=== PATIENT | female | born 1930 | race Caucasian/White ===

== ENCOUNTER 2016-12-08 13:07 | Inpatient (IN) | payer MEDICARE, OTHER ==
[2016-12-08] VITALS (8 sets, daily range): BP systolic 123–187; BP diastolic 57–74; PULSE 86–103; RESP 16–20; TEMP 96.5–97.8; O2SAT 92–97
[~2016-12-08] VITALS: Ht 177.8 cm; Wt 64.0 kg
[~2016-12-08 13:07] MED LIST: CALTTAB5 PO; COMBAER INH; DIGO.125 PO; FOLI1TAB PO; KCL20 PO; MEPR400T4 PO; OMEP20CA5 PO; RALO1TAB13 PO; SIMV20 PO; VERA240CR PO
--- NOTE | 2016-12-08 13:43 | PD ---
HPI Chief Complaint: back pain Time Seen by Provider: 13:17 Travel History International Travel<30 days: No Contact w/Intl Traveler<30days: No Traveled to known affect area: No History of Present Illness HPI Patient is brought in by paramedics. She has mild dementia and lives alone. Apparently her family is in [place]. She had a fall a few days ago and developed back pain. For the last few days she's been lying in bed. Symptoms severity is moderate. No alleviating factors. Patient upfront and adamantly refuses all consideration of placement. She does not want to lose her independence and will refuse any attempt at placement. Duration is 3 days PFSH Past Medical History Arthritis: Yes (KNEES) Asthma: No Atrial Fibrillation: Yes Autoimmune Disease: No Blood Disorders: Yes (CHRONIC ANEMIA) Anxiety: No Depression: No Heart Rhythm Problems: Yes (ATRIAL FIBRILLATION) Cancer: No Cardiovascular Problems: Yes High Cholesterol: Yes Chemotherapy: No Chest Pain: No Congestive Heart Failure: No COPD: No Diabetes: No Diminished Hearing: No Endocrine: No Gastrointestinal Disorders: Yes Glaucoma: No Genitourinary: No Headaches: No Hepatitis: No Hiatal Hernia: No Hypertension: Yes Immune Disorder: No Musculoskeletal: Yes Neurologic: No Psychiatric: No Reproductive: No Respiratory: Yes (HAD FLUID REMOVED FROM LUNGS MULTIPLE TIMES) Migraines: No Myocardial Infarction: No Radiation Therapy: No Renal Failure: No Seizures: No Sickle Cell Disease: No Sleep Apnea: No Thyroid Disease: No Ulcer: Yes (DUODENAL) Menopausal: Yes Past Surgical History Abdominal Surgery: No Appendectomy: Yes Cardiac Surgery: No Cholecystectomy: No Genitourinary Surgery: No Gynecologic Surgery: Yes (OVARY REMOVED 1951) Neurologic Surgery: Yes (BACK SURGERY) Oral Surgery: Yes Pacemaker: No Thoracic Surgery: No Tonsillectomy: Yes (1967) Other Surgery: Yes Social History Alcohol Use: Yes (OCCASIONAL WINE) Tobacco Use: No (QUIT 5 YEARS AGO) Substance Use: No Allergies-Medications (Allergen,Severity, Reaction): Coded Allergies: No Known Allergies (Verified , 12/08/16) Reported Meds & Prescriptions Reported Meds & Active Scripts Active Reported Evista (Raloxifene HCl) 60 Mg Tab 60 Mg PO DAILY Alprazolam 0.25 Mg Tab 0.25 Mg PO BID PRN Lortab (Hydrocodone-Acetaminophen) 5-325 Mg Tab 1 Tab PO Q6H PRN Verapamil SR (Verapamil HCl) 240 Mg Tab 240 Mg PO DAILY Simvastatin 20 Mg Tab 20 Mg PO DAILY Folic Acid 5 Mg Cap 1 Mg PO DAILY Omeprazole 10 Mg Cap 10 Mg PO DAILY Combivent Respimat Inh (Ipratropium-Albuterol Inh) 20-100 Assisted/Act Aero 2 Puff INH DIRECTED PRN Digoxin 0.125 Mg Tab 0.125 Mg PO EVERY OTHER DAY Calcium 600 (Calcium Carbonate) 1,500 Mg Tab 600 Mg PO DAILY Review of Systems General / Constitutional: No: Fever Eyes: No: Visual changes HENT: No: Headaches Cardiovascular: No: Chest Pain or Discomfort Respiratory: No: Shortness of Breath Gastrointestinal: No: Abdominal Pain Genitourinary: No: Dysuria Musculoskeletal: Positive: Pain Skin: No Rash Neurologic: No: Weakness Psychiatric: No: Depression Endocrine: No: Polydipsia Hematologic/Lymphatic: No: Easy Bruising Physical Exam Narrative GENERAL: Thin elderly well-developed patient in no apparent distress. SKIN: Warm and dry. HEAD: Atraumatic. Normocephalic. EYES: Pupils equal and round. No scleral icterus. No injection or drainage. ENT: No nasal bleeding or discharge. Mucous membranes pink and moist. NECK: Trachea midline. No JVD. CARDIOVASCULAR: Regular rate and rhythm. No murmur appreciated. RESPIRATORY: No accessory muscle use. Clear to auscultation. Breath sounds equal bilaterally. GASTROINTESTINAL: Abdomen soft, non-tender, nondistended. Hepatic and splenic margins not palpable. MUSCULOSKELETAL: No obvious deformities. No clubbing. No cyanosis. No edema. Has some bruising to the buttocks that looks old. No midline tenderness of the spine NEUROLOGICAL: Awake and alert. No obvious cranial nerve deficits. Motor grossly within normal limits. Normal speech. PSYCHIATRIC: Appropriate mood and affect; insight and judgment doesn't seem unreasonable. She may have minor dementia but is alert to person and place and situation. Data Data Last Documented VS Vital Signs Date Time Temp Pulse Resp B/P Pulse Ox O2 Delivery O2 Flow Rate FiO2 12/08/16 15:30 90 16 155/60 97 Room Air 12/08/16 13:20 97.5 Orders Pelvis, Ap Only (Routine) (12/08/16 ) Spine, Lumbar - Ltd (Ap & Lat) (12/08/16 ) Iv Access Insert/Monitor (12/08/16 13:30) Complete Blood Count With Diff (12/08/16 13:30) Basic Metabolic Panel (Bmp) (12/08/16 13:30) Creatine Kinase (Cpk) (12/08/16 13:30) Urinalysis - C+S If Indicated (12/08/16 13:30) Protein Corrected Calcium(Pcc) (12/08/16 14:05) Sodium Chlor 0.9% 1000 Ml Inj (Ns 1000 M (12/08/16 15:45) Morphine Inj (Morphine Inj) (12/08/16 15:45) Ondansetron Inj (Zofran Inj) (12/08/16 15:45) Ct Lumb Spine W/O Contrast (12/08/16 ) Admit Order (Ed Use Only) (12/08/16 15:51) Labs Laboratory Tests Test 12/08/16 12/08/16 14:05 14:40 White Blood Count 8.4 TH/MM3 Red Blood Count 3.36 MIL/MM3 Hemoglobin 10.6 GM/DL Hematocrit 32.3 % Mean Corpuscular Volume 96.1 FL Mean Corpuscular Hemoglobin 31.6 PG Mean Corpuscular Hemoglobin 32.9 % Concent Red Cell Distribution Width 12.2 % Platelet Count 214 TH/MM3 Mean Platelet Volume 11.3 FL Neutrophils (%) (Auto) 83.0 % Lymphocytes (%) (Auto) 8.2 % Monocytes (%) (Auto) 5.1 % Eosinophils (%) (Auto) 0.7 % Basophils (%) (Auto) 3.0 % Neutrophils # (Auto) 6.9 TH/MM3 Lymphocytes # (Auto) 0.7 TH/MM3 Monocytes # (Auto) 0.4 TH/MM3 Eosinophils # (Auto) 0.1 TH/MM3 Basophils # (Auto) 0.3 TH/MM3 CBC Comment DIFF FINAL Differential Comment Sodium Level 140 MEQ/L Potassium Level 3.4 MEQ/L Chloride Level 105 MEQ/L Carbon Dioxide Level 24.0 MEQ/L Anion Gap 11 MEQ/L Blood Urea Nitrogen 22 MG/DL Creatinine 0.57 MG/DL Estimat Glomerular Filtration 101 ML/MIN Rate Random Glucose 65 MG/DL Calcium Level 6.6 MG/DL Protein Corrected Calcium 7.3 MG/DL Total Creatine Kinase 51 U/L Total Protein 5.6 GM/DL Urine Collection Type CLEAN CATCH Urine Color YELLOW Urine Turbidity CLEAR Urine pH 5.5 Urine Specific [place] 1.030 Urine Protein 30 mg/dL Urine Glucose (UA) NEG mg/dL Urine Ketones 80 OR GREATER mg/dL Urine Occult Blood NEG Urine Nitrite NEG Urine Bilirubin NEG Urine Leukocyte Esterase NEG Urine WBC 3-5 /hpf Urine Squamous Epithelial 0-5 /hpf Cells Microscopic Urinalysis Comment CULT NOT INDICATED Urine Collection Time 14:40 [facility] Medical Decision Making Medical Screen Exam Complete: Yes Emergency Medical Condition: Yes Medical Record Reviewed: Yes Differential Diagnosis Pelvic fracture, lumbar fracture, failure to thrive Narrative Course I have reviewed the patient's electronic medical record. 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 IV placed CBC shows minor anemia Metabolic profile shows minor azotemia CK is normal Urinalysis shows ketones but no infection I reviewed her pelvis x-ray shows no fracture I reviewed her lumbar spine x-rays which shows indeterminate age compression fracture of L1 and T12 Patient is tender in the midline and this pain is new since the fall suggesting an acute compression fracture as the cause She has other bruises around the buttock's and sacrum but no tenderness in these regions I gave her some IV fluid and a dose of morphine but she still cannot ambulate or get up due to pain in the back This patient will require rehabilitation placement I reviewed with hospitalist Diagnosis Primary Impression: Compression fracture of body of thoracic vertebra Additional Impression: Unable to ambulate Admitting Information Admitting Physician Requests: Observation Mack Weems MD Dec 08, 2016 13:43
[2016-12-08 14:17] LABS: AUTOMATED NEUTROPHIL # 6.9 TH/MM3 (1.8-7.7); BASOPHIL # 0.3 TH/MM3 (0-0.2); EOSINOPHIL # 0.1 TH/MM3 (0-0.4); EOSINOPHIL % 0.7 % (0.0-4.0); HEMATOCRIT 32.3 % (35.0-46.0); LYMPH % 8.2 % (9.0-44.0); LYMPHOCYTE # 0.7 TH/MM3 (1.0-4.8); MEAN CELL VOLUME 96.1 FL (80.0-100.0); MEAN CORPUSCULAR HEMOGLOBIN 31.6 PG (27.0-34.0); MEAN CORPUSCULAR HGB CONC 32.9 % (32.0-36.0); MONO % 5.1 % (0.0-8.0); PLATELET COUNT 214 TH/MM3 (150-450); RED BLOOD COUNT 3.36 MIL/MM3 (4.00-5.30); RED CELL DISTRIBUTION WIDTH 12.2 % (11.6-17.2); WHITE BLOOD COUNT 8.4 TH/MM3 (4.0-11.0)
[2016-12-08 14:19] LABS: HEMO FLAGS DIFF FINAL
[2016-12-08 14:26] LABS: POTASSIUM 3.4 MEQ/L (3.5-5.1)
--- NOTE | 2016-12-08 14:38 | RADHPO ---
EXAM DATE/TIME: 12/08/2016 14:09 [facility] COMPARISON: No previous studies available for comparison. INDICATIONS : Pelvic pain with no known injury MEDICAL HISTORY : None. SURGICAL HISTORY : None. ENCOUNTER: Initial ACUITY: 2 days PAIN SCORE: 4/10 LOCATION: Bilateral hips FINDINGS: 2 AP views of the pelvis demonstrate no fracture or dislocation. The bones are undermineralized. No s ignificant degenerative changes present at the hip joints. Sacrum demonstrates no appreciable abnorma lity. No soft tissue abnormality or radiopaque foreign body is seen. There are degenerative changes i n the inferior lumbar spine. CONCLUSION: No acute pelvis abnormality is identified. The bones are undermineralized. Dalton Raman MD on December 08, 2016 at 14:35 Board Certified Radiologist. This report was verified electronically.
[2016-12-08 14:52] LABS: BLOOD, URINE NEG (NEG); GLUCOSE,URINE NEG (NEG); NITRITE,URINE NEG (NEG)
[2016-12-08 14:54] LABS: KETONE, URINE 80 OR GREATER mg/dL (NEG); METHOD OF COLLECTION CLEAN CATCH; URINE COLOR YELLOW (YELLW/STRAW)
[2016-12-08 14:55] LABS: PH, URINE 5.5 (5.0-8.5)
[2016-12-08 14:57] LABS: COMMENT (UR) CULT NOT INDICATED; CULTURE IF INDICATED CULT NOT INDICATED; SQUAMOUS EPITHELIAL CELL URINE 0-5 /hpf (0-5)
--- NOTE | 2016-12-08 14:59 | RADHPO ---
EXAM DATE/TIME: 12/08/2016 14:19 [facility] COMPARISON: No previous studies available for comparison. INDICATIONS : Low back pain with no known injury MEDICAL HISTORY : None. SURGICAL HISTORY : None. ENCOUNTER: Initial ACUITY: 2 days PAIN SCORE: 5/10 LOCATION: Lumbar spine FINDINGS: 3 views of the lumbar spine demonstrate 5 [id number] lumbar vertebral bodies. There is height lo ss at the T12 vertebral body with approximately 50% height loss. There is also height loss and superi or endplate of L1 with approximately 30% height loss. No anterolisthesis or retrolisthesis is present . There are endplate osteophytes anteriorly at all levels. The bones appear undermineralized. Mild de creased disc height is present L5-S1. There is facet hypertrophy at L4-L5. Pelvic bones and soft tissues demonstrate no acute finding. There is atherosclerotic disease of the a juarez. CONCLUSION: 1. Undermineralized bones with compression fractures of uncertain chronicity involving the T12 verteb ral body and superior endplate of L1. 2. Otherwise, there are degenerative changes within the lumbar spine, as above. Dalton Raman MD on December 08, 2016 at 14:55 Board Certified Radiologist. This report was verified electronically.
[2016-12-08] MEDS ORDERED: DIGO0.12 PO (15:06)
[2016-12-08] MEDS ORDERED: SIMV20TA PO (15:06)
[2016-12-08] MEDS ORDERED: VERA120T3 PO (15:06)
[2016-12-08] MEDS ORDERED: IPRAAER INH (15:06)
[2016-12-08] MEDS ORDERED: OMEP10CA PO (15:06)
[2016-12-08] MEDS ORDERED: CALCTAB94 PO (15:06)
[2016-12-08] MEDS ORDERED: FOLI5CAP PO (15:06)
[2016-12-08] MEDS ORDERED: VERA240T16 PO (15:07)
[2016-12-08] MEDS ORDERED: ALPR0.25 PO (15:09)
[2016-12-08] MEDS ORDERED: HYDR-3533 PO (15:09)
[2016-12-08] MEDS ORDERED: EVIS60TA PO (15:10)
[2016-12-08 15:23] LABS: CALCIUM-PROTEIN CORRECTED 7.3 MG/DL (8.5-10.1)
[2016-12-08] MEDS ORDERED: ONDANSETRON HCL 4 MG/2 ML VIAL IVP ONE (15:45)
[2016-12-08] MEDS ORDERED: MORPHINE SULFATE 4 MG/ML INJ IV PUSH ONE (15:45)
[2016-12-08] MEDS ORDERED: SODIUM CHLOR 0.9% 1000 ML INJ 1,000 ML IV ONE (15:45)
--- NOTE | 2016-12-08 16:25 | HHI.HP ---
HPI Service [facility] Primary Care Physician Florin Hidalgo MD Admission Diagnosis T12, L1 compression fracture Diagnoses: Travel History International Travel<30 Days: No Contact w/Intl Traveler <30 Da: No Traveled to Known Affected Are: No History of Present Illness This is a pleasant 86 show female with past medical history of mild Alzheimer's dementia, chronic iron deficiency anemia, recurrent left pleural effusion, atrial fibrillation who presented to the ER today with a three-day history of severe lower back pain which is severe without radiation or paresthesias. The pain started 3 days prior. The patient states she cannot remember if she fell or not. Her friend and neighbor is at bedside and states that the family suspects she may have fallen. The patient has no family in the area but does have a niece who lives out of state. The patient states she is unable to ambulate due to the pain. No bowel or bladder dysfunction. Movement makes the pain worse. Rest makes the pain better. Review of Systems Except as stated in HPI: all other systems reviewed are Neg Past Family Social History Past Medical History Chronic iron deficiency followed by Dr. Murphy History of left pleural effusion, recurrent followed by Dr. Barry History of GI bleed due to AVM Mild Alzheimer's dementia Atrial fibrillation followed by Dr. Montaño Hypertension Probable COPD -quit smoking 5 years ago Hyperlipidemia Osteoarthritis Osteoporosis B-12 deficiency with negative intrinsic factor antibodies Past Surgical History Appendectomy, back surgery, oophorectomy, adenoidectomy Reported Medications Allergies Coded Allergies Type Severity Reaction Last Updated Verified No Known Allergies 12/08/16 Yes Active Scripts Medications Dose Route/Sig Days Date Category Evista (Raloxifene HCl) 60 Mg Tab 60 Mg PO DAILY 12/08/16 Reported Alprazolam 0.25 Mg Tab 0.25 Mg PO BID PRN 12/08/16 Reported Lortab (Hydrocodone-Acetaminophen) 5-325 Mg Tab 1 Tab PO Q6H PRN 12/08/16 Reported Verapamil SR (Verapamil HCl) 240 Mg Tab 240 Mg PO DAILY 12/08/16 Reported Simvastatin 20 Mg Tab 20 Mg PO DAILY 12/08/16 Reported Folic Acid 5 Mg Cap 1 Mg PO DAILY 12/08/16 Reported Omeprazole 10 Mg Cap 10 Mg PO DAILY 12/08/16 Reported Combivent Respimat Inh (Ipratropium-Albuterol Inh) 20-100 Chcf/Act Aero 2 Puff INH DIRECTED PRN 12/08/16 Reported Digoxin 0.125 Mg Tab 0.125 Mg PO EVERY OTHER DAY 12/08/16 Reported Calcium 600 (Calcium Carbonate) 1,500 Mg Tab 600 Mg PO DAILY 12/08/16 Reported Allergies: Coded Allergies: No Known Allergies (Verified , 12/08/16) Family History Reviewed and noncontributory Social History She smoked for many years, quit 5 years ago. No alcohol use. Physical Exam Vital Signs Vital Signs Date Time Temp Pulse Resp B/P Pulse Ox O2 Delivery O2 Flow Rate FiO2 12/08/16 16:00 86 16 164/74 12/08/16 15:30 90 16 155/60 97 Room Air 12/08/16 14:30 86 16 157/68 97 Room Air 12/08/16 13:25 100 16 12/08/16 13:20 97.5 99 16 187/74 96 Physical Exam GENERAL: Well-nourished, well-developed very pleasant tall and lean elderly female patient. SKIN: Warm and dry. HEAD: Normocephalic. EYES: No scleral icterus. No injection or drainage. NECK: Supple, trachea midline. No JVD or lymphadenopathy. CARDIOVASCULAR: Regular rate and rhythm without murmurs, gallops, or rubs. RESPIRATORY: Breath sounds equal and clear to auscultation anteriorly and laterally bilaterally. No accessory muscle use. GASTROINTESTINAL: Abdomen soft, non-tender, nondistended. EXTREMITIES: No cyanosis, or edema. NEUROLOGICAL: Awake, alert, and oriented x 3 but some difficulty remembering recent events otherwise seems cognitively sharp. Non-focal. Laboratory Laboratory Tests Test 12/08/16 12/08/16 14:05 14:40 White Blood Count 8.4 Red Blood Count 3.36 Hemoglobin 10.6 Hematocrit 32.3 Mean Corpuscular Volume 96.1 Mean Corpuscular Hemoglobin 31.6 Mean Corpuscular Hemoglobin 32.9 Concent Red Cell Distribution Width 12.2 Platelet Count 214 Mean Platelet Volume 11.3 Neutrophils (%) (Auto) 83.0 Lymphocytes (%) (Auto) 8.2 Monocytes (%) (Auto) 5.1 Eosinophils (%) (Auto) 0.7 Basophils (%) (Auto) 3.0 Neutrophils # (Auto) 6.9 Lymphocytes # (Auto) 0.7 Monocytes # (Auto) 0.4 Eosinophils # (Auto) 0.1 Basophils # (Auto) 0.3 CBC Comment DIFF FINAL Differential Comment Sodium Level 140 Potassium Level 3.4 Chloride Level 105 Carbon Dioxide Level 24.0 Anion Gap 11 Blood Urea Nitrogen 22 Creatinine 0.57 Estimat Glomerular Filtration 101 Rate Random Glucose 65 Calcium Level 6.6 Protein Corrected Calcium 7.3 Total Creatine Kinase 51 Total Protein 5.6 Urine Collection Type CLEAN CATCH Urine Color YELLOW Urine Turbidity CLEAR Urine pH 5.5 Urine Specific [place] 1.030 Urine Protein 30 Urine Glucose (UA) NEG Urine Ketones 80 OR GREATER Urine Occult Blood NEG Urine Nitrite NEG Urine Bilirubin NEG Urine Leukocyte Esterase NEG Urine WBC 3-5 Urine Squamous Epithelial 0-5 Cells Microscopic Urinalysis Comment CULT NOT INDICATED Urine Collection Time 14:40 Result Diagram: 12/08/16 1405 12/08/16 1405 Imaging Last Impressions Pelvis X-Ray 12/08/16 0000 Signed Impressions: Service Date/Time: Thursday, December 08, 2016 14:09 - CONCLUSION: No acute pelvis abnormality is identified. The bones are undermineralized. Dalton Raman MD Lumbar Spine X-Ray 12/08/16 0000 Signed Impressions: Service Date/Time: Thursday, December 08, 2016 14:19 - CONCLUSION: 1. Undermineralized bones with compression fractures of uncertain chronicity involving the T12 vertebral body and superior endplate of L1. 2. Otherwise, there are degenerative changes within the lumbar spine, as above. Dalton Raman MD Assessment and Plan Problem List: (1) Compression fracture of body of thoracic vertebra ICD Code: M48.54XA Status: Acute (2) Unable to ambulate ICD Code: R26.2 Status: Acute (3) Intractable back pain ICD Code: M54.9 Status: Acute Assessment and Plan -T12 and L1 compression fractures - suspect acute due to acute onset of the pain and possible history of recent fall. Will admit for pain control, physical therapy. Obtain CT scan lumbar and thoracic spine. If she fails conservative therapy may evaluate for kyphoplasty. I suspect she has osteoporosis and will start vitamin D in addition to her calcium supplementation. -Hypocalcemia. Will replete. Check magnesium level. -Hypokalemia. Replete and check mag level. -Chronic iron deficiency followed by Dr. Murphy - hemoglobin stable around baseline of 10-11. -History of left pleural effusion, recurrent followed by Dr. Ocasio - will obtain a chest x-ray. -History of GI bleed due to AVM - hemoglobin stable. -Mild Alzheimer's dementia - appears quite cognitively sharp, caution with opioids. -Atrial fibrillation followed by Dr. Montaño - continue her calcium channel lynnette, obtain an EKG. Apparently she's not on blood thinner due to her history of bleeding. -Hypertension - continue home medications. -Probable COPD -quit smoking 5 years ago - continue bronchodilators as needed. -B-12 deficiency with negative intrinsic factor antibodies - she had a low B-12 level in August. I will repeat check and give her B-12 injection if it is still low. -DVT prophylaxis with Lovenox 40 mg subcutaneous daily. Neena Doherty MD Dec 08, 2016 16:25
[2016-12-08] MEDS ORDERED: ACETAMINOPHEN 325 MG TAB PO PRN (16:30)
[2016-12-08] MEDS ORDERED: MORPHINE SULFATE 4 MG/ML INJ IV PRN (16:30)
[2016-12-08] MEDS ORDERED: NALOXONE HCL 0.4 MG/ML AMP IV PRN (16:30)
[2016-12-08] MEDS ORDERED: SODIUM CHLORIDE 0.9% FLUSH 5 ML FLUSH FLUSH PRN (16:30)
[2016-12-08] MEDS ORDERED: MAGNESIUM HYDROXIDE SUSP 30 ML CUP PO PRN (16:30)
[2016-12-08] MEDS ORDERED: ONDANSETRON HCL 4 MG/2 ML VIAL IVP PRN (16:30)
[2016-12-08] MEDS ORDERED: ENOXAPARIN SODIUM 40 MG/0.4 ML SYRINGE SQ SCH (17:30)
[2016-12-08] MEDS ORDERED: POTASSIUM CHLORIDE 10 MEQ CONTROLLED RELEASE TAB PO ONE (17:30)
--- NOTE | 2016-12-08 17:38 | RADHPO ---
EXAM DATE/TIME: 12/08/2016 16:39 [facility] COMPARISON: CT THORAX W/O CONTRAST, October 13, 2011, 14:25. INDICATIONS : Back pain. MEDICAL HISTORY : None. SURGICAL HISTORY : None. ENCOUNTER: Initial ACUITY: 4 - 6 days PAIN SCORE: 10/10 LOCATION: Bilateral chest FINDINGS: Portable AP view of the chest demonstrates a normal-sized cardiac silhouette. There is a left basilar pleural-parenchymal opacity. There is a retrocardiac opacity that partially contains air. No pneumot horax is visualized. Bones demonstrate no acute finding. CONCLUSION: 1. Small left pleural effusion with associative volume loss and/or consolidation. 2. Moderate to large hiatal hernia is suspected. Dalton Raman MD on December 08, 2016 at 17:36 Board Certified Radiologist. This report was verified electronically.
--- NOTE | 2016-12-08 17:55 | RADHPO ---
EXAM DATE/TIME: 12/08/2016 17:08 [facility] COMPARISON: CHEST SINGLE AP, December 08, 2016, 16:39. INDICATIONS : Lower back pain, no trauma. RADIATION DOSE: 22.62 CTDIvol (mGy) MEDICAL HISTORY : Cardiovascular disease. Chronic obstructive pulmonary disease. SURGICAL HISTORY : Appendectomy. ENCOUNTER: Initial ACUITY: 1 day PAIN SCALE: 5/10 LOCATION: Abdomen TECHNIQUE: Volumetric scanning of the lumbar spine was performed. Multiplanar reconstructions in the sagittal, coronal and oblique axial planes were performed. Using automated exposure control and adjustment of the mA and/or kV according to patient size, radiation dose was kept as low as reasonably achievable t o obtain optimal diagnostic quality images. FINDINGS: VERTEBRAE: There is a compression fracture of the T12 vertebral body with approximately 50% height loss. Fractur e extends through the upper posterior cortex with approximately 4 mm of retropulsion of the posterior vertebral body into the spinal canal. There is surrounding hemorrhage in the paraspinous soft tissue s along with soft tissue air. There is height loss of the superior endplate of L1. This is of uncerta in chronicity. No definite clear acute fracture line is seen. There is approximately 30% height loss centrally. Remaining vertebral body heights are maintained. ALIGNMENT: No anterolisthesis or retrolisthesis. There is mild leftward convex curvature. At the T11-T12 level there is effacement of the lateral recess is and possible mild narrowing of the canal secondary to the retropulsed fracture fragment. No neural foraminal narrowing is appreciated. T12-L1: There is mild facet hypertrophy. No canal stenosis or neural foraminal stenosis. L1-L2: There is diffuse posterior osteophytic ridging with mild facet hypertrophy. There is no canal stenosi s or significant neural foraminal narrowing. L2-L3: There is a diffuse disc bulge with facet and ligamentum flavum hypertrophy. No canal stenosis or neur al foraminal narrowing is visualized. L3-L4: There is a diffuse disc bulge with facet and ligamentum flavum hypertrophy. Recesses are effaced and there is mild narrowing of the spinal canal. No neural foraminal stenosis is appreciated. L4-L5: There is a diffuse disc bulge with facet hypertrophy. No canal stenosis or neural foraminal stenosis is visualized. L5-S1: There is a diffuse disc bulge with mild facet hypertrophy. No canal stenosis is present. There is mod erate neural foraminal narrowing bilaterally. There is severe atherosclerotic disease of the aorta. A hiatal hernia is present and there is a parti ally visualized left pleural effusion with pleural thickening. CONCLUSION: 1. Acute compression fracture of the T12 vertebral body with approximately 50% loss of body height. T he posterior cortex is slightly retropulsed into the spinal canal by 4 mm causing mild spinal canal s tenosis. 2. The compression deformity of the superior plate of L1 is of uncertain chronicity. 3. [id number] degenerative changes throughout the lumbar spine, as above with moderate neural f oraminal narrowing bilaterally at L5-S1. 4. There is paraspinal hematoma adjacent to the T12 fracture. 5. There is a partially visualized left pleural effusion with pleural thickening. Dalton Raman MD on December 08, 2016 at 17:44 Board Certified Radiologist. This report was verified electronically.
[2016-12-08] MEDS: CALCIUM CARBONATE 1.25 GM (CA 500 MG) TAB PO SCH (18:45)
[2016-12-08] MEDS: ACETAMINOPHEN/HYDROcodone 325 MG/5 MG TAB PO PRN (18:45)
[2016-12-08] MEDS: DOCUSATE SODIUM 100 MG CAP PO SCH (22:03)
[2016-12-08] MEDS: SODIUM CHLORIDE 0.9% FLUSH 5 ML FLUSH FLUSH SCH (22:03)
[2016-12-09] VITALS (7 sets, daily range): BP systolic 121–138; BP diastolic 62–73; PULSE 82–132; RESP 18–20; TEMP 97.3–98; O2SAT 92–96
[2016-12-09 06:59] LABS: POTASSIUM 4.1 MEQ/L (3.5-5.1)
[2016-12-09 07:06] LABS: BICARBONATE 26.4 MEQ/L (21.0-32.0)
[2016-12-09] MEDS: RALOXIFENE HCL 60 MG TAB PO SCH (08:40)
[2016-12-09] MEDS: FOLIC ACID 1 MG TAB PO SCH (08:41)
[2016-12-09] MEDS: DOCUSATE SODIUM 100 MG CAP PO SCH (08:41)
[2016-12-09] MEDS: CALCIUM CARBONATE 1.25 GM (CA 500 MG) TAB PO SCH (08:41)
[2016-12-09] MEDS: VERAPAMIL HCL 240 MG SUSTAINED RELEASE TAB PO SCH (08:41)
[2016-12-09] MEDS: PRAVASTATIN SOD 40 MG TAB PO SCH (08:41)
[2016-12-09] MEDS: SODIUM CHLORIDE 0.9% FLUSH 5 ML FLUSH FLUSH SCH ×2 (08:42→21:11)
[2016-12-09] MEDS: PANTOPRAZOLE SOD 20 MG DELAYED RELEASE TAB PO SCH (08:47)
[2016-12-09] MEDS: ACETAMINOPHEN/HYDROcodone 325 MG/5 MG TAB PO PRN (08:47)
[2016-12-09] MEDS ORDERED: CALCIUM CARBONATE 600 MG PO SCH (09:00)
[2016-12-09] MEDS ORDERED: DOCUSATE SODIUM 100 MG CAP PO PRN (11:15)
--- NOTE | 2016-12-09 11:18 | HHI.PR ---
Subjective Remarks Patient declines stool softener, despite explanation of risk of constipation with immobility and pain medications. Patient states she does not have back pain unless she is moved. CT scan results were reviewed with her. Objective Vitals Vital Signs Date Time Temp Pulse Resp B/P Pulse Ox O2 Delivery O2 Flow Rate FiO2 12/09/16 08:00 97.3 132 20 135/73 92 12/09/16 00:00 97.7 113 20 121/65 93 12/08/16 20:00 97.8 103 20 133/58 92 12/08/16 17:50 96.5 92 20 135/57 95 12/08/16 17:34 96 16 134/74 97 12/08/16 16:45 16 12/08/16 16:18 91 16 123/66 97 Room Air 12/08/16 16:00 86 16 164/74 12/08/16 15:30 90 16 155/60 97 Room Air 12/08/16 15:30 89 16 12/08/16 14:30 86 16 157/68 97 Room Air 12/08/16 13:25 100 16 12/08/16 13:20 97.5 99 16 187/74 96 I/O 12/08/16 12/08/16 12/08/16 12/09/16 12/09/16 12/09/16 07:00 15:00 23:00 07:00 15:00 23:00 Intake Total 1060 ml 60 ml Output Total 150 ml Balance 910 ml 60 ml Intake Oral 60 ml 60 ml IV Total 1000 ml Output Urine Total 150 ml # Voids 2 0 # Bowel Movements 0 0 Result Diagram: 12/08/16 1405 12/09/16 0600 Objective Remarks GENERAL: Well-nourished, well-developed elderly female patient. SKIN: Warm and dry. HEAD: Normocephalic. EYES: No scleral icterus. No injection or drainage. NECK: Supple, trachea midline. No JVD or lymphadenopathy. CARDIOVASCULAR: Regular rate and rhythm without murmurs, gallops, or rubs. RESPIRATORY: Breath sounds equal bilaterally. No accessory muscle use. GASTROINTESTINAL: Abdomen soft, non-tender, nondistended. EXTREMITIES: No cyanosis, or edema. NEUROLOGICAL: Awake, alert, and oriented x 3. Pleasant, cognitively sharp. Non -focal. A/P Problem List: (1) Compression fracture of T12 vertebra ICD Code: M48.54XA Status: Acute (2) Compression fracture of body of thoracic vertebra ICD Code: M48.54XA Status: Acute (3) Unable to ambulate ICD Code: R26.2 Status: Acute (4) Intractable back pain ICD Code: M54.9 Status: Acute (5) Paraspinal hematoma ICD Code: T14.8 Status: Acute Assessment and Plan -Acute T12 vertebral body compression fracture with mild retropulsion on 2 spinal canal as well as associated paraspinal hemorrhage , L1 compression fracture of uncertain chronicity- suspect acute due to acute onset of the pain and possible history of recent fall. I discussed the CT scan with neurosurgery Dr. Wilkins who recommended the fracture be cemented and patient transferred to the [facility] hospital. I discussed this with the patient. The patient at first declines to be transferred to the [facility], then states that she will only agree to be transferred after several days, then she only agrees to be transferred tomorrow, and refuses to be transferred today. She just got comfortable here and states it takes her a while to adjust to new plans. I explained that it is retropulsed onto the spinal canal and that her pain will likely be relieved with the procedure and I strongly recommend the patient agree to transfer today. Patient however continued to decline and will only agree to be transferred tomorrow. I updated Dr. Wilkins regarding that the patient will likely not agreed to be transferred until tomorrow. In the meantime we'll continue pain control, also ordered a quick draw brace. Continue vitamin D in addition to her calcium supplementation. Patient adamantly declines stool softener so will leave a regimen as when necessary. -Hypocalcemia. Improved. Continue calcium supplementation. -Hypokalemia. Repleted. Mag level within normal limits. -Chronic iron deficiency followed by Dr. Murphy - hemoglobin stable around baseline of 10-11. -History of left pleural effusion, recurrent followed by Dr. Ocasio - chest x- ray on admission shows small left pleural effusion. -History of GI bleed due to AVM - hemoglobin stable. -Mild Alzheimer's dementia - appears quite cognitively sharp, caution with opioids. -Persistent Atrial fibrillation followed by Dr. Montaño - continue her calcium channel lynnette. On telemetry with rate of 83. Apparently she's not on blood thinner due to her history of bleeding. -Hypertension - continue home medications. -Probable COPD -quit smoking 5 years ago - continue bronchodilators as needed. -B-12 deficiency with negative intrinsic factor antibodies - she had a low B-12 level in August. B-12 level here is low normal. -DVT prophylaxis -SCDs. DC Lovenox due to the paraspinal hematoma. Neena Doherty MD Dec 09, 2016 11:18
--- NOTE | 2016-12-09 13:10 | EKG ---
Date Performed: 12/08/2016 Time Performed: 16:40:56 PTAGE: 86 years EKG: Atrial fibrillation Possible anterior infarct - age undetermined Inferior/lateral ST-T iyer ges are nonspecific Abnormal ECG PREVIOUS TRACING : 05/15/2012 10.59 Compared to previous tracing, atrial fibrillation has repla steph Sinus rhythm . DOCTOR: Cam Patten Interpretating Date/Time 12/09/2016 13:09:11
--- NOTE | 2016-12-09 16:07 | EKG ---
Date Performed: 12/09/2016 Time Performed: 10:20:06 PTAGE: 86 years EKG: Possible ectopic atrial rhythm, cannot rule out atrial fibrillation. Possible anterior infa rct - age undetermined Inferior/lateral ST-T changes are nonspecific Low QRS voltages in limb leads A bnormal ECG PREVIOUS TRACING : 12/08/2016 16.40 Compared to previous tracing, possible ectopic atrial rhyth m has replaced atrial fibrillation. DOCTOR: Cam Patten Interpretating Date/Time 12/09/2016 16:07:01
[2016-12-10] VITALS (8 sets, daily range): BP systolic 138–168; BP diastolic 51–78; PULSE 67–85; RESP 16–20; TEMP 96.2–99.1; O2SAT 92–98
[2016-12-10] MEDS: ACETAMINOPHEN/HYDROcodone 325 MG/5 MG TAB PO PRN ×2 (00:20→08:50)
[2016-12-10] MEDS: CALCIUM CARBONATE 1.25 GM (CA 500 MG) TAB PO SCH (08:45)
[2016-12-10] MEDS: PANTOPRAZOLE SOD 20 MG DELAYED RELEASE TAB PO SCH (08:45)
[2016-12-10] MEDS: RALOXIFENE HCL 60 MG TAB PO SCH (08:46)
[2016-12-10] MEDS: VERAPAMIL HCL 240 MG SUSTAINED RELEASE TAB PO SCH (08:46)
[2016-12-10] MEDS: FOLIC ACID 1 MG TAB PO SCH (08:46)
[2016-12-10] MEDS: DIGOXIN 0.125 MG TAB PO SCH (08:46)
[2016-12-10] MEDS: PRAVASTATIN SOD 40 MG TAB PO SCH (08:46)
[2016-12-10] MEDS: SODIUM CHLORIDE 0.9% FLUSH 5 ML FLUSH FLUSH SCH ×2 (08:47→19:30)
--- NOTE | 2016-12-10 12:10 | HHI.PR ---
Subjective Remarks Late entry. Patient was seen at 9:30 AM. The patient is quite irritated because she is waiting to be transferred to the main hospital and is waiting on a bed. Objective Vitals Vital Signs Date Time Temp Pulse Resp B/P Pulse Ox O2 Delivery O2 Flow Rate FiO2 12/10/16 08:02 76 12/10/16 08:00 96.2 78 20 150/66 93 12/10/16 04:00 97.3 81 18 147/78 98 12/10/16 00:00 96.4 85 18 144/60 96 12/10/16 00:00 96.4 85 18 144/60 96 12/09/16 21:00 92 12/09/16 20:00 98.0 95 18 138/64 96 12/09/16 16:00 97.4 82 20 137/64 95 I/O 12/09/16 12/09/16 12/09/16 12/10/16 12/10/16 12/10/16 07:00 15:00 23:00 07:00 15:00 23:00 Intake Total 60 ml 660 ml 240 ml Balance 60 ml 660 ml 240 ml Intake Oral 60 ml 660 ml 240 ml # Voids 0 5 1 2 # Bowel Movements 0 0 Result Diagram: 12/08/16 1405 12/09/16 0600 Objective Remarks GENERAL: Well-nourished, well-developed elderly female patient. SKIN: Warm and dry. HEAD: Normocephalic. EYES: No scleral icterus. No injection or drainage. NECK: Supple, trachea midline. No JVD or lymphadenopathy. CARDIOVASCULAR: Regular rate and rhythm without murmurs, gallops, or rubs. RESPIRATORY: Breath sounds equal bilaterally. No accessory muscle use. GASTROINTESTINAL: Abdomen soft, non-tender, nondistended. EXTREMITIES: No cyanosis, or edema. NEUROLOGICAL: Awake, alert, and oriented x 3. Pleasant, cognitively sharp. Non -focal. A/P Problem List: (1) Compression fracture of T12 vertebra ICD Code: M48.54XA Status: Acute (2) Compression fracture of body of thoracic vertebra ICD Code: M48.54XA Status: Acute (3) Unable to ambulate ICD Code: R26.2 Status: Acute (4) Intractable back pain ICD Code: M54.9 Status: Acute (5) Paraspinal hematoma ICD Code: T14.8 Status: Acute Assessment and Plan -Acute T12 vertebral body compression fracture with mild retropulsion onto the spinal canal as well as associated paraspinal hemorrhage , L1 compression fracture of uncertain chronicity- suspect acute due to acute onset of the pain and possible history of recent fall. I discussed the CT scan yesterday with neurosurgery Dr. Wilkins who recommended the fracture be cemented and patient transferred to the main hospital. I discussed this with the patient. The patient at first declined to be transferred until today, and we are now awaiting a bed. Continue quick draw brace. Continue vitamin D in addition to her calcium supplementation. Patient adamantly declines stool softener so will leave a regimen as when necessary. -Hypocalcemia. Improved. Continue calcium supplementation. -Hypokalemia. Repleted. Mag level within normal limits. -Chronic iron deficiency followed by Dr. Murphy - hemoglobin stable around baseline of 10-11. -History of left pleural effusion, recurrent followed by Dr. Ocasio - chest x- ray on admission shows small left pleural effusion. -History of GI bleed due to AVM - hemoglobin stable. -Mild Alzheimer's dementia - appears quite cognitively sharp, caution with opioids. -Persistent Atrial fibrillation followed by Dr. Montaño - continue her calcium channel lynnette. On telemetry with rate of 83. Apparently she's not on blood thinner due to her history of bleeding. -Hypertension - continue home medications. -Probable COPD -quit smoking 5 years ago - continue bronchodilators as needed. -B-12 deficiency with negative intrinsic factor antibodies - she had a low B-12 level in August. B-12 level here is low normal. -DVT prophylaxis -SCDs. DC Lovenox due to the paraspinal hematoma. Discharge Planning [facility] Neena Doherty MD Dec 10, 2016 12:10
--- NOTE | 2016-12-10 18:53 | PD.CONS ---
History of Present Illness Service Neurosurgery Consult Requested By Medicine service Reason for Consult T12 compression fracture Primary Care Physician Florin Hidalgo MD Diagnoses: History of Present Illness Pleasant 86-year-old female who apparently fell approximately 1 week ago. She lives alone and does not recall what happened to her. A discussion with her niece who lives in [place], indicates that the patient had apparently remained in bed for 3 or 4 days after the incident, unable to ambulate well due to back pain. She eventually presented to the emergency room on 12/08/2016 with complaint of persistent back pain. Initial evaluation revealed probable acute T12 and chronic-appearing L1 compression fractures. She was also noted to have problems with atrial fibrillation, hypertension, probable COPD as well as hypocalcemia, hypokalemia and chronic iron deficiency. She has been placed in a LSO brace. Her physical therapy notes for the past 2 days indicates that the patient has declined to sit up or mobilize out of bed due to the severe pain. She has no complaint of pain which is numbness in the upper or lower extremities or significant problems with bowel or bladder function. She has no complaint of neck pain Review of Systems Constitutional: COMPLAINS OF: Fatigue, DENIES: Dizziness Ears, nose, mouth, throat: DENIES: Vertigo Respiratory: DENIES: Cough, Shortness of breath Cardiovascular: DENIES: Chest pain, Palpitations Gastrointestinal: DENIES: Abdominal pain, Nausea Musculoskeletal: COMPLAINS OF: Back pain, DENIES: Joint pain, Muscle aches, Neck pain Neurologic: COMPLAINS OF: Abnormal gait, DENIES: Headache Psychiatric: COMPLAINS OF: Confusion Past Family Social History Allergies: Coded Allergies: No Known Allergies (Verified , 12/08/16) Past Medical History History of dementia. Osteoporosis Other illnesses as noted above in history of present illness Past Surgical History Appendectomy Previous spine surgery Reported Medications Reported Meds & Active Scripts Active Reported Evista (Raloxifene HCl) 60 Mg Tab 60 Mg PO DAILY Alprazolam 0.25 Mg Tab 0.25 Mg PO BID PRN Lortab (Hydrocodone-Acetaminophen) 5-325 Mg Tab 1 Tab PO Q6H PRN Verapamil SR (Verapamil HCl) 240 Mg Tab 240 Mg PO DAILY Simvastatin 20 Mg Tab 20 Mg PO DAILY Folic Acid 5 Mg Cap 1 Mg PO DAILY Omeprazole 10 Mg Cap 10 Mg PO DAILY Combivent Respimat Inh (Ipratropium-Albuterol Inh) 20-100 Fci/Act Aero 2 Puff INH DIRECTED PRN Digoxin 0.125 Mg Tab 0.125 Mg PO EVERY OTHER DAY Calcium 600 (Calcium Carbonate) 1,500 Mg Tab 600 Mg PO DAILY Social History She lives alone in her own home. She stopped smoking cigarettes approximately 5 years ago. No significant alcohol use Physical Exam Vital Signs Vital Signs Date Time Temp Pulse Resp B/P Pulse Ox O2 Delivery O2 Flow Rate FiO2 12/10/16 15:55 99.1 83 18 168/63 96 12/10/16 14:00 97.3 67 16 147/54 92 12/10/16 12:00 98.0 74 20 144/67 93 12/10/16 09:50 18 12/10/16 08:02 76 12/10/16 08:00 96.2 78 20 150/66 93 12/10/16 04:00 97.3 81 18 147/78 98 12/10/16 00:00 96.4 85 18 144/60 96 12/10/16 00:00 96.4 85 18 144/60 96 12/09/16 21:00 92 12/09/16 20:00 98.0 95 18 138/64 96 Physical Exam GENERAL: This is a well-nourished, normally developed elderly lady in no apparent distress SKIN: No rashes, ecchymoses or lesions. Cool and dry. HEAD: Atraumatic. Normocephalic. No temporal or scalp tenderness. EYES: Sclerae are clear and nonicteric ENT: No facial edema or ecchymosis NECK: Nontender. Moderate range of motion without discomfort CARDIOVASCULAR: Regular without murmur RESPIRATORY: Clear, nonlabored GASTROINTESTINAL: Abdomen soft, non-tender, nondistended. No guarding. MUSCULOSKELETAL: No long bone or joint deformity. No lower extremity edema or cyanosis. Posterior tibial pulse 2+ bilateral. There is at least moderate tenderness to compression at the thoracolumbar midline and to a lesser extent at the mid to lower lumbar midline and paraspinous musculature. NEUROLOGICAL: Awake and alert She knows that she is in the hospital in the month She has at least mild impairment of recent and remote memory. Appears to have some limitation of judgment and insight She answers simple questions appropriately and follows commands well Her speech is clear Extraocular movements intact Facial motor movements symmetric Sensation intact by touch all extremities Strength normal major flexion and extension groups all extremities Zhanna's response absent bilateral No ankle clonus Result Diagram: 12/08/16 1405 12/09/16 0600 Imaging 12/08/2016 CT scan lumbar spine images reviewed by the undersigned. I agree with findings as noted below: Pelvis X-Ray 12/08/16 0000 Signed Impressions: Service Date/Time: Thursday, December 08, 2016 14:09 - CONCLUSION: No acute pelvis abnormality is identified. The bones are undermineralized. Dalton Raman MD Lumbar Spine X-Ray 12/08/16 0000 Signed Impressions: Service Date/Time: Thursday, December 08, 2016 14:19 - CONCLUSION: 1. Undermineralized bones with compression fractures of uncertain chronicity involving the T12 vertebral body and superior endplate of L1. 2. Otherwise, there are degenerative changes within the lumbar spine, as above. Dalton Raman MD Lumbar Spine CT 12/08/16 0000 Signed Impressions: Service Date/Time: Thursday, December 08, 2016 17:08 - CONCLUSION: 1. Acute compression fracture of the T12 vertebral body with approximately 50%% loss of body height. The posterior cortex is slightly retropulsed into the spinal canal by 4 mm causing mild spinal canal stenosis. 2. The compression deformity of the superior plate of L1 is of uncertain chronicity. 3. [id number] degenerative changes throughout the lumbar spine, as above with moderate neural foraminal narrowing bilaterally at L5-S1. 4. There is paraspinal hematoma adjacent to the T12 fracture. 5. There is a partially visualized left pleural effusion with pleural thickening. Dalton Raman MD Chest X-Ray 12/08/16 0000 Signed Impressions: Service Date/Time: Thursday, December 08, 2016 16:39 - CONCLUSION: 1. Small left pleural effusion with associative volume loss and/or consolidation. 2. Moderate to large hiatal hernia is suspected. Dalton Raman MD Assessment and Plan Assessment and Plan Impression: 1. T12 and L1 compression fractures. The L1 fracture appears chronic and the T12 fracture appears acute. The T12 fracture has a burst-type pattern, with central retropulsion of the posterior superior humeral body margin approximately 4 mm into the canal without significant overall canal stenosis. Plan: Findings were discussed with the patient, as well as with her niece on the telephone today. Options of conservative treatment versus possible kyphoplasty been discussed. We will attempt to localize the patient out of bed again with physical therapy in the morning. If she continues to have severe pain preventing her from mobilizing out of bed, then proceed with kyphoplasty would be reasonable in order to avoid prolonged bedrest in this elderly patient with a previous history of cardiac and pulmonary disease. I advised the patient and family, that even if she is able to mobilize out of bed, there is still at least a moderate chance of further compression deformity with potential for canal compromise given the burst pattern of the fracture and the location at the thoracolumbar junction as well as the patient's apparent significant osteoporosis. Answered all of the patient and family questions. Patient will be kept nothing by mouth after midnight in the event of proceeding with kyphoplasty tomorrow. Oleg Wilkins MD Dec 10, 2016 18:53
[2016-12-11] VITALS (10 sets, daily range): BP systolic 84–157; BP diastolic 52–62; PULSE 58–88; RESP 17–19; TEMP 96.2–97.6; O2SAT 92–98
[2016-12-11] MEDS: LACTATED RINGER'S 1000 ML IV SCH ×2 (02:15→21:26)
[2016-12-11 08:37] LABS: PROTHROMBIN TIME - PATIENT 11.4 SEC (9.8-11.6)
[2016-12-11 08:55] LABS: BICARBONATE 31.3 MEQ/L (21.0-32.0); POTASSIUM 3.7 MEQ/L (3.5-5.1)
--- NOTE | 2016-12-11 09:31 | HHI.PR ---
Subjective Remarks f/u for compression fracture patient stated she continues to have sever pain with any movement. She stated she does want surgery. Denied any LE weakness of paresthesia. No other complaints. Objective Vitals Vital Signs Date Time Temp Pulse Resp B/P Pulse Ox O2 Delivery O2 Flow Rate FiO2 12/11/16 09:15 74 12/11/16 08:00 96.8 81 18 157/62 95 12/11/16 05:23 97.0 80 17 134/54 93 12/11/16 00:30 96.2 80 17 130/57 92 12/10/16 20:00 98.6 81 20 138/51 96 12/10/16 15:55 99.1 83 18 168/63 96 12/10/16 14:00 97.3 67 16 147/54 92 12/10/16 12:00 98.0 74 20 144/67 93 12/10/16 09:50 18 I/O 12/10/16 12/10/16 12/10/16 12/11/16 12/11/16 12/11/16 07:00 15:00 23:00 07:00 15:00 23:00 Intake Total 480 ml 120 ml Balance 480 ml 120 ml Intake Oral 480 ml 120 ml # Voids 2 3 1 2 # Bowel Movements 0 1 0 Result Diagram: 12/08/16 1405 12/11/16 0656 Objective Remarks GENERAL: NAD CARDIOVASCULAR: Regular rate and rhythm without murmurs, gallops, or rubs. RESPIRATORY: Breath sounds equal bilaterally. No accessory muscle use. GASTROINTESTINAL: Abdomen soft, non-tender, nondistended. MUSCULOSKELETAL: + TTP of spine. ROM limited due to pain. 5/5 LE strength and sensation intact. BACK: Nontender without obvious deformity. No CVA tenderness. Medications and IVs Current Medications Sodium Chloride (NS 1000 ml Inj) 1,000 ml @ 2,000 mls/hr Q30M ONCE IV Last administered on 12/08/16 16:14; Start 12/08/16 at 15:45; Stop 12/08/16 at 16:14; Status DC Morphine Sulfate (Morphine Inj) 2 mg ONCE ONCE IV PUSH Last administered on 16:14; Start 12/08/16 at 15:45; Stop 12/08/16 at 15:46; Status DC Ondansetron HCl (Zofran Inj) 4 mg ONCE ONCE IVP Last administered on 12/08/16 16:14; Start 12/08/16 at 15:45; Stop 12/08/16 at 15:46; Status DC IV Flush (NS Flush) 2 ml UNSCH PRN FLUSH FLUSH AFTER USING IV ACCESS; Start 12/08/16 at 16:30 IV Flush (NS Flush) 2 ml BID FLUSH Last administered on 12/10/16 19:30; Start 12/08/16 at 21:00 Acetaminophen (Tylenol) 650 mg Q4H PRN PO TEMP > 100.4; Start 12/08/16 at 16:30 Ondansetron HCl (Zofran Inj) 4 mg Q6H PRN IVP NAUSEA OR VOMITING; Start at 16:30 Docusate Sodium (Colace) 100 mg Q12HR PO Last administered on 12/08/16 22:03; Start 12/08/16 at 21:00; Stop 12/09/16 at 11:05; Status DC Magnesium Hydroxide (Milk Of Magnesia Liq) 30 ml Q12H PRN PO CONSTIPATION; Start 12/08/16 at 16:30 Enoxaparin Sodium (Lovenox Inj) 40 mg Q24H SQ Last administered on 12/08/16 17: 31; Start 12/08/16 at 17:30; Stop 12/09/16 at 10:04; Status DC Acetaminophen/ Hydrocodone Bitart ([place] 5-325 Mg) 1 tab Q4H PRN PO PAIN SCALE 3 TO 5 Last administered on 12/10/16 08:50; Start 12/08/16 at 16:30 Morphine Sulfate (Morphine Inj) 2 mg Q3H PRN IV breakthrough back pain Last administered on 12/09/16 03:41; Start 12/08/16 at 16:30 Naloxone HCl (Narcan Inj) 0.4 mg UNSCH PRN IV SEE LABEL COMMENTS; Start at 16:30 Alprazolam (Xanax) 0.25 mg BID PRN PO ANXIETY; Start 12/08/16 at 16:30 Digoxin (Lanoxin) 0.125 mg EVERY OTHER DAY PO Last administered on 12/10/16 08 :46; Start 12/10/16 at 09:00 Folic Acid (Folate) 1 mg DAILY PO Last administered on 12/10/16 08:46; Start at 09:00 Pantoprazole Sodium (Protonix) 20 mg DAILY PO Last administered on 12/10/16 08: 45; Start 12/09/16 at 09:00 Raloxifene HCl (Evista) 60 mg DAILY PO Last administered on 12/10/16 08:46; Start 12/09/16 at 09:00 Verapamil HCl (Isoptin Sr) 240 mg DAILY PO Last administered on 12/10/16 08:46 ; Start 12/09/16 at 09:00 Non-Formulary Medication 600 mg DAILY PO ; Start 12/09/16 at 09:00; Stop 12/09/16 at 09:00; Status DC Pravastatin Sodium (Pravachol) 40 mg DAILY PO Last administered on 12/10/16 08: 46; Start 12/09/16 at 09:00 Calcium Carbonate (Oscal) 500 mg DAILY PO Last administered on 12/10/16 08:45; Start 12/08/16 at 18:00 Potassium Chloride (KCl) 30 meq ONCE ONCE PO Last administered on 12/08/16 17: 31; Start 12/08/16 at 17:30; Stop 12/08/16 at 17:31; Status DC Docusate Sodium 100 mg 100 mg Q12HR PRN PO hard stools; Start 12/09/16 at 11:15 Lactated Ringer's (Lr 1000 ml Inj) 1,000 ml @ 30 mls/hr Q24H IV Last administered on 12/11/16 02:15; Start 12/11/16 at 02:15 A/P Problem List: (1) Compression fracture of T12 vertebra ICD Code: M48.54XA Status: Acute (2) Compression fracture of body of thoracic vertebra ICD Code: M48.54XA Status: Acute (3) Unable to ambulate ICD Code: R26.2 Status: Acute (4) Intractable back pain ICD Code: M54.9 Status: Acute (5) Paraspinal hematoma ICD Code: T14.8 Status: Acute Assessment and Plan Acute T12 vertebral body compression fracture with mild retropulsion onto the spinal canal as well as associated paraspinal hemorrhage , L1 compression fracture of uncertain chronicity -suspect acute due to acute onset of the pain and possible history of recent fall. -Dr. Wilkins ff. Patient does want kyphoplasty. -continue with pain control and mila D and calcium supplement. Hypocalcemia - Improved. Continue calcium supplementation. Hypokalemia. - replenish as needed. - Mag level within normal limits. Chronic iron deficiency followed by Dr. Murphy - hemoglobin stable around baseline of 10-11. History of left pleural effusion, recurrent followed by Dr. Ocasio -chest x-ray on admission shows small left pleural effusion. History of GI bleed due to AVM - hemoglobin stable. Mild Alzheimer's dementia - appears quite cognitively sharp, caution with opioids. Persistent Atrial fibrillation - followed by Dr. Montaño -continue her calcium channel lynnette. On telemetry with rate of 83. - she's not on blood thinner due to her history of bleeding. Hypertension - continue home medications. Probable COPD -quit smoking 5 years ago - continue bronchodilators as needed. B-12 deficiency with negative intrinsic factor antibodies - she had a low B-12 level in August. B-12 level here is low normal. -DVT prophylaxis -SCDs. chemoprophylaxis contraindicated due to bleed. Discharge Planning patient will have kyphoplasty since pain has not improved. Berna Frost MD Dec 11, 2016 09:31
[2016-12-11] MEDS: ACETAMINOPHEN/HYDROcodone 325 MG/5 MG TAB PO PRN ×2 (09:34→21:53)
[2016-12-11] MEDS: PANTOPRAZOLE SOD 20 MG DELAYED RELEASE TAB PO SCH (11:19)
[2016-12-11] MEDS: CALCIUM CARBONATE 1.25 GM (CA 500 MG) TAB PO SCH (11:19)
[2016-12-11] MEDS: PRAVASTATIN SOD 40 MG TAB PO SCH (11:19)
[2016-12-11] MEDS: VERAPAMIL HCL 240 MG SUSTAINED RELEASE TAB PO SCH (11:19)
[2016-12-11] MEDS: FOLIC ACID 1 MG TAB PO SCH (11:19)
[2016-12-11] MEDS: SODIUM CHLORIDE 0.9% FLUSH 5 ML FLUSH FLUSH SCH ×2 (11:20→21:53)
[2016-12-11] MEDS: RALOXIFENE HCL 60 MG TAB PO SCH (11:36)
--- NOTE | 2016-12-11 18:57 | HHI.NSPN ---
Exam Results Vital Signs Date Time Temp Pulse Resp B/P Pulse Ox O2 Delivery O2 Flow Rate FiO2 12/11/16 16:00 97.6 80 19 150/60 95 12/08/16 16:18 Room Air Intake and Output 12/10/16 12/10/16 12/11/16 08:00 16:00 00:00 Intake Total 240 ml 240 ml 120 ml Balance 240 ml 240 ml 120 ml Physical Examination Awake and alert Speech is slightly hesitant but clear and mostly appropriate She has some trouble relating her recent medical history. She knows that she is in the hospital and the month. Follow simple commands well and answers simple questions appropriate She is able to converse reasonably in regards to her present condition and seems generally aware of treatment options for the fracture. Sensation intact by touch lower extremities Strength within normal limits major flexion and extension groups lower extremities Lab, Micro, Other Results Laboratory Tests Test 12/11/16 06:56 Prothrombin Time 11.4 SEC Prothromb Time International 1.0 RATIO Ratio Sodium Level 137 MEQ/L Potassium Level 3.7 MEQ/L Chloride Level 100 MEQ/L Carbon Dioxide Level 31.3 MEQ/L Anion Gap 6 MEQ/L Blood Urea Nitrogen 16 MG/DL Creatinine 0.74 MG/DL Estimat Glomerular Filtration 74 ML/MIN Rate Random Glucose 88 MG/DL Calcium Level 7.9 MG/DL Medical Decision Making Impression and Plan Impression: Acute-appearing greater than 50% T12 burst-type fracture with mild canal compromise. Probable chronic L1 compression fracture. Plan: Discussed with physical therapy this morning. Patient appeared to give poor effort getting out of bed. She states that she had severe pain when trying to sit up. According to physical therapy, the patient indicated moderate pain, but seemed to be reluctant to try to mobilize out of bed. The patient's situation was discussed at length with her nephew on the telephone following physical therapy this morning. Options of conservative treatment versus surgical intervention for kyphoplasty been fully discussed along with prognosis and pros and cons of each. The patient's nephew had a question regarding her ability to make decisions regarding medical treatment. 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 In consideration of the conversation with the patient's nephew today, surgery was canceled to better define the treatment course and the patient's ability to give consent. Discussion with the patient this evening would indicate that she seems to have a reasonable basic understanding of her problem and treatment options, and recalled discussion that I had with her yesterday regarding the treatment of the T12 fracture. It is felt that the patient is a relative increased risk for further significant pain which may require prolonged bedrest, as well as further vertebral compression with weightbearing, and the burst-type pattern the fracture may make her susceptible to further canal compromise. Plan to continue physical therapy through the weekend and will discuss the patient's medical care further with the family and await further direction from them. Oleg Wilkins MD Dec 11, 2016 18:57
[2016-12-11] MEDS ORDERED: RESP: ALBUTEROL 2.5 MG/IPRATROPIUM 0.5 MG NEB (PRN) NEB (20:45)
[2016-12-11] MEDS: ALPRAZolam 0.25 MG TAB PO PRN (21:52)
[2016-12-12] VITALS (8 sets, daily range): BP systolic 106–136; BP diastolic 48–77; PULSE 70–101; RESP 16–18; TEMP 98.6–100.1; O2SAT 93–99
[2016-12-12] MEDS: ACETAMINOPHEN/HYDROcodone 325 MG/5 MG TAB PO PRN (04:06)
[2016-12-12] MEDS: CALCIUM CARBONATE 1.25 GM (CA 500 MG) TAB PO SCH (08:43)
[2016-12-12] MEDS: PANTOPRAZOLE SOD 20 MG DELAYED RELEASE TAB PO SCH (08:43)
[2016-12-12] MEDS: PRAVASTATIN SOD 40 MG TAB PO SCH (08:43)
[2016-12-12] MEDS: FOLIC ACID 1 MG TAB PO SCH (08:43)
[2016-12-12] MEDS: DIGOXIN 0.125 MG TAB PO SCH (08:43)
[2016-12-12] MEDS: VERAPAMIL HCL 240 MG SUSTAINED RELEASE TAB PO SCH (08:47)
[2016-12-12] MEDS: SODIUM CHLORIDE 0.9% FLUSH 5 ML FLUSH FLUSH SCH ×2 (08:48→19:31)
[2016-12-12] MEDS: RALOXIFENE HCL 60 MG TAB PO SCH (08:49)
--- NOTE | 2016-12-12 09:08 | HHI.NSPN ---
History System Review Comments Complains of lower sacral/rectal pain for the past 2 or 3 days Exam Results Vital Signs Date Time Temp Pulse Resp B/P Pulse Ox O2 Delivery O2 Flow Rate FiO2 12/12/16 08:00 98.7 70 18 106/50 98 12/11/16 21:07 Nasal Cannula 2.00 Intake and Output 12/11/16 12/11/16 12/12/16 08:00 16:00 00:00 Intake Total 480 ml 240 ml Balance 480 ml 240 ml Physical Examination Awake and alert Speech is clear Seems quite coherent this morning, able to discuss her medical condition appropriately. Appears to have reasonable judgment and insight. She knows that she is in the hospital and the month. She states she does not recall how she fell. She recalls being in [facility] initially Follow simple commands well and answers simple questions appropriate She is able to converse reasonably in regards to her present condition and seems generally aware of treatment options for the fracture. Sensation intact by touch lower extremities Strength within normal limits major flexion and extension groups lower extremities Medical Decision Making Impression and Plan Impression: Acute-appearing greater than 50% T12 burst-type fracture with mild canal compromise. Probable chronic L1 compression fracture. Plan: Findings were discussed again at length with the patient this morning. She appears quite coherent and has reasonable judgment and insight. She appears to have intact mentation to give informed consent. She is in agreement with further attempts to mobilize out of bed with physical therapy with the TLSO brace. However she acknowledges that if she does not improve significantly over the weekend, that she would like to proceed with kyphoplasty on 12/15/16. She will tentatively be scheduled for the procedure. Oleg Wilkins MD Dec 12, 2016 09:07
[2016-12-12 10:10] LABS: HEMATOCRIT 28.9 % (35.0-46.0); MEAN CELL VOLUME 96.7 FL (80.0-100.0); MEAN CORPUSCULAR HEMOGLOBIN 32.4 PG (27.0-34.0); MEAN CORPUSCULAR HGB CONC 33.5 % (32.0-36.0); PLATELET COUNT 224 TH/MM3 (150-450); RED BLOOD COUNT 2.99 MIL/MM3 (4.00-5.30); RED CELL DISTRIBUTION WIDTH 12.7 % (11.6-17.2); REVIEW FLAG FINAL
[2016-12-12 10:27] LABS: BICARBONATE 29.8 MEQ/L (21.0-32.0); POTASSIUM 3.7 MEQ/L (3.5-5.1)
--- NOTE | 2016-12-12 11:13 | HHI.PR ---
Subjective Remarks f/u for compression fracture and intractable pain. PT was at bedside. Patient stated she was feeling a lot better until PT came in and are trying to move her. She has no other complaints. No acute events overnight. Objective Vitals Vital Signs Date Time Temp Pulse Resp B/P Pulse Ox O2 Delivery O2 Flow Rate FiO2 12/12/16 08:00 98.7 70 18 106/50 98 12/12/16 04:00 98.6 72 16 131/59 97 12/12/16 00:00 99.8 97 16 130/77 97 12/11/16 21:07 98 Nasal Cannula 2.00 12/11/16 20:00 65 12/11/16 20:00 Nasal Cannula 2.00 12/11/16 19:40 97.5 58 18 121/52 94 12/11/16 16:00 97.6 80 19 150/60 95 12/11/16 12:00 97.4 76 18 151/58 95 I/O 12/11/16 12/11/16 12/11/16 12/12/16 12/12/16 12/12/16 07:00 15:00 23:00 07:00 15:00 23:00 Intake Total 480 ml 240 ml 240 ml Balance 480 ml 240 ml 240 ml Intake Oral 480 ml 240 ml 240 ml IV Total 0 ml # Voids 2 2 1 3 # Bowel Movements 2 2 Result Diagram: 12/12/16 0959 12/12/16 0954 Objective Remarks GENERAL: NAD CARDIOVASCULAR: Regular rate and rhythm without murmurs, gallops, or rubs. RESPIRATORY: Breath sounds equal bilaterally. No accessory muscle use. GASTROINTESTINAL: Abdomen soft, non-tender, nondistended. MUSCULOSKELETAL: + TTP of spine. ROM limited due to pain. 5/5 LE strength and sensation intact. BACK: Nontender without obvious deformity. No CVA tenderness. Medications and IVs Current Medications Sodium Chloride (NS 1000 ml Inj) 1,000 ml @ 2,000 mls/hr Q30M ONCE IV Last administered on 12/08/16 16:14; Start 12/08/16 at 15:45; Stop 12/08/16 at 16:14; Status DC Morphine Sulfate (Morphine Inj) 2 mg ONCE ONCE IV PUSH Last administered on 16:14; Start 12/08/16 at 15:45; Stop 12/08/16 at 15:46; Status DC Ondansetron HCl (Zofran Inj) 4 mg ONCE ONCE IVP Last administered on 12/08/16 16:14; Start 12/08/16 at 15:45; Stop 12/08/16 at 15:46; Status DC IV Flush (NS Flush) 2 ml UNSCH PRN FLUSH FLUSH AFTER USING IV ACCESS; Start 12/08/16 at 16:30 IV Flush (NS Flush) 2 ml BID FLUSH Last administered on 12/12/16 08:48; Start 12/08/16 at 21:00 Acetaminophen (Tylenol) 650 mg Q4H PRN PO TEMP > 100.4; Start 12/08/16 at 16:30 Ondansetron HCl (Zofran Inj) 4 mg Q6H PRN IVP NAUSEA OR VOMITING; Start at 16:30 Docusate Sodium (Colace) 100 mg Q12HR PO Last administered on 12/08/16 22:03; Start 12/08/16 at 21:00; Stop 12/09/16 at 11:05; Status DC Magnesium Hydroxide (Milk Of Magnesia Liq) 30 ml Q12H PRN PO CONSTIPATION; Start 12/08/16 at 16:30 Enoxaparin Sodium (Lovenox Inj) 40 mg Q24H SQ Last administered on 12/08/16 17: 31; Start 12/08/16 at 17:30; Stop 12/09/16 at 10:04; Status DC Acetaminophen/ Hydrocodone Bitart ([place] 5-325 Mg) 1 tab Q4H PRN PO PAIN SCALE 3 TO 5 Last administered on 12/12/16 04:06; Start 12/08/16 at 16:30 Morphine Sulfate (Morphine Inj) 2 mg Q3H PRN IV breakthrough back pain Last administered on 12/09/16 03:41; Start 12/08/16 at 16:30 Naloxone HCl (Narcan Inj) 0.4 mg UNSCH PRN IV SEE LABEL COMMENTS; Start at 16:30 Alprazolam (Xanax) 0.25 mg BID PRN PO ANXIETY Last administered on 12/11/16 21: 52; Start 12/08/16 at 16:30 Digoxin (Lanoxin) 0.125 mg EVERY OTHER DAY PO Last administered on 12/12/16 08:43; Start 12/10/16 at 09:00 Folic Acid (Folate) 1 mg DAILY PO Last administered on 12/12/16 08:43; Start 12/09/16 at 09:00 Pantoprazole Sodium (Protonix) 20 mg DAILY PO Last administered on 12/12/16 08 :43; Start 12/09/16 at 09:00 Raloxifene HCl (Evista) 60 mg DAILY PO Last administered on 12/12/16 08:49; Start 12/09/16 at 09:00 Verapamil HCl (Isoptin Sr) 240 mg DAILY PO Last administered on 12/11/16 11:19 ; Start 12/09/16 at 09:00 Non-Formulary Medication 600 mg DAILY PO ; Start 12/09/16 at 09:00; Stop 12/09/16 at 09:00; Status DC Pravastatin Sodium (Pravachol) 40 mg DAILY PO Last administered on 12/12/16 08 :43; Start 12/09/16 at 09:00 Calcium Carbonate (Oscal) 500 mg DAILY PO Last administered on 12/12/16 08:43 ; Start 12/08/16 at 18:00 Potassium Chloride (KCl) 30 meq ONCE ONCE PO Last administered on 12/08/16 17: 31; Start 12/08/16 at 17:30; Stop 12/08/16 at 17:31; Status DC Docusate Sodium 100 mg 100 mg Q12HR PRN PO hard stools; Start 12/09/16 at 11:15 Lactated Ringer's (Lr 1000 ml Inj) 1,000 ml @ 30 mls/hr Q24H IV Last administered on 12/11/16 02:15; Start 12/11/16 at 02:15 Albuterol/ Ipratropium (Duoneb Neb) 1 ampule Q2HR NEB PRN NEB shortness of breath/wheezing Last administered on 12/11/16 21:03; Start 12/11/16 at 20:45 A/P Problem List: (1) Compression fracture of T12 vertebra ICD Code: M48.54XA Status: Acute (2) Compression fracture of body of thoracic vertebra ICD Code: M48.54XA Status: Acute (3) Unable to ambulate ICD Code: R26.2 Status: Acute (4) Intractable back pain ICD Code: M54.9 Status: Acute (5) Paraspinal hematoma ICD Code: T14.8 Status: Acute Assessment and Plan Acute T12 vertebral body compression fracture with mild retropulsion onto the spinal canal as well as associated paraspinal hemorrhage , L1 compression fracture of uncertain chronicity -suspect acute due to acute onset of the pain and possible history of recent fall. -Dr. Franky blancas. -patient will try to mobilize over weekend with PT with TLSO. if there is no significant improvement she will proceed with kyphoplasty on Thursday12/15/16. Hypocalcemia - Improved. Continue calcium supplementation. Hypokalemia. - replenish as needed. - Mag level within normal limits. Chronic iron deficiency followed by Dr. Murphy - hemoglobin stable around baseline of 10-11. History of left pleural effusion, recurrent followed by Dr. Ocasio -chest x-ray on admission shows small left pleural effusion. History of GI bleed due to AVM - hemoglobin stable. Mild Alzheimer's dementia - appears quite cognitively sharp, caution with opioids. Persistent Atrial fibrillation - followed by Dr. Montaño -continue her calcium channel lynnette. On telemetry with rate of 83. - she's not on blood thinner due to her history of bleeding. Hypertension - continue home medications. Probable COPD -quit smoking 5 years ago - continue bronchodilators as needed. B-12 deficiency with negative intrinsic factor antibodies - she had a low B-12 level in August. B-12 level here is low normal. -DVT prophylaxis -SCDs. chemoprophylaxis contraindicated due to bleed. Discharge Planning If no improvement by Thursday she will proceed to kyphoplasty. Berna Frost MD Dec 12, 2016 11:13
[2016-12-12] MEDS: LACTATED RINGER'S 1000 ML IV SCH (19:31)
[2016-12-13] VITALS (8 sets, daily range): BP systolic 112–150; BP diastolic 47–64; PULSE 63–101; RESP 16–19; TEMP 96.6–98.6; O2SAT 94–98
[2016-12-13] MEDS: RALOXIFENE HCL 60 MG TAB PO SCH (09:00)
[2016-12-13] MEDS: CALCIUM CARBONATE 1.25 GM (CA 500 MG) TAB PO SCH (09:09)
[2016-12-13] MEDS: PANTOPRAZOLE SOD 20 MG DELAYED RELEASE TAB PO SCH (09:10)
[2016-12-13] MEDS: FOLIC ACID 1 MG TAB PO SCH (09:10)
[2016-12-13] MEDS: PRAVASTATIN SOD 40 MG TAB PO SCH (09:10)
[2016-12-13] MEDS: SODIUM CHLORIDE 0.9% FLUSH 5 ML FLUSH FLUSH SCH ×2 (09:10→20:37)
[2016-12-13] MEDS: VERAPAMIL HCL 240 MG SUSTAINED RELEASE TAB PO SCH (09:10)
--- NOTE | 2016-12-13 12:01 | HHI.PR ---
Subjective Remarks F/U for compression fracture. patient stated today she is doing a lot better with PT. She was walking down the hallway. Still needs assistance. otherwise no acute events. Objective Vitals Vital Signs Date Time Temp Pulse Resp B/P Pulse Ox O2 Delivery O2 Flow Rate FiO2 12/13/16 09:15 82 12/13/16 08:00 97.7 92 19 150/61 97 12/13/16 04:45 96.6 80 18 137/62 98 12/13/16 00:50 96.7 101 18 118/64 98 12/12/16 21:59 Nasal Cannula 2.00 12/12/16 20:50 98.7 101 17 126/59 97 12/12/16 18:21 93 Nasal Cannula 2.00 12/12/16 17:07 83 12/12/16 16:00 100.1 83 18 136/65 95 I/O 12/12/16 12/12/16 12/12/16 12/13/16 12/13/16 12/13/16 07:00 15:00 23:00 07:00 15:00 23:00 Intake Total 240 ml 720 ml 120 ml Balance 240 ml 720 ml 120 ml Intake Oral 240 ml 720 ml 120 ml IV Total 0 ml # Voids 3 4 2 # Bowel Movements 2 1 0 Result Diagram: 12/12/1659 12/12/16 0954 Objective Remarks GENERAL: NAD CARDIOVASCULAR: Regular rate and rhythm without murmurs, gallops, or rubs. RESPIRATORY: Breath sounds equal bilaterally. No accessory muscle use. GASTROINTESTINAL: Abdomen soft, non-tender, nondistended. MUSCULOSKELETAL: + TTP of spine. ROM limited due to pain. 5/5 LE strength and sensation intact. BACK: Nontender without obvious deformity. No CVA tenderness. Medications and IVs Current Medications Sodium Chloride (NS 1000 ml Inj) 1,000 ml @ 2,000 mls/hr Q30M ONCE IV Last administered on 12/08/16 16:14; Start 12/08/16 at 15:45; Stop 12/08/16 at 16:14; Status DC Morphine Sulfate (Morphine Inj) 2 mg ONCE ONCE IV PUSH Last administered on 16:14; Start 12/08/16 at 15:45; Stop 12/08/16 at 15:46; Status DC Ondansetron HCl (Zofran Inj) 4 mg ONCE ONCE IVP Last administered on 12/08/16 16:14; Start 12/08/16 at 15:45; Stop 12/08/16 at 15:46; Status DC IV Flush (NS Flush) 2 ml UNSCH PRN FLUSH FLUSH AFTER USING IV ACCESS; Start 12/08/16 at 16:30 IV Flush (NS Flush) 2 ml BID FLUSH Last administered on 12/13/16 09:10; Start 12/08/16 at 21:00 Acetaminophen (Tylenol) 650 mg Q4H PRN PO TEMP > 100.4; Start 12/08/16 at 16:30 Ondansetron HCl (Zofran Inj) 4 mg Q6H PRN IVP NAUSEA OR VOMITING; Start at 16:30 Docusate Sodium (Colace) 100 mg Q12HR PO Last administered on 12/08/16 22:03; Start 12/08/16 at 21:00; Stop 12/09/16 at 11:05; Status DC Magnesium Hydroxide (Milk Of Magnesia Liq) 30 ml Q12H PRN PO CONSTIPATION; Start 12/08/16 at 16:30 Enoxaparin Sodium (Lovenox Inj) 40 mg Q24H SQ Last administered on 12/08/16 17: 31; Start 12/08/16 at 17:30; Stop 12/09/16 at 10:04; Status DC Acetaminophen/ Hydrocodone Bitart ([place] 5-325 Mg) 1 tab Q4H PRN PO PAIN SCALE 3 TO 5 Last administered on 12/12/16 04:06; Start 12/08/16 at 16:30 Morphine Sulfate (Morphine Inj) 2 mg Q3H PRN IV breakthrough back pain Last administered on 12/09/16 03:41; Start 12/08/16 at 16:30 Naloxone HCl (Narcan Inj) 0.4 mg UNSCH PRN IV SEE LABEL COMMENTS; Start at 16:30 Alprazolam (Xanax) 0.25 mg BID PRN PO ANXIETY Last administered on 12/11/16 21: 52; Start 12/08/16 at 16:30 Digoxin (Lanoxin) 0.125 mg EVERY OTHER DAY PO Last administered on 12/12/16 08:43; Start 12/10/16 at 09:00 Folic Acid (Folate) 1 mg DAILY PO Last administered on 12/13/16 09:10; Start 12/09/16 at 09:00 Pantoprazole Sodium (Protonix) 20 mg DAILY PO Last administered on 12/13/16 09 :10; Start 12/09/16 at 09:00 Raloxifene HCl (Evista) 60 mg DAILY PO Last administered on 12/13/16 09:00; Start 12/09/16 at 09:00 Verapamil HCl (Isoptin Sr) 240 mg DAILY PO Last administered on 12/13/16 09: 10; Start 12/09/16 at 09:00 Non-Formulary Medication 600 mg DAILY PO ; Start 12/09/16 at 09:00; Stop 12/09/16 at 09:00; Status DC Pravastatin Sodium (Pravachol) 40 mg DAILY PO Last administered on 12/13/16 09 :10; Start 12/09/16 at 09:00 Calcium Carbonate (Oscal) 500 mg DAILY PO Last administered on 12/13/16 09:09 ; Start 12/08/16 at 18:00 Potassium Chloride (KCl) 30 meq ONCE ONCE PO Last administered on 12/08/16 17: 31; Start 12/08/16 at 17:30; Stop 12/08/16 at 17:31; Status DC Docusate Sodium 100 mg 100 mg Q12HR PRN PO hard stools; Start 12/09/16 at 11:15 Lactated Ringer's (Lr 1000 ml Inj) 1,000 ml @ 30 mls/hr Q24H IV Last administered on 12/11/16 02:15; Start 12/11/16 at 02:15 Albuterol/ Ipratropium (Duoneb Neb) 1 ampule Q2HR NEB PRN NEB shortness of breath/wheezing Last administered on 12/11/16 21:03; Start 12/11/16 at 20:45 A/P Problem List: (1) Compression fracture of T12 vertebra ICD Code: M48.54XA Status: Acute (2) Compression fracture of body of thoracic vertebra ICD Code: M48.54XA Status: Acute (3) Unable to ambulate ICD Code: R26.2 Status: Acute (4) Intractable back pain ICD Code: M54.9 Status: Acute (5) Paraspinal hematoma ICD Code: T14.8 Status: Acute Assessment and Plan Acute T12 vertebral body compression fracture with mild retropulsion onto the spinal canal as well as associated paraspinal hemorrhage , L1 compression fracture of uncertain chronicity -suspect acute due to acute onset of the pain and possible history of recent fall. -seems to be improving today but still needs assistance. -Dr. Wilkins ff. -patient will try to mobilize over weekend with PT with TLSO. if there is no significant improvement she will proceed with kyphoplasty on Thursday12/15/16. Hypocalcemia - Improved. Continue calcium supplementation. Hypokalemia. - replenish as needed. - Mag level within normal limits. Chronic iron deficiency followed by Dr. Murphy - hemoglobin stable around baseline of 10-11. History of left pleural effusion, recurrent followed by Dr. Ocasio -chest x-ray on admission shows small left pleural effusion. History of GI bleed due to AVM - hemoglobin stable. Mild Alzheimer's dementia - appears quite cognitively sharp, caution with opioids. Persistent Atrial fibrillation - followed by Dr. Montaño -continue her calcium channel lynnette. On telemetry with rate of 83. - she's not on blood thinner due to her history of bleeding. Hypertension - continue home medications. Probable COPD -quit smoking 5 years ago - continue bronchodilators as needed. B-12 deficiency with negative intrinsic factor antibodies - she had a low B-12 level in August. B-12 level here is low normal. -DVT prophylaxis -SCDs. chemoprophylaxis contraindicated due to bleed. Discharge Planning If no improvement by Thursday she will proceed to kyphoplasty. Berna Frost MD Dec 13, 2016 12:01
[2016-12-13] MEDS: ACETAMINOPHEN/HYDROcodone 325 MG/5 MG TAB PO PRN (16:11)
[2016-12-13] MEDS: LACTATED RINGER'S 1000 ML IV SCH (20:36)
--- NOTE | 2016-12-13 22:16 | HHI.NSPN ---
History Chief Complaint: left greater than right knee pain Interval History Patient with T12 burst configuration fracture with mild canal compromise 12/13/16: Was able to ambulate approximately 40 feet. States that she had primarily left knee pain, with little residual lumbosacral pain. His history of approximately 2-3 months of progressive knee pain affecting ambulation Exam Results Vital Signs Date Time Temp Pulse Resp B/P Pulse Ox O2 Delivery O2 Flow Rate FiO2 12/13/16 20:47 63 12/13/16 19:30 98.6 16 115/47 94 12/13/16 19:10 Room Air 12/12/16 21:59 2.00 Intake and Output 12/12/16 12/12/16 12/13/16 08:00 16:00 00:00 Intake Total 240 ml 480 ml 240 ml Balance 240 ml 480 ml 240 ml Physical Examination Awake and alert Speech is clear Appears to have reasonable judgment and insight. She recalls previous conversations regarding her medical situation and converses coherently. Follow simple commands well and answers simple questions appropriate Sensation intact by touch lower extremities Strength within normal limits major flexion and extension groups lower extremities Moderate discomfort in the left knee with range of motion. No significant bilateral knee tenderness. No edema in the knees Medical Decision Making Impression and Plan Impression: Acute-appearing greater than 50% T12 burst-type fracture with mild canal compromise. Probable chronic L1 compression fracture. Bilateral knee pain Plan: She did quite a bit better ambulating out of bed today. Actually now complaining primarily of left greater than right knee pain rather than thoracolumbar pain Knee x-rays ordered. Continue physical therapy Possible T12 kyphoplasty 12/15/16 depending on clinical course with further therapy Oleg Wilkins MD Dec 13, 2016 22:16
--- NOTE | 2016-12-13 23:33 | RADRPT ---
EXAM DATE/TIME: 12/13/2016 22:57 [facility] COMPARISON: No previous studies available for comparison. INDICATIONS : Left knee pain. Difficulty ambulating. MEDICAL HISTORY : None. SURGICAL HISTORY : None. ENCOUNTER: Initial ACUITY: 3 days PAIN SCORE: 9/10 LOCATION: Left knee. FINDINGS: 4 view examination was performed and demonstrates narrowing of the medial lateral compartment and cho ndrocalcinosis menisci, more prominent in the lateral meniscus and medial. There is also moderate os teophyte formation in the lateral compartment. Patellofemoral compartment is grossly intact. Suprap atellar soft tissues are normal in thickness. No fracture seen. No radiopaque foreign bodies. CONCLUSION: No evidence of recent bony injury. Moderate severity degenerative involving the lateral compartment to a greater degree including chondrocalcinosis and osteophyte formation. Tuan Montilla MD on December 13, 2016 at 23:30 Board Certified Radiologist. This report was verified electronically.
[2016-12-14] VITALS (9 sets, daily range): BP systolic 101–141; BP diastolic 45–60; PULSE 54–79; RESP 16–19; TEMP 96.2–98.4; O2SAT 90–98
[2016-12-14] MEDS: ACETAMINOPHEN/HYDROcodone 325 MG/5 MG TAB PO PRN (00:34)
[2016-12-14] MEDS: CALCIUM CARBONATE 1.25 GM (CA 500 MG) TAB PO SCH (07:26)
[2016-12-14] MEDS: DIGOXIN 0.125 MG TAB PO SCH (07:26)
[2016-12-14] MEDS: FOLIC ACID 1 MG TAB PO SCH (07:26)
[2016-12-14] MEDS: PANTOPRAZOLE SOD 20 MG DELAYED RELEASE TAB PO SCH (07:26)
[2016-12-14] MEDS: PRAVASTATIN SOD 40 MG TAB PO SCH (07:26)
[2016-12-14] MEDS: SODIUM CHLORIDE 0.9% FLUSH 5 ML FLUSH FLUSH SCH ×2 (07:27→21:55)
[2016-12-14] MEDS: RALOXIFENE HCL 60 MG TAB PO SCH (07:34)
[2016-12-14] MEDS: VERAPAMIL HCL 240 MG SUSTAINED RELEASE TAB PO SCH (07:34)
--- NOTE | 2016-12-14 12:23 | HHI.PR ---
Subjective Remarks f/u for compression fracture. Patient stated that she just got done with PT and feels SOB. Per PT patient was fine with PT and her oxygen saturation actually improved. Per patient she is the same and this is her baseline. She stated she has pleural effusion that her General I Farmworker is managing and at the moment they do not want to remove the fluid. She stated that it is the same so it has not worsen at all. denied any cough. She remains afebrile. Objective Vitals Vital Signs Date Time Temp Pulse Resp B/P Pulse Ox O2 Delivery O2 Flow Rate FiO2 12/14/16 08:36 90 21 12/14/16 08:00 96.7 70 18 119/55 94 12/14/16 06:46 Room Air 12/14/16 06:06 61 12/14/16 04:00 96.2 73 16 102/45 95 12/14/16 00:00 98.4 54 16 101/54 95 12/13/16 20:47 63 12/13/16 19:30 98.6 63 16 115/47 94 12/13/16 19:10 Room Air 12/13/16 17:11 18 12/13/16 16:00 97.9 72 18 112/49 94 I/O 12/13/16 12/13/16 12/13/16 12/14/16 12/14/16 12/14/16 07:00 15:00 23:00 07:00 15:00 23:00 Intake Total 120 ml 480 ml 240 ml 120 ml Balance 120 ml 480 ml 240 ml 120 ml Intake Oral 120 ml 480 ml 240 ml 120 ml # Voids 2 4 1 1 # Bowel Movements 0 0 0 0 Result Diagram: 12/12/16 0959 12/12/16 0954 Objective Remarks GENERAL: NAD CARDIOVASCULAR: Regular rate and rhythm without murmurs, gallops, or rubs. RESPIRATORY: Breath sounds equal bilaterally. No accessory muscle use. GASTROINTESTINAL: Abdomen soft, non-tender, nondistended. MUSCULOSKELETAL: + TTP of spine. ROM limited due to pain. 5/5 LE strength and sensation intact. BACK: Nontender without obvious deformity. No CVA tenderness. Medications and IVs Reported Meds & Active Scripts Active Reported Evista (Raloxifene HCl) 60 Mg Tab 60 Mg PO DAILY Alprazolam 0.25 Mg Tab 0.25 Mg PO BID PRN Lortab (Hydrocodone-Acetaminophen) 5-325 Mg Tab 1 Tab PO Q6H PRN Verapamil SR (Verapamil HCl) 240 Mg Tab 240 Mg PO DAILY Simvastatin 20 Mg Tab 20 Mg PO DAILY Folic Acid 5 Mg Cap 1 Mg PO DAILY Omeprazole 10 Mg Cap 10 Mg PO DAILY Combivent Respimat Inh (Ipratropium-Albuterol Inh) 20-100 Senior [facility]/Act Aero 2 Puff INH DIRECTED PRN Digoxin 0.125 Mg Tab 0.125 Mg PO EVERY OTHER DAY Calcium 600 (Calcium Carbonate) 1,500 Mg Tab 600 Mg PO DAILY A/P Problem List: (1) Compression fracture of T12 vertebra ICD Code: M48.54XA Status: Acute (2) Compression fracture of body of thoracic vertebra ICD Code: M48.54XA Status: Acute (3) Unable to ambulate ICD Code: R26.2 Status: Acute (4) Intractable back pain ICD Code: M54.9 Status: Acute (5) Paraspinal hematoma ICD Code: T14.8 Status: Acute Assessment and Plan Acute T12 vertebral body compression fracture with mild retropulsion onto the spinal canal as well as associated paraspinal hemorrhage , L1 compression fracture of uncertain chronicity -suspect acute due to acute onset of the pain and possible history of recent fall. -seems to be improving everyday. -Dr. Franky blancas. -patient will try to mobilize over weekend with PT with [facility]. if there is no significant improvement she will proceed with kyphoplasty on Thursday12/15/16. Dyspnea -patient at her baseline. -she stated she does not want work up done and that she will f/u with her backup administrative coordinator. Hypocalcemia - Improved. Continue calcium supplementation. Hypokalemia. - replenish as needed. - Mag level within normal limits. Chronic iron deficiency followed by Dr. Murphy - hemoglobin stable around baseline of 10-11. History of left pleural effusion, recurrent followed by Dr. Ocasio -chest x-ray on admission shows small left pleural effusion. History of GI bleed due to AVM - hemoglobin stable. Mild Alzheimer's dementia - appears quite cognitively sharp, caution with opioids. Persistent Atrial fibrillation - followed by Dr. Montaño -continue her calcium channel lynnette. - she's not on blood thinner due to her history of bleeding. Hypertension - continue home medications. Probable COPD -quit smoking 5 years ago - continue bronchodilators as needed. B-12 deficiency with negative intrinsic factor antibodies - she had a low B-12 level in August. B-12 level here is low normal. -DVT prophylaxis -SCDs. chemoprophylaxis contraindicated due to bleed. Discharge Planning If no improvement by Thursday she will proceed to kyphoplasty. Berna Frost MD Dec 14, 2016 12:23
--- NOTE | 2016-12-14 19:58 | HHI.NSPN ---
History Chief Complaint: left greater than right knee pain Interval History Patient with T12 burst configuration fracture with mild canal compromise 12/13/16: Was able to ambulate approximately 40 feet. States that she had primarily left knee pain, with little residual lumbosacral pain. His history of approximately 2-3 months of progressive knee pain affecting ambulation 12/14/16: Patient ambulated again to the bathroom and to the hallway in physical therapy. Physical therapy notes indicate 12/12 severity of low back pain without significant knee pain. However the patient states that her pain across the waist and hips was rather severe. Exam Results Vital Signs Date Time Temp Pulse Resp B/P Pulse Ox O2 Delivery O2 Flow Rate FiO2 12/14/16 19:20 Room Air 12/14/16 16:00 97.3 78 19 124/57 92 12/14/16 08:36 21 12/12/16 21:59 2.00 Intake and Output 12/13/16 12/13/16 12/14/16 08:00 16:00 00:00 Intake Total 120 ml 480 ml 240 ml Balance 120 ml 480 ml 240 ml Physical Examination Awake and alert Speech is clear Appears to have reasonable judgment and insight. She converses appropriately. Her niece is in the room with her during the exam today. The patient converses appropriately with her family. Follow simple commands well and answers simple questions appropriate Sensation intact by touch lower extremities Strength within normal limits major flexion and extension groups lower extremities Moderate discomfort in the left knee with range of motion. No significant bilateral knee tenderness. No edema in the knees Lab, Micro, Other Results Last 48 hours Impressions Knee X-Ray 12/13/16 0000 Signed Impressions: Service Date/Time: Tuesday, December 13, 2016 22:57 - CONCLUSION: No evidence of recent bony injury. Moderate severity degenerative involving the lateral compartment to a greater degree including chondrocalcinosis and osteophyte formation. Tuan Montilla MD Medical Decision Making Impression and Plan Impression: Acute-appearing greater than 50% T12 burst-type fracture with mild canal compromise. Probable chronic L1 compression fracture. Bilateral knee pain-seems better today Plan: She did relatively well ambulating with therapy today. However she still complains of rather severe low back pain radiating to the right and left hip with ambulation. Not complaining too much of knee pain today. I discussed options of further conservative treatment versus kyphoplasty at length with the patient in the presence of her niece. I advised her that there is a reasonable chance that she will improve with conservative treatment. However due to the severity and configuration of the fracture, she may be at higher risk than usual for further compression deformity. The patient states that she still is not able to mobilize well, and is concerned that she will continue to be mostly bedridden. She requests that we proceed with kyphoplasty. The procedures been fully discussed. Risk of anesthesia, nerve damage, spinal fluid leak, spinal cord damage has been fully discussed. She understands that there is still a risk of progression of the fracture despite the kyphoplasty. She will need to continue to wear the brace for a full 3 months due to need for continued bone healing even with the kyphoplasty procedure. I have answered all of her questions. She appears very coherent today and able to make her own decisions. She is tentatively scheduled for surgery on 12/15/16 Oleg Wilkins MD Dec 14, 2016 19:58
[2016-12-15] VITALS (8 sets, daily range): BP systolic 114–143; BP diastolic 57–64; PULSE 52–83; RESP 15–18; TEMP 95.6–98.4; O2SAT 92–99
[2016-12-15] MEDS ORDERED: SODIUM CHLORID 0.9% 500 ML IV SCH (00:30)
[2016-12-15] MEDS ORDERED: INSULIN HUMAN REGULAR 1,000 UNITS/10 ML VIAL SQ PRN (00:30)
[2016-12-15] MEDS ORDERED: LACTATED RINGER'S 1000 ML IV SCH (00:30)
[2016-12-15] MEDS ORDERED: LIDOCAINE 1%/EPINEPHrine 1:100,000 SOLN 20 ML VIAL ONE (08:11)
[2016-12-15] MEDS: FOLIC ACID 1 MG TAB PO SCH (08:22)
[2016-12-15] MEDS: VERAPAMIL HCL 240 MG SUSTAINED RELEASE TAB PO SCH (08:22)
[2016-12-15] MEDS: PANTOPRAZOLE SOD 20 MG DELAYED RELEASE TAB PO SCH (08:22)
[2016-12-15] MEDS: CALCIUM CARBONATE 1.25 GM (CA 500 MG) TAB PO SCH (08:22)
[2016-12-15] MEDS: PRAVASTATIN SOD 40 MG TAB PO SCH (08:23)
[2016-12-15] MEDS: SODIUM CHLORIDE 0.9% FLUSH 5 ML FLUSH FLUSH SCH ×2 (08:23→21:00)
[2016-12-15] MEDS: RALOXIFENE HCL 60 MG TAB PO SCH (08:23)
[2016-12-15] MEDS: ACETAMINOPHEN/HYDROcodone 325 MG/5 MG TAB PO PRN (08:23)
[2016-12-15] MEDS ORDERED: ONDANSETRON HCL 4 MG/2 ML VIAL IV PUSH ONE (11:09)
[2016-12-15] MEDS ORDERED: PROPOFOL 200 MG/20 ML AMP IV ONE (11:09)
[2016-12-15] MEDS ORDERED: ePHEDrine/NS 25 MG/5 ML SYR IV ONE (11:09)
[2016-12-15] MEDS ORDERED: FAMOTIDINE 20 MG/2 ML VIAL ONE (13:36)
[2016-12-15] MEDS ORDERED: DEXAMETHASONE SOD PHOS 4 MG/ML VIAL ONE (13:37)
[2016-12-15] MEDS ORDERED: ACETAMINOPHEN 1000 MG/100 ML VIAL IV ONE (13:43)
[2016-12-15] MEDS ORDERED: GELFOAM SIZE 100 ONE (13:44)
[2016-12-15] MEDS ORDERED: VANCOMYCIN HCL 1000 MG VIAL ONE (13:44)
[2016-12-15] MEDS ORDERED: ceFAZolin INJ 1,000 MG VIAL ONE (13:44)
[2016-12-15] MEDS ORDERED: THROMBIN (TOPICAL) 5,000 UNIT VIAL ONE (13:44)
[2016-12-15] MEDS ORDERED: GENTAMICIN SULFATE 80 MG/2 ML VIAL ONE (13:44)
[2016-12-15] MEDS ORDERED: LIDOCAINE 1%/EPINEPHrine 1:100,000 SOLN 30 ML VIAL ONE (13:47)
[2016-12-15] MEDS ORDERED: fentaNYL CITRATE 250 MCG/5 ML AMP ONE (15:02)
[2016-12-15] MEDS ORDERED: IOHEXOL 350 MG/ML 50 ML BTL (for RAD DIAG) ONE (15:12)
[2016-12-15] MEDS ORDERED: DO NOT ADM ANY ANTICOAGULANT DRUGS XX PRN (15:45)
--- NOTE | 2016-12-15 15:57 | HHI.PR ---
Subjective Remarks f/u for compression fracture. patient niece and friend at bedside. Niece concern that narcotics has made patient intermittently confuse. patient is AAO X 3 and has not been confused with me at all. Niece stated it starts right after she takes narcotic. patient is getting kyphoplasty today. Objective Vitals Vital Signs Date Time Temp Pulse Resp B/P Pulse Ox O2 Delivery O2 Flow Rate FiO2 12/15/16 12:00 97.6 62 18 137/64 98 12/15/16 08:00 97.7 83 15 142/60 98 12/15/16 04:50 98.4 80 17 143/60 99 12/15/16 01:20 79 12/14/16 23:30 98.3 79 18 141/56 98 12/14/16 20:10 98.3 79 18 125/60 98 12/14/16 20:05 Nasal Cannula 2.00 12/14/16 19:20 Room Air 12/14/16 16:00 97.3 78 19 124/57 92 I/O 12/14/16 12/14/16 12/14/16 12/15/16 12/15/16 12/15/16 07:00 15:00 23:00 07:00 15:00 23:00 Intake Total 120 ml 720 ml 240 ml 240 ml Balance 120 ml 720 ml 240 ml 240 ml Intake Oral 120 ml 720 ml 240 ml 240 ml # Voids 1 7 2 2 1 # Bowel Movements 0 0 0 0 Result Diagram: 12/12/16 0959 12/12/16 0954 Objective Remarks GENERAL: NAD CARDIOVASCULAR: Regular rate and rhythm without murmurs, gallops, or rubs. RESPIRATORY: Breath sounds equal bilaterally. No accessory muscle use. GASTROINTESTINAL: Abdomen soft, non-tender, nondistended. MUSCULOSKELETAL: + TTP of spine. ROM limited due to pain. 5/5 LE strength and sensation intact. BACK: Nontender without obvious deformity. No CVA tenderness. Medications and IVs Current Medications Sodium Chloride (NS 1000 ml Inj) 1,000 ml @ 2,000 mls/hr Q30M ONCE IV Last administered on 12/08/16 16:14; Start 12/08/16 at 15:45; Stop 12/08/16 at 16:14; Status DC Morphine Sulfate (Morphine Inj) 2 mg ONCE ONCE IV PUSH Last administered on 16:14; Start 12/08/16 at 15:45; Stop 12/08/16 at 15:46; Status DC Ondansetron HCl (Zofran Inj) 4 mg ONCE ONCE IVP Last administered on 12/08/16 16:14; Start 12/08/16 at 15:45; Stop 12/08/16 at 15:46; Status DC IV Flush (NS Flush) 2 ml UNSCH PRN FLUSH FLUSH AFTER USING IV ACCESS; Start 12/08/16 at 16:30 IV Flush (NS Flush) 2 ml BID FLUSH Last administered on 12/15/16 08:23; Start 12/08/16 at 21:00 Acetaminophen (Tylenol) 650 mg Q4H PRN PO TEMP > 100.4; Start 12/08/16 at 16:30 Ondansetron HCl (Zofran Inj) 4 mg Q6H PRN IVP NAUSEA OR VOMITING; Start at 16:30 Docusate Sodium (Colace) 100 mg Q12HR PO Last administered on 12/08/16 22:03; Start 12/08/16 at 21:00; Stop 12/09/16 at 11:05; Status DC Magnesium Hydroxide (Milk Of Magnesia Liq) 30 ml Q12H PRN PO CONSTIPATION; Start 12/08/16 at 16:30 Enoxaparin Sodium (Lovenox Inj) 40 mg Q24H SQ Last administered on 12/08/16 17: 31; Start 12/08/16 at 17:30; Stop 12/09/16 at 10:04; Status DC Acetaminophen/ Hydrocodone Bitart ([employer] 5-325 Mg) 1 tab Q4H PRN PO PAIN SCALE 3 TO 5 Last administered on 12/15/16 08:23; Start 12/08/16 at 16:30 Morphine Sulfate (Morphine Inj) 2 mg Q3H PRN IV breakthrough back pain Last administered on 12/09/16 03:41; Start 12/08/16 at 16:30 Naloxone HCl (Narcan Inj) 0.4 mg UNSCH PRN IV SEE LABEL COMMENTS; Start at 16:30 Alprazolam (Xanax) 0.25 mg BID PRN PO ANXIETY Last administered on 12/11/16 21: 52; Start 12/08/16 at 16:30 Digoxin (Lanoxin) 0.125 mg EVERY OTHER DAY PO Last administered on 12/14/16 07:26; Start 12/10/16 at 09:00 Folic Acid (Folate) 1 mg DAILY PO Last administered on 12/15/16 08:22; Start 12/09/16 at 09:00 Pantoprazole Sodium (Protonix) 20 mg DAILY PO Last administered on 12/15/16 08 :22; Start 12/09/16 at 09:00 Raloxifene HCl (Evista) 60 mg DAILY PO Last administered on 12/15/16 08:23; Start 12/09/16 at 09:00 Verapamil HCl (Isoptin Sr) 240 mg DAILY PO Last administered on 12/15/16 08: 22; Start 12/09/16 at 09:00 Non-Formulary Medication 600 mg DAILY PO ; Start 12/09/16 at 09:00; Stop 12/09/16 at 09:00; Status DC Pravastatin Sodium (Pravachol) 40 mg DAILY PO Last administered on 12/15/16 08 :23; Start 12/09/16 at 09:00 Calcium Carbonate (Oscal) 500 mg DAILY PO Last administered on 12/15/16 08:22 ; Start 12/08/16 at 18:00 Potassium Chloride (KCl) 30 meq ONCE ONCE PO Last administered on 12/08/16 17: 31; Start 12/08/16 at 17:30; Stop 12/08/16 at 17:31; Status DC Docusate Sodium 100 mg 100 mg Q12HR PRN PO hard stools; Start 12/09/16 at 11:15 Lactated Ringer's (Lr 1000 ml Inj) 1,000 ml @ 30 mls/hr Q24H IV Last administered on 12/11/16 02:15; Start 12/11/16 at 02:15 Albuterol/ Ipratropium 1 ampule 1 ampule Q2HR NEB PRN NEB shortness of breath/ wheezing Last administered on 12/11/16 21:03; Start 12/11/16 at 20:45 Lactated Ringer's 1,000 ml @ 30 mls/hr Q24H IV ; Start 12/15/16 at 00:30 Sodium Chloride (NS 500 ml Inj) 500 ml @ 30 mls/hr [id number] IV ; Start 12/15/16 at 00:30; Stop 12/16/16 at 00:29 Insulin Human Regular (NovoLIN R INJ) See Protocol Table ... UNSCH X1 PRN SQ SEE PROTOCOL; Start 12/15/16 at 00:30; Stop 12/16/16 at 00:29 Lidocaine/ Epinephrine (Xylocaine-Epi 1%-1:100,000 Inj) 20 ml STK-MED ONCE .ROUTE ; Start 12/15/16 at 08:11; Stop 12/15/16 at 08:12; Status DC Famotidine (Pepcid Inj) 20 mg STK-MED ONCE .ROUTE ; Start 12/15/16 at 13:36; Stop 12/15/16 at 13:37; Status DC Dexamethasone Sodium Phosphate (Decadron Inj) 4 mg STK-MED ONCE .ROUTE ; Start 12/15/16 at 13:37; Stop 12/15/16 at 13:38; Status DC Acetaminophen (Ofirmev Inj) 1,000 mg STK-MED ONCE IV ; Start 12/15/16 at 13:43; Stop 12/15/16 at 13:44; Status DC Vancomycin HCl (Vancomycin Inj) 1,000 mg STK-MED ONCE .ROUTE ; Start 12/15/16 at 13:44; Stop 12/15/16 at 13:45; Status DC Thrombin (Thrombin Top Soln) 10,000 units STK-MED ONCE .ROUTE ; Start 12/15/16 at 13:44; Stop 12/15/16 at 13:45; Status DC Gelatin (Gelfoam 100 Top) 1 foam STK-MED ONCE .ROUTE ; Start 12/15/16 at 13:44; Stop 12/15/16 at 13:45; Status DC Cefazolin Sodium (Ancef Inj) 1,000 mg STK-MED ONCE .ROUTE Last administered on 12/15/16t 14:56; Start 12/15/16 at 13:44; Stop 12/15/16 at 13:45; Status DC Gentamicin Sulfate (Gentamicin Inj) 240 mg STK-MED ONCE .ROUTE ; Start 12/15/16 at 13:44; Stop 12/15/16 at 13:45; Status DC Lidocaine/ Epinephrine (Xylocaine-Epi 1%-1:100,000 Inj) 90 ml STK-MED ONCE .ROUTE Last administered on 12/15/16 15:15; Start 12/15/16 at 13:47; Stop at 13:48; Status DC Fentanyl Citrate (fentaNYL INJ) 250 mcg STK-MED ONCE .ROUTE ; Start 12/15/16 at 15:02; Stop 12/15/16 at 15:03; Status DC Iohexol (Omnipaque 350 Inj) 50 ml STK-MED ONCE .XX Last administered on 15:12; Start 12/15/16 at 15:12; Stop 12/15/16 at 15:16; Status DC A/P Problem List: (1) Compression fracture of T12 vertebra ICD Code: M48.54XA Status: Acute (2) Compression fracture of body of thoracic vertebra ICD Code: M48.54XA Status: Acute (3) Unable to ambulate ICD Code: R26.2 Status: Acute (4) Intractable back pain ICD Code: M54.9 Status: Acute (5) Paraspinal hematoma ICD Code: T14.8 Status: Acute Assessment and Plan Acute T12 vertebral body compression fracture with mild retropulsion onto the spinal canal as well as associated paraspinal hemorrhage , L1 compression fracture of uncertain chronicity -suspect acute due to acute onset of the pain and possible history of recent fall. -seems to be improving everyday. -patient is getting kyphoplasty today. Dyspnea -patient at her baseline. -she stated she does not want work up done and that she will f/u with her fly rail operator. Hypocalcemia - Improved. Continue calcium supplementation. Hypokalemia. - replenish as needed. - Mag level within normal limits. Chronic iron deficiency followed by Dr. Murphy - hemoglobin stable around baseline of 10-11. History of left pleural effusion, recurrent followed by Dr. Ocasio -chest x-ray on admission shows small left pleural effusion. History of GI bleed due to AVM - hemoglobin stable. Mild Alzheimer's dementia - appears quite cognitively sharp, caution with opioids. -she probably will need her narcotics adjusted due to niece concerns but she has not been confused with me. -she will need to f/u with physician who is prescribing medication for adjustment. Persistent Atrial fibrillation - followed by Dr. Montaño -continue her calcium channel lynnette. - she's not on blood thinner due to her history of bleeding. Hypertension - continue home medications. Probable COPD -quit smoking 5 years ago - continue bronchodilators as needed. B-12 deficiency with negative intrinsic factor antibodies - she had a low B-12 level in August. B-12 level here is low normal. -DVT prophylaxis -SCDs. chemoprophylaxis contraindicated due to bleed. Discharge Planning patient is getting surgery today. Once pain controlled can be d/c to SNF. Berna Frost MD Dec 15, 2016 15:57
[2016-12-15] MEDS ORDERED: NALOXONE HCL 0.4 MG/ML AMP IV PRN (16:15)
[2016-12-15] MEDS ORDERED: HYDROmorphone HCL PF 1 MG/ML VIAL IV PRN (16:15)
[2016-12-15] MEDS ORDERED: ACETAMINOPHEN/HYDROcodone 325 MG/10 MG TAB PO PRN (16:15)
[2016-12-15] MEDS ORDERED: oxyCODONE/ACETAMINOPHEN 5 MG/325 MG TAB PO PRN (16:15)
--- NOTE | 2016-12-15 16:17 | PD.OP ---
Operative Report Date of Surgery: Dec 15, 2016 Preoperative Diagnosis: (1) Compression fracture of T12 vertebra T12 compression-burst fracture Postoperative Diagnosis: (1) Compression fracture of T12 vertebra T12 compression-burst fracture Procedure: T 12 Kyphoplasty - left unilateral approach Surgeon: Oleg Wilkins Bushel Worker(s): None Operation and Findings: Procedure in detail: Patient was brought him to the operating room and general endotracheal anesthesia induced without difficulty. Lines were established per anesthesia. Ross catheter was in place SANCHEZ hose and sequential compression devices were in place The patient was placed in prone position on the [facility] region Matt table with the side bolsters and all extremities appropriately padded The thoracic and lumbar regions were prepped and draped in a sterile fashion Appropriate timeout procedure was performed without personal present and in agreement AP and lateral C-arm images were used throughout the procedure to determine the kyphoplasty needle placement and to monitor the balloon dilation and cement injection. The procedure was performed at the T12 level. Using the C-arm imaging and preoperative imaging studies to determine the entry point and trajectory, the kyphoplasty needle was advanced on each side through a small skin incision infiltrated with 1% Xylocaine. The needle was docked at the superior lateral quadrant of the left T12 pedicle and advanced into the vertebral body taking care not to traverse the medial aspect of the pedicle on AP imaging until the tip of the needle was approximately 30% into the vertebral body on lateral imaging. The balloon was then inflated at the anterior third of the vertebral body with C -arm monitoring. The cement was mixed and allowed to harden to sufficient consistency for injection. The kyphoplasty balloon was deflated and removed and the cement was injected through the needle cannula using C-arm monitoring. Once the appropriate filling of the vertebral body void was accomplished, the needle cannula was removed, with the inner stylette used to tamp down the cement into the body as the cannula was withdrawn. Final AP and lateral C-arm images were obtained and felt to be satisfactory. The small incision was closed with Mastisol and Steri-Strips with a sterile 4 x 4 dressing The patient was taken to recovery room stable condition. There was no significant blood loss. No specimen was sent to pathology. Oleg Wilkins MD Dec 15, 2016 16:17
[2016-12-15] MEDS ORDERED: GLYCOPYRROLATE 0.2 MG/ML VIAL ONE (16:23)
[2016-12-15] MEDS ORDERED: GLYCOPYRROLATE 0.2 MG/ML VIAL IV ONE (16:45)
--- NOTE | 2016-12-15 21:10 | RADRPT ---
EXAM DATE/TIME: 12/15/2016 15:06 [facility] COMPARISON: No previous studies available for comparison. INDICATIONS : T-12 Kyphoplasty. MEDICAL HISTORY : None. SURGICAL HISTORY : None. ENCOUNTER: Initial ACUITY: 1 day PAIN SCORE: Non-responsive. LOCATION: spine. FINDINGS: Status post kyphoplasty at T12. The cement is seen within the body of T12. CONCLUSION: Status post T12 kyphoplasty. Dieter Keane MD on December 15, 2016 at 21:08 Board Certified Radiologist. This report was verified electronically.
[2016-12-15] MEDS: ALPRAZolam 0.25 MG TAB PO PRN (22:07)
[2016-12-16 00:55] VITALS: BP 118/53; PULSE 56; RESP 17; TEMP 96; O2SAT 93
[2016-12-16 04:50] VITALS: BP 126/45; PULSE 68; RESP 18; TEMP 96.5; O2SAT 92
[2016-12-16 08:06] VITALS: BP 124/52; PULSE 73; RESP 17; TEMP 96.8; O2SAT 98
[2016-12-16 08:24] VITALS: O2SAT 97
[2016-12-16] MEDS: DIGOXIN 0.125 MG TAB PO SCH (09:27)
[2016-12-16] MEDS: ALPRAZolam 0.25 MG TAB PO PRN (09:27)
[2016-12-16] MEDS: SODIUM CHLORIDE 0.9% FLUSH 5 ML FLUSH FLUSH SCH (09:28)
[2016-12-16] MEDS: PANTOPRAZOLE SOD 20 MG DELAYED RELEASE TAB PO SCH (09:28)
[2016-12-16] MEDS: CALCIUM CARBONATE 1.25 GM (CA 500 MG) TAB PO SCH (09:28)
[2016-12-16] MEDS: VERAPAMIL HCL 240 MG SUSTAINED RELEASE TAB PO SCH (09:28)
[2016-12-16] MEDS: RALOXIFENE HCL 60 MG TAB PO SCH (09:28)
[2016-12-16] MEDS: FOLIC ACID 1 MG TAB PO SCH (09:28)
[2016-12-16] MEDS: PRAVASTATIN SOD 40 MG TAB PO SCH (09:28)
[2016-12-16 11:20] VITALS: BP 133/49; PULSE 62; RESP 16; TEMP 95.5; O2SAT 95
[2016-12-16] MEDS ORDERED: HYDR-3533 PO (11:53)
[2016-12-16] MEDS ORDERED: ALPR0.25 PO (11:53)
[2016-12-16] MEDS ORDERED: DOCU1CAP39 PO (11:53)
--- NOTE | 2016-12-16 11:53 | HHI.DS ---
Discharge Summary Admission Date Dec 08, 2016 at 16:18 Discharge Date: Dec 16, 2016 Admitting Diagnosis T12, L1 compression fracture (1) Compression fracture of T12 vertebra ICD Code: M48.54XA (2) Unable to ambulate ICD Code: R26.2 Diagnosis: Principal (3) Intractable back pain ICD Code: M54.9 Diagnosis: Principal (4) Paraspinal hematoma ICD Code: T14.8 Diagnosis: Principal Procedures see hospital course Brief History - From Admission This is a pleasant 86 show female with past medical history of mild Alzheimer's dementia, chronic iron deficiency anemia, recurrent left pleural effusion, atrial fibrillation who presented to the ER today with a three-day history of severe lower back pain which is severe without radiation or paresthesias. The pain started 3 days prior. The patient states she cannot remember if she fell or not. Her friend and neighbor is at bedside and states that the family suspects she may have fallen. The patient has no family in the area but does have a niece who lives out of state. The patient states she is unable to ambulate due to the pain. No bowel or bladder dysfunction. Movement makes the pain worse. Rest makes the pain better. CBC/BMP: 12/12/16 0959 12/12/16 0954 Imaging Last Impressions Thoracolumbar Spine 12/15/16 0000 Signed Impressions: Service Date/Time: Thursday, December 15, 2016 15:06 - CONCLUSION: Status post T12 kyphoplasty. Dieter Keane MD Knee X-Ray 12/13/16 0000 Signed Impressions: Service Date/Time: Tuesday, December 13, 2016 22:57 - CONCLUSION: No evidence of recent bony injury. Moderate severity degenerative involving the lateral compartment to a greater degree including chondrocalcinosis and osteophyte formation. Tuan Montilla MD Pelvis X-Ray 12/08/16 0000 Signed Impressions: Service Date/Time: Thursday, December 08, 2016 14:09 - CONCLUSION: No acute pelvis abnormality is identified. The bones are undermineralized. Dalton Raman MD Lumbar Spine X-Ray 12/08/16 0000 Signed Impressions: Service Date/Time: Thursday, December 08, 2016 14:19 - CONCLUSION: 1. Undermineralized bones with compression fractures of uncertain chronicity involving the T12 vertebral body and superior endplate of L1. 2. Otherwise, there are degenerative changes within the lumbar spine, as above. Dalton Raman MD Lumbar Spine CT 12/08/16 0000 Signed Impressions: Service Date/Time: Thursday, December 08, 2016 17:08 - CONCLUSION: 1. Acute compression fracture of the T12 vertebral body with approximately 50%% loss of body height. The posterior cortex is slightly retropulsed into the spinal canal by 4 mm causing mild spinal canal stenosis. 2. The compression deformity of the superior plate of L1 is of uncertain chronicity. 3. Xnlv-st-[id number] degenerative changes throughout the lumbar spine, as above with moderate neural foraminal narrowing bilaterally at L5-S1. 4. There is paraspinal hematoma adjacent to the T12 fracture. 5. There is a partially visualized left pleural effusion with pleural thickening. Dalton Raman MD Chest X-Ray 12/08/16 0000 Signed Impressions: Service Date/Time: Thursday, December 08, 2016 16:39 - CONCLUSION: 1. Small left pleural effusion with associative volume loss and/or consolidation. 2. Moderate to large hiatal hernia is suspected. Dalton Raman MD PE at Discharge GENERAL: NAD CARDIOVASCULAR: Regular rate and rhythm without murmurs, gallops, or rubs. RESPIRATORY: Breath sounds equal bilaterally. No accessory muscle use. GASTROINTESTINAL: Abdomen soft, non-tender, nondistended. MUSCULOSKELETAL: ROM limited due to pain but improved drastically. 5/5 LE strength and sensation intact. BACK: Nontender without obvious deformity. No CVA tenderness. Hospital Course Acute T12 vertebral body compression fracture with mild retropulsion onto the spinal canal as well as associated paraspinal hemorrhage , L1 compression fracture of uncertain chronicity -suspect acute due to acute onset of the pain and possible history of recent fall. -seems to be improving everyday but had kyphoplasty on 12/15. -s/p kyphoplasty on 12/[address] Wilkins. -after kyphoplasty patient stated pain controlled do d/c to SNF. chronic Dyspnea -patient at her baseline. 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 -she stated she does not want work up done and that she will f/u with her river captain. Hypocalcemia - Improved. Continue calcium supplementation. Hypokalemia. - replenish as needed. - Mag level within normal limits. Chronic iron deficiency followed by Dr. Murphy - hemoglobin stable around baseline of 10-11. History of left pleural effusion, recurrent followed by Dr. Ocasio -chest x-ray on admission shows small left pleural effusion. History of GI bleed due to AVM - hemoglobin stable. Mild Alzheimer's dementia - appears quite cognitively sharp, caution with opioids. -she probably will need her narcotics adjusted due to niece concerns but she has not been confused with me. -she will need to f/u with physician who is prescribing medication for adjustment. Persistent Atrial fibrillation - followed by Dr. Montaño -continue her calcium channel lynnette. - she's not on blood thinner due to her history of bleeding. Hypertension - continue home medications. Probable COPD -quit smoking 5 years ago - continue bronchodilators as needed. B-12 deficiency with negative intrinsic factor antibodies - she had a low B-12 level in August. B-12 level here is low normal. Constipation -suppository and milk of Mg. Pt Condition on Discharge: Good Discharge Disposition: Discharge to SNF Discharge Time: <= 30 minutes Discharge Instructions DIET: Follow Instructions for: Heart Healthy Diet Activities you can perform: Regular-No Restrictions Follow up Referrals: Neurosurgery - 2 Weeks with Oleg Wilkins MD PCP Follow-up - 1 Week New Medications: Docusate Sodium (Dok) 100 Mg Cap 100 MG PO Q12HR PRN hard stools #30 Ref 0 CAP Continued Medications: Alprazolam (Alprazolam) 0.25 Mg Tab 0.25 MG PO BID PRN ANXIETY #10 Ref 0 TAB (This prescription has been renewed) Calcium Carbonate (Calcium 600) 1,500 Mg Tab 600 MG PO DAILY TAB Digoxin (Digoxin) 0.125 Mg Tab 0.125 MG PO EVERY OTHER DAY Regulate Heart Beat #30 Ref 0 TAB Folic Acid (Folic Acid) 5 Mg Cap 1 MG PO DAILY Nutritional Supplement Ref 0 CAP Hydrocodone-Acetaminophen (Lortab) 5-325 Mg Tab 1 TAB PO Q6H PRN PAIN SCALE 1 TO 10 #20 Ref 0 TAB (This prescription has been renewed) Ipratropium-Albuterol Inh (Combivent Respimat Inh) 20-100 [facility]/Act Aero 2 PUFF INH DIRECTED PRN SOB/WHEEZING #1 Ref 0 INHALER Omeprazole (Omeprazole) 10 Mg Cap 10 MG PO DAILY #30 Ref 0 CAP Raloxifene (Evista) 60 Mg Tab 60 MG PO DAILY Chemotherapy Management #30 Ref 0 TAB Simvastatin (Simvastatin) 20 Mg Tab 20 MG PO DAILY Cholesterol Management #30 Ref 0 TAB Verapamil SR (Verapamil SR) 240 Mg Tab 240 MG PO DAILY #30 Ref 0 TAB Berna Frost MD Dec 16, 2016 11:53
[2016-12-16] MEDS ORDERED: BISACODYL 10 MG SUPP RECTAL PRN (13:00)
--- NOTE | 2016-12-16 15:27 | HHI.PR ---
Subjective Remarks f/u for compression fracture. patient denied any pain. She had no complaints. When I told her she can go to rehab she said no she is not going to rehab. I asked her why then she stated I just dont feel like going today. 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 You can make me stay if you want. Patient last BM 3 days ago. otherwise nurse stated she is doing well. Objective Vitals Vital Signs Date Time Temp Pulse Resp B/P Pulse Ox O2 Delivery O2 Flow Rate FiO2 12/16/16 11:20 95.5 62 16 133/49 95 12/16/16 08:24 97 Nasal Cannula 2.00 12/16/16 08:06 96.8 73 17 124/52 98 12/16/16 04:50 96.5 68 18 126/45 92 12/16/16 00:55 96.0 56 17 118/53 93 12/15/16 20:45 96.2 61 17 127/60 94 12/15/16 19:51 92 21 12/15/16 17:25 95.6 52 18 114/57 94 12/15/16 16:45 97.7 67 18 133/54 95 Room Air 12/15/16 16:30 68 16 130/50 93 Room Air 12/15/16 16:15 45 16 132/51 92 Room Air 12/15/16 16:00 51 16 135/54 95 Room Air 12/15/16 15:49 97.6 78 22 152/60 98 Nasal Cannula 2 I/O 12/15/16 12/15/16 12/15/16 12/16/16 12/16/16 12/16/16 07:00 15:00 23:00 07:00 15:00 23:00 Intake Total 240 ml 925 ml 50 ml Output Total 0 ml Balance 240 ml 925 ml 50 ml Intake Oral 240 ml 50 ml 50 ml IV Total 75 ml Other 800 ml Estimated Blood Loss 0 ml # Voids 2 1 1 3 # Bowel Movements 0 0 0 Result Diagram: 12/12/16 0959 12/12/16 0954 Objective Remarks GENERAL: NAD CARDIOVASCULAR: Regular rate and rhythm without murmurs, gallops, or rubs. RESPIRATORY: Breath sounds equal bilaterally. No accessory muscle use. GASTROINTESTINAL: Abdomen soft, non-tender, nondistended. MUSCULOSKELETAL: non TTP of spine. 5/5 LE strength and sensation intact. BACK: Nontender without obvious deformity. No CVA tenderness. Medications and IVs Current Medications Sodium Chloride (NS 1000 ml Inj) 1,000 ml @ 2,000 mls/hr Q30M ONCE IV Last administered on 12/08/16 16:14; Start 12/08/16 at 15:45; Stop 12/08/16 at 16:14; Status DC Morphine Sulfate (Morphine Inj) 2 mg ONCE ONCE IV PUSH Last administered on 16:14; Start 12/08/16 at 15:45; Stop 12/08/16 at 15:46; Status DC Ondansetron HCl (Zofran Inj) 4 mg ONCE ONCE IVP Last administered on 12/08/16 16:14; Start 12/08/16 at 15:45; Stop 12/08/16 at 15:46; Status DC IV Flush (NS Flush) 2 ml UNSCH PRN FLUSH FLUSH AFTER USING IV ACCESS; Start 12/08/16 at 16:30 IV Flush (NS Flush) 2 ml BID FLUSH Last administered on 12/16/16 09:28; Start 12/08/16 at 21:00 Acetaminophen (Tylenol) 650 mg Q4H PRN PO TEMP > 100.4; Start 12/08/16 at 16:30 Ondansetron HCl (Zofran Inj) 4 mg Q6H PRN IVP NAUSEA OR VOMITING; Start at 16:30 Docusate Sodium (Colace) 100 mg Q12HR PO Last administered on 12/08/16 22:03; Start 12/08/16 at 21:00; Stop 12/09/16 at 11:05; Status DC Magnesium Hydroxide (Milk Of Magnesia Liq) 30 ml Q12H PRN PO CONSTIPATION Last administered on 12/16/16 09:27; Start 12/08/16 at 16:30 Enoxaparin Sodium (Lovenox Inj) 40 mg Q24H SQ Last administered on 12/08/16 17: 31; Start 12/08/16 at 17:30; Stop 12/09/16 at 10:04; Status DC Acetaminophen/ Hydrocodone Bitart (Mcdaniels 5-325 Mg) 1 tab Q4H PRN PO PAIN SCALE 3 TO 5 Last administered on 12/15/16 08:23; Start 12/08/16 at 16:30; Stop 12/15/16 at 16:25; Status DC Morphine Sulfate (Morphine Inj) 2 mg Q3H PRN IV breakthrough back pain Last administered on 12/09/16 03:41; Start 12/08/16 at 16:30 Naloxone HCl (Narcan Inj) 0.4 mg UNSCH PRN IV SEE LABEL COMMENTS; Start at 16:30; Stop 12/15/16 at 16:23; Status DC Alprazolam (Xanax) 0.25 mg BID PRN PO ANXIETY Last administered on 12/16/16 09 :27; Start 12/08/16 at 16:30 Digoxin (Lanoxin) 0.125 mg EVERY OTHER DAY PO Last administered on 12/16/16 09:27; Start 12/10/16 at 09:00 Folic Acid (Folate) 1 mg DAILY PO Last administered on 12/16/16 09:28; Start 12/09/16 at 09:00 Pantoprazole Sodium (Protonix) 20 mg DAILY PO Last administered on 12/16/16 09 :28; Start 12/09/16 at 09:00 Raloxifene HCl (Evista) 60 mg DAILY PO Last administered on 12/16/16 09:28; Start 12/09/16 at 09:00 Verapamil HCl (Isoptin Sr) 240 mg DAILY PO Last administered on 12/16/16 09: 28; Start 12/09/16 at 09:00 Non-Formulary Medication 600 mg DAILY PO ; Start 12/09/16 at 09:00; Stop 12/09/16 at 09:00; Status DC Pravastatin Sodium (Pravachol) 40 mg DAILY PO Last administered on 12/16/16 09 :28; Start 12/09/16 at 09:00 Calcium Carbonate (Oscal) 500 mg DAILY PO Last administered on 12/16/16 09:28 ; Start 12/08/16 at 18:00 Potassium Chloride (KCl) 30 meq ONCE ONCE PO Last administered on 12/08/16 17: 31; Start 12/08/16 at 17:30; Stop 12/08/16 at 17:31; Status DC Docusate Sodium 100 mg 100 mg Q12HR PRN PO hard stools Last administered on 22:06; Start 12/09/16 at 11:15 Lactated Ringer's (Lr 1000 ml Inj) 1,000 ml @ 30 mls/hr Q24H IV Last administered on 12/11/16 02:15; Start 12/11/16 at 02:15; Stop 12/15/16 at 16:22; Status DC Albuterol/ Ipratropium 1 ampule 1 ampule Q2HR NEB PRN NEB shortness of breath/ wheezing Last administered on 12/11/16 21:03; Start 12/11/16 at 20:45 Lactated Ringer's 1,000 ml @ 30 mls/hr Q24H IV ; Start 12/15/16 at 00:30 Sodium Chloride (NS 500 ml Inj) 500 ml @ 30 mls/hr [id number] IV ; Start 12/15/16 at 00:30; Stop 12/16/16 at 00:29; Status DC Insulin Human Regular (NovoLIN R INJ) See Protocol Table ... UNSCH X1 PRN SQ SEE PROTOCOL; Start 12/15/16 at 00:30; Stop 12/16/16 at 00:29; Status DC Lidocaine/ Epinephrine (Xylocaine-Epi 1%-1:100,000 Inj) 20 ml STK-MED ONCE .ROUTE ; Start 12/15/16 at 08:11; Stop 12/15/16 at 08:12; Status DC Famotidine (Pepcid Inj) 20 mg STK-MED ONCE .ROUTE ; Start 12/15/16 at 13:36; Stop 12/15/16 at 13:37; Status DC Dexamethasone Sodium Phosphate (Decadron Inj) 4 mg STK-MED ONCE .ROUTE ; Start 12/15/16 at 13:37; Stop 12/15/16 at 13:38; Status DC Acetaminophen (Ofirmev Inj) 1,000 mg STK-MED ONCE IV ; Start 12/15/16 at 13:43; Stop 12/15/16 at 13:44; Status DC Vancomycin HCl (Vancomycin Inj) 1,000 mg STK-MED ONCE .ROUTE ; Start 12/15/16 at 13:44; Stop 12/15/16 at 13:45; Status DC Thrombin (Thrombin Top Soln) 10,000 units STK-MED ONCE .ROUTE ; Start 12/15/16 at 13:44; Stop 12/15/16 at 13:45; Status DC Gelatin (Gelfoam 100 Top) 1 foam STK-MED ONCE .ROUTE ; Start 12/15/16 at 13:44; Stop 12/15/16 at 13:45; Status DC Cefazolin Sodium (Ancef Inj) 1,000 mg STK-MED ONCE .ROUTE Last administered on 12/15/16 14:56; Start 12/15/16 at 13:44; Stop 12/15/16 at 13:45; Status DC Gentamicin Sulfate (Gentamicin Inj) 240 mg STK-MED ONCE .ROUTE ; Start 12/15/16 at 13:44; Stop 12/15/16 at 13:45; Status DC Lidocaine/ Epinephrine (Xylocaine-Epi 1%-1:100,000 Inj) 90 ml STK-MED ONCE .ROUTE Last administered on 12/15/16 15:15; Start 12/15/16 at 13:47; Stop at 13:48; Status DC Fentanyl Citrate (fentaNYL INJ) 250 mcg STK-MED ONCE .ROUTE ; Start 12/15/16 at 15:02; Stop 12/15/16 at 15:03; Status DC Iohexol (Omnipaque 350 Inj) 50 ml STK-MED ONCE .XX Last administered on 15:12; Start 12/15/16 at 15:12; Stop 12/15/16 at 15:16; Status DC Acetaminophen/ Hydrocodone Bitart (Mcdaniels 10-325 Mg) 1 tab Q4H PRN PO PAIN SCALE 6 TO 10; Start 12/15/16 at 16:15 Oxycodone/ Acetaminophen (Percocet 5-325 Mg) 1 tab Q6H PRN PO PAIN SCALE 3 TO 5; Start 12/15/16 at 16:15 Hydromorphone HCl (Dilaudid Pf Inj) 0.5 mg Q3H PRN IV Pain 3-5; if unable to take PO; Start 12/15/16 at 16:15 Naloxone HCl (Narcan Inj) 0.4 mg UNSCH PRN IV SEE LABEL COMMENTS; Start at 16:15 Miscellaneous Information ALL NURSING DEPARTME... UNSCH PRN XX SEE LABEL COMMENTS; Start 12/15/16 at 15:45; Stop 12/16/16 at 15:44 Glycopyrrolate (Robinul Inj) 0.2 mg STK-MED ONCE .ROUTE ; Start 12/15/16 at 16: 23; Stop 12/15/16 at 16:24; Status DC Glycopyrrolate (Robinul Inj) 0.2 mg NOW ONCE IV Last administered on t 16:22; Start 12/15/16 at 16:45; Stop 12/15/16 at 16:46; Status DC Propofol (Diprivan 200 Mg/20 ml Inj) 200 mg STK-MED ONCE IV ; Start 12/15/16 at 11:09; Stop 12/16/16 at 11:10; Status DC Ephedrine Sulfate (ePHEDrine/NS 25 MG/5 ML SYR) 25 mg STK-MED ONCE IV ; Start at 11:09; Stop 12/16/16 at 11:10; Status DC Ondansetron HCl (Zofran Inj) 4 mg STK-MED ONCE IV PUSH ; Start 12/15/16 at 11:09 ; Stop 12/16/16 at 11:10; Status DC Bisacodyl (Dulcolax Supp) 10 mg DAILY PRN RECTAL CONSTIPATION Last administered on 12/16/16t 13:19; Start 12/16/16 at 13:00 A/P Problem List: (1) Compression fracture of T12 vertebra ICD Code: M48.54XA Status: Acute (2) Compression fracture of body of thoracic vertebra ICD Code: M48.54XA Status: Acute (3) Unable to ambulate ICD Code: R26.2 Status: Acute (4) Intractable back pain ICD Code: M54.9 Status: Acute (5) Paraspinal hematoma ICD Code: T14.8 Status: Acute Assessment and Plan Acute T12 vertebral body compression fracture with mild retropulsion onto the spinal canal as well as associated paraspinal hemorrhage , L1 compression fracture of uncertain chronicity -suspect acute due to acute onset of the pain and possible history of recent fall. -seems to be improving everyday. -s/p kyphoplasty on 12/15. -pain controlled can go to SNF. Dyspnea -patient at her baseline. 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 Hypocalcemia - Improved. Continue calcium supplementation. Hypokalemia. - replenish as needed. - Mag level within normal limits. Chronic iron deficiency followed by Dr. Murphy - hemoglobin stable around baseline of 10-11. History of left pleural effusion, recurrent followed by Dr. Ocasio -chest x-ray on admission shows small left pleural effusion. History of GI bleed due to AVM - hemoglobin stable. Mild Alzheimer's dementia - appears quite cognitively sharp, caution with opioids. -she probably will need her narcotics adjusted due to niece concerns but she has not been confused with me. -she will need to f/u with physician who is prescribing medication for adjustment. Persistent Atrial fibrillation - followed by Dr. Montaño -continue her calcium channel lynnette. - she's not on blood thinner due to her history of bleeding. Hypertension - continue home medications. Probable COPD -quit smoking 5 years ago - continue bronchodilators as needed. B-12 deficiency with negative intrinsic factor antibodies - she had a low B-12 level in August. B-12 level here is low normal. Constipation -suppository -DVT prophylaxis -SCDs. chemoprophylaxis contraindicated due to bleed. Discharge Planning patient pain is controlled and is medically stable for discharge. d/w patient's nurse and told her once patient has BM can be discharge. Berna Frost MD Dec 16, 2016 15:27
== END 2016-12-16 16:45 | DRG 516 ==
LOC: PHED 13:07 → PHEDA 15:52 → OBSVTOIN 16:18 → PH3B 17:42 → N06A 12-10 13:36
PROVIDERS: ADMIT Family Medicine; ATTEND Family Medicine
PROC: 0PU43JZ Supplement Thoracic Vertebra with Synthetic Substitute, Percutaneous Approach (ICD-10-PCS; 2016-12-15)
PROC: 0PS43ZZ Reposition Thoracic Vertebra, Percutaneous Approach (ICD-10-PCS; principal; 2016-12-15 14:14)
DX: S22.081A Stable burst fracture of T11-T12 vertebra, initial encounter for closed fracture (principal); I48.1 Persistent atrial fibrillation; J90 Pleural effusion, not elsewhere classified; R06.00 Dyspnea, unspecified; E53.8 Deficiency of other specified B group vitamins; S32.019A Unspecified fracture of first lumbar vertebra, initial encounter for closed fracture; J44.9 Chronic obstructive pulmonary disease, unspecified; E83.51 Hypocalcemia; E87.6 Hypokalemia; K59.00 Constipation, unspecified; I10 Essential (primary) hypertension; E78.5 Hyperlipidemia, unspecified; D50.9 Iron deficiency anemia, unspecified; G30.9 Alzheimer's disease, unspecified; F02.80 Dementia in other diseases classified elsewhere, unspecified severity, without behavioral disturbance, psychotic disturbance, mood disturbance, and anxiety; M81.0 Age-related osteoporosis without current pathological fracture; M25.562 Pain in left knee; M25.561 Pain in right knee; W19.XXXA Unspecified fall, initial encounter; Y92.009 Unspecified place in unspecified non-institutional (private) residence as the place of occurrence of the external cause; Z87.891 Personal history of nicotine dependence
CPT/HCPCS: 71010; 72070; 72100; 72131; 72170; 73564; 80048; 81001; 82550; 82607; 83735; 84155; 85025; 85027; 85610; 93005; 94150; 94664; 99284; J0131; J0690; J1100; J1580; J1650; J2270; J2405; J3010; J3370; J7030; J7120; L0627; Q9967

== ENCOUNTER 2017-09-21 20:04 | Inpatient (IN) | payer MEDICARE, OTHER ==
[~2017-09-21] VITALS: Ht 177.8 cm; Wt 71.5 kg
[~2017-09-21 20:04] MED LIST changes: +ALPR0.25 PO; +CALCTAB94 PO; -CALTTAB5 PO; -COMBAER INH; -DIGO.125 PO; +DIGO0.12 PO; +DOCU1CAP39 PO; -FOLI1TAB PO; +FOLI5CAP PO; +HYDR-3533 PO; +IPRAAER INH; -KCL20 PO; -MEPR400T4 PO; +OMEP10CA PO; -OMEP20CA5 PO; -RALO1TAB13 PO; +RALO60 PO; -SIMV20 PO; +SIMV20TA PO; +VERA1TAB18 PO; -VERA240CR PO
[2017-09-21 20:16] VITALS: BP 141/70; PULSE 70; RESP 20; O2SAT 96
[2017-09-21 20:41] VITALS: O2SAT 97
[2017-09-21] MEDS ORDERED: MORPHINE SULFATE 8 MG/ML INJ IV PUSH ONE (20:45)
[2017-09-21] MEDS ORDERED: PROCHLORPERAZINE INJ 10 MG/2 ML VIAL IV PUSH ONE (20:45)
--- NOTE | 2017-09-21 21:05 | PD ---
HPI Chief Complaint: Pain: Acute or Chronic Time Seen by Provider: 20:18 Travel History International Travel<30 days: No Contact w/Intl Traveler<30days: No Traveled to known affect area: No History of Present Illness HPI This is an 87-year-old female with history chronic back pain secondary to previous back surgery, presents today with complaint of acute exacerbation of her chronic back pain. Patient reports the pain started suddenly when she was getting ready for bed tonight. She reports that normally her pain is resolved with resting however today it did not go away. According to the paramedics when they arrived she was screaming in pain. She reports pain from her mid lower back all the way up to her shoulder blades. She denies any weakness or loss of sensation of her upper or lower extremity is. She denies any urinary incontinence. The patient does have a history of anemia for which she is being treated by a agency appointments supervisor with medications. There is no chest pain, chest pressure. There are no other complaints at the time of my examination. PFSH Past Medical History Anemia: Yes Arthritis: Yes (KNEES) Asthma: No Atrial Fibrillation: Yes Autoimmune Disease: No Blood Disorders: Yes (CHRONIC ANEMIA) Anxiety: Yes Depression: No Heart Rhythm Problems: Yes (ATRIAL FIBRILLATION) Cancer: No Cardiovascular Problems: Yes (hx of a-fib) High Cholesterol: Yes Chemotherapy: No Chest Pain: No Diabetes: No Diminished Hearing: No Endocrine: No Gastrointestinal Disorders: Yes Glaucoma: No Genitourinary: No Headaches: No Hepatitis: No Hiatal Hernia: No Immune Disorder: No Implanted Vascular Access Dvce: Yes Musculoskeletal: Yes Neurologic: No Psychiatric: No Reproductive: No Respiratory: Yes Migraines: No Myocardial Infarction: No Radiation Therapy: No Renal Failure: No Seizures: No Sickle Cell Disease: No Sleep Apnea: No Thyroid Disease: No Ulcer: Yes (DUODENAL) ?: Not Menopausal: Yes Past Surgical History Abdominal Surgery: No Appendectomy: Yes Cardiac Surgery: No Cholecystectomy: No Genitourinary Surgery: No Gynecologic Surgery: Yes (OVARY REMOVED 1951) Neurologic Surgery: Yes (BACK SURGERY) Oral Surgery: Yes Pacemaker: No Thoracic Surgery: No Tonsillectomy: Yes (1967) Other Surgery: Yes Social History Alcohol Use: Yes (OCCASIONAL WINE) Tobacco Use: No (QUIT 10-15 YEARS AGO smoked cigs 1/2 ppd) Substance Use: No Allergies-Medications (Allergen,Severity, Reaction): Coded Allergies: No Known Allergies (Verified Allergy, Unknown, 09/22/17) Reported Meds & Prescriptions Reported Meds & Active Scripts Active Dok (Docusate Sodium) 100 Mg Cap 100 Mg PO Q12HR PRN Alprazolam 0.25 Mg Tab 0.25 Mg PO BID PRN Lortab (Hydrocodone-Acetaminophen) 5-325 Mg Tab 1 Tab PO Q6H PRN Reported Evista (Raloxifene HCl) 60 Mg Tab 60 Mg PO DAILY Verapamil SR (Verapamil HCl) 240 Mg Tab 240 Mg PO DAILY Simvastatin 20 Mg Tab 20 Mg PO DAILY Folic Acid 5 Mg Cap 1 Mg PO DAILY Omeprazole 10 Mg Cap 10 Mg PO DAILY Combivent Respimat Inh (Ipratropium-Albuterol Inh) 20-100 Fci/Act Aero 2 Puff INH DIRECTED PRN Digoxin 0.125 Mg Tab 0.125 Mg PO EVERY OTHER DAY Calcium 600 (Calcium Carbonate) 1,500 Mg Tab 600 Mg PO DAILY Review of Systems Except as stated in HPI: all other systems reviewed are Neg HENT: No: Headaches, Lightheadedness, Neck Pain Cardiovascular: No: Chest Pain or Discomfort, Palpitations Respiratory: No: Cough, Shortness of Breath Gastrointestinal: No: Nausea, Vomiting, Abdominal Pain Genitourinary: No: Dysuria, Incontinence Musculoskeletal: Positive: Pain (mid lower thoracic to the upper back between her shoulder blades), No: Limited ROM, Weakness Skin: No Rash, No Lesions Neurologic: No: Weakness, Dizziness, Headache, Sensory Disturbance Physical Exam Narrative GENERAL: Developed well-nourished female in no obvious respiratory distress. The patient does appear to be uncomfortable. SKIN: Focused skin assessment warm/dry. HEAD: Atraumatic. Normocephalic. EYES: No scleral icterus. No injection or drainage. ENT: No nasal bleeding or discharge. Mucous membranes pink and moist. NECK: Trachea midline. Supple. CARDIOVASCULAR: Regular rate and rhythm. No murmur appreciated. RESPIRATORY: No accessory muscle use. Clear to auscultation. Breath sounds equal bilaterally. GASTROINTESTINAL: Abdomen soft, non-tender, nondistended. No pulsatile masses appreciated. MUSCULOSKELETAL: No obvious deformities. No clubbing. No cyanosis. No edema. NEUROLOGICAL: Awake and alert. No obvious cranial nerve deficits. Motor grossly within normal limits. Normal speech. PSYCHIATRIC: Appropriate mood and affect; insight and judgment normal. Data Data Last Documented VS Vital Signs Date Time Temp Pulse Resp B/P (MAP) Pulse Ox O2 Delivery O2 Flow Rate FiO2 09/21/17 21:51 71 24 165/74 (104) 99 Nasal Cannula 2.00 Orders Orders Complete Blood Count With Diff (09/21/17 20:34) Comprehensive Metabolic Panel (09/21/17 20:34) Lipase (09/21/17 20:34) Digoxin (09/21/17 20:34) Chest, Single Ap (09/21/17 20:34) Iv Access Insert/Monitor (09/21/17 20:34) Ecg Monitoring (09/21/17 20:34) Oximetry (09/21/17 20:34) Cta Thor Abd Aorta W Iv C W3d (09/21/17 ) Ct Thor Spine W/O Contrast (09/21/17 20:34) Prochlorperazine Inj (Compazine Inj) (09/21/17 20:45) Morphine Inj (Morphine Inj) (09/21/17 20:45) Electrocardiogram (09/21/17 20:16) Place In Observation (09/22/17 ) Vital Signs (Adult) Q4H (09/22/17 01:19) Sodium Chloride 0.9% Flush (Ns Flush) (09/22/17 01:30) Sodium Chloride 0.9% Flush (Ns Flush) (09/22/17 09:00) Acetaminophen (Tylenol) (09/22/17 01:30) Ondansetron Inj (Zofran Inj) (09/22/17 01:30) Basic Metabolic Panel (Bmp) (09/22/17 06:00) Complete Blood Count With Diff (09/22/17 06:00) Case Management Consult (09/22/17 01:19) Scd Bilateral/Knee High JOLIE.BID (09/22/17 01:19) Naloxone Inj (Narcan Inj) (09/22/17 01:30) Docusate Sodium-Senna (Jeannie-Colace) (09/22/17 09:00) Magnesium Hydroxide Liq (Milk Of Magnesi (09/22/17 01:30) Sennosides (Senokot) (09/22/17 01:30) Bisacodyl Supp (Dulcolax Supp) (09/22/17 01:30) Lactulose Liq (Lactulose Liq) (09/22/17 01:30) Consult Neurosurgery (09/22/17 ) Diet Npo Except Meds (09/22/17 Breakfast) Sodium Chlor 0.9% 1000 Ml Inj (Ns 1000 M (09/22/17 02:00) Alprazolam (Xanax) (09/22/17 01:30) Digoxin (Lanoxin) (09/22/17 09:00) Raloxifene (Evista) (09/22/17 09:00) Verapamil Sr (Isoptin Sr) (09/22/17 09:00) Calcium Carbonate (Oscal) (09/22/17 09:00) Albuterol Hfa Inh (Proair Hfa Inh) (09/22/17 01:45) Patient Own Medication (09/22/17 09:00) Pravastatin (Pravachol) (09/22/17 09:00) (Hub Use Only)Inp Phy Cons/Ref (09/22/17 ) Morphine Inj (Morphine Inj) (09/22/17 01:45) Iohexol 350 Inj (Omnipaque 350 Inj) (09/21/17 22:00) Admit Order (Ed Use Only) (09/22/17 02:10) Labs Laboratory Tests Test 09/21/17 20:50 White Blood Count 11.3 TH/MM3 Red Blood Count 3.76 MIL/MM3 Hemoglobin 11.9 GM/DL Hematocrit 35.5 % Mean Corpuscular Volume 94.6 FL Mean Corpuscular Hemoglobin 31.8 PG Mean Corpuscular Hemoglobin Concent 33.6 % Red Cell Distribution Width 14.2 % Platelet Count 223 TH/MM3 Mean Platelet Volume 11.5 FL Neutrophils (%) (Auto) 81.5 % Lymphocytes (%) (Auto) 11.3 % Monocytes (%) (Auto) 4.7 % Eosinophils (%) (Auto) 1.5 % Basophils (%) (Auto) 1.0 % Neutrophils # (Auto) 9.3 TH/MM3 Lymphocytes # (Auto) 1.3 TH/MM3 Monocytes # (Auto) 0.5 TH/MM3 Eosinophils # (Auto) 0.2 TH/MM3 Basophils # (Auto) 0.1 TH/MM3 CBC Comment AUTO DIFF Differential Total Cells Counted 100 Neutrophils % (Manual) 86 % Band Neutrophils % 2 % Lymphocytes % 8 % Monocytes % 2 % Eosinophils % 1 % Basophils % 1 % Neutrophils # (Manual) 9.9 TH/MM3 Differential Comment FINAL DIFF MANUAL Platelet Estimate NORMAL Platelet Morphology Comment NORMAL Blood Urea Nitrogen 13 MG/DL Creatinine 1.06 MG/DL Random Glucose 109 MG/DL Total Protein 7.2 GM/DL Albumin 3.6 GM/DL Calcium Level 8.1 MG/DL Alkaline Phosphatase 43 U/L Aspartate Amino Transf (AST/SGOT) 23 U/L Alanine Aminotransferase (ALT/SGPT) 13 U/L Total Bilirubin 0.4 MG/DL Sodium Level 140 MEQ/L Potassium Level 3.9 MEQ/L Chloride Level 107 MEQ/L Carbon Dioxide Level 27.0 MEQ/L Anion Gap 6 MEQ/L Estimat Glomerular Filtration Rate 49 ML/MIN Lipase 133 U/L Digoxin Level 1.2 NG/ML MDM Medical Decision Making Medical Screen Exam Complete: Yes Emergency Medical Condition: Yes Differential Diagnosis Acute exacerbation of chronic back pain, versus thoracic aortic aneurysm versus atypical ACS Narrative Course Diagnoses an 87-year-old female who had recent surgery for compression fracture , presents today with complaints of exacerbation of her chronic back pain. The patient states that normally she can rest when the back pain comes on however last night, her pain increased to the point where she could not get it to feel better. She presents here in severe pain. She reports it as a 9-10 out of 10 on the pain scale. She's been given 2 doses of IVD pain medication still has discomfort. A CT scan of the chest to rule out thoracic aneurysm disruption was negative however CT scan of the thoracic spine does show some worsening posterior thecal sac pressure. The patient has no focal weakness. Given her pain and receiving 2 doses of pain medication, I will admit her to the hospital under observation. The patient was discussed with Dr. Whitaker who is agreeable. Diagnosis Primary Impression: Intractable back pain Additional Impression: Thecal sac impingement Admitting Information Admitting Physician Requests: Observation Diogenes Rollins MD Sep 21, 2017 21:05
[2017-09-21 21:35] LABS: AUTOMATED NEUTROPHIL # 9.3 TH/MM3 (1.8-7.7); BASOPHIL # 0.1 TH/MM3 (0-0.2); EOSINOPHIL # 0.2 TH/MM3 (0-0.4); EOSINOPHIL % 1.5 % (0.0-4.0); HEMATOCRIT 35.5 % (35.0-46.0); LYMPH % 11.3 % (9.0-44.0); LYMPHOCYTE # 1.3 TH/MM3 (1.0-4.8); MEAN CELL VOLUME 94.6 FL (80.0-100.0); MEAN CORPUSCULAR HEMOGLOBIN 31.8 PG (27.0-34.0); MEAN CORPUSCULAR HGB CONC 33.6 % (32.0-36.0); MONO % 4.7 % (0.0-8.0); NEUT % 81.5 % (16.0-70.0); PLATELET COUNT 223 TH/MM3 (150-450); RED BLOOD COUNT 3.76 MIL/MM3 (4.00-5.30); RED CELL DISTRIBUTION WIDTH 14.2 % (11.6-17.2); WHITE BLOOD COUNT 11.3 TH/MM3 (4.0-11.0)
[2017-09-21 21:36] LABS: HEMO FLAGS AUTO DIFF
[2017-09-21 21:51] VITALS: BP 165/74; PULSE 71; RESP 24; O2SAT 99
[2017-09-21 21:55] LABS: ALT (GPT) 13 U/L (10-53)
[2017-09-21] MEDS ORDERED: IOHEXOL 350 MG/ML 10 ML VIAL (for RAD DIAG) IVCONTRAST ONE (22:00)
--- NOTE | 2017-09-21 22:07 | RADRPT ---
EXAM DATE/TIME: 09/21/2017 20:52 [facility] COMPARISON: SPINE THORACOLUMBAR (AP&LAT), December 15, 2016, 15:06. CHEST SINGLE AP, December 08, 2016, 16:39. INDICATIONS : Chest and back pain. MEDICAL HISTORY : None. SURGICAL HISTORY : None. ENCOUNTER: Initial ACUITY: 1 day PAIN SCORE: 10/10 LOCATION: Bilateral chest FINDINGS: Large soft tissue mass in the right cardiophrenic angle has a similar appearance to prior examination December 2016, suggesting a hiatus hernia. There is blunting of the left costophrenic angle with menis keila interface suggesting moderate-sized pleural effusion. The heart is normal in size and stable in configuration from prior. The upper lungs are clear. CONCLUSION: 1. Probable left pleural effusion. 2. Prominent soft tissue opacity in the right cardiophrenic angle stable from prior and probably repr esenting large hiatus hernia. Tuan Montilla MD on September 21, 2017 at 22:03 Board Certified Radiologist. This report was verified electronically.
[2017-09-21 22:09] LABS: ALKALINE PHOSPHATASE 43 U/L (45-117); BANDS 2 % (0-6); BASOPHILS 1 % (0-2); DIGOXIN 1.2 NG/ML (0.8-2.0); EOSINOPHILS 1 % (0-4); NEUTROPHIL # MANUAL DIFF 9.9 TH/MM3 (1.8-7.7); PLATELET ESTIMATE SMEAR NORMAL (NORMAL); PLATELET MORPHOLOGY NORMAL (NORMAL); POLYS (SEG NEUTROPHILS) 86 % (16-70); SCAN/DIFF FINAL DIFF MANUAL; TOTAL BILIRUBIN ADULT 0.4 MG/DL (0.2-1.0); WBC DIFF SAMPLE 100
[2017-09-21 22:24] LABS: ANION GAP 6 MEQ/L (5-15); AST (GOT) 23 U/L (15-37); BLOOD UREA NITROGEN 13 MG/DL (7-18); CHLORIDE 107 MEQ/L (98-107); GLOMERULAR FILTRATION RATE 49 ML/MIN (>89); POTASSIUM 3.9 MEQ/L (3.5-5.1); SODIUM (NA) 140 MEQ/L (136-145)
[2017-09-22] VITALS (9 sets, daily range): BP systolic 161–222; BP diastolic 73–93; PULSE 76–102; RESP 16–24; TEMP 97.6–98.7; O2SAT 94–99
--- NOTE | 2017-09-22 00:09 | RADRPT ---
EXAM DATE/TIME: 09/21/2017 23:20 [facility] COMPARISON: CT LUMBAR SPINE W/O CONTRAST, December 08, 2016, 17:08. CHEST SINGLE AP, December 08, 2016, 16:39. CHEST SINGLE AP, September 21, 2017, 20:52. INDICATIONS : Back pain. IV CONTRAST: 100 cc Omnipaque 350 (iohexol) IV RADIATION DOSE: 4.18 CTDIvol (mGy) MEDICAL HISTORY : Cardiovascular disease. SURGICAL HISTORY : back ENCOUNTER: Initial ACUITY: 1 day PAIN SCALE: 5/10 LOCATION: Bilateral back TECHNIQUE: Volumetric scanning was performed using a multi-row detector CT scanner. The data was post processed with a variety of visualization algorithms including full volume maximum intensity projection, multi -planar sliding thin slab reformation, curved planar reformation, and surface rendering techniques. Using automated exposure control and adjustment of the mA and/or kV according to patient size, radiat ion dose was kept as low as reasonably achievable to obtain optimal diagnostic quality images. DICOM format image data is available electronically for review and comparison. FINDINGS: LUNGS: There is mild emphysematous change in the upper lungs. There are mild bilateral pleural effusions cony ng greater on the left than the right. There are rounded areas of parenchymal density seen at the per iphery of the left lower lobe. These are nonspecific. They could be related to round atelectasis vers us areas of consolidation. MEDIASTINUM: Most of the stomach is in the mid and lower chest related to either a very large hiatal hernia or gas tric pull-through procedure. Clips are not seen. The stomach is distended with debris. The stomach me asures up to 15.8 x 10.6 cm in diameter. The proximal esophagus is distended. There is a compression fracture at T12. The patient is status post vertebroplasty at this level. The patient is scheduled fo r a CT of the thoracic spine. ABDOMEN: There is a 3 point centimeter low density mass in the left lobe of the liver. The spleen, pancreas, a nd adrenal glands are normal. There is a 1.2 cm cyst in the lateral right kidney. The kidneys are oth erwise unremarkable. PELVIS: No evidence of free fluid or pelvic mass. No abnormally enlarged inguinal or retroperitoneal lymph no naye are present. The bladder is unremarkable. THORACIC AORTA: The thoracic aortic root is normal with normal branching of the great vessels. There is no evidence of aneurysm or dissection. Scattered aortic calcifications are seen. Coronary artery calcifications a re present. ABDOMINAL AORTA: The aorta is normal in caliber without aneurysm or dissection. The renal arteries are patent bilater ally. The proximal celiac and superior mesenteric arteries are patent and normal in diameter. There are scattered atherosclerotic calcification seen. PELVIC VESSELS: The internal iliac and external iliac vessels are patent without aneurysm or stenosis. CONCLUSION: 1. No aortic dissection or aneurysm is seen. 2. Much of the stomach is in the lower chest. The stomach is extremely distended. This is likely from a hiatal hernia or gastric pull-through procedure. No clips are seen making a large hiatal hernia mo re likely. Given the large amount of debris and distention of the stomach, some degree of obstruction cannot be excluded. 3. Bilateral pleural effusions. There are rounded areas of density seen in the periphery of the left lower lobe likely related to round atelectasis or focal consolidation. 4. T12 compression deformity. The patient is status post vertebroplasty at this level. 5. 3.8 cm low-density mass in the left lobe of the liver. This is nonspecific. It likely represents a cyst or hemangioma. Dalton Palacios MD on September 21, 2017 at 23:55 Board Certified Radiologist. This report was verified electronically.
--- NOTE | 2017-09-22 00:19 | RADRPT ---
EXAM DATE/TIME: 09/21/2017 23:20 [facility] COMPARISON: CT LUMBAR SPINE W/O CONTRAST, December 08, 2016, 17:08. SPINE THORACOLUMBAR (AP&LAT), December 15, 2016, 1 5:06. INDICATIONS : Back pain. RADIATION DOSE: ; Reconstructed from previous dataset, no dose MEDICAL HISTORY : Cardiovascular disease. SURGICAL HISTORY : back ENCOUNTER: Initial ACUITY: 1 day PAIN SCALE: 4/10 LOCATION: Bilateral back TECHNIQUE: Volumetric scanning of the thoracic spine was performed. Multiplanar reconstructions in the sagittal , coronal and oblique axial planes were performed. Using automated exposure control and adjustment o f the mA and/or kV according to patient size, radiation dose was kept as low as reasonably achievable to obtain optimal diagnostic quality images. DICOM format image data is available electronically f or review and comparison. FINDINGS: There is a T12 compression deformity. The patient is status post vertebroplasty at this level. The T1 2 vertebral body has lost two thirds of its original height. There is sclerosis seen throughout the T 12 vertebral body. There is bulging of the posterior T12 vertebral body margin. There is a more focal posterior displaced area at the posterior superior aspect of the T12 vertebral body. This appearance was present previously. This causes a mild to moderate impression on the anterior epidural space at this level. There also appears be some concavity to the right lateral superior aspect of the L1 endpl ate. This finding was present on a prior CT examination of the lumbar spine. T1-T2: Normal. T2-T3: The thecal sac has a normal diameter. No evidence of disc bulge or protrusion. T3-T4: The thecal sac has a normal diameter. No evidence of disc bulge or protrusion. T4-T5: The thecal sac has a normal diameter. No evidence of disc bulge or protrusion. T5-T6: The thecal sac has a normal diameter. No evidence of disc bulge or protrusion. T6-T7: The thecal sac has a normal diameter. No evidence of disc bulge or protrusion. T7-T8: The thecal sac has a normal diameter. No evidence of disc bulge or protrusion. T8-T9: The thecal sac has a normal diameter. No evidence of disc bulge or protrusion. T9-T10: The thecal sac has a normal diameter. No evidence of disc bulge or protrusion. T10-T11: The thecal sac has a normal diameter. No evidence of disc bulge or protrusion. T11-T12: There is a vacuum phenomenon. Again noted is the mild to moderate impression on the anterior epidural space from the compression deformity of T12. T12-L1: There is a vacuum phenomenon. A significant impression on the thecal sac is not seen. CONCLUSION: T12 compression deformity that has been treated with vertebroplasty. There is a posterior bulging of the T12 vertebral body margin and a more focal impression off the posterior superior aspect of T12 ve rtebral body causing a mild to moderate compression of the thecal sac. There is also stable compressi on deformity at the superior right lateral L1 vertebral body. Dalton Palacios MD on September 22, 2017 at 0:10 Board Certified Radiologist. This report was verified electronically.
[2017-09-22] MEDS ORDERED: BISACODYL 10 MG SUPP RECTAL PRN (01:30)
[2017-09-22] MEDS ORDERED: ONDANSETRON HCL 4 MG/2 ML VIAL IVP PRN (01:30)
[2017-09-22] MEDS ORDERED: NALOXONE HCL 0.4 MG/ML AMP IV PUSH PRN (01:30)
[2017-09-22] MEDS ORDERED: SODIUM CHLORIDE 0.9% FLUSH 10 ML FLUSH IV FLUSH PRN (01:30)
[2017-09-22] MEDS ORDERED: SENNOSIDES 8.6 MG TAB PO PRN (01:30)
[2017-09-22] MEDS ORDERED: LACTULOSE SYRUP 20 GM/30 ML CUP PO PRN (01:30)
[2017-09-22] MEDS ORDERED: ACETAMINOPHEN 325 MG TAB PO PRN (01:30)
[2017-09-22] MEDS ORDERED: ALPRAZolam 0.25 MG TAB PO PRN (01:30)
[2017-09-22] MEDS ORDERED: MAGNESIUM HYDROXIDE SUSP 30 ML CUP PO PRN (01:30)
[2017-09-22] MEDS ORDERED: ALBUTEROL SULFATE 90 MCG/ACT HFA 8 GM INHALER INH PRN (01:45)
[2017-09-22] MEDS: SODIUM CHLOR 0.9% 1000 ML INJ 1,000 ML IV SCH ×2 (04:47→11:33)
[2017-09-22] MEDS: MORPHINE SULFATE 2 MG/ML INJ IV PRN ×2 (04:49→08:22)
[2017-09-22 06:15] LABS: AUTOMATED NEUTROPHIL # 12.1 TH/MM3 (1.8-7.7); BASOPHIL # 0.3 TH/MM3 (0-0.2); BASOPHIL % 2.1 % (0.0-2.0); EOSINOPHIL % 0.1 % (0.0-4.0); HEMATOCRIT 37.2 % (35.0-46.0); HEMO FLAGS DIFF FINAL; LYMPH % 4.9 % (9.0-44.0); LYMPHOCYTE # 0.7 TH/MM3 (1.0-4.8); MEAN CELL VOLUME 95.6 FL (80.0-100.0); MEAN CORPUSCULAR HEMOGLOBIN 31.8 PG (27.0-34.0); MEAN CORPUSCULAR HGB CONC 33.3 % (32.0-36.0); MONO % 3.3 % (0.0-8.0); NEUT % 89.6 % (16.0-70.0); PLATELET COUNT 210 TH/MM3 (150-450); RED BLOOD COUNT 3.89 MIL/MM3 (4.00-5.30); RED CELL DISTRIBUTION WIDTH 14.5 % (11.6-17.2); WHITE BLOOD COUNT 13.5 TH/MM3 (4.0-11.0)
[2017-09-22 06:43] LABS: BICARBONATE 30.8 MEQ/L (21.0-32.0); POTASSIUM 4.1 MEQ/L (3.5-5.1)
[2017-09-22] MEDS: VERAPAMIL HCL 240 MG SUSTAINED RELEASE TAB PO SCH (08:17)
[2017-09-22] MEDS: DOCUSATE SODIUM 50 MG/SENNA 8.6 MG TAB PO SCH ×2 (08:17→21:00)
[2017-09-22] MEDS: PRAVASTATIN SOD 40 MG TAB PO SCH (08:17)
[2017-09-22] MEDS: RALOXIFENE HCL 60 MG TAB PO SCH (08:17)
[2017-09-22] MEDS: CALCIUM CARBONATE 1.25 GM (CA 500 MG) TAB PO SCH (08:17)
[2017-09-22] MEDS: DIGOXIN 0.125 MG TAB PO SCH (08:17)
[2017-09-22] MEDS: SODIUM CHLORIDE 0.9% FLUSH 10 ML FLUSH IV FLUSH SCH ×2 (08:18→21:00)
[2017-09-22] MEDS ORDERED: OMEPRAZOLE 10 MG PO SCH (09:00)
--- NOTE | 2017-09-22 09:12 | HHI.HP ---
HPI Service [facility] Hospitalists Primary Care Physician Unknown Admission Diagnosis intractable back pain, left pleural effusion. Diagnoses: Chief Complaint: Intractable back pain Travel History International Travel<30 Days: No Contact w/Intl Traveler <30 Da: No Traveled to Known Affected Are: No History of Present Illness This is an 87 year female with a past medical history significant for mild Alzheimer's dementia, recurrent pleural effusions, atrial fibrillation, chronic iron deficiency anemia and a history of a compression deformity status post vertebroplasty with chronic back pain who presents to [facility] ED with complaints of acute on chronic back pain with radiation into the right shoulder. She states she's had ongoing back pain since January. Patient is a very poor historian. She states she began having increased mid and low back pain with radiation into the right shoulder yesterday. Patient denies any recent trauma or injury. When asked about pain medications patient takes at home she replies "I don't know whatever pills they give me". Pain is worse with movement. She denies any associated numbness or tingling. She lives alone. She does not have any family in the area. She denies any anterior chest pain. She reports her back pain is 10/10. Review of Systems Except as stated in HPI: all other systems reviewed are Neg Past Family Social History Past Medical History Atrial fibrillation followed by Dr. Montaño Chronic iron deficiency anemia followed by Dr. Murphy History of left pleural effusion Alzheimer's dementia Hypertension Suspected COPD, patient quit smoking 5 years ago Dyslipidemia Osteoarthritis Osteoporosis with pathologic compression fracture T12 s/p vertebroplasty Past Surgical History Appendectomy Nephrectomy Adenoidectomy Vertebroplasty T12 Reported Medications Dok (Docusate Sodium) 100 Mg Cap 100 Mg PO Q12HR PRN Alprazolam 0.25 Mg Tab 0.25 Mg PO BID PRN Lortab (Hydrocodone-Acetaminophen) 5-325 Mg Tab 1 Tab PO Q6H PRN Evista (Raloxifene HCl) 60 Mg Tab 60 Mg PO DAILY Verapamil SR (Verapamil HCl) 240 Mg Tab 240 Mg PO DAILY Simvastatin 20 Mg Tab 20 Mg PO DAILY Folic Acid 5 Mg Cap 1 Mg PO DAILY Omeprazole 10 Mg Cap 10 Mg PO DAILY Combivent Respimat Inh (Ipratropium-Albuterol Inh) 20-100 Long-Term/Act Aero 2 Puff INH DIRECTED PRN Digoxin 0.125 Mg Tab 0.125 Mg PO EVERY OTHER DAY Calcium 600 (Calcium Carbonate) 1,500 Mg Tab 600 Mg PO DAILY Allergies: Coded Allergies: No Known Allergies (Verified Allergy, Unknown, 09/22/17) Active Ordered Medications Current Medications Medications (Trade) Dose Ordered Sig/Lena Route Start Time Stop Time Status Last Admin (NS Flush) 2 ml UNSCH PRN IV FLUSH 09/22/17 01:30 (NS Flush) 2 ml BID IV FLUSH 09/22/17 09:00 (Tylenol) 650 mg Q4H PRN PO 09/22/17 01:30 (Zofran Inj) 4 mg Q6H PRN IVP 09/22/17 01:30 (Narcan Inj) 0.4 mg UNSCH PRN IV PUSH 09/22/17 01:30 (Jeannie-Colace) 1 tab BID PO 09/22/17 09:00 (Milk Of Magnesia Liq) 30 ml Q12H PRN PO 09/22/17 01:30 (Senokot) 17.2 mg Q12H PRN PO 09/22/17 01:30 (Dulcolax Supp) 10 mg DAILY PRN RECTAL 09/22/17 01:30 (Lactulose Liq) 30 ml DAILY PRN PO 09/22/17 01:30 (Morphine Inj) 4 mg Q3H PRN IV 09/22/17 01:45 09/22/17 08:22 Sodium Chloride 1,000 ml @ 75 mls/hr [id number] IV 09/22/17 02:00 09/22/17 04:47 (Xanax) 0.25 mg BID PRN PO 09/22/17 01:30 (Lanoxin) 0.125 mg EVERY OTHER DAY PO 09/22/17 09:00 09/22/17 08:17 (Evista) 60 mg DAILY PO 09/22/17 09:00 09/22/17 08:17 (Isoptin Sr) 240 mg DAILY PO 09/22/17 09:00 09/22/17 08:17 (Oscal) 500 mg DAILY PO 09/22/17 09:00 09/22/17 08:17 (Proair Hfa Inh) 2 puff UNSCH PRN INH 09/22/17 01:45 Patient Own Medication PT OWN MED: (Omepraz... DAILY PO 09/22/17 09:00 Future Hold (Pravachol) 40 mg DAILY PO 09/22/17 09:00 09/22/17 08:17 Family History Reviewed with patient, noncontributory Social History Patient has an extensive tobacco use history, quit smoking 5 years ago. Denies any alcohol use. Physical Exam Vital Signs Vital Signs Date Time Temp Pulse Resp B/P (MAP) Pulse Ox O2 Delivery O2 Flow Rate FiO2 09/22/17 06:58 97.6 87 18 191/86 (121) 97 09/22/17 05:33 98.7 86 18 184/93 (123) 97 09/22/17 04:55 20 09/22/17 04:53 98.7 76 18 171/89 (116) 99 09/22/17 02:39 78 24 162/76 (104) 98 Nasal Cannula 2.00 09/22/17 02:39 09/21/17 21:51 71 24 165/74 (104) 99 Nasal Cannula 2.00 09/21/17 21:39 22 09/21/17 20:41 97 Nasal Cannula 2.00 09/21/17 20:16 70 20 141/70 (93) 96 Physical Exam GENERAL: This is a frail elderly female patient, in no apparent distress. Awake and alert. Sitting on side of bed then over looking down at the floor. SKIN: No rashes, ecchymoses or lesions. Cool and dry. HEAD: Atraumatic. Normocephalic. No temporal or scalp tenderness. EYES: Pupils equal round and reactive. Extraocular motions intact. No scleral icterus. No injection or drainage. ENT: Nose without bleeding or purulent drainage. Throat without erythema, tonsillar hypertrophy or exudate. Uvula midline. Airway patent. NECK: Trachea midline. No lymphadenopathy. Supple, nontender, no meningeal signs. CARDIOVASCULAR: Irregular without murmurs, gallops, or rubs. RESPIRATORY: Diminished BS but poor effort noted. No wheezing or rhonchi noted. GASTROINTESTINAL: Abdomen soft, non-tender, nondistended. No hepato-splenomegaly , or palpable masses. No guarding. MUSCULOSKELETAL: Extremities without clubbing, cyanosis, or edema. No joint tenderness, effusion, or edema noted. No calf tenderness. (+)diffuse tenderness to palpation over thoracic and lumbar paraspinous muscles. NEUROLOGICAL: Awake and alert. Able to move all extremities. No focal neurologic finding appreciated. Normal speech. Laboratory Laboratory Tests Test 09/21/17 20:50 09/22/17 04:14 09/22/17 04:19 White Blood Count 11.3 13.5 Red Blood Count 3.76 3.89 Hemoglobin 11.9 12.4 Hematocrit 35.5 37.2 Mean Corpuscular Volume 94.6 95.6 Mean Corpuscular Hemoglobin 31.8 31.8 Mean Corpuscular Hemoglobin Concent 33.6 33.3 Red Cell Distribution Width 14.2 14.5 Platelet Count 223 210 Mean Platelet Volume 11.5 11.5 Neutrophils (%) (Auto) 81.5 89.6 Lymphocytes (%) (Auto) 11.3 4.9 Monocytes (%) (Auto) 4.7 3.3 Eosinophils (%) (Auto) 1.5 0.1 Basophils (%) (Auto) 1.0 2.1 Neutrophils # (Auto) 9.3 12.1 Lymphocytes # (Auto) 1.3 0.7 Monocytes # (Auto) 0.5 0.4 Eosinophils # (Auto) 0.2 0.0 Basophils # (Auto) 0.1 0.3 CBC Comment AUTO DIFF DIFF FINAL Differential Total Cells Counted 100 Neutrophils % (Manual) 86 Band Neutrophils % 2 Lymphocytes % 8 Monocytes % 2 Eosinophils % 1 Basophils % 1 Neutrophils # (Manual) 9.9 Differential Comment FINAL DIFF MANUAL Platelet Estimate NORMAL Platelet Morphology Comment NORMAL Blood Urea Nitrogen 13 14 Creatinine 1.06 1.04 Random Glucose 109 122 Total Protein 7.2 Albumin 3.6 Calcium Level 8.1 8.3 Alkaline Phosphatase 43 Aspartate Amino Transf (AST/SGOT) 23 Alanine Aminotransferase (ALT/SGPT) 13 Total Bilirubin 0.4 Sodium Level 140 139 Potassium Level 3.9 4.1 Chloride Level 107 103 Carbon Dioxide Level 27.0 30.8 Anion Gap 6 5 Estimat Glomerular Filtration Rate 49 50 Lipase 133 Digoxin Level 1.2 Result Diagram: 09/22/174 09/22/17418 Imaging Last Impressions Thoracic Spine CT 09/21/172033 Signed Impressions: Service Date/Time: Thursday, September 21, 2017 23:20 - CONCLUSION: T12 compression deformity that has been treated with vertebroplasty. There is a posterior bulging of the T12 vertebral body margin and a more focal impression off the posterior superior aspect of T12 vertebral body causing a mild to moderate compression of the thecal sac. There is also stable compression deformity at the superior right lateral L1 vertebral body. Dalton Palacios MD Chest X-Ray 09/21/172033 Signed Impressions: Service Date/Time: Thursday, September 21, 2017 20:52 - CONCLUSION: 1. Probable left pleural effusion. 2. Prominent soft tissue opacity in the right cardiophrenic angle stable from prior and probably representing large hiatus hernia. Tuan Montilla MD Aorta CTA 09/21/17 0000 Signed Impressions: Service Date/Time: Thursday, September 21, 2017 23:20 - CONCLUSION: 1. No aortic dissection or aneurysm is seen. 2. Much of the stomach is in the lower chest. The stomach is extremely distended. This is likely from a hiatal hernia or gastric pull-through procedure. No clips are seen making a large hiatal hernia more likely. Given the large amount of debris and distention of the stomach, some degree of obstruction cannot be excluded. 3. Bilateral pleural effusions. There are rounded areas of density seen in the periphery of the left lower lobe likely related to round atelectasis or focal consolidation. 4. T12 compression deformity. The patient is status post vertebroplasty at this level. 5. 3.8 cm low-density mass in the left lobe of the liver. This is nonspecific. It likely represents a cyst or hemangioma. Dalton Palacios MD Caprini VTE Risk Assessment Caprini VTE Risk Assessment: Mod/High Risk (score >= 2) Caprini Risk Assessment Model Point Value = 1 Point Value = 2 Point Value = 3 Point Value = 5 Age 41-60 Minor surgery BMI > 25 kg/m2 Swollen legs Varicose veins or History of unexplained or recurrent spontaneous Oral contraceptives or hormone replacement Sepsis (< 1 month) Serious lung disease, including pneumonia (< 1 month) Abnormal pulmonary function Acute myocardial infarction Congestive heart failure (< 1 month) History of inflammatory bowel disease Medical patient at bed rest Age 61-74 Arthroscopic surgery Major open surgery (> 45 min) Laparoscopic surgery (> 45 min) Malignancy Confined to bed (> 72 hours) Immobilizing plaster cast Central venous access Age >= 75 History of VTE Family history of VTE Factor V Leiden Prothrombin [id number] Lupus anticoagulant Anticardiolipin antibodies Elevated serum homocysteine Heparin-induced thrombocytopenia Other congenital or acquired thrombophilia Stroke (< 1 month) Elective arthroplasty Hip, pelvis, or leg fracture Acute spinal cord injury (< 1 month) Prophylaxis Regimen Total Risk Factor Score Risk Level Prophylaxis Regimen 0-1 Low Early ambulation 2 Moderate Order ONE of the following: *Sequential Compression Device (SCD) *Heparin 5000 units SQ BID 3-4 Higher Order ONE of the following medications: *Heparin 5000 units SQ TID *Enoxaparin/Lovenox 40 mg SQ daily (WT < 150 kg, CrCl > 30 mL/min) *Enoxaparin/Lovenox 30 mg SQ daily (WT < 150 kg, CrCl > 10-29 mL/min) *Enoxaparin/Lovenox 30 mg SQ BID (WT < 150 kg, CrCl > 30 mL/min) AND/OR *Sequential Compression Device (SCD) 5 or more Highest Order ONE of the following medications: *Heparin 5000 units SQ TID (Preferred with Epidurals) *Enoxaparin/Lovenox 40 mg SQ daily (WT < 150 kg, CrCl > 30 mL/min) *Enoxaparin/Lovenox 30 mg SQ daily (WT < 150 kg, CrCl > 10-29 mL/min) *Enoxaparin/Lovenox 30 mg SQ BID (WT < 150 kg, CrCl > 30 mL/min) AND *Sequential Compression Device (SCD) Assessment and Plan Assessment and Plan 87 year female with a past medical history significant for mild Alzheimer's dementia, recurrent pleural effusions, atrial fibrillation, chronic iron deficiency anemia and a history of a compression deformity status post vertebroplasty with chronic back pain who presents to [facility] ED with complaints of acute on chronic back pain with radiation into the right shoulder. Acute on chronic back pain - Thoracic spine CT reveals T12 compression deformity that has been treated with vertebroplasty. There is a posterior bulging of the T12 vertebral body margin and a more focal impression off the posterior superior aspect of T12 vertebral body causing a mild to moderate compression of the thecal sac. There is also stable compression deformity at the superior right lateral L1 vertebral body, images reviewed by me - s/p T12 vertebroplasty performed by Dr. Wilkins January 2017 - Consult neurosurgery, appreciate recommendations - xray lumbar spine - pain management with IV Morphine and bowel regimen. Patient takes Lortab at home. - trial Robaxin 750 mg by mouth every 8 hours - PT/OT eval/tx Leukocytosis - Suspect reactive - Patient does not appear septic. She is afebrile. - CXR probable left pleural effusion and prominent soft tissue opacity in the right cardiophrenic angle stable from prior and probably representing large hiatus hernia, images personally reviewed - obtain UA - monitor white count History of chronic left pleural effusion - Monitor respiratory status - patient currently 97% on 2 L - IS at bedside, encourage hourly use Atrial fibrillation - Rate controlled - Continue patient on home dose of digoxin 0.125 mg by mouth every other day Hypertension - Uncontrolled, suspect secondary to pain - Continue patient on home dose of verapamil 240 mg daily - Vasotec 1.25mg IV q6h or Hydralazine 10mg q6h prn SBP>180 Suspected COPD extensive history of tobacco use, not in acute exacerbation - Patient quit smoking 5 years ago - Duonebs as needed Alzheimer's dementia - Patient is not on any dementia medications at home Chronic iron deficiency anemia History of GI bleed due to AVM - H&H stable - No evidence of active bleeding - Continue to monitor Dyslipidemia - continue patient on home dose of statin therapy GERD - PPI DVT prophylaxis - Discussed Condition With Patient, nursing staff, Dr. Frost Attending Statement The exam, history, and the medical decision-making described in the above note were completed with the assistance of the mid-level provider. I reviewed and agree with the findings presented. I attest that I had a [id number] encounter with the patient on the same day, and personally performed and documented my assessment and findings in the medical record. Patient complaining of worsening of lower back pain more to the left side. She denies any lower extremity weakness. She says she can ambulate but it's painful because of her back pain. She has no other complaints. gen NAD resp CTA B/L CV RRR. no r/m/g MSK 5 out of 5 lower extremity strength. Limited range of motion of her lumbar secondary to pain. Sensation is intact. A/P Acute on chronic lower back pain -X-ray suggest compression fracture. -Will treat with pain control. Consult patient's neurosurgeon for further recommendations. Joseline Locke Sep 22, 2017 09:12 Berna Frost MD Sep 22, 2017 09:33
[2017-09-22] MEDS ORDERED: ENALAPRILAT 1.25 MG/ML VIAL IV PUSH PRN (09:15)
[2017-09-22] MEDS ORDERED: PILL SPLITTER OTHER PRN (09:15)
[2017-09-22] MEDS ORDERED: hydrALAZINE HCL 10 MG TAB PO PRN (09:15)
[2017-09-22] MEDS: METHOCARBAMOL 500 MG TAB PO SCH ×3 (09:19→22:00)
--- NOTE | 2017-09-22 14:34 | RADRPT ---
EXAM DATE/TIME: 09/22/2017 12:54 [facility] COMPARISON: CT THORACIC SPINE W/O CONTRAST, September 21, 2017, 23:20. SPINE LUMBAR LTD (AP & LAT), December 08 7, 14:19. INDICATIONS : Low back pain, no known injury. MEDICAL HISTORY : None. SURGICAL HISTORY : Kyphoplasty. ENCOUNTER: Initial ACUITY: 4 - 6 days PAIN SCORE: 3/10 LOCATION: low back FINDINGS: Redemonstration of T12 and L1 compression fractures with interval kyphoplasty at T12. Remaining verte bral body heights are intact. There is very subtle anterolisthesis of C3 on C4. Sagittal alignment is maintained. The facets are normally aligned. Degenerative spondylosis is noted in the lumbar spine m ost prominently at L1-2 and L5-S1 with disc space loss and osteophyte formation. Atherosclerotic calc ific changes are seen in the bowel aorta. There is contrast in the bladder likely from recent contras t administration. CONCLUSION: 1. Redemonstration of T12 and L1 compression fractures with interval kyphoplasty at T12. 2. No new compression fracture or apparent acute abnormality. 3. Redemonstration of degenerative spondylosis of the lumbar spine. Samuel Ziegler MD on September 22, 2017 at 14:26 Board Certified Radiologist. This report was verified electronically.
--- NOTE | 2017-09-22 15:45 | EKG ---
Date Performed: 09/21/2017 Time Performed: 20:16:42 PTAGE: 87 years EKG: Atrial pacing with markedly prolonged CT interval. LOW QRS VOLTAGE IN EXTREMITY LEADS NONSP ECIFIC ST & T-WAVE ABNORMALITY ABNORMAL ECG PREVIOUS TRACING : 12/09/2016 10.20 DOCTOR: Stan Tejada Interpretating Date/Time 09/22/2017 15:44:47
[2017-09-23] VITALS (7 sets, daily range): BP systolic 136–194; BP diastolic 65–78; PULSE 78–91; RESP 16–20; TEMP 95.5–98.4; O2SAT 95–99
[2017-09-23] MEDS: MORPHINE SULFATE 2 MG/ML INJ IV PRN (01:48)
[2017-09-23] MEDS: SODIUM CHLOR 0.9% 1000 ML INJ 1,000 ML IV SCH ×2 (04:40→22:21)
[2017-09-23] MEDS: METHOCARBAMOL 500 MG TAB PO SCH (06:21)
--- NOTE | 2017-09-23 08:38 | HHI.PR ---
Subjective Remarks Follow up on patient with acute on chronic back pain. Patient seen and examined. Patient is confused. She is oriented to self only. She thinks she is in [place]. She stated the name of the hospital is [facility]. She believes the year is 1957. She reports her back pain is improved. She denies any new medical complaints. She states she uses oxygen at home. She reports she is eating well. 1459 Patient reevaluated. Appears more alert but still oriented to self only. Discussed with caregiver who is now at the bedside. States patient is usually very sharp. She does not use oxygen at home. Per Ana Rosa HERNANDEZ, patient found without oxygen yesterday and O2 sats were 80%, she quickly came back up to mid 90s once oxygen replaced. White count extremely elevated. Patient denies any fever or chills. She denies any cough. Denies any N/V or abdominal pain. Denies any chest pain or dyspnea. She denies any hematuria, dysuria or frequency. Per PRINT PRESS OPERATOR, patient voiding well. BM smear only on the bed. She did not eat lunch. Objective Vitals Vital Signs Date Time Temp Pulse Resp B/P (MAP) Pulse Ox O2 Delivery O2 Flow Rate FiO2 09/23/17 07:15 98.2 90 16 184/78 (113) 97 09/23/17 04:22 98.4 85 18 150/67 (94) 96 09/23/17 00:00 98.0 91 16 136/65 (88) 95 09/22/17 21:05 94 Nasal Cannula 3.00 09/22/17 20:59 98.0 90 16 166/74 (104) 95 09/22/17 15:06 98.2 91 18 161/73 (102) 95 09/22/17 13:19 167/77 (107) 09/22/17 11:13 98.6 102 18 222/91 (134) 98 164/92 (116) 185/92 (123) Result Diagram: 09/22/17 0414 09/22/17 0419 Imaging Last Impressions Lumbar Spine X-Ray 09/22/17 0000 Signed Impressions: Service Date/Time: Friday, September 22, 2017 12:54 - CONCLUSION: 1. Redemonstration of T12 and L1 compression fractures with interval kyphoplasty at T12. 2. No new compression fracture or apparent acute abnormality. 3. Redemonstration of degenerative spondylosis of the lumbar spine. Samuel Ziegler MD Thoracic Spine CT [id number]/21/172033 Signed Impressions: Service Date/Time: Thursday, September 21, 2017 23:20 - CONCLUSION: T12 compression deformity that has been treated with vertebroplasty. There is a posterior bulging of the T12 vertebral body margin and a more focal impression off the posterior superior aspect of T12 vertebral body causing a mild to moderate compression of the thecal sac. There is also stable compression deformity at the superior right lateral L1 vertebral body. Dalton Palacios MD Chest X-Ray 09/21/172033 Signed Impressions: Service Date/Time: Thursday, September 21, 2017 20:52 - CONCLUSION: 1. Probable left pleural effusion. 2. Prominent soft tissue opacity in the right cardiophrenic angle stable from prior and probably representing large hiatus hernia. Tuan Montilla MD Aorta CTA 09/21/17 0000 Signed Impressions: Service Date/Time: Thursday, September 21, 2017 23:20 - CONCLUSION: 1. No aortic dissection or aneurysm is seen. 2. Much of the stomach is in the lower chest. The stomach is extremely distended. This is likely from a hiatal hernia or gastric pull-through procedure. No clips are seen making a large hiatal hernia more likely. Given the large amount of debris and distention of the stomach, some degree of obstruction cannot be excluded. 3. Bilateral pleural effusions. There are rounded areas of density seen in the periphery of the left lower lobe likely related to round atelectasis or focal consolidation. 4. T12 compression deformity. The patient is status post vertebroplasty at this level. 5. 3.8 cm low-density mass in the left lobe of the liver. This is nonspecific. It likely represents a cyst or hemangioma. Dalton Palacios MD Objective Remarks GENERAL: This is a frail elderly female patient, in no apparent distress. Awake lying in hospital bed. Confused. SKIN: Cool and dry. HEAD: Atraumatic. Normocephalic. EYES: Pupils equal round and reactive. Extraocular motions intact. No scleral icterus. No injection or drainage. ENT: Nose without bleeding or purulent drainage. Airway patent. NECK: Trachea midline. CARDIOVASCULAR: Irregular without murmurs, gallops, or rubs. RESPIRATORY: Diminished BS but poor effort noted. No wheezing or rhonchi noted. GASTROINTESTINAL: Abdomen soft, non-tender, nondistended. MUSCULOSKELETAL: Extremities without clubbing, cyanosis, or edema. (+)diffuse tenderness to palpation over thoracic and lumbar paraspinous muscles, improved. NEUROLOGICAL: Awake. Able to move all extremities. No focal neurologic finding appreciated. Normal speech. Medications and IVs Current Medications Medications (Trade) Dose Ordered Sig/Lena Route Start Time Stop Time Status Last Admin (NS Flush) 2 ml UNSCH PRN IV FLUSH 09/22/17 01:30 (NS Flush) 2 ml BID IV FLUSH 09/22/17 09:00 09/22/17 21:00 (Tylenol) 650 mg Q4H PRN PO 09/22/17 01:30 (Zofran Inj) 4 mg Q6H PRN IVP 09/22/17 01:30 (Narcan Inj) 0.4 mg UNSCH PRN IV PUSH 09/22/17 01:30 (Jeannie-Colace) 1 tab BID PO 09/22/17 09:00 (Milk Of Magnesia Liq) 30 ml Q12H PRN PO 09/22/17 01:30 (Senokot) 17.2 mg Q12H PRN PO 09/22/17 01:30 (Dulcolax Supp) 10 mg DAILY PRN RECTAL 09/22/17 01:30 (Lactulose Liq) 30 ml DAILY PRN PO 09/22/17 01:30 (Morphine Inj) 4 mg Q3H PRN IV 09/22/17 01:45 09/23/17 01:48 Sodium Chloride 1,000 ml @ 75 mls/hr [id number] IV 09/22/17 02:00 09/23/17 04:40 (Xanax) 0.25 mg BID PRN PO 09/22/17 01:30 (Lanoxin) 0.125 mg EVERY OTHER DAY PO 09/22/17 09:00 09/22/17 08:17 (Evista) 60 mg DAILY PO 09/22/17 09:00 09/22/17 08:17 (Isoptin Sr) 240 mg DAILY PO 09/22/17 09:00 09/22/17 08:17 (Oscal) 500 mg DAILY PO 09/22/17 09:00 09/22/17 08:17 (Proair Hfa Inh) 2 puff UNSCH PRN INH 09/22/17 01:45 Patient Own Medication PT OWN MED: (Omepraz... DAILY PO 09/22/17 09:00 Future Hold (Pravachol) 40 mg DAILY PO 09/22/17 09:00 09/22/17 08:17 (Robaxin) 750 mg Q8HR PO 09/22/17 09:30 09/23/17 06:21 (Apresoline) 10 mg Q6HR PRN PO 09/22/17 09:15 (Vasotec Inj) 1.25 mg Q6H PRN IV PUSH 09/22/17 09:15 09/22/17 11:33 (Pill Splitter) 1 ea UNSCH PRN OTHER 09/22/17 09:15 A/P Assessment and Plan 87 year female with a past medical history significant for mild Alzheimer's dementia, recurrent pleural effusions, atrial fibrillation, chronic iron deficiency anemia and a history of a compression deformity status post vertebroplasty with chronic back pain who presents to [facility] ED with complaints of acute on chronic back pain with radiation into the right shoulder. Sepsis Acute hypoxic respiratory failure secondary to pleural effusion and pneumonia - Patient meets sepsis criteria with temp 95.1, leukocytosis with white count of 23.7 and source of pneumonia - lactic acid 1.6 - Patient currently requiring 3 L of oxygen. Patient desats in the 80s without oxygen. Also per discussion with Neena with PT, patient desatted to 92% with oxygen on during short ambulation - CXR shows persistent left basilar consolidation/effusion. Begin Zosyn IV. Consult ID for assistance. Speech therapy for swallow evaluation for possible aspiration. - UA negative - trend white count - IVF - continuous cardiac monitoring Metabolic encephalopathy - Patient with altered mental status secondary to hypoxia and infection. - treat underlying infection - Ammonia level within normal limits - fall precautions - Monitor for improvement in sensorium Acute on chronic back pain s/p T12 vertebroplasty by Dr. Wilkins January 2017 - Thoracic spine CT reveals T12 compression deformity s/p vertebroplasty, posterior bulging of the T12 vertebral body causing mild to mod compression of thecal sac - Consult neurosurgery, appreciate recommendations - pain management with bowel regimen. Patient takes Lortab at home. - Robaxin 750 mg by mouth every 8 hours prn - continue with PT/OT. OOB with assistance. Fall precautions. History of chronic left pleural effusion - Monitor respiratory status - patient currently 99% on 3 L, patient states she uses oxygen at home. Per caregiver, she does not use oxygen at home. Home oxygen walk test ordered. - IS at bedside, encourage hourly use. Acapella. Atrial fibrillation - Rate controlled - Continue patient on home dose of digoxin 0.125 mg by mouth every other day - [id number] score 4, not on any anticoagulation due to history of bleeding. Patient to follow up with grading machine feeder Dr. Montaño as outpatient. Hypertension - labile - Continue patient on home dose of verapamil 240 mg daily - Vasotec 1.25mg IV q6h or Hydralazine 10mg q6h prn SBP>180 COPD extensive history of tobacco use, not in acute exacerbation - Patient quit smoking 5 years ago - Sundar Alzheimer's dementia - Patient is not on any dementia medications at home - discussed with family member Camryn Gilbert who states patient is normally oriented x 3. Declined secondary to underlying infection and hypoxia. - hx of B12 deficiency. Will recheck level. PRAMOD - suspect due to dehydration. Gentle IVF hydration. - creatinine improving. baseline appears to be .9 - 1 - avoid nephrotoxic agents - continue to monitor kidney function Chronic iron deficiency anemia History of GI bleed due to AVM - H&H stable - No evidence of active bleeding - Continue to monitor Dyslipidemia - continue patient on home dose of statin therapy GERD - PPI DVT prophylaxis - Heparin sq Discussed with patient, nursing staff and Dr. Frost Discharge Planning Pending clinical course, neurosurgical clearance Joseline Locke Sep 23, 2017 08:38
[2017-09-23] MEDS ORDERED: oxyCODONE/ACETAMINOPHEN 7.5 MG/325 MG TAB PO PRN (08:45)
[2017-09-23] MEDS ORDERED: METHOCARBAMOL 500 MG TAB PO PRN (08:45)
[2017-09-23] MEDS ORDERED: oxyCODONE/ACETAMINOPHEN 5 MG/325 MG TAB PO PRN (08:45)
[2017-09-23] MEDS: PRAVASTATIN SOD 40 MG TAB PO SCH (09:00)
[2017-09-23] MEDS: SODIUM CHLORIDE 0.9% FLUSH 10 ML FLUSH IV FLUSH SCH ×2 (09:00→21:00)
[2017-09-23] MEDS ORDERED: POLYETHYLENE GLYCOL 17 GM PKG PO ONE ×2 (09:15→14:00)
[2017-09-23 11:08] LABS: BASOPHIL # 0.2 TH/MM3 (0-0.2); BASOPHIL % 0.9 % (0.0-2.0); EOSINOPHIL % 0.1 % (0.0-4.0); HEMATOCRIT 35.9 % (35.0-46.0); HEMO FLAGS DIFF FINAL; LYMPHOCYTE # 0.5 TH/MM3 (1.0-4.8); MEAN CELL VOLUME 97.5 FL (80.0-100.0); MEAN CORPUSCULAR HGB CONC 32.9 % (32.0-36.0); MONO % 3.8 % (0.0-8.0); NEUT % 93.2 % (16.0-70.0); PLATELET COUNT 230 TH/MM3 (150-450); RED BLOOD COUNT 3.68 MIL/MM3 (4.00-5.30); RED CELL DISTRIBUTION WIDTH 14.7 % (11.6-17.2); WHITE BLOOD COUNT 23.7 TH/MM3 (4.0-11.0)
[2017-09-23 11:29] LABS: POTASSIUM 3.9 MEQ/L (3.5-5.1)
[2017-09-23] MEDS: VERAPAMIL HCL 240 MG SUSTAINED RELEASE TAB PO SCH (13:52)
[2017-09-23] MEDS: DOCUSATE SODIUM 50 MG/SENNA 8.6 MG TAB PO SCH ×2 (13:52→21:19)
[2017-09-23] MEDS: CALCIUM CARBONATE 1.25 GM (CA 500 MG) TAB PO SCH (13:53)
[2017-09-23] MEDS: RALOXIFENE HCL 60 MG TAB PO SCH (14:51)
[2017-09-23] MEDS: HEPARIN SODIUM - SQ 10,000 UNITS/ML VIAL SQ SCH ×2 (14:52→21:19)
--- NOTE | 2017-09-23 15:44 | RADRPT ---
EXAM DATE/TIME: 09/23/2017 15:05 [facility] COMPARISON: CHEST SINGLE AP, September 21, 2017, 20:52. INDICATIONS : Dyspnea. MEDICAL HISTORY : None. SURGICAL HISTORY : None. ENCOUNTER: Initial ACUITY: 1 day PAIN SCORE: Non-responsive. LOCATION: Bilateral chest FINDINGS: PA and lateral views of the chest demonstrate a prominent soft tissue density in the right base. On t he lateral, there is an air-fluid level in the density temperature to large hiatal hernia. Probable l eft basilar consolidation/effusion, unchanged from prior. Cardiac borders are difficult to assess. Ol d vertebral body fractures in the lumbar region with prior kyphoplasty. CONCLUSION: 1. Prominent soft tissue density in the right lower lung field appears to represent a prominent hiat al hernia on the lateral. 2. Persistent left basilar consolidation/effusion 3. Old compression fractures of the lumbar spine with findings of at least a one level kyphoplasty. Harinder Sotelo MD on September 23, 2017 at 15:40 Board Certified Radiologist. This report was verified electronically.
[2017-09-23 15:59] LABS: BLOOD, URINE SMALL (NEG); GLUCOSE,URINE TRACE mg/dL (NEG); GRANULAR CAST, URINE 3 /lpf; KETONE, URINE TRACE mg/dL (NEG); NITRITE,URINE NEG (NEG); PH, URINE 5.5 (5.0-8.5); SQUAMOUS EPITHELIAL CELL URINE 1 /hpf (0-5); TRANSITIONAL EPI CELLS, URINE <1 /hpf; URINE COLOR YELLOW (YELLW/STRAW)
[2017-09-23 16:00] LABS: COMMENT (UR) CATH-CULT NOT IND; CULTURE IF INDICATED CATH CULTURE NOT IND
--- NOTE | 2017-09-23 16:02 | RADRPT ---
EXAM DATE/TIME: 09/23/2017 15:45 [facility] COMPARISON: No previous studies available for comparison. INDICATIONS : Abdominal pain MEDICAL HISTORY : None. SURGICAL HISTORY : None. ENCOUNTER: Initial ACUITY: 1 day PAIN SCORE: 5/10 LOCATION: Bilateral abdomen FINDINGS: Supine view of the abdomen was performed. The abdominal bowel gas pattern is normal. No abnormal ma sses, calcifications, or organomegaly is seen. The osseous structures are unremarkable. CONCLUSION: No acute disease. Marcial Jordan MD FACR on September 23, 2017 at 15:58 Board Certified Radiologist. This report was verified electronically.
[2017-09-23] MEDS ORDERED: PANTOPRAZOLE SOD 40 MG DELAYED RELEASE TAB PO ONE (17:30)
--- NOTE | 2017-09-23 19:40 | PD.CONS ---
History of Present Illness Service Neurosurgery Consult Requested By Medicine service Reason for Consult Acute exacerbation of chronic low back pain Primary Care Physician Unknown Diagnoses: History of Present Illness 87-year-old female with history of dementia, previous T12 kyphoplasty in December 2016 with baseline chronic low back pain, presented to the emergency room with severe acute exacerbation of back pain. According to emergency room note she complained of somewhat diffuse pain in the thoracolumbar region. Since admission she has been given pain medications and states that her pain is much better today on the morning of 09/23/2017. She states that she does not believe that she fell or injured herself recently. However the patient is a poor historian and exhibits significant confusion. She denies any numbness or weakness in the extremities. She denies any new bowel or bladder dysfunction. Review of Systems Constitutional: COMPLAINS OF: Fever, Weight loss Eyes: COMPLAINS OF: Blurred vision Ears, nose, mouth, throat: COMPLAINS OF: Vertigo Respiratory: COMPLAINS OF: Shortness of breath Cardiovascular: COMPLAINS OF: Chest pain Gastrointestinal: COMPLAINS OF: Abdominal pain Musculoskeletal: COMPLAINS OF: Joint pain, Muscle aches, Back pain Neurologic: COMPLAINS OF: Abnormal gait, Headache, Localized weakness Psychiatric: COMPLAINS OF: Confusion Past Family Social History Allergies: Coded Allergies: No Known Allergies (Verified Allergy, Unknown, 09/22/17) Past Medical History Atrial fibrillation Hypertension Dyslipidemia Arthritis Alzheimer's Past Surgical History Appendectomy Adenoidectomy Nephrectomy T12 kyphoplasty Reported Medications Reported Meds & Active Scripts Active Dok (Docusate Sodium) 100 Mg Cap 100 Mg PO Q12HR PRN Alprazolam 0.25 Mg Tab 0.25 Mg PO BID PRN Lortab (Hydrocodone-Acetaminophen) 5-325 Mg Tab 1 Tab PO Q6H PRN Reported Evista (Raloxifene HCl) 60 Mg Tab 60 Mg PO DAILY Verapamil SR (Verapamil HCl) 240 Mg Tab 240 Mg PO DAILY Simvastatin 20 Mg Tab 20 Mg PO DAILY Folic Acid 5 Mg Cap 1 Mg PO DAILY Omeprazole 10 Mg Cap 10 Mg PO DAILY Combivent Respimat Inh (Ipratropium-Albuterol Inh) 20-100 Detention/Act Aero 2 Puff INH DIRECTED PRN Digoxin 0.125 Mg Tab 0.125 Mg PO EVERY OTHER DAY Calcium 600 (Calcium Carbonate) 1,500 Mg Tab 600 Mg PO DAILY Social History Quit smoking a few years ago. No alcohol use Physical Exam Vital Signs Vital Signs Date Time Temp Pulse Resp B/P (MAP) Pulse Ox O2 Delivery O2 Flow Rate FiO2 09/23/17 17:43 95.5 78 20 194/77 (116) 98 Automatic Cuff 09/23/17 14:33 98.0 83 18 161/67 (98) 99 09/23/17 11:10 98.0 89 16 192/76 (114) 99 09/23/17 07:15 98.2 90 16 184/78 (113) 97 09/23/17 04:22 98.4 85 18 150/67 (94) 96 09/23/17 00:00 98.0 91 16 136/65 (88) 95 09/22/17 21:05 94 Nasal Cannula 3.00 09/22/17 20:59 98.0 90 16 166/74 (104) 95 Physical Exam Gen.: Elderly lady, sitting on bedside. He appears relatively comfortable Head: No scalp tenderness edema laceration or contusion Neck: No significant tenderness. Limited range of motion. No nuchal rigidity. Extremities: Arthritic changes in the hands. No long bone or joint deformity. Mild distal lower extremity edema without cyanosis Musculoskeletal: Relatively mild diffuse tenderness over the lumbar paraspinous musculature. No significant lateral hip tenderness. No lower extremity joint tenderness. Respirations: Clear and regular. No wheezing Cardiac: Irregular without murmur Abdomen: Soft and nontender Neurologic: Awake and alert She knows that she is in the hospital and her name. Significant loss of recent and remote memory Exhibits mild to moderate confusion Answer simple questions with some difficulty Follow simple commands Speech is slow but clear. She will say only a few words in response to questions and appears somewhat inattentive. Extraocular movements intact. Visual red to confrontation and facial sensory motor testing intact. Sensation intact light touch all extremities Strength is normal major flexion and extension groups all extremities Zhanna's response absent No ankle clonus Laboratory Laboratory Tests Test 09/23/17 10:21 09/23/17 10:29 09/23/17 14:26 09/23/17 15:40 Blood Urea Nitrogen 19 Creatinine 0.79 Random Glucose 123 Calcium Level 8.1 Sodium Level 142 Potassium Level 3.9 Chloride Level 107 Carbon Dioxide Level 31.0 Anion Gap 4 Estimat Glomerular Filtration Rate 69 Phosphorus Level 3.0 Vitamin B12 Level 255 Thyroid Stimulating Hormone 3rd Gen 0.996 White Blood Count 23.7 Red Blood Count 3.68 Hemoglobin 11.8 Hematocrit 35.9 Mean Corpuscular Volume 97.5 Mean Corpuscular Hemoglobin 32.0 Mean Corpuscular Hemoglobin Concent 32.9 Red Cell Distribution Width 14.7 Platelet Count 230 Mean Platelet Volume 11.3 Neutrophils (%) (Auto) 93.2 Lymphocytes (%) (Auto) 2.0 Monocytes (%) (Auto) 3.8 Eosinophils (%) (Auto) 0.1 Basophils (%) (Auto) 0.9 Neutrophils # (Auto) 22.0 Lymphocytes # (Auto) 0.5 Monocytes # (Auto) 0.9 Eosinophils # (Auto) 0.0 Basophils # (Auto) 0.2 CBC Comment DIFF FINAL Differential Comment B-Type Natriuretic Peptide 497 Lactic Acid Level 1.6 Ammonia 24 Urine Color YELLOW Urine Turbidity CLEAR Urine pH 5.5 Urine Specific [place] 1.033 Urine Protein 30 Urine Glucose (UA) TRACE Urine Ketones TRACE Urine Occult Blood SMALL Urine Nitrite NEG Urine Bilirubin NEG Urine Urobilinogen LESS THAN 2.0 Urine Leukocyte Esterase NEG Urine RBC 1 Urine WBC 1 Urine Squamous Epithelial Cells 1 Urine Transitional Epithelial Cells <1 Urine Granular Casts 3 Microscopic Urinalysis Comment CATH-CULT NOT IND Date/Time Source Procedure Growth Status 09/23/17 14:26 Blood Peripheral Aerobic Blood Culture Pending Received 09/23/17 14:26 Blood Peripheral Anaerobic Blood Culture Pending Received Result Diagram: 09/23/17 1029 09/23/17 1021 Imaging 09/21/[address] scan and lumbar spine x-ray images reviewed by the undersigned. There is a moderate T12 compression deformity with previous kyphoplasty. There is no evidence of new fracture. No significant retropulsion or kyphosis. Less severe L1 superior compression deformity without retropulsion also unchanged from prior studies from December 2016 post kyphoplasty. Chest X-Ray 09/23/17 0000 Signed Impressions: Service Date/Time: Saturday, September 23, 2017 15:05 - CONCLUSION: 1. Prominent soft tissue density in the right lower lung field appears to represent a prominent hiatal hernia on the lateral. 2. Persistent left basilar consolidation/effusion 3. Old compression fractures of the lumbar spine with findings of at least a one level kyphoplasty. Harinder Sotelo MD Abdomen X-Ray 09/23/17 0000 Signed Impressions: Service Date/Time: Saturday, September 23, 2017 15:45 - CONCLUSION: No acute disease. Marcial Jordan MD FACR Lumbar Spine X-Ray 09/22/17 0000 Signed Impressions: Service Date/Time: Friday, September 22, 2017 12:54 - CONCLUSION: 1. Redemonstration of T12 and L1 compression fractures with interval kyphoplasty at T12. 2. No new compression fracture or apparent acute abnormality. 3. Redemonstration of degenerative spondylosis of the lumbar spine. Samuel Ziegler MD Thoracic Spine CT 09/21/172033 Signed Impressions: Service Date/Time: Thursday, September 21, 2017 23:20 - CONCLUSION: T12 compression deformity that has been treated with vertebroplasty. There is a posterior bulging of the T12 vertebral body margin and a more focal impression off the posterior superior aspect of T12 vertebral body causing a mild to moderate compression of the thecal sac. There is also stable compression deformity at the superior right lateral L1 vertebral body. Dalton Palacios MD Aorta CTA 09/21/17 0000 Signed Impressions: Service Date/Time: Thursday, September 21, 2017 23:20 - CONCLUSION: 1. No aortic dissection or aneurysm is seen. 2. Much of the stomach is in the lower chest. The stomach is extremely distended. This is likely from a hiatal hernia or gastric pull-through procedure. No clips are seen making a large hiatal hernia more likely. Given the large amount of debris and distention of the stomach, some degree of obstruction cannot be excluded. 3. Bilateral pleural effusions. There are rounded areas of density seen in the periphery of the left lower lobe likely related to round atelectasis or focal consolidation. 4. T12 compression deformity. The patient is status post vertebroplasty at this level. 5. 3.8 cm low-density mass in the left lobe of the liver. This is nonspecific. It likely represents a cyst or hemangioma. Dalton Palacios MD Assessment and Plan Assessment and Plan Impression: 1. Previous T12 compression fracture status post kyphoplasty. Recent imaging studies revealed no evidence of new fracture, subluxation, canal compromise. 2. Acute exacerbation of underlying chronic low back pain. The patient states that her back pain flares up on her once in a while. She states that she is comfortable today without significant pain. She was able to ambulate 55 feet today in physical therapy without complaining of significant pain. She requires assistance to mobilize out of bed and ambulate. 3. Atrial fibrillation 4. Chest x-ray with bibasilar consolidation-probable pneumonia 5. Dementia Recommendations: No family available for discussion of the patient's findings today. She appears neurologically stable. She possibly had some increased myofascial type pain and spasm contributing to her pain the past couple of days. This seems to have resolved with medication and therapy. No neurosurgical intervention anticipated at this time. She is stable for discharge from a neurosurgical standpoint. Therapy recommendations requiring assistance with ambulation noted. Oleg Wilkins MD Sep 23, 2017 19:40
[2017-09-23] MEDS ORDERED: ALPRAZolam 0.25 MG TAB PO ONE (20:00)
[2017-09-23] MEDS: PIPERACIL-TAZO 4.5 GM PREMIX 100 ML IV SCH (21:07)
[2017-09-24] VITALS (9 sets, daily range): BP systolic 138–186; BP diastolic 65–94; PULSE 66–91; RESP 18–22; TEMP 97.3–97.8; O2SAT 94–100
[2017-09-24] MEDS: PIPERACIL-TAZO 4.5 GM PREMIX 100 ML IV SCH ×3 (01:23→12:19)
[2017-09-24 08:14] LABS: AUTOMATED NEUTROPHIL # 21.5 TH/MM3 (1.8-7.7); BASOPHIL # 0.1 TH/MM3 (0-0.2); BASOPHIL % 0.5 % (0.0-2.0); LYMPH % 2.2 % (9.0-44.0); LYMPHOCYTE # 0.5 TH/MM3 (1.0-4.8); MEAN CELL VOLUME 97.6 FL (80.0-100.0); MEAN CORPUSCULAR HEMOGLOBIN 32.1 PG (27.0-34.0); MEAN CORPUSCULAR HGB CONC 32.9 % (32.0-36.0); MONO % 3.5 % (0.0-8.0); NEUT % 93.8 % (16.0-70.0); PLATELET COUNT 191 TH/MM3 (150-450); RED BLOOD COUNT 3.59 MIL/MM3 (4.00-5.30); RED CELL DISTRIBUTION WIDTH 14.6 % (11.6-17.2); WHITE BLOOD COUNT 22.9 TH/MM3 (4.0-11.0)
[2017-09-24 08:17] LABS: HEMO FLAGS AUTO DIFF
[2017-09-24] MEDS ORDERED: PANTOPRAZOLE SOD 40 MG DELAYED RELEASE TAB PO SCH (09:00)
[2017-09-24 09:20] LABS: BANDS 10 % (0-6); BASOPHILS 1 % (0-2); METAMYELOCYTES 1 % (0-1); NEUTROPHIL # MANUAL DIFF 21.8 TH/MM3 (1.8-7.7); PLATELET ESTIMATE SMEAR NORMAL (NORMAL); PLATELET MORPHOLOGY NORMAL (NORMAL); POLYS (SEG NEUTROPHILS) 84 % (16-70); SCAN/DIFF FINAL DIFF MANUAL; WBC DIFF SAMPLE 100
--- NOTE | 2017-09-24 09:52 | PD.ID.CON ---
History of Present Illness Service ID Consult Requested By Joseline Hopkins Reason for Consult worsning leukocytosis Primary Care Physician Unknown Diagnoses: History of Present Illness 87-year-old female with history of dementia, previous T12 kyphoplasty in December 2016 with baseline chronic low back pain, presented to the emergency room with severe acute exacerbation of back pain. According to emergency room note she complained of somewhat diffuse pain in the thoracolumbar region. Shje presented with prominent leukocytosis over 20K, bandemia of 10% RN reports declining mental status, she is now obtunded Past Family Social History Allergies: Coded Allergies: No Known Allergies (Verified Allergy, Unknown, 09/22/17) Past Medical History Atrial fibrillation followed by Dr. Montaño Chronic iron deficiency anemia followed by Dr. Murphy History of left pleural effusion Alzheimer's dementia Hypertension Suspected COPD, patient quit smoking 5 years ago Dyslipidemia Osteoarthritis Osteoporosis with pathologic compression fracture T12 s/p vertebroplasty Past Surgical History Appendectomy Nephrectomy Adenoidectomy Vertebroplasty T12 Active Ordered Medications Medications where reviewed in EMR Antibiotics Include: carina Family History Reviewed with patient, noncontributory Social History Patient has an extensive tobacco use history, quit smoking 5 years ago. Denies any alcohol use. Physical Exam Vital Signs Vital Signs Date Time Temp Pulse Resp B/P (MAP) Pulse Ox O2 Delivery O2 Flow Rate FiO2 09/24/17 08:25 97.5 77 20 177/80 (112) 99 09/24/17 03:21 97.3 82 19 186/77 (113) 100 09/24/17 02:01 96 Nasal Cannula 3.00 09/24/17 01:42 85 18 154/70 (98) 96 09/23/17 20:59 97.5 85 16 164/77 (106) 98 09/23/17 17:43 95.5 78 20 194/77 (116) 98 Automatic Cuff 09/23/17 14:33 98.0 83 18 161/67 (98) 99 09/23/17 11:10 98.0 89 16 192/76 (114) 99 Physical Exam CONSTITUTIONAL/GENERAL: This is a thin undernourished patient, in no apparent distress. TUBES/LINES/DRAINS: SKIN: No jaundice, rashes, or lesions. Ecchymoses on upper extremities. No wounds seen anteriorly. Skin temperature appropriate. Not diaphoretic. HEAD: Atraumatic. Normocephalic. EYES: Pupils equal and round and reactive. Extraocular motions intact. No scleral icterus. No injection or drainage. Fundi not examined. ENT: Hearing not tested. Nose without bleeding or purulent drainage. Throat without visible erythema, exudates, masses, or lesions. NECK: Trachea midline. Supple, nontender. No palpable thyroid enlargement or nodularity. CARDIOVASCULAR: Regular rate and rhythm without murmurs, gallops, or rubs. No JVD. Peripheral pulses symmetric. RESPIRATORY/CHEST: Symmetric, unlabored respirations. Clear to auscultation. Breath sounds equal bilaterally. No wheezes, rales, or rhonchi. GASTROINTESTINAL: Abdomen soft, non-tender, nondistended. No hepato-splenomegaly , or palpable masses. No guarding. Bowel sounds present. GENITOURINARY: Without palpable bladder distension. MUSCULOSKELETAL: Extremities without clubbing, cyanosis, or edema. No joint tenderness or effusion noted. No calf tenderness. No mottling or clubbing. LYMPHATICS: No palpable cervical or supraclavicular adenopathy. NEUROLOGICAL: Obtunded Not follows commands. No verbal Moves all extremities. PSYCHIATRIC: unable to assess Laboratory Laboratory Tests Test 09/23/17 10:21 09/23/17 10:29 09/23/17 14:26 09/23/17 15:40 Blood Urea Nitrogen 19 Creatinine 0.79 Random Glucose 123 Calcium Level 8.1 Sodium Level 142 Potassium Level 3.9 Chloride Level 107 Carbon Dioxide Level 31.0 Anion Gap 4 Estimat Glomerular Filtration Rate 69 Phosphorus Level 3.0 Vitamin B12 Level 255 Thyroid Stimulating Hormone 3rd Gen 0.996 White Blood Count 23.7 Red Blood Count 3.68 Hemoglobin 11.8 Hematocrit 35.9 Mean Corpuscular Volume 97.5 Mean Corpuscular Hemoglobin 32.0 Mean Corpuscular Hemoglobin Concent 32.9 Red Cell Distribution Width 14.7 Platelet Count 230 Mean Platelet Volume 11.3 Neutrophils (%) (Auto) 93.2 Lymphocytes (%) (Auto) 2.0 Monocytes (%) (Auto) 3.8 Eosinophils (%) (Auto) 0.1 Basophils (%) (Auto) 0.9 Neutrophils # (Auto) 22.0 Lymphocytes # (Auto) 0.5 Monocytes # (Auto) 0.9 Eosinophils # (Auto) 0.0 Basophils # (Auto) 0.2 CBC Comment DIFF FINAL Differential Comment B-Type Natriuretic Peptide 497 Lactic Acid Level 1.6 Ammonia 24 Urine Color YELLOW Urine Turbidity CLEAR Urine pH 5.5 Urine Specific [place] 1.033 Urine Protein 30 Urine Glucose (UA) TRACE Urine Ketones TRACE Urine Occult Blood SMALL Urine Nitrite NEG Urine Bilirubin NEG Urine Urobilinogen LESS THAN 2.0 Urine Leukocyte Esterase NEG Urine RBC 1 Urine WBC 1 Urine Squamous Epithelial Cells 1 Urine Transitional Epithelial Cells <1 Urine Granular Casts 3 Microscopic Urinalysis Comment CATH-CULT NOT IND Test 09/24/17 07:35 White Blood Count 22.9 Red Blood Count 3.59 Hemoglobin 11.5 Hematocrit 35.0 Mean Corpuscular Volume 97.6 Mean Corpuscular Hemoglobin 32.1 Mean Corpuscular Hemoglobin Concent 32.9 Red Cell Distribution Width 14.6 Platelet Count 191 Mean Platelet Volume 11.3 Neutrophils (%) (Auto) 93.8 Lymphocytes (%) (Auto) 2.2 Monocytes (%) (Auto) 3.5 Eosinophils (%) (Auto) 0.0 Basophils (%) (Auto) 0.5 Neutrophils # (Auto) 21.5 Lymphocytes # (Auto) 0.5 Monocytes # (Auto) 0.8 Eosinophils # (Auto) 0.0 Basophils # (Auto) 0.1 CBC Comment AUTO DIFF Differential Total Cells Counted 100 Neutrophils % (Manual) 84 Band Neutrophils % 10 Lymphocytes % 1 Monocytes % 3 Basophils % 1 Neutrophils # (Manual) 21.8 Metamyelocytes 1 Differential Comment FINAL DIFF MANUAL Platelet Estimate NORMAL Platelet Morphology Comment NORMAL Date/Time Source Procedure Growth Status 09/23/17 14:26 Blood Peripheral Aerobic Blood Culture Pending Received 09/23/17 14:26 Blood Peripheral Anaerobic Blood Culture Pending Received Result Diagram: 09/24/17 0735 09/23/17 1021 Imaging Last Impressions Chest X-Ray 09/23/17 0000 Signed Impressions: Service Date/Time: Saturday, September 23, 2017 15:05 - CONCLUSION: 1. Prominent soft tissue density in the right lower lung field appears to represent a prominent hiatal hernia on the lateral. 2. Persistent left basilar consolidation/effusion 3. Old compression fractures of the lumbar spine with findings of at least a one level kyphoplasty. Harinder Sotelo MD Abdomen X-Ray 09/23/17 0000 Signed Impressions: Service Date/Time: Saturday, September 23, 2017 15:45 - CONCLUSION: No acute disease. Marcial Jordan MD FACR Lumbar Spine X-Ray 09/22/17 0000 Signed Impressions: Service Date/Time: Friday, September 22, 2017 12:54 - CONCLUSION: 1. Redemonstration of T12 and L1 compression fractures with interval kyphoplasty at T12. 2. No new compression fracture or apparent acute abnormality. 3. Redemonstration of degenerative spondylosis of the lumbar spine. Samuel Ziegler MD Thoracic Spine CT [id number] Signed Impressions: Service Date/Time: Thursday, September 21, 2017 23:20 - CONCLUSION: T12 compression deformity that has been treated with vertebroplasty. There is a posterior bulging of the T12 vertebral body margin and a more focal impression off the posterior superior aspect of T12 vertebral body causing a mild to moderate compression of the thecal sac. There is also stable compression deformity at the superior right lateral L1 vertebral body. Dalton Palacios MD Aorta CTA 09/21/17 0000 Signed Impressions: Service Date/Time: Thursday, September 21, 2017 23:20 - CONCLUSION: 1. No aortic dissection or aneurysm is seen. 2. Much of the stomach is in the lower chest. The stomach is extremely distended. This is likely from a hiatal hernia or gastric pull-through procedure. No clips are seen making a large hiatal hernia more likely. Given the large amount of debris and distention of the stomach, some degree of obstruction cannot be excluded. 3. Bilateral pleural effusions. There are rounded areas of density seen in the periphery of the left lower lobe likely related to round atelectasis or focal consolidation. 4. T12 compression deformity. The patient is status post vertebroplasty at this level. 5. 3.8 cm low-density mass in the left lobe of the liver. This is nonspecific. It likely represents a cyst or hemangioma. Dalton Palacios MD Assessment and Plan Assessment and Plan Leukocytosis, mental status decline - slow decline over the last few days ? medx (pt was given xanax) Likely underlying infection Not obvious source, but now reportedly nausea, vomiting will fu stat brain CT MRI will consider LP if no resolution will change abx to cefepime, vancomycin, flagyl consult neuro if persistent/ worsening MS change Rama Bonilla MD Sep 24, 2017 09:52
[2017-09-24] MEDS: VERAPAMIL HCL 240 MG SUSTAINED RELEASE TAB PO SCH (09:59)
[2017-09-24] MEDS: RALOXIFENE HCL 60 MG TAB PO SCH (09:59)
[2017-09-24] MEDS: PRAVASTATIN SOD 40 MG TAB PO SCH (10:00)
[2017-09-24] MEDS ORDERED: CYANOCOBALAMIN 1000 MCG/ML VIAL IM ONE (10:00)
[2017-09-24] MEDS: DIGOXIN 0.125 MG TAB PO SCH (10:00)
[2017-09-24] MEDS: CALCIUM CARBONATE 1.25 GM (CA 500 MG) TAB PO SCH (10:01)
[2017-09-24] MEDS: HEPARIN SODIUM - SQ 10,000 UNITS/ML VIAL SQ SCH (10:01)
[2017-09-24] MEDS: DOCUSATE SODIUM 50 MG/SENNA 8.6 MG TAB PO SCH ×2 (10:01→21:00)
[2017-09-24] MEDS: SODIUM CHLORIDE 0.9% FLUSH 10 ML FLUSH IV FLUSH SCH ×2 (10:02→21:00)
[2017-09-24] MEDS: SODIUM CHLOR 0.9% 1000 ML INJ 1,000 ML IV SCH (10:22)
--- NOTE | 2017-09-24 10:38 | HHI.PR ---
Subjective Remarks Follow up on patient with acute on chronic back pain, acute respiratory failure. Patient seen and examined. Patient able to recall her name and her nieces name. She knows she is in the state of [place]. She does not know the date, month, year or place. She denies any complaints. She is currently in soft restraints. Discussed with MARY Bolton - patient not eating well, no BM overnight. Voiding well. Per caregiver, patient had an episode of coffee ground emesis yesterday and again today. Objective Vitals Vital Signs Date Time Temp Pulse Resp B/P (MAP) Pulse Ox O2 Delivery O2 Flow Rate FiO2 09/24/17 08:25 97.5 77 20 177/80 (112) 99 09/24/17 03:21 97.3 82 19 186/77 (113) 100 09/24/17 02:01 96 Nasal Cannula 3.00 09/24/17 01:42 85 18 154/70 (98) 96 09/23/17 20:59 97.5 85 16 164/77 (106) 98 09/23/17 17:43 95.5 78 20 194/77 (116) 98 Automatic Cuff 09/23/17 14:33 98.0 83 18 161/67 (98) 99 09/23/17 11:10 98.0 89 16 192/76 (114) 99 I/O 09/23/17 09/23/17 09/23/17 09/24/17 09/24/17 09/24/17 07:00 15:00 23:00 07:00 15:00 23:00 Intake Total 120 ml Balance 120 ml Intake Oral 120 ml # Voids 4 Result Diagram: 09/24/17 0735 09/23/17 1021 Imaging Last Impressions Chest X-Ray 09/23/17 0000 Signed Impressions: Service Date/Time: Saturday, September 23, 2017 15:05 - CONCLUSION: 1. Prominent soft tissue density in the right lower lung field appears to represent a prominent hiatal hernia on the lateral. 2. Persistent left basilar consolidation/effusion 3. Old compression fractures of the lumbar spine with findings of at least a one level kyphoplasty. Harinder Sotelo MD Abdomen X-Ray 09/23/17 0000 Signed Impressions: Service Date/Time: Saturday, September 23, 2017 15:45 - CONCLUSION: No acute disease. Marcial Jordan MD FACR Lumbar Spine X-Ray 09/22/17 0000 Signed Impressions: Service Date/Time: Friday, September 22, 2017 12:54 - CONCLUSION: 1. Redemonstration of T12 and L1 compression fractures with interval kyphoplasty at T12. 2. No new compression fracture or apparent acute abnormality. 3. Redemonstration of degenerative spondylosis of the lumbar spine. Samuel Ziegler MD Thoracic Spine CT [id number] Signed Impressions: Service Date/Time: Thursday, September 21, 2017 23:20 - CONCLUSION: T12 compression deformity that has been treated with vertebroplasty. There is a posterior bulging of the T12 vertebral body margin and a more focal impression off the posterior superior aspect of T12 vertebral body causing a mild to moderate compression of the thecal sac. There is also stable compression deformity at the superior right lateral L1 vertebral body. Dalton Palacios MD Aorta CTA 09/21/17 0000 Signed Impressions: Service Date/Time: Thursday, September 21, 2017 23:20 - CONCLUSION: 1. No aortic dissection or aneurysm is seen. 2. Much of the stomach is in the lower chest. The stomach is extremely distended. This is likely from a hiatal hernia or gastric pull-through procedure. No clips are seen making a large hiatal hernia more likely. Given the large amount of debris and distention of the stomach, some degree of obstruction cannot be excluded. 3. Bilateral pleural effusions. There are rounded areas of density seen in the periphery of the left lower lobe likely related to round atelectasis or focal consolidation. 4. T12 compression deformity. The patient is status post vertebroplasty at this level. 5. 3.8 cm low-density mass in the left lobe of the liver. This is nonspecific. It likely represents a cyst or hemangioma. Dalton Palacios MD Objective Remarks GENERAL: This is a frail elderly female patient, in no apparent distress. Appears weak, fatigued lying in hospital bed. Remains confused. In soft restraints. SKIN: Cool and dry. Area of reddish discoloration left lower leg, no abscess appreciated, no streaking or increased warmth. Nontender to palpation. HEAD: Atraumatic. Normocephalic. EYES: Pupils equal round and reactive. No scleral icterus. No injection or drainage. ENT: Nose without bleeding or purulent drainage. Airway patent. MMM. NECK: Trachea midline. CARDIOVASCULAR: Irregular without murmurs, gallops, or rubs. RESPIRATORY: Diminished BS but poor effort noted. No wheezing or rhonchi noted. GASTROINTESTINAL: Abdomen soft, non-tender, nondistended. (+)BS. MUSCULOSKELETAL: Extremities without clubbing, cyanosis, or edema. NEUROLOGICAL: Awake. Able to move all extremities weakly. No focal neurologic finding appreciated. Normal speech. PSYCHIATRIC: Confused. Patient is oriented to self only. Medications and IVs Current Medications Medications (Trade) Dose Ordered Sig/Lena Route Start Time Stop Time Status Last Admin (NS Flush) 2 ml UNSCH PRN IV FLUSH 09/22/17 01:30 (NS Flush) 2 ml BID IV FLUSH 09/22/17 09:00 09/24/17 10:02 (Tylenol) 650 mg Q4H PRN PO 09/22/17 01:30 (Zofran Inj) 4 mg Q6H PRN IVP 09/22/17 01:30 (Narcan Inj) 0.4 mg UNSCH PRN IV PUSH 09/22/17 01:30 (Jeannie-Colace) 1 tab BID PO 09/22/17 09:00 09/24/17 10:01 (Milk Of Magnesia Liq) 30 ml Q12H PRN PO 09/22/17 01:30 (Senokot) 17.2 mg Q12H PRN PO 09/22/17 01:30 (Dulcolax Supp) 10 mg DAILY PRN RECTAL 09/22/17 01:30 (Lactulose Liq) 30 ml DAILY PRN PO 09/22/17 01:30 (Morphine Inj) 4 mg Q3H PRN IV 09/22/17 01:45 Future Hold 09/23/17 01:48 Sodium Chloride 1,000 ml @ 75 mls/hr [id number] IV 09/22/17 02:00 09/24/17 10:22 (Xanax) 0.25 mg BID PRN PO 09/22/17 01:30 Future Hold (Lanoxin) 0.125 mg EVERY OTHER DAY PO 09/22/17 09:00 09/24/17 10:00 (Evista) 60 mg DAILY PO 09/22/17 09:00 09/24/17 09:59 (Isoptin Sr) 240 mg DAILY PO 09/22/17 09:00 09/24/17 09:59 (Oscal) 500 mg DAILY PO 09/22/17 09:00 09/24/17 10:01 (Proair Hfa Inh) 2 puff UNSCH PRN INH 09/22/17 01:45 Patient Own Medication PT OWN MED: (Omepraz... DAILY PO 09/22/17 09:00 Future Hold (Pravachol) 40 mg DAILY PO 09/22/17 09:00 09/24/17 10:00 (Apresoline) 10 mg Q6HR PRN PO 09/22/17 09:15 (Vasotec Inj) 1.25 mg Q6H PRN IV PUSH 09/22/17 09:15 09/22/17 11:33 (Pill Splitter) 1 ea UNSCH PRN OTHER 09/22/17 09:15 (Heparin Inj) 5,000 units Q12HR SQ 09/23/17 09:00 09/24/17 10:01 (Percocet 5-325 Mg) 1 tab Q6H PRN PO 09/23/17 08:45 Future Hold (Percocet 7.5-325 Mg) 1 tab Q6H PRN PO 09/23/17 08:45 Future Hold Piperacillin Sod/ Tazobactam Sod 100 ml @ 200 mls/hr Q6H IV 09/23/17 18:00 09/24/17 05:10 (Protonix) 40 mg DAILY PO 09/24/17 09:00 09/24/17 09:59 A/P Assessment and Plan 87 year female with a past medical history significant for mild Alzheimer's dementia, recurrent pleural effusions, atrial fibrillation, chronic iron deficiency anemia and a history of a compression deformity status post vertebroplasty with chronic back pain who presents to [facility] ED with complaints of acute on chronic back pain with radiation into the right shoulder. Sepsis Acute hypoxic respiratory failure secondary to pleural effusion and pneumonia History of chronic left pleural effusion Patient does not use oxygen at home - Patient meets sepsis criteria with temp 95.1, leukocytosis with white count of 23.7, bandemia of 10% and source of pneumonia, possible GI source - lactic acid 1.6 - Patient currently requiring 3 L of oxygen. Patient desats in the 80s without oxygen. Also per discussion with Neena with PT, patient desatted to 92% with oxygen on during short ambulation - CXR shows persistent left basilar consolidation/effusion. 09/24 started on Zosyn IV. Consult ID for assistance. Speech therapy for swallow evaluation for possible aspiration. - ID following, appreciate assistance. Started on IV Vanco, Cefepime and Flagyl. IV Zosyn discontinued. - Patient passed swallow evaluation with recommendations for mechanical soft , thin liquid diet - Sundar scheduled. IS at bedside, encourage use. Acapella - trend white count, only slight improvement with white count dropping from 23.7 to 22.9 despite being on IV Zosyn. Aorta CT showing stomach is distended with debris. The stomach measures up to 15.8 x 10.6 cm in diameter. The proximal esophagus is distended. Consult GI, appreciate recommendations. Possible GIB - Episode of coffee ground emesis yesterday and today - GI consulted. Started on IV Protonix per GI - specimen sent for gastroccult testing - hold Heparin - H/H stable, continue to monitor closely Metabolic encephalopathy - Patient with altered mental status secondary to hypoxia and infection. - hold all sedating medications - treat underlying infection - fall precautions - stat CT brain ordered Poor po intake - Secondary to above - Consult dietitian for calorie count Acute on chronic back pain, resolved s/p T12 vertebroplasty by Dr. Wilkins January 2017 - Thoracic spine CT reveals T12 compression deformity s/p vertebroplasty, posterior bulging of the T12 vertebral body causing mild to mod compression of thecal sac - Consult neurosurgery, appreciate recommendations. Cleared for discharge from NS standpoint. - continue with PT/OT. OOB with assistance. Fall precautions. Atrial fibrillation - Rate controlled - Continue patient on home dose of digoxin 0.125 mg by mouth every other day - [id number] score 4, not on any anticoagulation due to history of bleeding. Patient to follow up with money room teller Dr. Montaño as outpatient. Hypertension - labile - Continue patient on home dose of verapamil 240 mg daily - Vasotec 1.25mg IV q6h or Hydralazine 10mg q6h prn SBP>180 COPD extensive history of tobacco use, not in acute exacerbation - Patient quit smoking 5 years ago - Sundar Alzheimer's dementia, oriented x 3 at baseline - Patient is not on any dementia medications at home Hx of B12 deficiency - B12 low normal. - Give 1000mcg supplementation PRAMOD, resolved - suspect due to dehydration. Resolved s/p IVF hydration. - avoid nephrotoxic agents - continue to monitor kidney function Chronic iron deficiency anemia History of GI bleed due to AVM - H&H stable - No evidence of active bleeding - Continue to monitor Dyslipidemia - continue patient on home dose of statin therapy GERD - PPI DVT prophylaxis - Heparin sq - on hold Discussed with Larry LÓPEZ patients niece listed as next of kin and updated her on patients condition. Per the POA, patient is a DNR. Palliative care consult placed. Discussed with patient, nursing staff and Dr. Frost Attending Statement The exam, history, and the medical decision-making described in the above note were completed with the assistance of the mid-level provider. I reviewed and agree with the findings presented. I attest that I had a [id number] encounter with the patient on the same day, and personally performed and documented my assessment and findings in the medical record. Secondary to altered mental status Patient looks very weak and fatigued. She is able to answer questions with simple answers. She denies any pain, shortness of breathing, nausea/vomiting. Per caregiver patient had an episode of emesis yesterday described as coffee- ground emesis that was not noted by the nurse. She does admit to feeling weak. Denies any focal neurological deficits. She is afebrile. Gen NAD but very fatigued and weak. She intermittently closes her eyes during each question but arousable. CV RRR. no r/m/g Resp; CTA B/L NEURO she is very sleepy. She is able to answer simple questions but falls asleep quickly. Patient able to move both arms but restraint. She cannot squeeze my hand. Abd: NDNT, neg peritoneal signs. A/P ? Questionable coffee-ground emesis Abdominal CT showed possible gastric outlet obstruction Leukocytosis Sepsis Patient was started on IV Zosyn yesterday. Continue IV Zosyn. Infectious disease consulted and saw patient pending recommendations. Blood cultures already obtained so far negative. GI also consulted and per GI needs to do EGD. Serial H&H. To supportive care with IV fluids. Continue to monitor clinically. Due to deterioration patient will be transferred to the [facility]. spent 35 minutes in patient's care. Chucky,Joseline PA Sep 24, 2017 10:38 Berna Frost MD Sep 24, 2017 16:20
[2017-09-24 11:40] LABS: ALKALINE PHOSPHATASE 42 U/L (45-117); ALT (GPT) 26 U/L (10-53); ANION GAP 5 MEQ/L (5-15); AST (GOT) 28 U/L (15-37); BICARBONATE 29.7 MEQ/L (21.0-32.0); BLOOD UREA NITROGEN 33 MG/DL (7-18); CHLORIDE 108 MEQ/L (98-107); GLOMERULAR FILTRATION RATE 72 ML/MIN (>89); POTASSIUM 4.3 MEQ/L (3.5-5.1); SODIUM (NA) 143 MEQ/L (136-145); TOTAL BILIRUBIN ADULT 0.6 MG/DL (0.2-1.0)
[2017-09-24] MEDS: RESP: ALBUTEROL 2.5 MG/IPRATROPIUM 0.5 MG NEB (SCH) NEB ×3 (12:00→20:00)
--- NOTE | 2017-09-24 13:49 | PD.CONS ---
HPI History of Present Illness This is a 87 year old admitted to the emergency room on 09/22/17 with acute on chronic back pain radiating into her right shoulder. According to the record pain has been going on since November. Patient has history of Alzheimer's dementia and has sitters with her in her home since January or February. Currently patient is sleeping, decreased appetite and decreased LOC according to staff members and sitter. Patient is refusing to eat any food, but did answer when I called her name. At this point no known diarrhea or constipation. Patient does have occasional loose cough, small amount of coffee ground or dark sputum very small amount coughed up orally. Patient is unable to give any information at this point, history is being gathered from the record, nurse, and her sitter. According to CT of the aorta/chest that was done on 09/21/17, patient has large hiatal hernia and extremely distended stomach. According to staff members patient was awake and responsive when she initially was admitted. Now she is drowsy, but does arouse to her name. (Georgia Greene) PFSH Past Medical History Per the record Atrial fibrillation followed by Dr. Montaño Chronic iron deficiency anemia followed by Dr. Murphy History of left pleural effusion Alzheimer's dementia Hypertension Suspected COPD, patient quit smoking 5 years ago Dyslipidemia Osteoarthritis Osteoporosis with pathologic compression fracture T12 s/p vertebroplasty Past Surgical History Appendectomy Nephrectomy Adenoidectomy Vertebroplasty T12 (Georgia Greene) Coded Allergies: No Known Allergies (Verified Allergy, Unknown, 09/22/17) Medications Administered Medications Medications (Trade) Dose Ordered Sig/Lena Route PRN Reason Start Time Stop Time Status Last Admin Dose Admin Sodium Chloride (NS Flush) 2 ml BID IV FLUSH 09/22/17 09:00 09/24/17 10:02 Senna/Docusate Sodium (Jeannie-Colace) 1 tab BID PO 09/22/17 09:00 09/24/17 10:01 Morphine Sulfate (Morphine Inj) 4 mg Q3H PRN IV Breakthrough pain 09/22/17 01:45 Future Hold 09/23/17 01:48 Sodium Chloride 1,000 ml @ 75 mls/hr [id number] IV 09/22/17 02:00 09/24/17 10:22 Digoxin (Lanoxin) 0.125 mg EVERY OTHER DAY PO 09/22/17 09:00 09/24/17 10:00 Raloxifene HCl (Evista) 60 mg DAILY PO 09/22/17 09:00 09/24/17 09:59 Verapamil HCl (Isoptin Sr) 240 mg DAILY PO 09/22/17 09:00 09/24/17 09:59 Calcium Carbonate (Oscal) 500 mg DAILY PO 09/22/17 09:00 09/24/17 10:01 Pravastatin Sodium (Pravachol) 40 mg DAILY PO 09/22/17 09:00 09/24/17 10:00 Enalaprilat (Vasotec Inj) 1.25 mg Q6H PRN IV PUSH SBP>180, DBP>95 09/22/17 09:15 09/22/17 11:33 Heparin Sodium (Porcine) (Heparin Inj) 5,000 units Q12HR SQ 09/23/17 09:00 09/24/17 10:01 Piperacillin Sod/ Tazobactam Sod 100 ml @ 200 mls/hr Q6H IV 09/23/17 18:00 09/24/17 12:19 Pantoprazole Sodium (Protonix) 40 mg DAILY PO 09/24/17 09:00 09/24/17 09:59 Albuterol/ Ipratropium (Duoneb Neb) 1 ampule Q4HR WHILE AWAKE NEB NEB 09/24/17 12:00 09/24/17 12:00 Family History Reviewed with patient, noncontributory Social History Patient has an extensive tobacco use history, quit smoking 5 years ago. Denies any alcohol use. (Georgia Greene) GI Exam Vitals I&O Vital Signs Date Time Temp Pulse Resp B/P (MAP) Pulse Ox O2 Delivery O2 Flow Rate FiO2 09/24/17 11:36 97.3 84 22 157/65 (95) 94 09/24/17 08:25 97.5 77 20 177/80 (112) 99 09/24/17 03:21 97.3 82 19 186/77 (113) 100 09/24/17 02:01 96 Nasal Cannula 3.00 09/24/17 01:42 85 18 154/70 (98) 96 09/23/17 20:59 97.5 85 16 164/77 (106) 98 09/23/17 17:43 95.5 78 20 194/77 (116) 98 Automatic Cuff 09/23/17 14:33 98.0 83 18 161/67 (98) 99 I/O 09/23/17 09/23/17 09/23/17 09/24/17 09/24/17 09/24/17 07:00 15:00 23:00 07:00 15:00 23:00 Intake Total 120 ml Balance 120 ml Intake Oral 120 ml # Voids 4 Imaging Last Impressions Chest X-Ray 09/23/17 0000 Signed Impressions: Service Date/Time: Saturday, September 23, 2017 15:05 - CONCLUSION: 1. Prominent soft tissue density in the right lower lung field appears to represent a prominent hiatal hernia on the lateral. 2. Persistent left basilar consolidation/effusion 3. Old compression fractures of the lumbar spine with findings of at least a one level kyphoplasty. Harinder Sotelo MD Abdomen X-Ray 09/23/17 0000 Signed Impressions: Service Date/Time: Saturday, September 23, 2017 15:45 - CONCLUSION: No acute disease. Marcial Jordan MD FACR Lumbar Spine X-Ray 09/22/17 0000 Signed Impressions: Service Date/Time: Friday, September 22, 2017 12:54 - CONCLUSION: 1. Redemonstration of T12 and L1 compression fractures with interval kyphoplasty at T12. 2. No new compression fracture or apparent acute abnormality. 3. Redemonstration of degenerative spondylosis of the lumbar spine. Samuel Ziegler MD Thoracic Spine CT [id number] Signed Impressions: Service Date/Time: Thursday, September 21, 2017 23:20 - CONCLUSION: T12 compression deformity that has been treated with vertebroplasty. There is a posterior bulging of the T12 vertebral body margin and a more focal impression off the posterior superior aspect of T12 vertebral body causing a mild to moderate compression of the thecal sac. There is also stable compression deformity at the superior right lateral L1 vertebral body. Dalton Palacios MD Aorta CTA 09/21/17 0000 Signed Impressions: Service Date/Time: Thursday, September 21, 2017 23:20 - CONCLUSION: 1. No aortic dissection or aneurysm is seen. 2. Much of the stomach is in the lower chest. The stomach is extremely distended. This is likely from a hiatal hernia or gastric pull-through procedure. No clips are seen making a large hiatal hernia more likely. Given the large amount of debris and distention of the stomach, some degree of obstruction cannot be excluded. 3. Bilateral pleural effusions. There are rounded areas of density seen in the periphery of the left lower lobe likely related to round atelectasis or focal consolidation. 4. T12 compression deformity. The patient is status post vertebroplasty at this level. 5. 3.8 cm low-density mass in the left lobe of the liver. This is nonspecific. It likely represents a cyst or hemangioma. Dalton Palacios MD Laboratory Test 09/23/17 14:26 09/23/17 15:40 09/24/17 07:35 09/24/17 10:51 Lactic Acid Level 1.6 mmol/L Ammonia 24 MCMOL/L Urine Color YELLOW Urine Turbidity CLEAR Urine pH 5.5 Urine Specific Benton 1.033 Urine Protein 30 mg/dL Urine Glucose (UA) TRACE mg/dL Urine Ketones TRACE mg/dL Urine Occult Blood SMALL Urine Nitrite NEG Urine Bilirubin NEG Urine Urobilinogen LESS THAN 2.0 MG/DL Urine Leukocyte Esterase NEG Urine RBC 1 /hpf Urine WBC 1 /hpf Urine Squamous Epithelial Cells 1 /hpf Urine Transitional Epithelial Cells <1 /hpf Urine Granular Casts 3 /lpf Microscopic Urinalysis Comment CATH-CULT NOT IND White Blood Count 22.9 TH/MM3 Red Blood Count 3.59 MIL/MM3 Hemoglobin 11.5 GM/DL Hematocrit 35.0 % Mean Corpuscular Volume 97.6 FL Mean Corpuscular Hemoglobin 32.1 PG Mean Corpuscular Hemoglobin Concent 32.9 % Red Cell Distribution Width 14.6 % Platelet Count 191 TH/MM3 Mean Platelet Volume 11.3 FL Neutrophils (%) (Auto) 93.8 % Lymphocytes (%) (Auto) 2.2 % Monocytes (%) (Auto) 3.5 % Eosinophils (%) (Auto) 0.0 % Basophils (%) (Auto) 0.5 % Neutrophils # (Auto) 21.5 TH/MM3 Lymphocytes # (Auto) 0.5 TH/MM3 Monocytes # (Auto) 0.8 TH/MM3 Eosinophils # (Auto) 0.0 TH/MM3 Basophils # (Auto) 0.1 TH/MM3 CBC Comment AUTO DIFF Differential Total Cells Counted 100 Neutrophils % (Manual) 84 % Band Neutrophils % 10 % Lymphocytes % 1 % Monocytes % 3 % Basophils % 1 % Neutrophils # (Manual) 21.8 TH/MM3 Metamyelocytes 1 % Differential Comment FINAL DIFF MANUAL Platelet Estimate NORMAL Platelet Morphology Comment NORMAL Blood Urea Nitrogen 33 MG/DL Creatinine 0.76 MG/DL Random Glucose 115 MG/DL Total Protein 6.7 GM/DL Albumin 3.2 GM/DL Calcium Level 8.3 MG/DL Alkaline Phosphatase 42 U/L Aspartate Amino Transf (AST/SGOT) 28 U/L Alanine Aminotransferase (ALT/SGPT) 26 U/L Total Bilirubin 0.6 MG/DL Sodium Level 143 MEQ/L Potassium Level 4.3 MEQ/L Chloride Level 108 MEQ/L Carbon Dioxide Level 29.7 MEQ/L Anion Gap 5 MEQ/L Estimat Glomerular Filtration Rate 72 ML/MIN Date/Time Source Procedure Growth Status 09/23/17 14:26 Blood Peripheral Aerobic Blood Culture - Preliminary NO GROWTH IN 1 DAY Resulted 09/23/17 14:26 Blood Peripheral Anaerobic Blood Culture - Preliminary NO GROWTH IN 1 DAY Resulted Physical Examination HEENT: Pupils round and reactive to light; eyes are glassy , normocephalic; atraumatic; no jaundice. NECK: Neck is supple, no JVD, no lymphadenopathy. CHEST: Chest, low volumes with some rhonchi mild CARDIAC: RRR ABDOMEN: Soft, round, left side of abdomen palpable bowel loops possible, nontender; no hepatosplenomegaly; bowel sounds soft EXTREMITIES: No clubbing, cyanosis, or edema. SKIN: Pale; no rash; no jaundice. NUCLEAR PHYSICIAN: Drowsy, answers yes when her name is called out (Georgia Greene) Assessment and Plan Assessment: (1) Coffee ground emesis ICD Codes: K92.0 - Hematemesis (2) Acute distention of stomach ICD Codes: K31.0 - Acute dilatation of stomach (3) Large hiatal hernia ICD Codes: K44.9 - Diaphragmatic hernia without obstruction or gangrene Plan Small amount of sputum versus oral gastric coffee-ground secretions sent for Gastroccult Plan for EGD tomorrow Nothing by mouth at midnight Call for any acute bleeding or vomiting or hematemesis Check labs in the morning with special attention to hemoglobin Plan of care and procedures will be based on needs of the patient RENE is a niece in [place] Patient was seen by myself and Dr. Roth, this note was done on his behalf. (Georgia Greene) Physician Comments Seen and examined, recent change in general condition, coffee ground emesis noted, will schedule EGD . Will follow up with you. (Tushar Roth MD) Georgia Greene Sep 24, 2017 13:49 Tushar Roth MD Sep 24, 2017 14:54
--- NOTE | 2017-09-24 14:26 | EKG ---
Date Performed: 09/23/2017 Time Performed: 17:31:34 PTAGE: 87 years EKG: ATRIAL FIBRILLATION LOW QRS VOLTAGE POSSIBLE ANTERIOR MYOCARDIAL INFARCTION ABNORMAL ECG Co mpared to PREVIOUS TRACING poor R wave progression is now present and frequent PVCs are no longer noted PREVIOUS TRACIN09/21/2017 20.16 DOCTOR: Akhil Castrejon Interpretating Date/Time 09/24/2017 14:25:48
[2017-09-24] MEDS: PANTOPRAZOLE SODIUM 40 MG VIAL IV PUSH SCH (15:05)
[2017-09-24 15:09] LABS: HEMATOCRIT 33.9 % (35.0-46.0); REVIEW FLAG FINAL
[2017-09-24] MEDS ORDERED: Vancomycin Consult Pharmacy 1 EA OTHER SCH (16:30)
[2017-09-24] MEDS: metroNIDAZOLE 500 MG INJ 100 ML IV SCH (18:00)
[2017-09-24] MEDS: CEFEPIME INJ 2,000 MG in SODIUM CHLORIDE 0.9% INJ 100 ML IV SCH (19:10)
[2017-09-24] MEDS ORDERED: VANCOMYCIN 1,000 MG/NS 250 ML IV ONE ×2 (20:00)
[2017-09-24 20:03] LABS: HEMATOCRIT 31.2 % (35.0-46.0); REVIEW FLAG FINAL
--- NOTE | 2017-09-24 21:05 | RADRPT ---
EXAM DATE/TIME: 09/24/2017 20:31 [facility] COMPARISON: No previous studies available for comparison. INDICATIONS : Altered mental status. RADIATION DOSE: 48.52 CTDIvol (mGy) MEDICAL HISTORY : Cardiovascular disease. Chronic obstructive pulmonary disease. SURGICAL HISTORY : None. ENCOUNTER: Initial ACUITY: 1 day PAIN SCALE: 1/10 LOCATION: cranial TECHNIQUE: Multiple contiguous axial images were obtained of the head. Using automated exposure control and adj ustment of the mA and/or kV according to patient size, radiation dose was kept as low as reasonably a chievable to obtain optimal diagnostic quality images. DICOM format image data is available electro nically for review and comparison. FINDINGS: A metallic earring on the right side causes significant streak artifact obscuring portions of the low convexity. CEREBRUM: The ventricles are normal for age. No evidence of midline shift, mass lesion, hemorrhage or acute in farction. No extra-axial fluid collections are seen. POSTERIOR FOSSA: The cerebellum and brainstem are intact. The 4th ventricle is midline. The cerebellopontine angle i s unremarkable. EXTRACRANIAL: The visualized portion of the orbits is intact. SKULL: The calvaria is intact. No evidence of skull fracture. CONCLUSION: 1. No acute findings in the brain. 2. Age-appropriate atrophy. Tuan Montilla MD on September 24, 2017 at 21:01 Board Certified Radiologist. This report was verified electronically.
[2017-09-24] MEDS ORDERED: CHLORHEXIDINE GLUCONATE 2 % 1 PACK (2 CLOTHS)(extra cloths) TOPICAL PRN (21:15)
[2017-09-25] VITALS (22 sets, daily range): BP systolic 127–154; BP diastolic 61–95; PULSE 66–94; RESP 15–35; TEMP 97.8; O2SAT 71–100
[2017-09-25] MEDS: metroNIDAZOLE 500 MG INJ 100 ML IV SCH ×2 (01:48→10:00)
[2017-09-25] MEDS: PANTOPRAZOLE SODIUM 40 MG VIAL IV PUSH SCH ×2 (01:48→14:00)
[2017-09-25] MEDS: CEFEPIME INJ 2,000 MG in SODIUM CHLORIDE 0.9% INJ 100 ML IV SCH ×2 (01:49→11:04)
[2017-09-25] MEDS: POTASSIUM CHLORIDE INJ 10 MEQ in SODIUM CHLOR 0.9% 1000 ML INJ 1,000 ML IV SCH ×2 (02:11→20:20)
[2017-09-25 03:08] LABS: HEMATOCRIT 33.9 % (35.0-46.0); REVIEW FLAG FINAL
[2017-09-25] MEDS: CHLORHEXIDINE GLUCONATE 2 % 1 PACK (2 CLOTHS)(taper/protocol) TOPICAL SCH (04:00)
[2017-09-25] MEDS: RESP: ALBUTEROL 2.5 MG/IPRATROPIUM 0.5 MG NEB (SCH) NEB ×4 (08:34→19:46)
[2017-09-25] MEDS: DOCUSATE SODIUM 50 MG/SENNA 8.6 MG TAB PO SCH ×2 (09:00→20:20)
[2017-09-25] MEDS: CALCIUM CARBONATE 1.25 GM (CA 500 MG) TAB PO SCH (09:00)
[2017-09-25] MEDS: VERAPAMIL HCL 240 MG SUSTAINED RELEASE TAB PO SCH (09:00)
[2017-09-25] MEDS: RALOXIFENE HCL 60 MG TAB PO SCH (09:00)
[2017-09-25] MEDS: SODIUM CHLORIDE 0.9% FLUSH 10 ML FLUSH IV FLUSH SCH ×2 (09:00→20:19)
[2017-09-25] MEDS: PRAVASTATIN SOD 40 MG TAB PO SCH (09:00)
[2017-09-25] MEDS ORDERED: RESP: ALBUTEROL 2.5 MG/IPRATROPIUM 0.5 MG NEB (PRN) ONE (09:27)
--- NOTE | 2017-09-25 09:37 | HHI.GIFU ---
Subjective Remarks Seen at the bedside prior to endoscopy, in mild to moderate respiratory distress. Objective Vitals I&O Vital Signs Date Time Temp Pulse Resp B/P (MAP) Pulse Ox O2 Delivery O2 Flow Rate FiO2 09/25/17 08:35 100 Simple Mask 7.00 09/25/17 04:00 97.8 78 24 127/61 (83) 100 09/25/17 00:00 97.8 92 20 154/95 (114) 100 09/24/17 23:00 91 09/24/17 21:00 83 09/24/17 21:00 97.8 83 20 138/94 (109) 96 09/24/17 19:23 98 Nasal Cannula 3.00 09/24/17 15:35 97.5 66 22 142/70 (94) 99 09/24/17 11:36 97.3 84 22 157/65 (95) 94 I/O 09/24/17 09/24/17 09/24/17 09/25/17 09/25/17 09/25/17 07:00 15:00 23:00 07:00 15:00 23:00 Intake Total 120 ml 200 ml Balance 120 ml 200 ml Intake Oral 120 ml 200 ml # Voids 4 2 2 # Bowel Movements 1 Laboratory Laboratory Tests Test 09/24/17 10:51 09/24/17 14:50 09/24/17 19:52 09/24/17 20:55 Blood Urea Nitrogen 33 Creatinine 0.76 Random Glucose 115 Total Protein 6.7 Albumin 3.2 Calcium Level 8.3 Alkaline Phosphatase 42 Aspartate Amino Transf (AST/SGOT) 28 Alanine Aminotransferase (ALT/SGPT) 26 Total Bilirubin 0.6 Sodium Level 143 Potassium Level 4.3 Chloride Level 108 Carbon Dioxide Level 29.7 Anion Gap 5 Estimat Glomerular Filtration Rate 72 Hemoglobin 11.3 10.3 Hematocrit 33.9 31.2 Nasal Screen MRSA (PCR) MRSA NOT DETECTED Test 09/25/17 02:43 Hemoglobin 11.0 Hematocrit 33.9 Date/Time Source Procedure Growth Status 09/23/17 14:26 Blood Peripheral Aerobic Blood Culture - Preliminary NO GROWTH IN 1 DAY Resulted 09/23/17 14:26 Blood Peripheral Anaerobic Blood Culture - Preliminary NO GROWTH IN 1 DAY Resulted 09/24/17 13:30 Gastric Gastric Occult Blood - Final GASTROCCULT POSITIVE Complete Physical Exam HEENT: Pupils round and reactive to light; normocephalic; atraumatic; no jaundice. Throat is clear. NECK: Neck is supple, no JVD, no lymphadenopathy. CHEST:Decrease air entry bilateral CARDIAC: Regular rate and rhythm with no murmur gallop or rubs. ABDOMEN: Soft, nondistended, nontender; no hepatosplenomegaly; bowel sounds are present in all four quadrants. EXTREMITIES: No clubbing, cyanosis, or edema. Assessment and Plan Assessment: (1) Coffee ground emesis ICD Codes: K92.0 - Hematemesis (2) Acute distention of stomach ICD Codes: K31.0 - Acute dilatation of stomach (3) Large hiatal hernia ICD Codes: K44.9 - Diaphragmatic hernia without obstruction or gangrene Plan High risk for EGD per anesthesia, procedure to be rescheduled until more stable. Follow HH PPI NGT to LIS Daily labs Will follow up with you. Tushar Roth MD Sep 25, 2017 09:37
[2017-09-25] MEDS: VANCOMYCIN 1,000 MG/NS 250 ML IV SCH ×2 (11:03)
[2017-09-25] MEDS ORDERED: GADODIAMIDE PF 287 MG/ML 5 ML VIAL (for RAD MRI) IVCONTRAST ONE (12:33)
--- NOTE | 2017-09-25 13:04 | RADRPT ---
EXAM DATE/TIME: 09/25/2017 12:15 [facility] COMPARISON: No previous studies available for comparison. INDICATIONS : Altered mental status. CONTRAST: 12 cc Omniscan (gadodiamide) IV MEDICAL HISTORY : Hypertension. Hypercholesterolemia. CHF, A fib SURGICAL HISTORY : Tonsillectomy. Appendectomy. bilateral hands ENCOUNTER: Subsequent ACUITY: 2 day PAIN SCORE: 0/10 LOCATION: cranial TECHNIQUE: Multiplanar, multisequence MRI of the brain was performed both prior to and following the administrat ion of paramagnetic contrast. FINDINGS: CEREBRUM: The ventricles are normal for age. No evidence of midline shift, mass lesion, hemorrhage or acute in farction. No extraaxial fluid collections are seen. The pituitary gland and suprasellar cistern are normal in configuration. WHITE MATTER: Mild signal abnormalities are seen in the white matter. POSTERIOR FOSSA: The cerebellum and brainstem are intact. The 4th ventricle is midline. The cerebellopontine angle is unremarkable. The cerebellar tonsils are normal in position. DIFFUSION IMAGING: No focal areas of restricted diffusion are seen. No evidence of acute infarction. EXTRACRANIAL: The visualized portions of the orbits and paranasal sinuses are unremarkable. POST-CONTRAST: No abnormal areas of parenchymal or dural enhancement. No evidence of blood-brain barrier breakdown. CONCLUSION: 1. Mild white matter ischemic change. Cortical volume loss. No acute findings. No mass, hemorrhage or shift. No abnormal enhancement post contrast. Flip Garcia MD on September 25, 2017 at 12:58 Board Certified Radiologist. This report was verified electronically.
--- NOTE | 2017-09-25 15:15 | HHI.IDPN ---
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 Vital Signs Date Time Temp Pulse Resp B/P (MAP) Pulse Ox O2 Delivery O2 Flow Rate FiO2 09/25/17 09:20 94 Nasal Cannula 3 09/25/17 09:11 68 20 146/67 (93) 100 09/25/17 08:35 100 Simple Mask 7.00 09/25/17 04:00 97.8 78 24 127/61 (83) 100 09/25/17 00:00 97.8 92 20 154/95 (114) 100 09/24/17 23:00 91 09/24/17 21:00 83 09/24/17 21:00 97.8 83 20 138/94 (109) 96 09/24/17 19:23 98 Nasal Cannula 3.00 09/24/17 15:35 97.5 66 22 142/70 (94) 99 09/25/17 09/25/17 09/26/17 15:00 23:00 07:00 Output Total 900 ml Balance -900 ml Output Gastric Drainage Total 900 ml . Laboratory Tests Test 09/24/17 07:35 09/24/17 14:50 09/24/17 19:52 09/25/17 02:43 White Blood Count 22.9 TH/MM3 Red Blood Count 3.59 MIL/MM3 Hemoglobin 11.5 GM/DL 11.3 GM/DL 10.3 GM/DL 11.0 GM/DL Hematocrit 35.0 % 33.9 % 31.2 % 33.9 % Mean Corpuscular Volume 97.6 FL Mean Corpuscular Hemoglobin 32.1 PG Mean Corpuscular Hemoglobin Concent 32.9 % Red Cell Distribution Width 14.6 % Platelet Count 191 TH/MM3 Mean Platelet Volume 11.3 FL Neutrophils (%) (Auto) 93.8 % Lymphocytes (%) (Auto) 2.2 % Monocytes (%) (Auto) 3.5 % Eosinophils (%) (Auto) 0.0 % Basophils (%) (Auto) 0.5 % Neutrophils # (Auto) 21.5 TH/MM3 Lymphocytes # (Auto) 0.5 TH/MM3 Monocytes # (Auto) 0.8 TH/MM3 Eosinophils # (Auto) 0.0 TH/MM3 Basophils # (Auto) 0.1 TH/MM3 CBC Comment AUTO DIFF Differential Total Cells Counted 100 Neutrophils % (Manual) 84 % Band Neutrophils % 10 % Lymphocytes % 1 % Monocytes % 3 % Basophils % 1 % Neutrophils # (Manual) 21.8 TH/MM3 Metamyelocytes 1 % Differential Comment FINAL DIFF MANUAL Platelet Estimate NORMAL Platelet Morphology Comment NORMAL Laboratory Tests Test 09/24/17 10:51 Blood Urea Nitrogen 33 MG/DL Creatinine 0.76 MG/DL Random Glucose 115 MG/DL Total Protein 6.7 GM/DL Albumin 3.2 GM/DL Calcium Level 8.3 MG/DL Alkaline Phosphatase 42 U/L Aspartate Amino Transf (AST/SGOT) 28 U/L Alanine Aminotransferase (ALT/SGPT) 26 U/L Total Bilirubin 0.6 MG/DL Sodium Level 143 MEQ/L Potassium Level 4.3 MEQ/L Chloride Level 108 MEQ/L Carbon Dioxide Level 29.7 MEQ/L Anion Gap 5 MEQ/L Estimat Glomerular Filtration Rate 72 ML/MIN Microbiology Date/Time Source Procedure Growth Status 09/23/17 14:26 Blood Peripheral Aerobic Blood Culture - Preliminary NO GROWTH IN 2 DAYS Resulted 09/23/17 14:26 Blood Peripheral Anaerobic Blood Culture - Preliminary NO GROWTH IN 2 DAYS Resulted 09/23/17 14:20 Blood Peripheral Aerobic Blood Culture - Preliminary NO GROWTH IN 2 DAYS Resulted 09/23/17 14:20 Blood Peripheral Anaerobic Blood Culture - Preliminary NO GROWTH IN 2 DAYS Resulted 09/24/17 13:30 Gastric Gastric Occult Blood - Final GASTROCCULT POSITIVE Complete Imaging Last Impressions Brain MRI 09/25/17 0000 Signed Impressions: Service Date/Time: Monday, September 25, 2017 12:15 - CONCLUSION: 1. Mild white matter ischemic change. Cortical volume loss. No acute findings. No mass, hemorrhage or shift. No abnormal enhancement post contrast. Flip Garcia MD Head CT 09/24/17 0000 Signed Impressions: Service Date/Time: September 20:31 - CONCLUSION: 1. No acute findings in the brain. 2. Age-appropriate atrophy. Tuan Montilla MD Chest X-Ray 09/23/17 0000 Signed Impressions: Service Date/Time: Saturday, September 23, 2017 15:05 - CONCLUSION: 1. Prominent soft tissue density in the right lower lung field appears to represent a prominent hiatal hernia on the lateral. 2. Persistent left basilar consolidation/effusion 3. Old compression fractures of the lumbar spine with findings of at least a one level kyphoplasty. Harinder Sotelo MD Abdomen X-Ray 09/23/17 0000 Signed Impressions: Service Date/Time: Saturday, September 23, 2017 15:45 - CONCLUSION: No acute disease. Marcial Jordan MD FACR Lumbar Spine X-Ray 09/22/17 0000 Signed Impressions: Service Date/Time: Friday, September 22, 2017 12:54 - CONCLUSION: 1. Redemonstration of T12 and L1 compression fractures with interval kyphoplasty at T12. 2. No new compression fracture or apparent acute abnormality. 3. Redemonstration of degenerative spondylosis of the lumbar spine. Samuel Ziegler MD Thoracic Spine CT [id number] Signed Impressions: Service Date/Time: Thursday, September 21, 2017 23:20 - CONCLUSION: T12 compression deformity that has been treated with vertebroplasty. There is a posterior bulging of the T12 vertebral body margin and a more focal impression off the posterior superior aspect of T12 vertebral body causing a mild to moderate compression of the thecal sac. There is also stable compression deformity at the superior right lateral L1 vertebral body. Dalton Palacios MD Aorta CTA 09/21/17 0000 Signed Impressions: Service Date/Time: Thursday, September 21, 2017 23:20 - CONCLUSION: 1. No aortic dissection or aneurysm is seen. 2. Much of the stomach is in the lower chest. The stomach is extremely distended. This is likely from a hiatal hernia or gastric pull-through procedure. No clips are seen making a large hiatal hernia more likely. Given the large amount of debris and distention of the stomach, some degree of obstruction cannot be excluded. 3. Bilateral pleural effusions. There are rounded areas of density seen in the periphery of the left lower lobe likely related to round atelectasis or focal consolidation. 4. T12 compression deformity. The patient is status post vertebroplasty at this level. 5. 3.8 cm low-density mass in the left lobe of the liver. This is nonspecific. It likely represents a cyst or hemangioma. Dalton Palacios MD Physical Exam CONSTITUTIONAL/GENERAL: This is a thin undernourished patient, in no apparent distress. TUBES/LINES/DRAINS: SKIN: No jaundice, rashes, or lesions. Ecchymoses on upper extremities. No wounds seen anteriorly. Skin temperature appropriate. Not diaphoretic. EYES: Pupils equal and round and reactive. Extraocular motions intact. No scleral icterus. No injection or drainage. Fundi not examined. ENT: Hearing not tested. Nose without bleeding or purulent drainage. Throat without visible erythema, exudates, masses, or lesions. NECK: Trachea midline. Supple, nontender. No palpable thyroid enlargement or nodularity. CARDIOVASCULAR: Regular rate and rhythm without murmurs, gallops, or rubs. No JVD. Peripheral pulses symmetric. RESPIRATORY/CHEST: Symmetric, unlabored respirations. Clear to auscultation. Breath sounds equal bilaterally. No wheezes, rales, or rhonchi. GASTROINTESTINAL: Abdomen soft, grimacing to palpation diffusely, midly distended. No hepato-splenomegaly, or palpable masses. No guarding. Bowel sounds present. GENITOURINARY: Without palpable bladder distension. MUSCULOSKELETAL: Extremities without clubbing, cyanosis, or edema. No joint tenderness or effusion noted. No calf tenderness. No mottling or clubbing. NEUROLOGICAL: Lethargic to obtunded. Eyes opened but not making contact Not follows commands. No verbal Moves all extremities. PSYCHIATRIC: unable to assess Assessment & Plan Remarks Leukocytosis, mental status decline - slow decline over the last few days ? 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
[2017-09-25] MEDS ORDERED: DIATRIZOATE MEGLUM/DIATRIZOATE SOD 9 ML CUP PO ONE (15:30)
[2017-09-25 17:00] LABS: HEMATOCRIT 29.8 % (35.0-46.0); REVIEW FLAG FINAL
--- NOTE | 2017-09-25 17:00 | PD.CONS ---
Consult Service Palliative Care Consult Requested By Dr. Salazar. Primary Care Physician Unknown Reason for Consultation a. To assist with evaluation and management of symptoms including: Debility , shortness of breath, dysphagia. b. To assist medical decision maker(s) with: better understanding of current medical conditions; weighing benefits/burdens of medical treatment options; making medical treatment decisions. . HPI History of Present Illness Mrs. Gil is an 87-year-old female with a medical history significant for atrial fibrillation, hypertension, chronic left pleural effusion, chronic anemia and arthritis of knees. Patient presented to ED via EMS on 09/21/17 endorsing acute exacerbation of chronic back pain. ED workup to include thoracic spine CT revealing T12 compression deformity that has been treated with vertebroplasty, bulging of the T12 vertebral body margin causing mild to moderate compression of the thecal sac, stable compression deformity at L1. Chest x-ray revealing probable left pleural effusion. Aorta CTA revealing no aortic dissection or aneurysm seen, distended stomach likely representing hiatal hernia, bilateral pleural effusions. Laboratory workup revealing WBC 11.3, Hgb 11.9, platelet count 23. BUN/creatinine 13/1.06. UA negative for nitrate or leukocytes. Patient admitted for further management. Neurosurgery, Dr. Wilkins consulted on . Patient with previous T12 compression fracture status post kyphoplasty on December 2016. No evidence of new fractures, subluxation or canal compromise. No neurosurgical intervention anticipated at this time. Medical management and therapy recommended. Infectious disease, Dr. Bonilla consulted on 09/24/17 for worsening leukocytosis. Patient with progressive decline in mental status over the last few days, likely secondary to infection, no obvious source. Abdomen x-ray negative for acute process. Head CT 09/24 revealing no acute process, age- appropriate atrophy noted. GI, Dr. Roth consulted on 09/24/17 for evaluation of coffee-ground emesis. Plan for EGD today, however, case was canceled secondary to high risk for anesthesia given increased work of breathing and worsening altered mental status. Brain MRI today revealing no acute findings. Hemoglobin remained stable at 11.0, blood cultures 09/23 with no growth in 2 days thus far. Gastric occult blood positive. Palliative care has been consulted for further clarifications of goals of care given progressive worsening clinical condition. Patient seen in medical ICU. She was resting in bed in no acute distress. Obtunded, briefly opening eyes to verbal stimuli. Repetitive speech "get me up now" , "oh mom". Patient unable to tell me her name, not following commands. Facial grimacing noted with physical exam to lower extremities. Patient currently afebrile, slightly hypertensive with SBP in the 90s. Currently on 3 L O2 via nasal cannula, oxygen saturation in the high 90s. Telephone conversation with patient's nephew Theo Davis and Niece Camryn Juan. Obtained patient's past medical history and psychosocial history. Reviewed events leading to this hospitalization, clinical course and current medical management. Niece is in route from [place], expected to arrive to [place] on Thursday09/26/17. Shared concerns of patient's worsening mental status, increased work of breathing, coffee-ground emesis. Reviewed risks, benefits and limitations of CPR, intubation and mechanical ventilation given patient's debilitated condition. Patient's niece Camryn Gilbert tells me that patient has completed a community DNR previously. Family electing no code may DNR/DNI as per patient's known wishes. Goal of therapy is to continue with conservative management short of no code. Family to continue goals of care conversation once niece Camryn Gilbert arrives to [place]. Case discussed with bedside RN Senait. . Function/Cognitive Trajectory Patient residing in private home with hired caregiver. Caregiver reports that patient ambulates with rollator walker, requiring some assistance with ADLs. Forgetful at baseline. . Review of Systems ROS Limitations: Clinical Condition, Altered Mental Status Constitutional: COMPLAINS OF: Pain, Generalized weakness, DENIES: Fever, Change in appetite Eyes: DENIES: Eye inflammation Ears, nose, mouth, throat: DENIES: Nasal discharge, Running Nose, Epistaxis Respiratory: COMPLAINS OF: Cough, Sputum production, Shortness of breath Cardiovascular: COMPLAINS OF: Dyspnea on Exertion, DENIES: Lower Extremity Edema Gastrointestinal: COMPLAINS OF: Abdominal pain, Vomiting, DENIES: Diarrhea, Nausea Genitourinary: COMPLAINS OF: Urinary incontinence Musculoskeletal: COMPLAINS OF: Back pain, Decreased range of motion Integumentary: DENIES: Pruritus Hematologic/Lymphatics: DENIES: Bruising Immunologic/Allergic: DENIES: Eczema Neurologic: COMPLAINS OF: Abnormal gait, DENIES: Seizures, Tremor Psychiatric: COMPLAINS OF: Anxiety, Confusion, DENIES: Agitation Other ROS: Limited ROS secondary to patient's clinical condition, obtunded. ROS obtained from medical records, patient's family and clinical observation. . Past Family Social History Coded Allergies: No Known Allergies (Verified Allergy, Unknown, 09/22/17) Past Medical History Atrial fibrillation Chronic iron deficiency anemia History of left pleural effusion Hypertension Suspected COPD Dyslipidemia Osteoarthritis Osteoporosis with pathologic compression fracture T12 s/p vertebroplasty Alzheimer's dementia listed in medical history, however, niece Camryn Gilbert reports this is an error . Past Surgical History Appendectomy in 1952 Nephrectomy Tonsillectomy 1956 Vertebroplasty T12 in 2017 Previous back surgery 1973 . Reported Medications Dok (Docusate Sodium) 100 Mg Cap 100 Mg PO Q12HR PRN Alprazolam 0.25 Mg Tab 0.25 Mg PO BID PRN Lortab (Hydrocodone-Acetaminophen) 5-325 Mg Tab 1 Tab PO Q6H PRN Evista (Raloxifene HCl) 60 Mg Tab 60 Mg PO DAILY Verapamil SR (Verapamil HCl) 240 Mg Tab 240 Mg PO DAILY Simvastatin 20 Mg Tab 20 Mg PO DAILY Folic Acid 5 Mg Cap 1 Mg PO DAILY Omeprazole 10 Mg Cap 10 Mg PO DAILY Combivent Respimat Inh (Ipratropium-Albuterol Inh) 20-100 Nursing Home/Act Aero 2 Puff INH DIRECTED PRN Digoxin 0.125 Mg Tab 0.125 Mg PO EVERY OTHER DAY Calcium 600 (Calcium Carbonate) 1,500 Mg Tab 600 Mg PO DAILY . Current Medications Medications (Trade) Dose Ordered Sig/Lena Route Start Time Stop Time Status Last Admin (NS Flush) 2 ml UNSCH PRN IV FLUSH 09/22/17 01:30 (NS Flush) 2 ml BID IV FLUSH 09/22/17 09:00 09/24/17 21:00 (Tylenol) 650 mg Q4H PRN PO 09/22/17 01:30 (Zofran Inj) 4 mg Q6H PRN IVP 09/22/17 01:30 (Narcan Inj) 0.4 mg UNSCH PRN IV PUSH 09/22/17 01:30 (Jeannie-Colace) 1 tab BID PO 09/22/17 09:00 09/24/17 10:01 (Milk Of Magnesia Liq) 30 ml Q12H PRN PO 09/22/17 01:30 (Senokot) 17.2 mg Q12H PRN PO 09/22/17 01:30 (Dulcolax Supp) 10 mg DAILY PRN RECTAL 09/22/17 01:30 (Lactulose Liq) 30 ml DAILY PRN PO 09/22/17 01:30 (Morphine Inj) 4 mg Q3H PRN IV 09/22/17 01:45 Future Hold 09/23/17 01:48 (Xanax) 0.25 mg BID PRN PO 09/22/17 01:30 Future Hold (Lanoxin) 0.125 mg EVERY OTHER DAY PO 09/22/17 09:00 09/24/17 10:00 (Evista) 60 mg DAILY PO 09/22/17 09:00 09/24/17 09:59 (Isoptin Sr) 240 mg DAILY PO 09/22/17 09:00 09/24/17 09:59 (Oscal) 500 mg DAILY PO 09/22/17 09:00 09/24/17 10:01 (Proair Hfa Inh) 2 puff UNSCH PRN INH 09/22/17 01:45 Patient Own Medication PT OWN MED: (Omepraz... DAILY PO 09/22/17 09:00 Future Hold (Pravachol) 40 mg DAILY PO 09/22/17 09:00 09/24/17 10:00 (Apresoline) 10 mg Q6HR PRN PO 09/22/17 09:15 (Vasotec Inj) 1.25 mg Q6H PRN IV PUSH 09/22/17 09:15 09/22/17 11:33 (Pill Splitter) 1 ea UNSCH PRN OTHER 09/22/17 09:15 (Heparin Inj) 5,000 units Q12HR SQ 09/23/17 09:00 Future Hold 09/24/17 10:01 (Percocet 5-325 Mg) 1 tab Q6H PRN PO 09/23/17 08:45 Future Hold (Percocet 7.5-325 Mg) 1 tab Q6H PRN PO 09/23/17 08:45 Future Hold (Duoneb Neb) 1 ampule Q4HR WHILE AWAKE NEB NEB 09/24/17 12:00 09/25/17 13:18 (Protonix Inj) 40 mg Q12H IV PUSH 09/24/17 14:00 09/25/17 14:00 Potassium Chloride 10 meq/ Sodium Chloride 1,005 ml @ 75 mls/hr [id number] IV 09/25/17 02:00 09/25/17 02:11 Cefepime HCl 2000 mg/Sodium Chloride 100 ml @ 200 mls/hr Q8H IV 09/24/17 18:00 09/25/17 11:04 Pharmacy Profile Note 0 ml @ 0 mls/hr UNSCH OTHER 09/24/17 16:30 Metronidazole 100 ml @ 100 mls/hr Q8H IV 09/24/17 18:00 09/25/17 10:00 Miscellaneous Information Patient in critical care unit? Ass... [id number] .XX 09/24/17 21:15 09/24/17 21:15 (Chlorhexidine 2% Cloth) 3 pack DAILY@04 TOPICAL 09/25/17 04:00 09/29/17 04:01 09/25/17 04:00 (Chlorhexidine 2% Cloth) 3 pack UNSCH PRN TOPICAL 09/24/17 21:15 09/29/17 21:03 Vancomycin HCl 1000 mg/Sodium Chloride 250 ml @ 250 mls/hr Q18H IV 09/25/17 09:00 09/25/17 11:03 Miscellaneous Information SPECIFIC LAB TO BE WILLIAM... ONCE ONCE .XX 09/27/17 14:45 09/27/17 14:46 Family History Mother of congestive heart failure in her late 70s. Father of CAD. Substance Use Tobacco: Former smoker. Quit 15 years ago, smoked half a pack per day. Alcohol: Occasionally drinks wine. Prescription med abuse: Illicits: None reported. . 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 Spiritual/Cultural Factors Mu-Ism jonathan. . Living Will: Completed, but not made available Health Care Surrogate: Copy in medical record Date completed: 12/13/2016. . Health Care Surrogate(s): Designation of healthcare surrogate previously completed. Patient has designated her nephew Theo Davis as HCS, alternate surrogate is tonia Carrasquilloana Juan. . Family/friends goals: No code. The patient's family electing to continue conservative management short of no code. . Ethical and Legal Issues Patient unable to participating medical decision-making secondary to clinical condition. Nephsunil Venegas and niece Camryn Gilbert acting as healthcare surrogate decision makers. . Physical Exam Vital Signs Date Time Temp Pulse Resp B/P (MAP) Pulse Ox O2 Delivery O2 Flow Rate FiO2 09/25/17 15:00 90 19 99 09/25/17 15:00 90 09/25/17 14:40 89 15 99 09/25/17 14:40 89 09/25/17 14:20 93 21 100 09/25/17 14:20 93 09/25/17 14:00 82 15 99 09/25/17 14:00 82 09/25/17 13:40 89 21 100 09/25/17 13:40 89 09/25/17 13:20 93 09/25/17 13:20 93 18 99 09/25/17 13:07 84 09/25/17 13:07 84 18 97 09/25/17 11:41 88 09/25/17 11:41 88 20 96 09/25/17 11:20 81 09/25/17 11:20 81 23 95 09/25/17 11:16 79 23 96 09/25/17 11:16 79 09/25/17 10:25 75 09/25/17 10:25 75 24 97 09/25/17 09:20 94 Nasal Cannula 3 09/25/17 09:11 68 20 146/67 (93) 100 09/25/17 08:35 100 Simple Mask 7.00 09/25/17 08:00 66 09/25/17 08:00 66 35 71 09/25/17 04:00 97.8 78 24 127/61 (83) 100 09/25/17 00:00 97.8 92 20 154/95 (114) 100 09/24/17 23:00 91 09/24/17 21:00 83 09/24/17 21:00 97.8 83 20 138/94 (109) 96 09/24/17 19:23 98 Nasal Cannula 3.00 09/24/17 15:35 97.5 66 22 142/70 (94) 99 09/25/17 09/26/17 19:00 07:00 Output Total 900 ml Balance -900 ml Output Gastric Drainage Total 900 ml Exam CONSTITUTIONAL/GENERAL: This is a frail looking elderly female resting in bed in no acute distress. Obtunded. TUBES/LINES/DRAINS: NG, nasal cannula, bilateral soft wrist restraints. SKIN: No jaundice, rashes, or lesions. Ecchymoses on upper extremities. No wounds seen anteriorly. Skin temperature appropriate. Not diaphoretic. HEAD: Atraumatic. Normocephalic. EYES: Pupils equal and round and reactive. No scleral icterus. No injection or drainage. ENT: Hearing appears normal. Nose without bleeding or purulent drainage. Moist oral mucosa. NECK: Trachea midline. Supple. CARDIOVASCULAR: Regular rate and rhythm without murmurs, gallops, or rubs. No JVD. Peripheral pulses symmetric. RESPIRATORY/CHEST: Symmetric, unlabored respirations. Clear, diminished to auscultation. GASTROINTESTINAL: Abdomen soft, nondistended. Bowel sounds present. NG with moderate amount of coffee-ground output. GENITOURINARY: Without palpable bladder distension. MUSCULOSKELETAL: Extremities without clubbing, cyanosis, or edema. Muscle wasting to all 4 extremities. NEUROLOGICAL: Obtunded, briefly opening eyes to verbal stimuli. Repetitive speech. Not following commands. PSYCHIATRIC: Unable to evaluate secondary to clinical condition. Appears calm. . Diagnostic Tests Laboratory Laboratory Tests Test 09/23/17 10:21 09/23/17 10:29 09/23/17 14:26 09/23/17 15:40 Blood Urea Nitrogen 19 MG/DL (7-18) Creatinine 0.79 MG/DL (0.50-1.00) Random Glucose 123 MG/DL (74-106) Calcium Level 8.1 MG/DL (8.5-10.1) Sodium Level 142 MEQ/L (136-145) Potassium Level 3.9 MEQ/L (3.5-5.1) Chloride Level 107 MEQ/L (98-107) Carbon Dioxide Level 31.0 MEQ/L (21.0-32.0) Anion Gap 4 MEQ/L (5-15) Estimat Glomerular Filtration Rate 69 ML/MIN (>89) Phosphorus Level 3.0 MG/DL (2.5-4.9) Vitamin B12 Level 255 PG/ML (193-986) Thyroid Stimulating Hormone 3rd Gen 0.996 uIU/ML (0.358-3.740) White Blood Count 23.7 TH/MM3 (4.0-11.0) Red Blood Count 3.68 MIL/MM3 (4.00-5.30) Hemoglobin 11.8 GM/DL (11.6-15.3) Hematocrit 35.9 % (35.0-46.0) Mean Corpuscular Volume 97.5 FL (80.0-100.0) Mean Corpuscular Hemoglobin 32.0 PG (27.0-34.0) Mean Corpuscular Hemoglobin Concent 32.9 % (32.0-36.0) Red Cell Distribution Width 14.7 % (11.6-17.2) Platelet Count 230 TH/MM3 (150-450) Mean Platelet Volume 11.3 FL (7.0-11.0) Neutrophils (%) (Auto) 93.2 % (16.0-70.0) Lymphocytes (%) (Auto) 2.0 % (9.0-44.0) Monocytes (%) (Auto) 3.8 % (0.0-8.0) Eosinophils (%) (Auto) 0.1 % (0.0-4.0) Basophils (%) (Auto) 0.9 % (0.0-2.0) Neutrophils # (Auto) 22.0 TH/MM3 (1.8-7.7) Lymphocytes # (Auto) 0.5 TH/MM3 (1.0-4.8) Monocytes # (Auto) 0.9 TH/MM3 (0-0.9) Eosinophils # (Auto) 0.0 TH/MM3 (0-0.4) Basophils # (Auto) 0.2 TH/MM3 (0-0.2) CBC Comment DIFF FINAL Differential Comment B-Type Natriuretic Peptide 497 PG/ML (0-100) Lactic Acid Level 1.6 mmol/L (0.4-2.0) Ammonia 24 MCMOL/L (11-32) Urine Color YELLOW (YELLW/STRAW) Urine Turbidity CLEAR (CLEAR) Urine pH 5.5 (5.0-8.5) Urine Specific [place] 1.033 (1.002-1.035) Urine Protein 30 mg/dL (NEG-TRACE) Urine Glucose (UA) TRACE mg/dL (NEG) Urine Ketones TRACE mg/dL (NEG) Urine Occult Blood SMALL (NEG) Urine Nitrite NEG (NEG) Urine Bilirubin NEG (NEG) Urine Urobilinogen LESS THAN 2.0 MG/DL (LESS Urine Leukocyte Esterase NEG (NEG) Urine RBC 1 /hpf (0-3) Urine WBC 1 /hpf (0-5) Urine Squamous Epithelial Cells 1 /hpf (0-5) Urine Transitional Epithelial Cells <1 /hpf (NONE) Urine Granular Casts 3 /lpf (NONE) Microscopic Urinalysis Comment CATH-CULT NOT IND Test 09/24/17 07:35 09/24/17 10:51 09/24/17 14:50 09/24/17 19:52 White Blood Count 22.9 TH/MM3 (4.0-11.0) Red Blood Count 3.59 MIL/MM3 (4.00-5.30) Hemoglobin 11.5 GM/DL (11.6-15.3) 11.3 GM/DL (11.6-15.3) 10.3 GM/DL (11.6-15.3) Hematocrit 35.0 % (35.0-46.0) 33.9 % (35.0-46.0) 31.2 % (35.0-46.0) Mean Corpuscular Volume 97.6 FL (80.0-100.0) Mean Corpuscular Hemoglobin 32.1 PG (27.0-34.0) Mean Corpuscular Hemoglobin Concent 32.9 % (32.0-36.0) Red Cell Distribution Width 14.6 % (11.6-17.2) Platelet Count 191 TH/MM3 (150-450) Mean Platelet Volume 11.3 FL (7.0-11.0) Neutrophils (%) (Auto) 93.8 % (16.0-70.0) Lymphocytes (%) (Auto) 2.2 % (9.0-44.0) Monocytes (%) (Auto) 3.5 % (0.0-8.0) Eosinophils (%) (Auto) 0.0 % (0.0-4.0) Basophils (%) (Auto) 0.5 % (0.0-2.0) Neutrophils # (Auto) 21.5 TH/MM3 (1.8-7.7) Lymphocytes # (Auto) 0.5 TH/MM3 (1.0-4.8) Monocytes # (Auto) 0.8 TH/MM3 (0-0.9) Eosinophils # (Auto) 0.0 TH/MM3 (0-0.4) Basophils # (Auto) 0.1 TH/MM3 (0-0.2) CBC Comment AUTO DIFF Differential Total Cells Counted 100 Neutrophils % (Manual) 84 % (16-70) Band Neutrophils % 10 % (0-6) Lymphocytes % 1 % (9-44) Monocytes % 3 % (0-8) Basophils % 1 % (0-2) Neutrophils # (Manual) 21.8 TH/MM3 (1.8-7.7) Metamyelocytes 1 % (0-1) Differential Comment FINAL DIFF MANUAL Platelet Estimate NORMAL (NORMAL) Platelet Morphology Comment NORMAL (NORMAL) Blood Urea Nitrogen 33 MG/DL (7-18) Creatinine 0.76 MG/DL (0.50-1.00) Random Glucose 115 MG/DL (74-106) Total Protein 6.7 GM/DL (6.4-8.2) Albumin 3.2 GM/DL (3.4-5.0) Calcium Level 8.3 MG/DL (8.5-10.1) Alkaline Phosphatase 42 U/L (45-117) Aspartate Amino Transf (AST/SGOT) 28 U/L (15-37) Alanine Aminotransferase (ALT/SGPT) 26 U/L (10-53) Total Bilirubin 0.6 MG/DL (0.2-1.0) Sodium Level 143 MEQ/L (136-145) Potassium Level 4.3 MEQ/L (3.5-5.1) Chloride Level 108 MEQ/L (98-107) Carbon Dioxide Level 29.7 MEQ/L (21.0-32.0) Anion Gap 5 MEQ/L (5-15) Estimat Glomerular Filtration Rate 72 ML/MIN (>89) Test 09/24/17 20:55 09/25/17 02:43 Nasal Screen MRSA (PCR) MRSA NOT DETECTED (NOT Hemoglobin 11.0 GM/DL (11.6-15.3) Hematocrit 33.9 % (35.0-46.0) Result Diagram: 09/25/17 0243 09/24/17 1051 Microbiology Microbiology Date/Time Source Procedure Growth Status 09/23/17 14:26 Blood Peripheral Aerobic Blood Culture - Preliminary NO GROWTH IN 2 DAYS Resulted 09/23/17 14:26 Blood Peripheral Anaerobic Blood Culture - Preliminary NO GROWTH IN 2 DAYS Resulted 09/23/17 14:20 Blood Peripheral Aerobic Blood Culture - Preliminary NO GROWTH IN 2 DAYS Resulted 09/23/17 14:20 Blood Peripheral Anaerobic Blood Culture - Preliminary NO GROWTH IN 2 DAYS Resulted 09/24/17 13:30 Gastric Gastric Occult Blood - Final GASTROCCULT POSITIVE Complete Imaging Last Impressions Brain MRI 09/25/17 0000 Signed Impressions: Service Date/Time: Monday, September 25, 2017 12:15 - CONCLUSION: 1. Mild white matter ischemic change. Cortical volume loss. No acute findings. No mass, hemorrhage or shift. No abnormal enhancement post contrast. Flip Garcia MD Head CT 09/24/17 0000 Signed Impressions: Service Date/Time: September 20:31 - CONCLUSION: 1. No acute findings in the brain. 2. Age-appropriate atrophy. Tuan Montilla MD Chest X-Ray 09/23/17 0000 Signed Impressions: Service Date/Time: Saturday, September 23, 2017 15:05 - CONCLUSION: 1. Prominent soft tissue density in the right lower lung field appears to represent a prominent hiatal hernia on the lateral. 2. Persistent left basilar consolidation/effusion 3. Old compression fractures of the lumbar spine with findings of at least a one level kyphoplasty. Harinder Sotelo MD Abdomen X-Ray 09/23/17 0000 Signed Impressions: Service Date/Time: Saturday, September 23, 2017 15:45 - CONCLUSION: No acute disease. Marcial Jordan MD FACR Lumbar Spine X-Ray 09/22/17 0000 Signed Impressions: Service Date/Time: Friday, September 22, 2017 12:54 - CONCLUSION: 1. Redemonstration of T12 and L1 compression fractures with interval kyphoplasty at T12. 2. No new compression fracture or apparent acute abnormality. 3. Redemonstration of degenerative spondylosis of the lumbar spine. Samuel Ziegler MD Thoracic Spine CT [id number]/21/[id number] Signed Impressions: Service Date/Time: Thursday, September 21, 2017 23:20 - CONCLUSION: T12 compression deformity that has been treated with vertebroplasty. There is a posterior bulging of the T12 vertebral body margin and a more focal impression off the posterior superior aspect of T12 vertebral body causing a mild to moderate compression of the thecal sac. There is also stable compression deformity at the superior right lateral L1 vertebral body. Dalton Palacios MD Aorta CTA 09/21/17 0000 Signed Impressions: Service Date/Time: Thursday, September 21, 2017 23:20 - CONCLUSION: 1. No aortic dissection or aneurysm is seen. 2. Much of the stomach is in the lower chest. The stomach is extremely distended. This is likely from a hiatal hernia or gastric pull-through procedure. No clips are seen making a large hiatal hernia more likely. Given the large amount of debris and distention of the stomach, some degree of obstruction cannot be excluded. 3. Bilateral pleural effusions. There are rounded areas of density seen in the periphery of the left lower lobe likely related to round atelectasis or focal consolidation. 4. T12 compression deformity. The patient is status post vertebroplasty at this level. 5. 3.8 cm low-density mass in the left lobe of the liver. This is nonspecific. It likely represents a cyst or hemangioma. Dalton Palacios MD Patient/Family Conference Present at Family Conference: Nephsunil Venegas and niece Camryn Gilbert via telephone. Family Conference Time (mins): 38 Family Conference Location: Telephone Issues Discussed: * Palliative care role, purpose, approach * Additional medical, psychosocial, and spiritual history * Patients general health, functional status, and cognitive changes in the months leading up to the current hospitalization * Patient/family understanding of the current medical problems -worsening altered mental status, concerns for GI bleed, respiratory failure, sepsis. * Patient/family understanding of prognosis -guarded prognosis * Patients goals of care as best understood from advance directives and/or conversations and/or values * Current medical treatment options and benefits/burdens of those options * Questions answered to the best of my ability * Palliative care contact information provided * Reviewed risks, benefits and limitations of CPR, intubation and mechanical ventilation . Assessment and Plan Disease Oriented Problem List: (1) Acute hypoxemic respiratory failure (2) Pleural effusion (3) Pneumonia (4) Metabolic encephalopathy (5) Atrial fibrillation (6) Chronic anemia (7) Leukocytosis (8) Coffee ground emesis Symptom Scale: (1) Shortness of breath 0-10 Scale: Unable to quantify Comment: Currently tolerating O2 via nasal cannula. (2) Intractable back pain 0-10 Scale: Unable to quantify Comment: History of chronic pain. (3) Debility 0-10 Scale: Unable to quantify Comment: Progressive. 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 Spiritual: Mu-Ism jonathan. Legal: Advance directives completed. Ethical issues impacting care: Patient unable to participate in medical decision -making secondary to clinical condition. Patient's nephew and niece acting as healthcare surrogate decision makers. . Important Contacts Healthcare surrogate/nephew *Theo Ryan , Alternate healthcare surrogate/niece *Camryn Juan , [phone] . Prognosis Mrs. Gil is an 87-year-old female with a medical history significant for atrial fibrillation, hypertension, chronic left pleural effusion, chronic anemia and arthritis of knees. Patient presented with exacerbation of chronic back pain. Clinical course complicated by worsening altered mental status, GI bleed, respiratory failure and sepsis. Patient's prognosis is guarded given advanced age, multiple comorbidities and physical deconditioning. Patient remains a high risk for further complications, continue decline and . . Code Status: No Code Plan * CODE STATUS: No code. DNR/DNI. Family electing NO code as per patient's known wishes, tonia reports that patient has previously completed a community DNR. * HEALTHCARE DECISION-MAKING: Patient unable to participating medical decision- making secondary to clinical condition, obtunded. Advanced directives completed , patient has designated her nephew Theo Davis as primary healthcare surrogate, alternate surrogate is niece Camryn Juan. * GOALS OF CARE: Family electing to continue conservative management short of NO code. Guarded prognosis has been reviewed with family at length. Family to continue goals of care conversation once tonia Gilbert arrives to [place] on Thursday09/26/17. * SYMPTOMS: = Shortness of breath, multifactorial. Currently with acute hypoxemic respiratory failure, pleural effusions, pneumonia. Currently tolerating O2 via nasal cannula. = Chronic back pain, history of T12 compression fracture status post vertebroplasty. Neurosurgery has been consulted, medical management recommended. Percocet on hold given patient's altered mental status. No doses given since admission. = Debility, progressive. PTOT following. * Case discussed with bedside MARY Sapp. * Palliative care contact information has been provided to patient's family. * Palliative care will continue to follow-up for further clarifications of goals of care as patient's clinical course continues to evolve. . Time Spent Total Floor Time (mins): 71 (Total time to include review and summarization of available medical records to include prior acute hospitalizations, physical exam , 2 separate telephone conversations with patient's nephew Theo and niece Camryn Gilbert for goals of care, case discussion with bedside RN) >50% Counseling/Coord of Care: Yes Thank you for the opportunity to participate in the care of Ms. Gil. Attestation To help prompt me to consider important information that might be impacting today's encounter and assessment, information from prior notes written by myself or my colleagues may have been "brought forward" into today's note. My signature on this note, however, is an attestation that I personally performed the exam, history, and/or decision-making noted today, and, unless otherwise indicated, the interactions with patient, family, and staff as well as the review of records all occurred today. I also attest that the listed assessment and stated plan reflect my best clinical judgment today based on the combination of historical information, prior notes, and today's exam/ interactions. When time spent is documented, it refers only to time spent today by the signer, or if indicated, combined time spent today by collaborating physician/nurse practitioner. Erika Nix Sep 25, 2017 16:49
[2017-09-25 17:29] LABS: APTT (PATIENT) 23.4 SEC (24.3-30.1); INTERNATIONAL NORMALIZED RATIO 1.1 RATIO; PROTHROMBIN TIME - PATIENT 10.7 SEC (9.8-11.6)
[2017-09-25 17:49] LABS: ALKALINE PHOSPHATASE 36 U/L (45-117); ALT (GPT) 20 U/L (10-53); ANION GAP 6 MEQ/L (5-15); AST (GOT) 17 U/L (15-37); BLOOD UREA NITROGEN 50 MG/DL (7-18); CHLORIDE 110 MEQ/L (98-107); GLOMERULAR FILTRATION RATE 55 ML/MIN (>89); POTASSIUM 3.9 MEQ/L (3.5-5.1); SODIUM (NA) 147 MEQ/L (136-145); TOTAL BILIRUBIN ADULT 0.5 MG/DL (0.2-1.0)
--- NOTE | 2017-09-25 17:56 | HHI.PR ---
Subjective Remarks Patient is demented. Asper RN patient had coffee ground emesis, ng tube placed and 900 ml of coffee grounds retrieved. Patient is afebrile. Objective Vitals Vital Signs Date Time Temp Pulse Resp B/P (MAP) Pulse Ox O2 Delivery O2 Flow Rate FiO2 09/25/17 16:20 86 18 98 09/25/17 16:00 94 22 98 09/25/17 15:00 90 19 99 09/25/17 15:00 90 09/25/17 14:40 89 15 99 09/25/17 14:40 89 09/25/17 14:20 93 21 100 09/25/17 14:20 93 09/25/17 14:00 82 15 99 09/25/17 14:00 82 09/25/17 13:40 89 21 100 09/25/17 13:40 89 09/25/17 13:20 93 09/25/17 13:20 93 18 99 09/25/17 13:07 84 09/25/17 13:07 84 18 97 09/25/17 11:41 88 09/25/17 11:41 88 20 96 09/25/17 11:20 81 09/25/17 11:20 81 23 95 09/25/17 11:16 79 23 96 09/25/17 11:16 79 09/25/17 10:25 75 09/25/17 10:25 75 24 97 09/25/17 09:20 94 Nasal Cannula 3 09/25/17 09:11 68 20 146/67 (93) 100 09/25/17 08:35 100 Simple Mask 7.00 09/25/17 08:00 66 09/25/17 08:00 66 35 71 09/25/17 04:00 97.8 78 24 127/61 (83) 100 09/25/17 00:00 97.8 92 20 154/95 (114) 100 09/24/17 23:00 91 09/24/17 21:00 83 09/24/17 21:00 97.8 83 20 138/94 (109) 96 09/24/17 19:23 98 Nasal Cannula 3.00 I/O 09/24/17 09/24/17 09/24/17 09/25/17 09/25/17 09/25/17 07:00 15:00 23:00 07:00 15:00 23:00 Intake Total 120 ml 200 ml Output Total 900 ml Balance 120 ml 200 ml -900 ml Intake Oral 120 ml 200 ml Output Gastric Drainage Total 900 ml # Voids 4 2 2 3 # Bowel Movements 1 Result Diagram: 09/25/17 1545 09/25/17 1545 Imaging Last Impressions Brain MRI 09/25/17 0000 Signed Impressions: Service Date/Time: Monday, September 25, 2017 12:15 - CONCLUSION: 1. Mild white matter ischemic change. Cortical volume loss. No acute findings. No mass, hemorrhage or shift. No abnormal enhancement post contrast. Flip Garcia MD Head CT 09/24/17 0000 Signed Impressions: Service Date/Time: September 20:31 - CONCLUSION: 1. No acute findings in the brain. 2. Age-appropriate atrophy. Tuan Montilla MD Chest X-Ray 09/23/17 0000 Signed Impressions: Service Date/Time: Saturday, September 23, 2017 15:05 - CONCLUSION: 1. Prominent soft tissue density in the right lower lung field appears to represent a prominent hiatal hernia on the lateral. 2. Persistent left basilar consolidation/effusion 3. Old compression fractures of the lumbar spine with findings of at least a one level kyphoplasty. Harinder Sotelo MD Abdomen X-Ray 09/23/17 0000 Signed Impressions: Service Date/Time: Saturday, September 23, 2017 15:45 - CONCLUSION: No acute disease. Marcial Jordan MD FACR Lumbar Spine X-Ray 09/22/17 0000 Signed Impressions: Service Date/Time: Friday, September 22, 2017 12:54 - CONCLUSION: 1. Redemonstration of T12 and L1 compression fractures with interval kyphoplasty at T12. 2. No new compression fracture or apparent acute abnormality. 3. Redemonstration of degenerative spondylosis of the lumbar spine. Samuel Ziegler MD Thoracic Spine CT 09/21/172033 Signed Impressions: Service Date/Time: Thursday, September 21, 2017 23:20 - CONCLUSION: T12 compression deformity that has been treated with vertebroplasty. There is a posterior bulging of the T12 vertebral body margin and a more focal impression off the posterior superior aspect of T12 vertebral body causing a mild to moderate compression of the thecal sac. There is also stable compression deformity at the superior right lateral L1 vertebral body. Dalton Palacios MD Aorta CTA 09/21/17 0000 Signed Impressions: Service Date/Time: Thursday, September 21, 2017 23:20 - CONCLUSION: 1. No aortic dissection or aneurysm is seen. 2. Much of the stomach is in the lower chest. The stomach is extremely distended. This is likely from a hiatal hernia or gastric pull-through procedure. No clips are seen making a large hiatal hernia more likely. Given the large amount of debris and distention of the stomach, some degree of obstruction cannot be excluded. 3. Bilateral pleural effusions. There are rounded areas of density seen in the periphery of the left lower lobe likely related to round atelectasis or focal consolidation. 4. T12 compression deformity. The patient is status post vertebroplasty at this level. 5. 3.8 cm low-density mass in the left lobe of the liver. This is nonspecific. It likely represents a cyst or hemangioma. Dalton Palacios MD Objective Remarks GENERAL: This is a frail elderly female patient, in no apparent distress. Appears weak, fatigued lying in hospital bed. Remains confused. In soft restraints. SKIN: Cool and dry. Area of reddish discoloration left lower leg, no abscess appreciated, no streaking or increased warmth. Nontender to palpation. HEAD: Atraumatic. Normocephalic. EYES: Pupils equal round and reactive. No scleral icterus. No injection or drainage. ENT: Nose without bleeding or purulent drainage. Airway patent. MMM. NECK: Trachea midline. CARDIOVASCULAR: Irregular without murmurs, gallops, or rubs. RESPIRATORY: Diminished BS but poor effort noted. No wheezing or rhonchi noted. GASTROINTESTINAL: Abdomen soft, non-tender, nondistended. (+)BS. MUSCULOSKELETAL: Extremities without clubbing, cyanosis, or edema. NEUROLOGICAL: Awake. Able to move all extremities weakly. No focal neurologic finding appreciated. Normal speech. PSYCHIATRIC: Confused. Patient is oriented to self only. Medications and IVs Current Medications Medications (Trade) Dose Ordered Sig/Lena Route Start Time Stop Time Status Last Admin (NS Flush) 2 ml UNSCH PRN IV FLUSH 09/22/17 01:30 (NS Flush) 2 ml BID IV FLUSH 09/22/17 09:00 09/24/17 21:00 (Tylenol) 650 mg Q4H PRN PO 09/22/17 01:30 (Zofran Inj) 4 mg Q6H PRN IVP 09/22/17 01:30 (Narcan Inj) 0.4 mg UNSCH PRN IV PUSH 09/22/17 01:30 (Jeannie-Colace) 1 tab BID PO 09/22/17 09:00 09/24/17 10:01 (Milk Of Magnesia Liq) 30 ml Q12H PRN PO 09/22/17 01:30 (Senokot) 17.2 mg Q12H PRN PO 09/22/17 01:30 (Dulcolax Supp) 10 mg DAILY PRN RECTAL 09/22/17 01:30 (Lactulose Liq) 30 ml DAILY PRN PO 09/22/17 01:30 (Morphine Inj) 4 mg Q3H PRN IV 09/22/17 01:45 Future Hold 09/23/17 01:48 (Xanax) 0.25 mg BID PRN PO 09/22/17 01:30 Future Hold (Lanoxin) 0.125 mg EVERY OTHER DAY PO 09/22/17 09:00 09/24/17 10:00 (Evista) 60 mg DAILY PO 09/22/17 09:00 09/24/17 09:59 (Isoptin Sr) 240 mg DAILY PO 09/22/17 09:00 09/24/17 09:59 (Oscal) 500 mg DAILY PO 09/22/17 09:00 09/24/17 10:01 (Proair Hfa Inh) 2 puff UNSCH PRN INH 09/22/17 01:45 Patient Own Medication PT OWN MED: (Omepraz... DAILY PO 09/22/17 09:00 Future Hold (Pravachol) 40 mg DAILY PO 09/22/17 09:00 09/24/17 10:00 (Apresoline) 10 mg Q6HR PRN PO 09/22/17 09:15 (Vasotec Inj) 1.25 mg Q6H PRN IV PUSH 09/22/17 09:15 09/22/17 11:33 (Pill Splitter) 1 ea UNSCH PRN OTHER 09/22/17 09:15 (Heparin Inj) 5,000 units Q12HR SQ 09/23/17 09:00 Future Hold 09/24/17 10:01 (Percocet 5-325 Mg) 1 tab Q6H PRN PO 09/23/17 08:45 Future Hold (Percocet 7.5-325 Mg) 1 tab Q6H PRN PO 09/23/17 08:45 Future Hold (Duoneb Neb) 1 ampule Q4HR WHILE AWAKE NEB NEB 09/24/17 12:00 09/25/17 13:18 (Protonix Inj) 40 mg Q12H IV PUSH 09/24/17 14:00 09/25/17 14:00 Potassium Chloride 10 meq/ Sodium Chloride 1,005 ml @ 75 mls/hr [id number] IV 09/25/17 02:00 09/25/17 02:11 Cefepime HCl 2000 mg/Sodium Chloride 100 ml @ 200 mls/hr Q8H IV 09/24/17 18:00 09/25/17 11:04 Pharmacy Profile Note 0 ml @ 0 mls/hr UNSCH OTHER 09/24/17 16:30 Metronidazole 100 ml @ 100 mls/hr Q8H IV 09/24/17 18:00 09/25/17 10:00 Miscellaneous Information Patient in critical care unit? Ass... [id number] .XX 09/24/17 21:15 09/24/17 21:15 (Chlorhexidine 2% Cloth) 3 pack DAILY@04 TOPICAL 09/25/17 04:00 09/29/17 04:01 09/25/17 04:00 (Chlorhexidine 2% Cloth) 3 pack UNSCH PRN TOPICAL 09/24/17 21:15 09/29/17 21:03 Vancomycin HCl 1000 mg/Sodium Chloride 250 ml @ 250 mls/hr Q18H IV 09/25/17 09:00 09/25/17 11:03 Miscellaneous Information SPECIFIC LAB TO BE ... ONCE ONCE .XX 09/27/17 14:45 09/27/17 14:46 A/P Assessment and Plan 87 year female with a past medical history significant for mild Alzheimer's dementia, recurrent pleural effusions, atrial fibrillation, chronic iron deficiency anemia and a history of a compression deformity status post vertebroplasty with chronic back pain who presents to [facility] ED with complaints of acute on chronic back pain with radiation into the right shoulder. Sepsis Acute hypoxic respiratory failure secondary to pleural effusion and pneumonia History of chronic left pleural effusion Patient does not use oxygen at home - Patient meets sepsis criteria with temp 95.1, leukocytosis with white count of 23.7, bandemia of 10% and source of pneumonia, possible GI source - lactic acid 1.6 - Patient currently requiring 3 L of oxygen. Patient desats in the 80s without oxygen. Also per discussion with Neena with PT, patient desatted to 92% with oxygen on during short ambulation - CXR shows persistent left basilar consolidation/effusion. 09/24 started on Zosyn IV. Consult ID for assistance. Speech therapy for swallow evaluation for possible aspiration. - ID following, appreciate assistance. Started on IV Vanco, Cefepime and Flagyl. IV Zosyn discontinued. - Patient passed swallow evaluation with recommendations for mechanical soft , thin liquid diet - Duonebs scheduled. IS at bedside, encourage use. Acapella - trend white count, only slight improvement with white count dropping from 23.7 to 22.9 despite being on IV Zosyn. Aorta CT showing stomach is distended with debris. The stomach measures up to 15.8 x 10.6 cm in diameter. The proximal esophagus is distended. Consult GI, appreciate recommendations. Possible GIB - Episode of coffee ground emesis yesterday and today - GI consulted. Started on IV Protonix per GI - specimen sent for gastroccult testing - hold Heparin - H/H stable, continue to monitor closely - 09/25 EGD Cancelled due to the patient being a very high risk. Will order CT abdomen and pelvis given vomiting and coffee ground emesis. Metabolic encephalopathy - Patient with altered mental status secondary to hypoxia and infection. - hold all sedating medications - treat underlying infection - fall precautions - 09/25 CT brain without any acute findings. MRI of the brain with mild white matter ischemic change. Poor po intake - Secondary to above - Consult dietitian for calorie count - Keep npo Acute on chronic back pain, resolved s/p T12 vertebroplasty by Dr. Wilkins January 2017 - Thoracic spine CT reveals T12 compression deformity s/p vertebroplasty, posterior bulging of the T12 vertebral body causing mild to mod compression of thecal sac - Consult neurosurgery, appreciate recommendations. Cleared for discharge from NS standpoint. - continue with PT/OT. OOB with assistance. Fall precautions. Atrial fibrillation - Rate controlled - Continue patient on home dose of digoxin 0.125 mg by mouth every other day - [id number] score 4, not on any anticoagulation due to history of bleeding. Patient to follow up with guideman Dr. Montaño as outpatient. - 09/25 no anticoagulation given GI bleed. Hypertension - labile - Continue patient on home dose of verapamil 240 mg daily - Vasotec 1.25mg IV q6h or Hydralazine 10mg q6h prn SBP>180 COPD extensive history of tobacco use, not in acute exacerbation - Patient quit smoking 5 years ago - Sundar Alzheimer's dementia, oriented x 3 at baseline - Patient is not on any dementia medications at home Hx of B12 deficiency - B12 low normal. - Give 1000mcg supplementation PRAMOD, resolved - suspect due to dehydration. Resolved s/p IVF hydration. - avoid nephrotoxic agents - continue to monitor kidney function Chronic iron deficiency anemia History of GI bleed due to AVM - H&H stable - No evidence of active bleeding - Continue to monitor Dyslipidemia - continue patient on home dose of statin therapy GERD - PPI DVT prophylaxis - Heparin sq Discussed with Larry LÓPEZ patients niece listed as next of kin and updated her on patients condition. Per the POA, patient is a DNR. Palliative care consult placed. GOALS OF CARE: Family electing to continue conservative management short of NO code. Kvein Flores MD Sep 25, 2017 17:56
[2017-09-25] MEDS ORDERED: LORazepam 2 MG/ML VIAL IV PUSH ONE (21:15)
[2017-09-25 21:20] LABS: HEMATOCRIT 30.2 % (35.0-46.0); REVIEW FLAG FINAL
[2017-09-25] MEDS ORDERED: IOHEXOL 350 MG/ML 10 ML VIAL (for RAD DIAG) IVCONTRAST ONE (22:51)
--- NOTE | 2017-09-25 23:12 | RADRPT ---
EXAM DATE/TIME: 09/25/2017 22:42 [place] COMPARISON: CHEST PA & LAT, September 23, 2017, 15:05. INDICATIONS : Abdominal pain. IV CONTRAST: 80 cc Omnipaque 350 (iohexol) IV ORAL CONTRAST: No oral contrast ingested. RADIATION DOSE: 6.90 CTDIvol (mGy) MEDICAL HISTORY : Non-responsive. SURGICAL HISTORY : Non-responsive. ENCOUNTER: Subsequent ACUITY: 3 days PAIN SCALE: Non-responsive LOCATION: abdomen TECHNIQUE: Volumetric scanning of the abdomen and pelvis was performed. Using automated exposure control and ad justment of the mA and/or kV according to patient size, radiation dose was kept as low as reasonably achievable to obtain optimal diagnostic quality images. DICOM format image data is available electro nically for review and comparison. FINDINGS: LOWER LUNGS: There is extensive bilateral lung space consolidative change. Bilateral pleural effusions, loculated on the left. Enormous hiatal hernia approaching intrathoracic stomach with a nasogastric tube coiled in the intrathoracic portion LIVER: Homogeneous density without lesion. There is no dilation of the biliary tree. No calcified gallston es. SPLEEN: Normal size without lesion. PANCREAS: Within normal limits. KIDNEYS: Small lateral mid pole right renal cyst. No kidney stone or hydronephrosis. ADRENAL GLANDS: Within normal limits. VASCULAR: There is no aortic aneurysm. BOWEL/MESENTERY: Enormous hiatal hernia. Small and large bowel are nondilated with no definite wall thickening or infl ammatory change present. Occasional distal colonic diverticula. ABDOMINAL WALL: Within normal limits. RETROPERITONEUM: There is no lymphadenopathy. BLADDER: No wall thickening or mass. REPRODUCTIVE: Uterus surgically absent. No evidence of pelvic mass or free fluid. INGUINAL: There is no lymphadenopathy or hernia. MUSCULOSKELETAL: Within normal limits for patient age. CONCLUSION: No acute process in the abdomen or pelvis. Dalton Triplett MD on September 25, 2017 at 23:06 Board Certified Radiologist. This report was verified electronically.
[2017-09-26] VITALS (14 sets, daily range): BP systolic 123–156; BP diastolic 59–67; PULSE 81–100; RESP 15–33; TEMP 97.6–98.2; O2SAT 83–100
[2017-09-26] MEDS: metroNIDAZOLE 500 MG INJ 100 ML IV SCH ×3 (01:37→17:24)
[2017-09-26] MEDS: CEFEPIME INJ 2,000 MG in SODIUM CHLORIDE 0.9% INJ 100 ML IV SCH ×4 (02:59→19:47)
[2017-09-26] MEDS: PANTOPRAZOLE SODIUM 40 MG VIAL IV PUSH SCH ×2 (03:12→13:52)
[2017-09-26] MEDS: VANCOMYCIN 1,000 MG/NS 250 ML IV SCH ×4 (03:13→21:33)
[2017-09-26] MEDS: CHLORHEXIDINE GLUCONATE 2 % 1 PACK (2 CLOTHS)(taper/protocol) TOPICAL SCH (04:00)
[2017-09-26] MEDS: POTASSIUM CHLORIDE INJ 10 MEQ in SODIUM CHLOR 0.9% 1000 ML INJ 1,000 ML IV SCH ×2 (05:18→15:58)
[2017-09-26] MEDS: RESP: ALBUTEROL 2.5 MG/IPRATROPIUM 0.5 MG NEB (SCH) NEB ×4 (07:38→20:21)
[2017-09-26] MEDS: DIGOXIN 0.125 MG TAB PO SCH (08:49)
[2017-09-26] MEDS: VERAPAMIL HCL 240 MG SUSTAINED RELEASE TAB PO SCH (08:49)
[2017-09-26] MEDS: CALCIUM CARBONATE 1.25 GM (CA 500 MG) TAB PO SCH (08:50)
[2017-09-26] MEDS: RALOXIFENE HCL 60 MG TAB PO SCH (08:50)
[2017-09-26] MEDS: SODIUM CHLORIDE 0.9% FLUSH 10 ML FLUSH IV FLUSH SCH ×2 (08:50→20:59)
[2017-09-26] MEDS: PRAVASTATIN SOD 40 MG TAB PO SCH (08:50)
[2017-09-26] MEDS: DOCUSATE SODIUM 50 MG/SENNA 8.6 MG TAB PO SCH (08:50)
--- NOTE | 2017-09-26 12:22 | HHI.PR ---
Subjective Remarks Follow-up sepsis/GI bleed/delirium 09/26/17-patient seen and examined, agitated, delirious and she had episode of coffee-ground emesis overnight. 900 cc out of NG tube Objective Vitals Vital Signs Date Time Temp Pulse Resp B/P (MAP) Pulse Ox O2 Delivery O2 Flow Rate FiO2 09/26/17 12:00 83 09/26/17 10:00 93 09/26/17 08:00 99 09/26/17 08:00 97.8 99 33 137/64 (88) 83 09/26/17 07:47 93 Nasal Cannula 3.00 09/26/17 06:00 99 09/26/17 04:00 98.2 90 17 152/65 (94) 100 09/26/17 04:00 90 09/26/17 00:00 87 09/26/17 00:00 98.0 87 18 123/59 (80) 99 09/25/17 23:45 96 Simple Mask 6.00 09/25/17 21:50 96 Non-Rebreather 15.00 09/25/17 20:00 91 09/25/17 20:00 97.8 91 16 143/75 (97) 100 Manual Cuff/Palpation 09/25/17 19:46 92 Nasal Cannula 3.00 09/25/17 16:20 86 18 98 09/25/17 16:00 94 22 98 09/25/17 15:00 90 19 99 09/25/17 15:00 90 09/25/17 14:40 89 15 99 09/25/17 14:40 89 09/25/17 14:20 93 21 100 09/25/17 14:20 93 09/25/17 14:00 82 15 99 09/25/17 14:00 82 09/25/17 13:40 89 21 100 09/25/17 13:40 89 09/25/17 13:20 93 09/25/17 13:20 93 18 99 09/25/17 13:07 84 09/25/17 13:07 84 18 97 I/O 09/25/17 09/25/17 09/25/17 09/26/17 09/26/17 09/26/17 07:00 15:00 23:00 07:00 15:00 23:00 Intake Total 1410 ml 200 ml Output Total 900 ml 900 ml Balance -900 ml 510 ml 200 ml Intake Oral 960 ml IV Total 450 ml 200 ml Output Gastric Drainage Total 900 ml 900 ml # Voids 2 3 3 Result Diagram: 09/25/17210409/25/17 154 Imaging Last Impressions Abdomen/Pelvis CT 09/25/171920 Signed Impressions: Service Date/Time: Monday, September 25, 2017 22:42 - CONCLUSION: No acute process in the abdomen or pelvis. Dalton Triplett MD Brain MRI 09/25/17 0000 Signed Impressions: Service Date/Time: Monday, September 25, 2017 12:15 - CONCLUSION: 1. Mild white matter ischemic change. Cortical volume loss. No acute findings. No mass, hemorrhage or shift. No abnormal enhancement post contrast. Flip Garcia MD Head CT 09/24/17 0000 Signed Impressions: Service Date/Time: September 20:31 - CONCLUSION: 1. No acute findings in the brain. 2. Age-appropriate atrophy. Tuan Montilla MD Chest X-Ray 09/23/17 0000 Signed Impressions: Service Date/Time: Saturday, September 23, 2017 15:05 - CONCLUSION: 1. Prominent soft tissue density in the right lower lung field appears to represent a prominent hiatal hernia on the lateral. 2. Persistent left basilar consolidation/effusion 3. Old compression fractures of the lumbar spine with findings of at least a one level kyphoplasty. Harinder Sotelo MD Abdomen X-Ray 09/23/17 0000 Signed Impressions: Service Date/Time: Saturday, September 23, 2017 15:45 - CONCLUSION: No acute disease. Marcial Jordan MD FACR Lumbar Spine X-Ray 09/22/17 0000 Signed Impressions: Service Date/Time: Friday, September 22, 2017 12:54 - CONCLUSION: 1. Redemonstration of T12 and L1 compression fractures with interval kyphoplasty at T12. 2. No new compression fracture or apparent acute abnormality. 3. Redemonstration of degenerative spondylosis of the lumbar spine. Samuel Ziegler MD Thoracic Spine CT 09/21/172033 Signed Impressions: Service Date/Time: Thursday, September 21, 2017 23:20 - CONCLUSION: T12 compression deformity that has been treated with vertebroplasty. There is a posterior bulging of the T12 vertebral body margin and a more focal impression off the posterior superior aspect of T12 vertebral body causing a mild to moderate compression of the thecal sac. There is also stable compression deformity at the superior right lateral L1 vertebral body. Dalton Palacios MD Aorta CTA 09/21/17 0000 Signed Impressions: Service Date/Time: Thursday, September 21, 2017 23:20 - CONCLUSION: 1. No aortic dissection or aneurysm is seen. 2. Much of the stomach is in the lower chest. The stomach is extremely distended. This is likely from a hiatal hernia or gastric pull-through procedure. No clips are seen making a large hiatal hernia more likely. Given the large amount of debris and distention of the stomach, some degree of obstruction cannot be excluded. 3. Bilateral pleural effusions. There are rounded areas of density seen in the periphery of the left lower lobe likely related to round atelectasis or focal consolidation. 4. T12 compression deformity. The patient is status post vertebroplasty at this level. 5. 3.8 cm low-density mass in the left lobe of the liver. This is nonspecific. It likely represents a cyst or hemangioma. Dalton Palacios MD Objective Remarks GENERAL: agitated and not following commands SKIN: Warm and dry. HEAD: Normocephalic. EYES: No scleral icterus. No injection or drainage. NECK: Supple, trachea midline. No JVD or lymphadenopathy. CARDIOVASCULAR: Regular rate and rhythm without murmurs, gallops, or rubs. RESPIRATORY: Breath sounds decrease bilaterally. No accessory muscle use. GASTROINTESTINAL: Abdomen soft, non-tender, nondistended. MUSCULOSKELETAL: No cyanosis, or edema. BACK: Nontender without obvious deformity. No CVA tenderness. A/P Problem List: (1) Sepsis ICD Code: A41.9 - Sepsis, unspecified organism (2) Metabolic encephalopathy ICD Code: G93.41 - Metabolic encephalopathy (3) Large hiatal hernia ICD Code: K44.9 - Diaphragmatic hernia without obstruction or gangrene (4) Coffee ground emesis ICD Code: K92.0 - Hematemesis (5) Atrial fibrillation ICD Code: I48.91 - Unspecified atrial fibrillation (6) Leukocytosis ICD Code: D72.829 - Elevated white blood cell count, unspecified (7) Debility ICD Code: R53.81 - Other malaise Assessment and Plan 87-year-old female with Sepsis Acute hypoxic respiratory failure secondary to pleural effusion and pneumonia History of chronic left pleural effusion - ID following, appreciate assistance. Currently on IV Vanco, Cefepime and Flagyl. Monitor culture report - Sundar scheduled. IS at bedside, encourage use. Acapella Possible GIB - Appreciate input from gastroenterology pending EGD when patient is medically more stable - Continue with PPI and monitor H&H - hold Heparin Metabolic encephalopathy - hold all sedating medications - treat underlying infection - fall precautions - Currently nothing by mouth with NG tube in place Poor po intake - Secondary to above - Consult dietitian for calorie count - Currently nothing by mouth with NG tube in place Acute on chronic back pain, resolved s/p T12 vertebroplasty by Dr. Wilkins January 2017 - Thoracic spine CT reveals T12 compression deformity s/p vertebroplasty, posterior bulging of the T12 vertebral body causing mild to mod compression of thecal sac - Appreciate input from neurosurgery, continue with conservative management - continue with PT/OT. OOB with assistance. Fall precautions. Atrial fibrillation - Rate controlled - Continue patient on home dose of digoxin 0.125 mg by mouth every other day - [id number] score 4, not on any anticoagulation due to history of bleeding. Patient to follow up with dermatology sales representative Dr. Montaño as outpatient. Hypertension - Continue patient on home dose of verapamil 240 mg daily - Vasotec 1.25mg IV q6h or Hydralazine 10mg q6h prn SBP>180 COPD extensive history of tobacco use, not in acute exacerbation - Sundar Alzheimer's dementia, - Patient is not on any dementia medications at home Hx of B12 deficiency - s/p 1000mcg supplementation PRAMOD, resolved - suspect due to dehydration. Resolved s/p IVF hydration. - avoid nephrotoxic agents - continue to monitor kidney function Chronic iron deficiency anemia History of GI bleed due to AVM - H&H stable - Appreciate input from gastroenterology - Continue to monitor Dyslipidemia - continue patient on home dose of statin therapy GERD - PPI DVT prophylaxis - Heparin sq on hold, continue with bilateral SCDs Leon Juan MD Sep 26, 2017 12:22
[2017-09-26] MEDS: LORazepam 2 MG/ML VIAL IV PUSH PRN (14:25)
--- NOTE | 2017-09-26 16:57 | HHI.GIFU ---
Subjective Remarks Patient is sleeping in bed, NGT with moderate coffee ground substance noted. (Ji Richardson BERTHA) Objective Vitals I&O Vital Signs Date Time Temp Pulse Resp B/P (MAP) Pulse Ox O2 Delivery O2 Flow Rate FiO2 09/26/17 14:00 88 09/26/17 12:00 83 09/26/17 12:00 97.7 81 15 146/65 (92) 98 09/26/17 10:00 93 09/26/17 08:00 99 09/26/17 08:00 97.8 99 33 137/64 (88) 83 09/26/17 07:47 93 Nasal Cannula 3.00 09/26/17 06:00 99 09/26/17 04:00 98.2 90 17 152/65 (94) 100 09/26/17 04:00 90 09/26/17 00:00 87 09/26/17 00:00 98.0 87 18 123/59 (80) 99 09/25/17 23:45 96 Simple Mask 6.00 09/25/17 21:50 96 Non-Rebreather 15.00 09/25/17 20:00 91 09/25/17 20:00 97.8 91 16 143/75 (97) 100 Manual Cuff/Palpation 09/25/17 19:46 92 Nasal Cannula 3.00 I/O 09/25/17 09/25/17 09/25/17 09/26/17 09/26/17 09/26/17 07:00 15:00 23:00 07:00 15:00 23:00 Intake Total 1410 ml 200 ml Output Total 900 ml 900 ml Balance -900 ml 510 ml 200 ml Intake Oral 960 ml IV Total 450 ml 200 ml Output Gastric Drainage Total 900 ml 900 ml # Voids 2 3 3 Laboratory Laboratory Tests Test 09/25/17 21:05 Hemoglobin 9.8 Hematocrit 30.2 Date/Time Source Procedure Growth Status 09/23/17 14:26 Blood Peripheral Aerobic Blood Culture - Preliminary NO GROWTH IN 3 DAYS Resulted 09/23/17 14:26 Blood Peripheral Anaerobic Blood Culture - Preliminary NO GROWTH IN 3 DAYS Resulted 09/24/17 13:30 Gastric Gastric Occult Blood - Final GASTROCCULT POSITIVE Complete Imaging Last Impressions Abdomen/Pelvis CT 09/25/171920 Signed Impressions: Service Date/Time: Monday, September 25, 2017 22:42 - CONCLUSION: No acute process in the abdomen or pelvis. Dalton Triplett MD Brain MRI 09/25/17 0000 Signed Impressions: Service Date/Time: Monday, September 25, 2017 12:15 - CONCLUSION: 1. Mild white matter ischemic change. Cortical volume loss. No acute findings. No mass, hemorrhage or shift. No abnormal enhancement post contrast. Flip Garcia MD Head CT 09/24/17 0000 Signed Impressions: Service Date/Time: September 20:31 - CONCLUSION: 1. No acute findings in the brain. 2. Age-appropriate atrophy. Tuan Montilla MD Chest X-Ray 09/23/17 0000 Signed Impressions: Service Date/Time: Saturday, September 23, 2017 15:05 - CONCLUSION: 1. Prominent soft tissue density in the right lower lung field appears to represent a prominent hiatal hernia on the lateral. 2. Persistent left basilar consolidation/effusion 3. Old compression fractures of the lumbar spine with findings of at least a one level kyphoplasty. Harinder Sotelo MD Abdomen X-Ray 09/23/17 0000 Signed Impressions: Service Date/Time: Saturday, September 23, 2017 15:45 - CONCLUSION: No acute disease. Marcial Jordan MD FACR Lumbar Spine X-Ray 09/22/17 0000 Signed Impressions: Service Date/Time: Friday, September 22, 2017 12:54 - CONCLUSION: 1. Redemonstration of T12 and L1 compression fractures with interval kyphoplasty at T12. 2. No new compression fracture or apparent acute abnormality. 3. Redemonstration of degenerative spondylosis of the lumbar spine. Samuel Ziegler MD Thoracic Spine CT 09/21/172033 Signed Impressions: Service Date/Time: Thursday, September 21, 2017 23:20 - CONCLUSION: T12 compression deformity that has been treated with vertebroplasty. There is a posterior bulging of the T12 vertebral body margin and a more focal impression off the posterior superior aspect of T12 vertebral body causing a mild to moderate compression of the thecal sac. There is also stable compression deformity at the superior right lateral L1 vertebral body. Dalton Palacios MD Aorta CTA 09/21/17 0000 Signed Impressions: Service Date/Time: Thursday, September 21, 2017 23:20 - CONCLUSION: 1. No aortic dissection or aneurysm is seen. 2. Much of the stomach is in the lower chest. The stomach is extremely distended. This is likely from a hiatal hernia or gastric pull-through procedure. No clips are seen making a large hiatal hernia more likely. Given the large amount of debris and distention of the stomach, some degree of obstruction cannot be excluded. 3. Bilateral pleural effusions. There are rounded areas of density seen in the periphery of the left lower lobe likely related to round atelectasis or focal consolidation. 4. T12 compression deformity. The patient is status post vertebroplasty at this level. 5. 3.8 cm low-density mass in the left lobe of the liver. This is nonspecific. It likely represents a cyst or hemangioma. Dalton Palacios MD Physical Exam HEENT: Pupils round and reactive to light; normocephalic; atraumatic; no jaundice. Throat is clear. NECK: Neck is supple, no JVD, no lymphadenopathy. CHEST:Decrease air entry bilateral CARDIAC: Regular rate and rhythm with no murmur gallop or rubs. ABDOMEN: Soft, nondistended, nontender; no hepatosplenomegaly; bowel sounds are present in all four quadrants. EXTREMITIES: No clubbing, cyanosis, or edema. (Ji Richardson) Assessment and Plan Assessment: (1) Coffee ground emesis ICD Codes: K92.0 - Hematemesis (2) Acute distention of stomach ICD Codes: K31.0 - Acute dilatation of stomach (3) Large hiatal hernia ICD Codes: K44.9 - Diaphragmatic hernia without obstruction or gangrene (4) Acute hypoxemic respiratory failure ICD Codes: J96.01 - Acute respiratory failure with hypoxia (5) Pneumonia ICD Codes: J18.9 - Pneumonia, unspecified organism Plan High risk for EGD per anesthesia, procedure to be rescheduled until more stable. Follow HH no hgb today, will order PPI NGT to [facility] Daily labs (Ji Richardson) Physician Comments As above, will keep NGT in place for now, UGI barium study in few days since endoscopy cannot be done with high anesthesia risk. (Tushar Roth MD) Ji Richardson Sep 26, 2017 16:57 Tushar Roth MD Sep 26, 2017 18:54
[2017-09-26] MEDS ORDERED: ZIPRASIDONE MESYLATE 20 MG VIAL IM ONE (19:15)
--- NOTE | 2017-09-26 19:16 | HHI.IDPN ---
Subjective Subjective Remarks remians confuse + cont to have bloody NGT output afebrile CT ab/pel negative Antibiotics cefepime flagyl vanco Allergies: Coded Allergies: No Known Allergies (Verified Allergy, Unknown, 09/22/17) Objective . Vital Signs Date Time Temp Pulse Resp B/P (MAP) Pulse Ox O2 Delivery O2 Flow Rate FiO2 09/26/17 18:00 88 09/26/17 16:00 97.6 100 23 152/66 (94) 98 09/26/17 16:00 100 09/26/17 14:00 88 09/26/17 12:00 83 09/26/17 12:00 97.7 81 15 146/65 (92) 98 09/26/17 10:00 93 09/26/17 08:00 99 09/26/17 08:00 97.8 99 33 137/64 (88) 83 09/26/17 07:47 93 Nasal Cannula 3.00 09/26/17 06:00 99 09/26/17 04:00 98.2 90 17 152/65 (94) 100 09/26/17 04:00 90 09/26/17 00:00 87 09/26/17 00:00 98.0 87 18 123/59 (80) 99 09/25/17 23:45 96 Simple Mask 6.00 09/25/17 21:50 96 Non-Rebreather 15.00 09/25/17 20:00 91 09/25/17 20:00 97.8 91 16 143/75 (97) 100 Manual Cuff/Palpation 09/25/17 19:46 92 Nasal Cannula 3.00 09/26/17 09/26/17 09/27/17 15:00 23:00 07:00 Intake Total 200 ml 1558 ml Output Total 100 ml Balance 200 ml 1458 ml IV Total 200 ml 1438 ml Other 120 ml Output Gastric Drainage Total 100 ml # Voids 3 . Laboratory Tests Test 09/24/17 19:52 09/25/17 02:43 09/25/17 15:45 09/25/17 21:05 Hemoglobin 10.3 GM/DL 11.0 GM/DL 9.9 GM/DL 9.8 GM/DL Hematocrit 31.2 % 33.9 % 29.8 % 30.2 % Laboratory Tests Test 09/25/17 15:45 Blood Urea Nitrogen 50 MG/DL Creatinine 0.96 MG/DL Random Glucose 87 MG/DL Total Protein 6.2 GM/DL Albumin 2.9 GM/DL Calcium Level 8.4 MG/DL Alkaline Phosphatase 36 U/L Aspartate Amino Transf (AST/SGOT) 17 U/L Alanine Aminotransferase (ALT/SGPT) 20 U/L Total Bilirubin 0.5 MG/DL Sodium Level 147 MEQ/L Potassium Level 3.9 MEQ/L Chloride Level 110 MEQ/L Carbon Dioxide Level 31.0 MEQ/L Anion Gap 6 MEQ/L Estimat Glomerular Filtration Rate 55 ML/MIN Microbiology Date/Time Source Procedure Growth Status 09/24/17 13:30 Gastric Gastric Occult Blood - Final GASTROCCULT POSITIVE Complete Imaging Last Impressions Abdomen/Pelvis CT 09/25/17 192 Signed Impressions: Service Date/Time: Monday, September 25, 2017 22:42 - CONCLUSION: No acute process in the abdomen or pelvis. Dalton Triplett MD Brain MRI 09/25/17 0000 Signed Impressions: Service Date/Time: Monday, September 25, 2017 12:15 - CONCLUSION: 1. Mild white matter ischemic change. Cortical volume loss. No acute findings. No mass, hemorrhage or shift. No abnormal enhancement post contrast. Flip Garcia MD Head CT 09/24/17 0000 Signed Impressions: Service Date/Time: September 20:31 - CONCLUSION: 1. No acute findings in the brain. 2. Age-appropriate atrophy. Tuan Montilla MD Chest X-Ray 09/23/17 0000 Signed Impressions: Service Date/Time: Saturday, September 23, 2017 15:05 - CONCLUSION: 1. Prominent soft tissue density in the right lower lung field appears to represent a prominent hiatal hernia on the lateral. 2. Persistent left basilar consolidation/effusion 3. Old compression fractures of the lumbar spine with findings of at least a one level kyphoplasty. Harinder Sotelo MD Abdomen X-Ray 09/23/17 0000 Signed Impressions: Service Date/Time: Saturday, September 23, 2017 15:45 - CONCLUSION: No acute disease. Marcial Jordan MD FACR Lumbar Spine X-Ray 09/22/17 0000 Signed Impressions: Service Date/Time: Friday, September 22, 2017 12:54 - CONCLUSION: 1. Redemonstration of T12 and L1 compression fractures with interval kyphoplasty at T12. 2. No new compression fracture or apparent acute abnormality. 3. Redemonstration of degenerative spondylosis of the lumbar spine. Samuel Ziegler MD Thoracic Spine CT 09/21/172033 Signed Impressions: Service Date/Time: Thursday, September 21, 2017 23:20 - CONCLUSION: T12 compression deformity that has been treated with vertebroplasty. There is a posterior bulging of the T12 vertebral body margin and a more focal impression off the posterior superior aspect of T12 vertebral body causing a mild to moderate compression of the thecal sac. There is also stable compression deformity at the superior right lateral L1 vertebral body. Dalton Palacios MD Aorta CTA 09/21/17 0000 Signed Impressions: Service Date/Time: Thursday, September 21, 2017 23:20 - CONCLUSION: 1. No aortic dissection or aneurysm is seen. 2. Much of the stomach is in the lower chest. The stomach is extremely distended. This is likely from a hiatal hernia or gastric pull-through procedure. No clips are seen making a large hiatal hernia more likely. Given the large amount of debris and distention of the stomach, some degree of obstruction cannot be excluded. 3. Bilateral pleural effusions. There are rounded areas of density seen in the periphery of the left lower lobe likely related to round atelectasis or focal consolidation. 4. T12 compression deformity. The patient is status post vertebroplasty at this level. 5. 3.8 cm low-density mass in the left lobe of the liver. This is nonspecific. It likely represents a cyst or hemangioma. Dalton Palacios MD Physical Exam CONSTITUTIONAL/GENERAL: This is a thin undernourished patient, in no apparent distress. TUBES/LINES/DRAINS: SKIN: No jaundice, rashes, or lesions. Ecchymoses on upper extremities. No wounds seen anteriorly. Skin temperature appropriate. Not diaphoretic. EYES: Pupils equal and round and reactive. Extraocular motions intact. No scleral icterus. No injection or drainage. Fundi not examined. ENT: Hearing not tested. Nose without bleeding or purulent drainage. Throat without visible erythema, exudates, masses, or lesions. NECK: Trachea midline. Supple, nontender. No palpable thyroid enlargement or nodularity. CARDIOVASCULAR: Regular rate and rhythm without murmurs, gallops, or rubs. No JVD. Peripheral pulses symmetric. RESPIRATORY/CHEST: Symmetric, unlabored respirations. Clear to auscultation. Breath sounds equal bilaterally. No wheezes, rales, or rhonchi. GASTROINTESTINAL: Abdomen soft, grimacing to palpation diffusely, midly distended. No hepato-splenomegaly, or palpable masses. No guarding. Bowel sounds present. NG in place with bloody d/c GENITOURINARY: Without palpable bladder distension. MUSCULOSKELETAL: Extremities without clubbing, cyanosis, or edema. No joint tenderness or effusion noted. No calf tenderness. No mottling or clubbing. NEUROLOGICAL: Lethargic to obtunded. Eyes opened but not making contact Not follows commands. No verbal Moves all extremities. PSYCHIATRIC: unable to assess Assessment & Plan Remarks Leukocytosis, mental status decline - slow decline over the last few days ? 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
[2017-09-26 20:32] LABS: HEMATOCRIT 28.1 % (35.0-46.0)
[2017-09-26 20:37] LABS: REVIEW FLAG FINAL
[2017-09-26] MEDS ORDERED: diphenhydrAMINE HCL 50 MG/ML VIAL IV PUSH ONE (21:00)
[2017-09-27] VITALS (13 sets, daily range): BP systolic 113–158; BP diastolic 56–87; PULSE 62–97; RESP 18–26; TEMP 96.9–100; O2SAT 88–98
[2017-09-27] MEDS: metroNIDAZOLE 500 MG INJ 100 ML IV SCH ×3 (01:14→18:10)
[2017-09-27] MEDS: PANTOPRAZOLE SODIUM 40 MG VIAL IV PUSH SCH ×2 (01:15→13:57)
[2017-09-27] MEDS: LORazepam 2 MG/ML VIAL IV PUSH PRN ×2 (01:17→11:51)
[2017-09-27] MEDS: DEXT 5%-NACL 0.45% 1000 ML INJ 1,000 ML IV SCH ×2 (03:30→11:30)
[2017-09-27] MEDS: CHLORHEXIDINE GLUCONATE 2 % 1 PACK (2 CLOTHS)(taper/protocol) TOPICAL SCH (04:00)
[2017-09-27 07:11] LABS: AUTOMATED NEUTROPHIL # 7.9 TH/MM3 (1.8-7.7); BASOPHIL # 0.1 TH/MM3 (0-0.2); BASOPHIL % 0.7 % (0.0-2.0); EOSINOPHIL % 0.4 % (0.0-4.0); HEMATOCRIT 27.3 % (35.0-46.0); HEMO FLAGS DIFF FINAL; LYMPH % 4.5 % (9.0-44.0); LYMPHOCYTE # 0.4 TH/MM3 (1.0-4.8); MEAN CELL VOLUME 97.1 FL (80.0-100.0); MEAN CORPUSCULAR HEMOGLOBIN 33.3 PG (27.0-34.0); MEAN CORPUSCULAR HGB CONC 34.3 % (32.0-36.0); MONO % 7.3 % (0.0-8.0); NEUT % 87.1 % (16.0-70.0); PLATELET COUNT 142 TH/MM3 (150-450); RED BLOOD COUNT 2.81 MIL/MM3 (4.00-5.30); RED CELL DISTRIBUTION WIDTH 14.7 % (11.6-17.2); WHITE BLOOD COUNT 9.1 TH/MM3 (4.0-11.0)
[2017-09-27 07:25] LABS: BICARBONATE 29.8 MEQ/L (21.0-32.0); POTASSIUM 3.6 MEQ/L (3.5-5.1)
[2017-09-27] MEDS: RESP: ALBUTEROL 2.5 MG/IPRATROPIUM 0.5 MG NEB (SCH) NEB ×4 (07:41→19:27)
[2017-09-27] MEDS: SODIUM CHLORIDE 0.9% FLUSH 10 ML FLUSH IV FLUSH SCH ×2 (08:47→20:05)
[2017-09-27] MEDS: PRAVASTATIN SOD 40 MG TAB PO SCH (08:47)
[2017-09-27] MEDS: CALCIUM CARBONATE 1.25 GM (CA 500 MG) TAB PO SCH (08:47)
[2017-09-27] MEDS: VERAPAMIL HCL 240 MG SUSTAINED RELEASE TAB PO SCH (08:47)
[2017-09-27] MEDS: CEFEPIME INJ 2,000 MG in SODIUM CHLORIDE 0.9% INJ 100 ML IV SCH ×2 (08:48→20:05)
[2017-09-27] MEDS: RALOXIFENE HCL 60 MG TAB PO SCH (08:48)
--- NOTE | 2017-09-27 11:04 | HHI.PR ---
Subjective Remarks Follow-up sepsis/GI bleed/delirium 09/26/17-patient seen and examined, agitated, delirious and she had episode of coffee-ground emesis overnight. 900 cc out of NG tube 09/27/17-patient seen and examined, patient had period Of agitation and confusion overnight requiring Ativan. She had episode of no stool last night. NG tube with coffee ground emesis Objective Vitals Vital Signs Date Time Temp Pulse Resp B/P (MAP) Pulse Ox O2 Delivery O2 Flow Rate FiO2 09/27/17 06:00 95 09/27/17 04:00 97.9 91 18 158/70 (99) 98 09/27/17 04:00 91 09/27/17 02:00 84 09/27/17 00:00 99.5 97 26 152/87 (108) 96 09/27/17 00:00 97 09/27/17 00:00 96 Simple Mask 6.00 09/26/17 22:44 100 Simple Mask 10.00 09/26/17 22:00 99 09/26/17 22:00 98 09/26/17 20:20 91 Nasal Cannula 4.00 09/26/17 20:00 98.0 98 28 156/67 (96) 86 09/26/17 20:00 98 09/26/17 18:00 88 09/26/17 16:00 97.6 100 23 152/66 (94) 98 09/26/17 16:00 100 09/26/17 14:00 88 09/26/17 12:00 83 09/26/17 12:00 97.7 81 15 146/65 (92) 98 I/O 09/26/17 09/26/17 09/26/17 09/27/17 09/27/17 09/27/17 07:00 15:00 23:00 07:00 15:00 23:00 Intake Total 1410 ml 200 ml 1908 ml 440 ml Output Total 900 ml 100 ml 250 ml Balance 510 ml 200 ml 1808 ml 190 ml Intake Oral 960 ml 0 ml IV Total 450 ml 200 ml 1788 ml 440 ml Other 120 ml Output Urine Total 150 ml Gastric Drainage Total 900 ml 100 ml 100 ml # Voids 3 3 1 # Bowel Movements 1 Result Diagram: 09/27/17 0604 09/27/17 0604 Imaging Last Impressions Abdomen/Pelvis CT 09/25/171920 Signed Impressions: Service Date/Time: Monday, September 25, 2017 22:42 - CONCLUSION: No acute process in the abdomen or pelvis. Dalton Triplett MD Brain MRI 09/25/17 0000 Signed Impressions: Service Date/Time: Monday, September 25, 2017 12:15 - CONCLUSION: 1. Mild white matter ischemic change. Cortical volume loss. No acute findings. No mass, hemorrhage or shift. No abnormal enhancement post contrast. Flip Garcia MD Head CT 09/24/17 0000 Signed Impressions: Service Date/Time: September 20:31 - CONCLUSION: 1. No acute findings in the brain. 2. Age-appropriate atrophy. Tuan Montilla MD Chest X-Ray 09/23/17 0000 Signed Impressions: Service Date/Time: Saturday, September 23, 2017 15:05 - CONCLUSION: 1. Prominent soft tissue density in the right lower lung field appears to represent a prominent hiatal hernia on the lateral. 2. Persistent left basilar consolidation/effusion 3. Old compression fractures of the lumbar spine with findings of at least a one level kyphoplasty. Harinder Sotelo MD Abdomen X-Ray 09/23/17 0000 Signed Impressions: Service Date/Time: Saturday, September 23, 2017 15:45 - CONCLUSION: No acute disease. Marcial Jordan MD FACR Lumbar Spine X-Ray 09/22/17 0000 Signed Impressions: Service Date/Time: Friday, September 22, 2017 12:54 - CONCLUSION: 1. Redemonstration of T12 and L1 compression fractures with interval kyphoplasty at T12. 2. No new compression fracture or apparent acute abnormality. 3. Redemonstration of degenerative spondylosis of the lumbar spine. Samuel Ziegler MD Thoracic Spine CT 09/21/172033 Signed Impressions: Service Date/Time: Thursday, September 21, 2017 23:20 - CONCLUSION: T12 compression deformity that has been treated with vertebroplasty. There is a posterior bulging of the T12 vertebral body margin and a more focal impression off the posterior superior aspect of T12 vertebral body causing a mild to moderate compression of the thecal sac. There is also stable compression deformity at the superior right lateral L1 vertebral body. Dalton Palacios MD Aorta CTA 09/21/17 0000 Signed Impressions: Service Date/Time: Thursday, September 21, 2017 23:20 - CONCLUSION: 1. No aortic dissection or aneurysm is seen. 2. Much of the stomach is in the lower chest. The stomach is extremely distended. This is likely from a hiatal hernia or gastric pull-through procedure. No clips are seen making a large hiatal hernia more likely. Given the large amount of debris and distention of the stomach, some degree of obstruction cannot be excluded. 3. Bilateral pleural effusions. There are rounded areas of density seen in the periphery of the left lower lobe likely related to round atelectasis or focal consolidation. 4. T12 compression deformity. The patient is status post vertebroplasty at this level. 5. 3.8 cm low-density mass in the left lobe of the liver. This is nonspecific. It likely represents a cyst or hemangioma. Dalton Palacios MD Objective Remarks GENERAL: agitated and not following commands SKIN: Warm and dry. HEAD: Normocephalic. EYES: No scleral icterus. No injection or drainage. NECK: Supple, trachea midline. No JVD or lymphadenopathy. CARDIOVASCULAR: Regular rate and rhythm without murmurs, gallops, or rubs. RESPIRATORY: Breath sounds decrease bilaterally. No accessory muscle use. GASTROINTESTINAL: Abdomen soft, non-tender, nondistended. MUSCULOSKELETAL: No cyanosis, or edema. BACK: Nontender without obvious deformity. No CVA tenderness. A/P Problem List: (1) Sepsis ICD Code: A41.9 - Sepsis, unspecified organism (2) Metabolic encephalopathy ICD Code: G93.41 - Metabolic encephalopathy (3) Large hiatal hernia ICD Code: K44.9 - Diaphragmatic hernia without obstruction or gangrene (4) Coffee ground emesis ICD Code: K92.0 - Hematemesis (5) Atrial fibrillation ICD Code: I48.91 - Unspecified atrial fibrillation (6) Leukocytosis ICD Code: D72.829 - Elevated white blood cell count, unspecified (7) Debility ICD Code: R53.81 - Other malaise Assessment and Plan 87-year-old female with Sepsis Acute hypoxic respiratory failure secondary to pleural effusion and pneumonia History of chronic left pleural effusion - ID following, appreciate assistance. Currently on IV Vanco, Cefepime and Flagyl. Monitor culture report - Duonebs scheduled. IS at bedside, encourage use. Acapella Possible GIB - Appreciate input from gastroenterology pending EGD when patient is medically more stable. UGI next days - Continue with PPI and monitor H&H - Continue hold Heparin Metabolic encephalopathy - hold all sedating medications - treat underlying infection - fall precautions - Currently nothing by mouth with NG tube in place Poor po intake - Secondary to above - Consult dietitian for calorie count - Currently nothing by mouth with NG tube in place Acute on chronic back pain, resolved s/p T12 vertebroplasty by Dr. Wilkins January 2017 - Thoracic spine CT reveals T12 compression deformity s/p vertebroplasty, posterior bulging of the T12 vertebral body causing mild to mod compression of thecal sac - Appreciate input from neurosurgery, continue with conservative management - continue with PT/OT. OOB with assistance. Fall precautions. Atrial fibrillation - Rate controlled - Continue patient on home dose of digoxin 0.125 mg by mouth every other day - [id number] score 4, not on any anticoagulation due to history of bleeding. Patient to follow up with engagement executive Dr. Montaño as outpatient. Hypertension - Continue patient on home dose of verapamil 240 mg daily - Vasotec 1.25mg IV q6h or Hydralazine 10mg q6h prn SBP>180 COPD extensive history of tobacco use, not in acute exacerbation - Sundar Alzheimer's dementia, - Patient is not on any dementia medications at home Hx of B12 deficiency - s/p 1000mcg supplementation PRAMOD, resolved - suspect due to dehydration. Resolved s/p IVF hydration. - avoid nephrotoxic agents - continue to monitor kidney function Chronic iron deficiency anemia History of GI bleed due to AVM - H&H stable - Appreciate input from gastroenterology - Continue to monitor Dyslipidemia - continue patient on home dose of statin therapy GERD - PPI Hypernatremia Change IV fluid to D5 half-normal saline Monitor electrolyte DVT prophylaxis - Heparin sq on hold, continue with bilateral SCDs Leon Juan MD Sep 27, 2017 11:04
[2017-09-27] MEDS ORDERED: PHARMACY ORDERED LAB ONE (14:45)
[2017-09-27] MEDS: VANCOMYCIN 1,000 MG/NS 250 ML IV SCH ×2 (15:05)
--- NOTE | 2017-09-27 18:15 | HHI.PR ---
Addendum to Inpatient Note Additional Information pt seen around 1500 today full note to follow Rama Bonilla MD Sep 27, 2017 18:15
--- NOTE | 2017-09-27 23:44 | HHI.IDPN ---
Subjective Subjective Remarks pt is very confused runnng low grade fever more SOB Antibiotics cefepime flagyl vanco Allergies: Coded Allergies: No Known Allergies (Verified Allergy, Unknown, 09/22/17) Objective . Vital Signs Date Time Temp Pulse Resp B/P (MAP) Pulse Ox O2 Delivery O2 Flow Rate FiO2 09/27/17 22:00 82 09/27/17 20:00 97.6 84 25 131/63 (85) 88 09/27/17 20:00 84 09/27/17 19:29 97 Simple Mask 6.00 09/27/17 18:00 62 09/27/17 16:00 96.9 68 22 136/63 (87) 98 09/27/17 16:00 68 09/27/17 14:00 77 09/27/17 12:00 75 09/27/17 12:00 98.0 75 20 113/56 (75) 96 09/27/17 10:00 86 09/27/17 08:00 100.0 94 24 155/68 (97) 95 09/27/17 08:00 94 Simple Mask 6.00 09/27/17 08:00 94 09/27/17 06:00 95 09/27/17 04:00 97.9 91 18 158/70 (99) 98 09/27/17 04:00 91 09/27/17 02:00 84 09/27/17 00:00 99.5 97 26 152/87 (108) 96 09/27/17 00:00 97 09/27/17 00:00 96 Simple Mask 6.00 09/27/17 09/27/17 09/28/17 15:00 23:00 07:00 Intake Total 500 ml 1440 ml Output Total 150 ml Balance 500 ml 1290 ml IV Total 500 ml 1320 ml Other 120 ml Output Urine Total 150 ml # Voids 3 . Laboratory Tests Test 09/26/17 19:42 09/27/17 06:04 Hemoglobin 9.3 GM/DL 9.4 GM/DL Hematocrit 28.1 % 27.3 % White Blood Count 9.1 TH/MM3 Red Blood Count 2.81 MIL/MM3 Mean Corpuscular Volume 97.1 FL Mean Corpuscular Hemoglobin 33.3 PG Mean Corpuscular Hemoglobin Concent 34.3 % Red Cell Distribution Width 14.7 % Platelet Count 142 TH/MM3 Mean Platelet Volume 11.4 FL Neutrophils (%) (Auto) 87.1 % Lymphocytes (%) (Auto) 4.5 % Monocytes (%) (Auto) 7.3 % Eosinophils (%) (Auto) 0.4 % Basophils (%) (Auto) 0.7 % Neutrophils # (Auto) 7.9 TH/MM3 Lymphocytes # (Auto) 0.4 TH/MM3 Monocytes # (Auto) 0.7 TH/MM3 Eosinophils # (Auto) 0.0 TH/MM3 Basophils # (Auto) 0.1 TH/MM3 CBC Comment DIFF FINAL Differential Comment Laboratory Tests Test 09/27/17 06:04 Blood Urea Nitrogen 39 MG/DL Creatinine 0.79 MG/DL Random Glucose 75 MG/DL Calcium Level 8.3 MG/DL Sodium Level 152 MEQ/L Potassium Level 3.6 MEQ/L Chloride Level 116 MEQ/L Carbon Dioxide Level 29.8 MEQ/L Anion Gap 6 MEQ/L Estimat Glomerular Filtration Rate 69 ML/MIN Imaging Last Impressions Abdomen/Pelvis CT 09/25/17 1921 Signed Impressions: Service Date/Time: Monday, September 25, 2017 22:42 - CONCLUSION: No acute process in the abdomen or pelvis. Dalton Triplett MD Brain MRI 09/25/17 0000 Signed Impressions: Service Date/Time: Monday, September 25, 2017 12:15 - CONCLUSION: 1. Mild white matter ischemic change. Cortical volume loss. No acute findings. No mass, hemorrhage or shift. No abnormal enhancement post contrast. Flip Garcia MD Head CT 09/24/17 0000 Signed Impressions: Service Date/Time: September 20:31 - CONCLUSION: 1. No acute findings in the brain. 2. Age-appropriate atrophy. Tuan Montilla MD Chest X-Ray 09/23/17 0000 Signed Impressions: Service Date/Time: Saturday, September 23, 2017 15:05 - CONCLUSION: 1. Prominent soft tissue density in the right lower lung field appears to represent a prominent hiatal hernia on the lateral. 2. Persistent left basilar consolidation/effusion 3. Old compression fractures of the lumbar spine with findings of at least a one level kyphoplasty. Harinder Sotelo MD Abdomen X-Ray 09/23/17 0000 Signed Impressions: Service Date/Time: Saturday, September 23, 2017 15:45 - CONCLUSION: No acute disease. Marcial Jordan MD FACR Lumbar Spine X-Ray 09/22/17 0000 Signed Impressions: Service Date/Time: Friday, September 22, 2017 12:54 - CONCLUSION: 1. Redemonstration of T12 and L1 compression fractures with interval kyphoplasty at T12. 2. No new compression fracture or apparent acute abnormality. 3. Redemonstration of degenerative spondylosis of the lumbar spine. Sameul Ziegler MD Thoracic Spine CT [id number] Signed Impressions: Service Date/Time: Thursday, September 21, 2017 23:20 - CONCLUSION: T12 compression deformity that has been treated with vertebroplasty. There is a posterior bulging of the T12 vertebral body margin and a more focal impression off the posterior superior aspect of T12 vertebral body causing a mild to moderate compression of the thecal sac. There is also stable compression deformity at the superior right lateral L1 vertebral body. Dalton Palacios MD Aorta CTA 09/21/17 0000 Signed Impressions: Service Date/Time: Thursday, September 21, 2017 23:20 - CONCLUSION: 1. No aortic dissection or aneurysm is seen. 2. Much of the stomach is in the lower chest. The stomach is extremely distended. This is likely from a hiatal hernia or gastric pull-through procedure. No clips are seen making a large hiatal hernia more likely. Given the large amount of debris and distention of the stomach, some degree of obstruction cannot be excluded. 3. Bilateral pleural effusions. There are rounded areas of density seen in the periphery of the left lower lobe likely related to round atelectasis or focal consolidation. 4. T12 compression deformity. The patient is status post vertebroplasty at this level. 5. 3.8 cm low-density mass in the left lobe of the liver. This is nonspecific. It likely represents a cyst or hemangioma. Dalton Palacios MD Physical Exam CONSTITUTIONAL/GENERAL: This is a thin undernourished patient, in no apparent distress. TUBES/LINES/DRAINS: SKIN: No jaundice, rashes, or lesions. Ecchymoses on upper extremities. No wounds seen anteriorly. Skin temperature appropriate. Not diaphoretic. EYES: Pupils equal and round and reactive. Extraocular motions intact. No scleral icterus. No injection or drainage. Fundi not examined. ENT: Hearing not tested. Nose without bleeding or purulent drainage. Throat without visible erythema, exudates, masses, or lesions. NECK: Trachea midline. Supple, nontender. No palpable thyroid enlargement or nodularity. CARDIOVASCULAR: Regular rate and rhythm without murmurs, gallops, or rubs. No JVD. Peripheral pulses symmetric. RESPIRATORY/CHEST: Symmetric, unlabored respirations. Clear to auscultation. Breath sounds equal bilaterally. No wheezes, rales, or rhonchi. GASTROINTESTINAL: Abdomen soft, grimacing to palpation diffusely, midly distended. No hepato-splenomegaly, or palpable masses. No guarding. Bowel sounds present. NG in place with bloody d/c GENITOURINARY: Without palpable bladder distension. MUSCULOSKELETAL: Extremities without clubbing, cyanosis, or edema. No joint tenderness or effusion noted. No calf tenderness. No mottling or clubbing. NEUROLOGICAL: obtunded. Eyes closed. t Not follows commands. No verbal Moves all extremities. PSYCHIATRIC: unable to assess Assessment & Plan Remarks Leukocytosis, mental status decline - slow decline over the last few days ? 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
[2017-09-28] VITALS (14 sets, daily range): BP systolic 121–150; BP diastolic 58–67; PULSE 69–90; RESP 14–31; TEMP 97.2–97.9; O2SAT 87–100
[2017-09-28] MEDS: PANTOPRAZOLE SODIUM 40 MG VIAL IV PUSH SCH ×2 (01:41→13:55)
[2017-09-28] MEDS: metroNIDAZOLE 500 MG INJ 100 ML IV SCH ×3 (01:42→17:26)
[2017-09-28] MEDS: CHLORHEXIDINE GLUCONATE 2 % 1 PACK (2 CLOTHS)(taper/protocol) TOPICAL SCH (04:00)
--- NOTE | 2017-09-28 04:49 | RADRPT ---
EXAM DATE/TIME: 09/28/2017 02:42 [facility] COMPARISON: CT ABDOMEN & PELVIS W CONTRAST, September 25, 2017, 22:42. CHEST PA & LAT, September 23, 2017, 15:05. INDICATIONS : Shortness of breath, possible pulmonary disease. MEDICAL HISTORY : None. SURGICAL HISTORY : Kyphoplasty. ENCOUNTER: Subsequent ACUITY: 1 week PAIN SCORE: 0/10 LOCATION: Bilateral chest FINDINGS: There is extensive airspace process bilaterally not present previously. Bilateral pleural effusions a re present to a moderate degree and left lung base consolidation is seen. NG tube is present with tip in the stomach. Chronic atherosclerotic calcifications are seen involving the visualized arteries. T here appears to be a hernia in the right lower chest as well with herniation of stomach probably huge hiatal hernia. CONCLUSION: Bilateral pleural effusions and probable significant pulmonary edema and pneumonia particularly in th e left lung base is difficult to exclude. He was hiatal hernia. Cathi Johnson MD on September 28, 2017 at 4:46 Board Certified Radiologist. This report was verified electronically.
[2017-09-28] MEDS: LORazepam 2 MG/ML VIAL IV PUSH PRN ×2 (05:00→13:55)
[2017-09-28 06:48] LABS: AUTOMATED NEUTROPHIL # 13.6 TH/MM3 (1.8-7.7); BASOPHIL # 0.1 TH/MM3 (0-0.2); BASOPHIL % 0.6 % (0.0-2.0); EOSINOPHIL # 0.1 TH/MM3 (0-0.4); EOSINOPHIL % 0.4 % (0.0-4.0); HEMATOCRIT 28.9 % (35.0-46.0); LYMPH % 3.1 % (9.0-44.0); LYMPHOCYTE # 0.5 TH/MM3 (1.0-4.8); MEAN CELL VOLUME 100.1 FL (80.0-100.0); MEAN CORPUSCULAR HEMOGLOBIN 31.4 PG (27.0-34.0); MEAN CORPUSCULAR HGB CONC 31.4 % (32.0-36.0); MONO % 8.8 % (0.0-8.0); NEUT % 87.1 % (16.0-70.0); PLATELET COUNT 171 TH/MM3 (150-450); RED BLOOD COUNT 2.89 MIL/MM3 (4.00-5.30); RED CELL DISTRIBUTION WIDTH 14.7 % (11.6-17.2); WHITE BLOOD COUNT 15.6 TH/MM3 (4.0-11.0)
[2017-09-28 07:01] LABS: HEMO FLAGS AUTO DIFF
[2017-09-28 07:03] LABS: BICARBONATE 27.6 MEQ/L (21.0-32.0); POTASSIUM 3.9 MEQ/L (3.5-5.1)
[2017-09-28] MEDS: RESP: ALBUTEROL 2.5 MG/IPRATROPIUM 0.5 MG NEB (SCH) NEB ×2 (07:23→11:14)
[2017-09-28] MEDS: PRAVASTATIN SOD 40 MG TAB PO SCH (08:21)
[2017-09-28] MEDS: DIGOXIN 0.125 MG TAB PO SCH (08:21)
[2017-09-28] MEDS: CALCIUM CARBONATE 1.25 GM (CA 500 MG) TAB PO SCH (08:21)
[2017-09-28] MEDS: CEFEPIME INJ 2,000 MG in SODIUM CHLORIDE 0.9% INJ 100 ML IV SCH (08:22)
[2017-09-28] MEDS: VERAPAMIL HCL 240 MG SUSTAINED RELEASE TAB PO SCH (08:22)
[2017-09-28] MEDS: RALOXIFENE HCL 60 MG TAB PO SCH (08:22)
[2017-09-28] MEDS: VANCOMYCIN 1,000 MG/NS 250 ML IV SCH ×2 (08:22)
[2017-09-28] MEDS: SODIUM CHLORIDE 0.9% FLUSH 10 ML FLUSH IV FLUSH SCH ×2 (08:22→20:14)
[2017-09-28 09:02] LABS: BANDS 9 % (0-6); METAMYELOCYTES 1 % (0-1); NEUTROPHIL # MANUAL DIFF 13.9 TH/MM3 (1.8-7.7); PLATELET ESTIMATE SMEAR NORMAL (NORMAL); PLATELET MORPHOLOGY NORMAL (NORMAL); POLYS (SEG NEUTROPHILS) 79 % (16-70); SCAN/DIFF FINAL DIFF MANUAL; WBC DIFF SAMPLE 100
[2017-09-28 09:03] LABS: OVALOCYTES 1+ (NORMAL)
[2017-09-28 09:04] LABS: TOXIC VACUOLATION PRESENT (NONE SEEN)
--- NOTE | 2017-09-28 12:32 | HHI.PR ---
Subjective Remarks Follow-up sepsis/GI bleed/delirium 09/26/17-patient seen and examined, agitated, delirious and she had episode of coffee-ground emesis overnight. 900 cc out of NG tube 09/27/17-patient seen and examined, patient had period Of agitation and confusion overnight requiring Ativan. She had episode of no stool last night. NG tube with coffee ground emesis 09/28/17-patient seen and examined, obtunded, currently on high oxygen mask. No report of GI bleed overnight Objective Vitals Vital Signs Date Time Temp Pulse Resp B/P (MAP) Pulse Ox O2 Delivery O2 Flow Rate FiO2 09/28/17 10:00 87 09/28/17 08:00 85 09/28/17 08:00 97.5 85 31 137/65 (89) 92 09/28/17 07:46 94 Simple Mask 8.00 09/28/17 06:00 69 09/28/17 04:00 97.2 69 27 145/67 (93) 88 09/28/17 04:00 69 09/28/17 02:00 80 09/28/17 00:00 84 09/28/17 00:00 97.9 84 28 138/65 (89) 87 09/27/17 22:00 82 09/27/17 20:00 97.6 84 25 131/63 (85) 88 09/27/17 20:00 84 09/27/17 19:29 97 Simple Mask 6.00 09/27/17 18:00 62 09/27/17 16:00 96.9 68 22 136/63 (87) 98 09/27/17 16:00 68 09/27/17 14:00 77 I/O 09/27/17 09/27/17 09/27/17 09/28/17 09/28/17 09/28/17 07:00 15:00 23:00 07:00 15:00 23:00 Intake Total 440 ml 500 ml 1440 ml 200 ml 440 ml Output Total 250 ml 150 ml 150 ml Balance 190 ml 500 ml 1290 ml 50 ml 440 ml Intake Oral 0 ml IV Total 440 ml 500 ml 1320 ml 200 ml 440 ml Other 120 ml Output Urine Total 150 ml 150 ml 150 ml Gastric Drainage Total 100 ml 0 ml # Voids 1 3 # Bowel Movements 1 0 Result Diagram: 09/28/17 04109/28/[id number] Objective Remarks GENERAL: agitated and not following commands SKIN: Warm and dry. HEAD: Normocephalic. EYES: No scleral icterus. No injection or drainage. NECK: Supple, trachea midline. No JVD or lymphadenopathy. CARDIOVASCULAR: Regular rate and rhythm without murmurs, gallops, or rubs. RESPIRATORY: Breath sounds decrease bilaterally. No accessory muscle use. GASTROINTESTINAL: Abdomen soft, non-tender, nondistended. MUSCULOSKELETAL: No cyanosis, or edema. BACK: Nontender without obvious deformity. No CVA tenderness. A/P Problem List: (1) Sepsis ICD Code: A41.9 - Sepsis, unspecified organism (2) Metabolic encephalopathy ICD Code: G93.41 - Metabolic encephalopathy (3) Large hiatal hernia ICD Code: K44.9 - Diaphragmatic hernia without obstruction or gangrene (4) Coffee ground emesis ICD Code: K92.0 - Hematemesis (5) Atrial fibrillation ICD Code: I48.91 - Unspecified atrial fibrillation (6) Leukocytosis ICD Code: D72.829 - Elevated white blood cell count, unspecified (7) Debility ICD Code: R53.81 - Other malaise Assessment and Plan 87-year-old female with Sepsis Acute hypoxic respiratory failure secondary to pleural effusion and pneumonia History of chronic left pleural effusion - ID following, appreciate assistance. Currently on IV Vanco, Cefepime and Flagyl. Monitor culture report - Duonebs scheduled. IS at bedside, encourage use. Acapella Possible GIB - Appreciate input from gastroenterology pending EGD when patient is medically more stable. UGI next days - Continue with PPI and monitor H&H - Continue hold Heparin Metabolic encephalopathy-worsening - hold all sedating medications - treat underlying infection - fall precautions - Currently nothing by mouth with NG tube in place Poor po intake - Secondary to above - Consult dietitian for calorie count - Currently nothing by mouth with NG tube in place Acute on chronic back pain, resolved s/p T12 vertebroplasty by Dr. Wilkins January 2017 - Thoracic spine CT reveals T12 compression deformity s/p vertebroplasty, posterior bulging of the T12 vertebral body causing mild to mod compression of thecal sac - Appreciate input from neurosurgery, continue with conservative management - continue with PT/OT. OOB with assistance. Fall precautions. Atrial fibrillation - Rate controlled - Continue patient on home dose of digoxin 0.125 mg by mouth every other day - [id number] score 4, not on any anticoagulation due to history of bleeding. Patient to follow up with life enrichment manager Dr. Montaño as outpatient. Hypertension - Continue patient on home dose of verapamil 240 mg daily - Vasotec 1.25mg IV q6h or Hydralazine 10mg q6h prn SBP>180 COPD extensive history of tobacco use, not in acute exacerbation - Sundar Alzheimer's dementia, - Patient is not on any dementia medications at home Hx of B12 deficiency - s/p 1000mcg supplementation PRAMOD, resolved - suspect due to dehydration. Resolved s/p IVF hydration. - avoid nephrotoxic agents - continue to monitor kidney function Chronic iron deficiency anemia History of GI bleed due to AVM - H&H stable - Appreciate input from gastroenterology - Continue to monitor Dyslipidemia - continue patient on home dose of statin therapy GERD - PPI Hypernatremia Change IV fluid to D5 half-normal saline Monitor electrolyte DVT prophylaxis - Heparin sq on hold, continue with bilateral SCDs currently with poor prognosis, will consider hospice Leon Juan MD Sep 28, 2017 12:32
[2017-09-28] MEDS: DEXT 5%-NACL 0.45% 1000 ML INJ 1,000 ML IV SCH ×2 (17:01→22:45)
--- NOTE | 2017-09-28 17:41 | HHI.IDPN ---
Subjective Subjective Remarks remains very confused afebrile, WBC jumped up to 15 K more SOB, now on simple mask cetratinine doubled Antibiotics cefepime flagyl vanco Allergies: Coded Allergies: No Known Allergies (Verified Allergy, Unknown, 09/22/17) Objective . Vital Signs Date Time Temp Pulse Resp B/P (MAP) Pulse Ox O2 Delivery O2 Flow Rate FiO2 09/28/17 16:00 88 09/28/17 16:00 97.4 88 21 124/59 (80) 100 09/28/17 14:00 88 09/28/17 12:00 90 09/28/17 12:00 97.6 90 26 150/65 (93) 99 09/28/17 10:00 87 09/28/17 08:00 85 09/28/17 08:00 97.5 85 31 137/65 (89) 92 09/28/17 07:46 94 Simple Mask 8.00 09/28/17 06:00 69 09/28/17 04:00 97.2 69 27 145/67 (93) 88 09/28/17 04:00 69 09/28/17 02:00 80 09/28/17 00:00 84 09/28/17 00:00 97.9 84 28 138/65 (89) 87 09/27/17 22:00 82 09/27/17 20:00 97.6 84 25 131/63 (85) 88 09/27/17 20:00 84 09/27/17 19:29 97 Simple Mask 6.00 09/27/17 18:00 62 09/28/17 09/28/17 09/29/17 15:00 23:00 07:00 Intake Total 440 ml Balance 440 ml IV Total 440 ml . Laboratory Tests Test 09/26/17 19:42 09/27/17 06:04 09/28/17 04:10 Hemoglobin 9.3 GM/DL 9.4 GM/DL 9.1 GM/DL Hematocrit 28.1 % 27.3 % 28.9 % White Blood Count 9.1 TH/MM3 15.6 TH/MM3 Red Blood Count 2.81 MIL/MM3 2.89 MIL/MM3 Mean Corpuscular Volume 97.1 FL 100.1 FL Mean Corpuscular Hemoglobin 33.3 PG 31.4 PG Mean Corpuscular Hemoglobin Concent 34.3 % 31.4 % Red Cell Distribution Width 14.7 % 14.7 % Platelet Count 142 TH/MM3 171 TH/MM3 Mean Platelet Volume 11.4 FL 11.7 FL Neutrophils (%) (Auto) 87.1 % 87.1 % Lymphocytes (%) (Auto) 4.5 % 3.1 % Monocytes (%) (Auto) 7.3 % 8.8 % Eosinophils (%) (Auto) 0.4 % 0.4 % Basophils (%) (Auto) 0.7 % 0.6 % Neutrophils # (Auto) 7.9 TH/MM3 13.6 TH/MM3 Lymphocytes # (Auto) 0.4 TH/MM3 0.5 TH/MM3 Monocytes # (Auto) 0.7 TH/MM3 1.4 TH/MM3 Eosinophils # (Auto) 0.0 TH/MM3 0.1 TH/MM3 Basophils # (Auto) 0.1 TH/MM3 0.1 TH/MM3 CBC Comment DIFF FINAL AUTO DIFF Differential Comment FINAL DIFF MANUAL Differential Total Cells Counted 100 Neutrophils % (Manual) 79 % Band Neutrophils % 9 % Lymphocytes % 3 % Monocytes % 8 % Neutrophils # (Manual) 13.9 TH/MM3 Metamyelocytes 1 % Toxic Vacuolation PRESENT Platelet Estimate NORMAL Platelet Morphology Comment NORMAL Ovalocytes 1+ Laboratory Tests Test 09/27/17 06:04 09/28/17 04:10 Blood Urea Nitrogen 39 MG/DL 45 MG/DL Creatinine 0.79 MG/DL 1.26 MG/DL Random Glucose 75 MG/DL 130 MG/DL Calcium Level 8.3 MG/DL 8.1 MG/DL Sodium Level 152 MEQ/L 148 MEQ/L Potassium Level 3.6 MEQ/L 3.9 MEQ/L Chloride Level 116 MEQ/L 114 MEQ/L Carbon Dioxide Level 29.8 MEQ/L 27.6 MEQ/L Anion Gap 6 MEQ/L 6 MEQ/L Estimat Glomerular Filtration Rate 69 ML/MIN 40 ML/MIN Imaging Last Impressions Chest X-Ray 09/28/17 0600 Signed Impressions: Service Date/Time: Thursday, September 28, 2017 02:42 - CONCLUSION: Bilateral pleural effusions and probable significant pulmonary edema and pneumonia particularly in the left lung base is difficult to exclude. He was hiatal hernia. Cathi Johnson MD Abdomen/Pelvis CT 09/25/17 1921 Signed Impressions: Service Date/Time: Monday, September 25, 2017 22:42 - CONCLUSION: No acute process in the abdomen or pelvis. Dalton Triplett MD Brain MRI 09/25/17 0000 Signed Impressions: Service Date/Time: Monday, September 25, 2017 12:15 - CONCLUSION: 1. Mild white matter ischemic change. Cortical volume loss. No acute findings. No mass, hemorrhage or shift. No abnormal enhancement post contrast. Flip Garcia MD Head CT 09/24/17 0000 Signed Impressions: Service Date/Time: September 20:31 - CONCLUSION: 1. No acute findings in the brain. 2. Age-appropriate atrophy. Tuan Montilla MD Abdomen X-Ray 09/23/17 0000 Signed Impressions: Service Date/Time: Saturday, September 23, 2017 15:45 - CONCLUSION: No acute disease. Marcial Jordan MD FACR Lumbar Spine X-Ray 09/22/17 0000 Signed Impressions: Service Date/Time: Friday, September 22, 2017 12:54 - CONCLUSION: 1. Redemonstration of T12 and L1 compression fractures with interval kyphoplasty at T12. 2. No new compression fracture or apparent acute abnormality. 3. Redemonstration of degenerative spondylosis of the lumbar spine. Samuel Ziegler MD Thoracic Spine CT [id number] Signed Impressions: Service Date/Time: Thursday, September 21, 2017 23:20 - CONCLUSION: T12 compression deformity that has been treated with vertebroplasty. There is a posterior bulging of the T12 vertebral body margin and a more focal impression off the posterior superior aspect of T12 vertebral body causing a mild to moderate compression of the thecal sac. There is also stable compression deformity at the superior right lateral L1 vertebral body. Dalton Palacios MD Aorta CTA 09/21/17 0000 Signed Impressions: Service Date/Time: Thursday, September 21, 2017 23:20 - CONCLUSION: 1. No aortic dissection or aneurysm is seen. 2. Much of the stomach is in the lower chest. The stomach is extremely distended. This is likely from a hiatal hernia or gastric pull-through procedure. No clips are seen making a large hiatal hernia more likely. Given the large amount of debris and distention of the stomach, some degree of obstruction cannot be excluded. 3. Bilateral pleural effusions. There are rounded areas of density seen in the periphery of the left lower lobe likely related to round atelectasis or focal consolidation. 4. T12 compression deformity. The patient is status post vertebroplasty at this level. 5. 3.8 cm low-density mass in the left lobe of the liver. This is nonspecific. It likely represents a cyst or hemangioma. Dalton Palacios MD Physical Exam CONSTITUTIONAL/GENERAL: This is a thin undernourished patient, in no apparent distress. TUBES/LINES/DRAINS: SKIN: No jaundice, rashes, or lesions. Ecchymoses on upper extremities. No wounds seen anteriorly. Skin temperature appropriate. Not diaphoretic. EYES: Pupils equal and round and reactive. Extraocular motions intact. No scleral icterus. No injection or drainage. Fundi not examined. ENT: Hearing not tested. Nose without bleeding or purulent drainage. Throat without visible erythema, exudates, masses, or lesions. NECK: Trachea midline. Supple, nontender. No palpable thyroid enlargement or nodularity. CARDIOVASCULAR: Regular rate and rhythm without murmurs, gallops, or rubs. No JVD. Peripheral pulses symmetric. RESPIRATORY/CHEST: +labored respirations. B/l rhonchi to auscultation. Breath sounds equal bilaterally. GASTROINTESTINAL: Abdomen soft, grimacing to palpation diffusely, midly distended. No hepato-splenomegaly, or palpable masses. No guarding. Bowel sounds present. NG in place with bloody d/c GENITOURINARY: Without palpable bladder distension. MUSCULOSKELETAL: Extremities without clubbing, cyanosis, or edema. No joint tenderness or effusion noted. No calf tenderness. No mottling or clubbing. NEUROLOGICAL: obtunded. Eyes closed. t Not follows commands. No verbal Moves all extremities. PSYCHIATRIC: unable to assess Assessment & Plan Remarks Leukocytosis, mental status decline - slow decline over the last few days ? 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
[2017-09-28] MEDS: LINEZOLID 600 MG PREMIX 300 ML IV SCH (18:40)
[2017-09-28] MEDS: PIPERACIL-TAZO 2.25 GM PREMIX 50 ML IV SCH (20:14)
[2017-09-29] VITALS (9 sets, daily range): BP systolic 102–133; BP diastolic 54–62; PULSE 82–92; RESP 15–36; TEMP 97.3–98.9; O2SAT 97–99
[2017-09-29] MEDS: PANTOPRAZOLE SODIUM 40 MG VIAL IV PUSH SCH ×2 (01:15→13:38)
[2017-09-29] MEDS: PIPERACIL-TAZO 2.25 GM PREMIX 50 ML IV SCH ×3 (01:15→13:38)
[2017-09-29] MEDS ORDERED: PHARMACY ORDERED LAB ONE (02:45)
--- NOTE | 2017-09-29 05:12 | RADRPT ---
EXAM DATE/TIME: 09/29/2017 03:03 [facility] COMPARISON: CHEST SINGLE AP, September 28, 2017, 2:42. INDICATIONS : Shortness of breath. MEDICAL HISTORY : None. SURGICAL HISTORY : None. ENCOUNTER: Subsequent ACUITY: 1 week PAIN SCORE: 0/10 LOCATION: Bilateral chest FINDINGS: NG tube is present with tip in the stomach. Huge hilar hernia is again seen. There is significant wor sening of left pleural effusion and left hemithorax is completely opacified and partially be due to c ollapsed lung. Large right pleural effusion is present with a vascular process probably pulmonary james ma. CONCLUSION: Completely opacified left hemithorax could be due to worsening effusion and/or collapsed lung. Cathi Johnson MD on September 29, 2017 at 5:09 Board Certified Radiologist. This report was verified electronically.
[2017-09-29] MEDS: LINEZOLID 600 MG PREMIX 300 ML IV SCH (05:41)
[2017-09-29] MEDS: SODIUM CHLORIDE 0.9% FLUSH 10 ML FLUSH IV FLUSH SCH (07:57)
[2017-09-29] MEDS: RALOXIFENE HCL 60 MG TAB PO SCH (07:57)
[2017-09-29] MEDS: PRAVASTATIN SOD 40 MG TAB PO SCH (07:57)
[2017-09-29] MEDS: VERAPAMIL HCL 240 MG SUSTAINED RELEASE TAB PO SCH (07:57)
[2017-09-29] MEDS: CALCIUM CARBONATE 1.25 GM (CA 500 MG) TAB PO SCH (07:57)
[2017-09-29] MEDS: DEXT 5%-NACL 0.45% 1000 ML INJ 1,000 ML IV SCH (10:40)
--- NOTE | 2017-09-29 11:58 | HHI.PR ---
Subjective Remarks Follow-up sepsis/GI bleed/delirium 09/26/17-patient seen and examined, agitated, delirious and she had episode of coffee-ground emesis overnight. 900 cc out of NG tube 09/27/17-patient seen and examined, patient had period Of agitation and confusion overnight requiring Ativan. She had episode of no stool last night. NG tube with coffee ground emesis 09/28/17-patient seen and examined, obtunded, currently on high oxygen mask. No report of GI bleed overnight 09/29/17-patient seen and examined, chest x-ray with evidence of large pleural effusion. case discussed with Dr Marcial Jordan, Radiology. Patient is obtunded Objective Vitals Vital Signs Date Time Temp Pulse Resp B/P (MAP) Pulse Ox O2 Delivery O2 Flow Rate FiO2 09/29/17 10:00 86 09/29/17 08:00 91 09/29/17 08:00 97.5 91 28 123/56 (78) 97 09/29/17 06:00 90 09/29/17 04:00 97.3 91 26 127/60 (82) 98 09/29/17 04:00 82 09/29/17 02:00 82 09/29/17 00:00 97.6 86 15 133/62 (85) 97 09/29/17 00:00 86 09/28/17 22:00 82 09/28/17 20:00 80 09/28/17 20:00 97.5 80 14 121/58 (79) 94 09/28/17 19:02 95 Simple Mask 8.00 09/28/17 18:00 86 09/28/17 16:00 88 09/28/17 16:00 97.4 88 21 124/59 (80) 100 09/28/17 14:00 88 09/28/17 12:00 90 09/28/17 12:00 97.6 90 26 150/65 (93) 99 I/O 09/28/17 09/28/17 09/28/17 09/29/17 09/29/17 09/29/17 07:00 15:00 23:00 07:00 15:00 23:00 Intake Total 200 ml 440 ml 1480 ml 550 ml 300 ml Output Total 150 ml 250 ml 100 ml Balance 50 ml 440 ml 1230 ml 450 ml 300 ml IV Total 200 ml 440 ml 1480 ml 550 ml 300 ml Output Urine Total 150 ml 100 ml 50 ml Gastric Drainage Total 0 ml 150 ml 50 ml # Bowel Movements 0 0 Result Diagram: 09/28/1740909/28/17409 Imaging Last Impressions Chest X-Ray 09/29/17 0600 Signed Impressions: Service Date/Time: Friday, September 29, 2017 03:03 - CONCLUSION: Completely opacified left hemithorax could be due to worsening effusion and/or collapsed lung. Cathi Johnson MD Abdomen/Pelvis CT 09/25/171920 Signed Impressions: Service Date/Time: Monday, September 25, 2017 22:42 - CONCLUSION: No acute process in the abdomen or pelvis. Dalton Triplett MD Brain MRI 09/25/17 0000 Signed Impressions: Service Date/Time: Monday, September 25, 2017 12:15 - CONCLUSION: 1. Mild white matter ischemic change. Cortical volume loss. No acute findings. No mass, hemorrhage or shift. No abnormal enhancement post contrast. Flip Garcia MD Head CT 09/24/17 0000 Signed Impressions: Service Date/Time: September 20:31 - CONCLUSION: 1. No acute findings in the brain. 2. Age-appropriate atrophy. Tuan Montilla MD Abdomen X-Ray 09/23/17 0000 Signed Impressions: Service Date/Time: Saturday, September 23, 2017 15:45 - CONCLUSION: No acute disease. Marcial Jordan MD FACR Lumbar Spine X-Ray 09/22/17 0000 Signed Impressions: Service Date/Time: Friday, September 22, 2017 12:54 - CONCLUSION: 1. Redemonstration of T12 and L1 compression fractures with interval kyphoplasty at T12. 2. No new compression fracture or apparent acute abnormality. 3. Redemonstration of degenerative spondylosis of the lumbar spine. Samuel Ziegler MD Thoracic Spine CT 09/21/172033 Signed Impressions: Service Date/Time: Thursday, September 21, 2017 23:20 - CONCLUSION: T12 compression deformity that has been treated with vertebroplasty. There is a posterior bulging of the T12 vertebral body margin and a more focal impression off the posterior superior aspect of T12 vertebral body causing a mild to moderate compression of the thecal sac. There is also stable compression deformity at the superior right lateral L1 vertebral body. Dalton Palacios MD Aorta CTA 09/21/17 0000 Signed Impressions: Service Date/Time: Thursday, September 21, 2017 23:20 - CONCLUSION: 1. No aortic dissection or aneurysm is seen. 2. Much of the stomach is in the lower chest. The stomach is extremely distended. This is likely from a hiatal hernia or gastric pull-through procedure. No clips are seen making a large hiatal hernia more likely. Given the large amount of debris and distention of the stomach, some degree of obstruction cannot be excluded. 3. Bilateral pleural effusions. There are rounded areas of density seen in the periphery of the left lower lobe likely related to round atelectasis or focal consolidation. 4. T12 compression deformity. The patient is status post vertebroplasty at this level. 5. 3.8 cm low-density mass in the left lobe of the liver. This is nonspecific. It likely represents a cyst or hemangioma. Dalton Palacios MD Objective Remarks GENERAL: agitated and not following commands SKIN: Warm and dry. HEAD: Normocephalic. EYES: No scleral icterus. No injection or drainage. NECK: Supple, trachea midline. No JVD or lymphadenopathy. CARDIOVASCULAR: Regular rate and rhythm without murmurs, gallops, or rubs. RESPIRATORY: Breath sounds decrease bilaterally. No accessory muscle use. GASTROINTESTINAL: Abdomen soft, non-tender, nondistended. MUSCULOSKELETAL: No cyanosis, or edema. BACK: Nontender without obvious deformity. No CVA tenderness. A/P Problem List: (1) Sepsis ICD Code: A41.9 - Sepsis, unspecified organism (2) Metabolic encephalopathy ICD Code: G93.41 - Metabolic encephalopathy (3) Large hiatal hernia ICD Code: K44.9 - Diaphragmatic hernia without obstruction or gangrene (4) Coffee ground emesis ICD Code: K92.0 - Hematemesis (5) Atrial fibrillation ICD Code: I48.91 - Unspecified atrial fibrillation (6) Leukocytosis ICD Code: D72.829 - Elevated white blood cell count, unspecified (7) Debility ICD Code: R53.81 - Other malaise (8) Pleural effusion ICD Code: J90 - Pleural effusion, not elsewhere classified Assessment and Plan 87-year-old female with Large Left Pleural effusion CXR noted and review by me with large left pleural effusion Case discussed with Dr Marcial Jordan, Radiology Plan for US guided Thoracentesis Sepsis Acute hypoxic respiratory failure secondary to pleural effusion and pneumonia History of chronic left pleural effusion - ID following, appreciate assistance. Currently Zyvox and Zosyn. s/p Vanco, Cefepime and Flagyl. Monitor culture report - Sundar scheduled. IS at bedside, encourage use. Acapella Possible GIB - Appreciate input from gastroenterology pending EGD when patient is medically more stable. UGI next days - Continue with PPI and monitor H&H - Continue hold Heparin Metabolic encephalopathy-worsening - hold all sedating medications - treat underlying infection - fall precautions - Currently nothing by mouth with NG tube in place Poor po intake - Secondary to above - Consult dietitian for calorie count - Currently nothing by mouth with NG tube in place Acute on chronic back pain, resolved s/p T12 vertebroplasty by Dr. Wilkins January 2017 - Thoracic spine CT reveals T12 compression deformity s/p vertebroplasty, posterior bulging of the T12 vertebral body causing mild to mod compression of thecal sac - Appreciate input from neurosurgery, continue with conservative management - continue with PT/OT. OOB with assistance. Fall precautions. Atrial fibrillation - Rate controlled - Continue patient on home dose of digoxin 0.125 mg by mouth every other day - [id number] score 4, not on any anticoagulation due to history of bleeding. Patient to follow up with exhibit carpenter Dr. Montaño as outpatient. Hypertension - Continue patient on home dose of verapamil 240 mg daily - Vasotec 1.25mg IV q6h or Hydralazine 10mg q6h prn SBP>180 COPD extensive history of tobacco use, not in acute exacerbation - Sundar Alzheimer's dementia, - Patient is not on any dementia medications at home Hx of B12 deficiency - s/p 1000mcg supplementation PRAMOD, resolved - suspect due to dehydration. Resolved s/p IVF hydration. - avoid nephrotoxic agents - continue to monitor kidney function Chronic iron deficiency anemia History of GI bleed due to AVM - H&H stable - Appreciate input from gastroenterology - Continue to monitor Dyslipidemia - continue patient on home dose of statin therapy GERD - PPI Hypernatremia Change IV fluid to D5 half-normal saline Monitor electrolyte DVT prophylaxis - Heparin sq on hold, continue with bilateral SCDs currently with poor prognosis, will consider hospice Leon Juan MD Sep 29, 2017 11:58
--- NOTE | 2017-09-29 13:49 | HHI.HCPN ---
Reason for visit a. To assist with evaluation and management of symptoms including: Debility , shortness of breath, dysphagia. b. To assist medical decision maker(s) with: better understanding of current medical conditions; weighing benefits/burdens of medical treatment options; making medical treatment decisions. . Subjective/Interval History Palliative care follow-up for further clarifications of goals of care. Patient' s clinical condition complicated by progressive altered mental status, respiratory failure with increased oxygen requirement, sepsis secondary to pneumonia, left pleural effusion. Patient over the weekend were reports of increased oxygen requirement, currently on 12 L via facial mask. Patient seen in medical ICU, she was resting in bed in moderate distress secondary to increased work of breathing. Patient obtunded, briefly opening eyes to tactile stimuli. Not verbal, or following commands. Chest x-ray 09/28 revealing bilateral pleural effusions and significant pulmonary edema, pneumonia. Follow- up chest x-ray this morning revealing completely opacified left hemithorax likely secondary to worsening effusion and/or collapsed lung. Blood cultures with no growth, infectious disease following. Pneumonia confirmed by extensive consolidation on 09/25 and 09/28. Overall very poor prognosis. Case discussed with Dr. Juan and . Met with patient's niece Camryn Juan, telephone conversation with samantha Davis. Medical update provided. Reviewed clinical course and current medical management. Shared concerns of patient's worsening clinical condition to include sepsis, pneumonia, acute respiratory failure, persistent altered mental status, GI bleed. Reviewed patient's overall poor prognosis given acute events, multiple chronic comorbidities, debilitated physical state and advanced age. Discussed continuation of conservative management short of no code vs transition patient to comfort-directed care with hospice given poor prognosis. Family declining any further invasive procedures such as thoracentesis. Considering hospice. Niece reports that patient's at a hospice care center a few years ago. Family considering hospice, referral made. Case discussed with snout puller Shauna. . Family/friend interactions See interval note. . Advance Directives Living Will: Completed, but not made available Health Care Surrogate: Copy in medical record Advance Directive Specifics Date completed: 12/17/2016. . Health Care Surrogate(s): Designation of healthcare surrogate previously completed. Patient has designated her niece Camryn Juan as HCS. Alternate surrogate is samantha Davis. . Significant change in goals: No code. Family considering transition patient to comfort-directed care with hospice. Hospice referral sent. . Objective Vital Signs Date Time Temp Pulse Resp B/P (MAP) Pulse Ox O2 Delivery O2 Flow Rate FiO2 09/29/17 12:00 89 09/29/17 10:00 86 09/29/17 08:00 91 09/29/17 08:00 97.5 91 28 123/56 (78) 97 09/29/17 06:00 90 09/29/17 04:00 97.3 91 26 127/60 (82) 98 09/29/17 04:00 82 09/29/17 02:00 82 09/29/17 00:00 97.6 86 15 133/62 (85) 97 09/29/17 00:00 86 09/28/17 22:00 82 09/28/17 20:00 80 09/28/17 20:00 97.5 80 14 121/58 (79) 94 09/28/17 19:02 95 Simple Mask 8.00 09/28/17 18:00 86 09/28/17 16:00 88 09/28/17 16:00 97.4 88 21 124/59 (80) 100 09/28/17 14:00 88 Intake & Output 09/29/17 09/29/17 07:00 19:00 Intake Total 950 ml 350 ml Output Total 100 ml Balance 850 ml 350 ml IV Total 950 ml 350 ml Output Urine Total 50 ml Gastric Drainage Total 50 ml Physical Exam CONSTITUTIONAL/GENERAL: This is a frail looking elderly female resting in bed in moderate distress secondary to increased work of breathing. Patient obtunded. TUBES/LINES/DRAINS: NG, O2 facemask, bilateral soft wrist restraints. SKIN: No jaundice, rashes, or lesions. Ecchymoses on upper extremities. No wounds seen anteriorly. Skin temperature appropriate. Not diaphoretic. HEAD: Atraumatic. Normocephalic. EYES: Pupils equal and round and reactive. No scleral icterus. No injection or drainage. ENT: Unable to evaluate hearing secondary to clinical condition. Nose without bleeding or purulent drainage. Moist oral mucosa. NECK: Trachea midline. Supple. CARDIOVASCULAR: Regular rate and rhythm without murmurs, gallops, or rubs. No JVD. Peripheral pulses symmetric. RESPIRATORY/CHEST: Symmetric, increased work of breathing. Coarse breath sounds bilaterally. GASTROINTESTINAL: Abdomen soft, nondistended. Bowel sounds present. NG with moderate amount of dark brown output. GENITOURINARY: Without palpable bladder distension. MUSCULOSKELETAL: Extremities without clubbing, cyanosis, or edema. Muscle wasting to all 4 extremities. NEUROLOGICAL: Obtunded. Not following command. PSYCHIATRIC: Unable to evaluate secondary to clinical condition. . Diagnostic Tests Laboratory Laboratory Tests Test 09/26/17 19:42 09/27/17 06:04 09/27/17 14:27 09/28/17 04:10 Hemoglobin 9.3 GM/DL (11.6-15.3) 9.4 GM/DL (11.6-15.3) 9.1 GM/DL (11.6-15.3) Hematocrit 28.1 % (35.0-46.0) 27.3 % (35.0-46.0) 28.9 % (35.0-46.0) White Blood Count 9.1 TH/MM3 (4.0-11.0) 15.6 TH/MM3 (4.0-11.0) Red Blood Count 2.81 MIL/MM3 (4.00-5.30) 2.89 MIL/MM3 (4.00-5.30) Mean Corpuscular Volume 97.1 FL (80.0-100.0) 100.1 FL (80.0-100.0) Mean Corpuscular Hemoglobin 33.3 PG (27.0-34.0) 31.4 PG (27.0-34.0) Mean Corpuscular Hemoglobin Concent 34.3 % (32.0-36.0) 31.4 % (32.0-36.0) Red Cell Distribution Width 14.7 % (11.6-17.2) 14.7 % (11.6-17.2) Platelet Count 142 TH/MM3 (150-450) 171 TH/MM3 (150-450) Mean Platelet Volume 11.4 FL (7.0-11.0) 11.7 FL (7.0-11.0) Neutrophils (%) (Auto) 87.1 % (16.0-70.0) 87.1 % (16.0-70.0) Lymphocytes (%) (Auto) 4.5 % (9.0-44.0) 3.1 % (9.0-44.0) Monocytes (%) (Auto) 7.3 % (0.0-8.0) 8.8 % (0.0-8.0) Eosinophils (%) (Auto) 0.4 % (0.0-4.0) 0.4 % (0.0-4.0) Basophils (%) (Auto) 0.7 % (0.0-2.0) 0.6 % (0.0-2.0) Neutrophils # (Auto) 7.9 TH/MM3 (1.8-7.7) 13.6 TH/MM3 (1.8-7.7) Lymphocytes # (Auto) 0.4 TH/MM3 (1.0-4.8) 0.5 TH/MM3 (1.0-4.8) Monocytes # (Auto) 0.7 TH/MM3 (0-0.9) 1.4 TH/MM3 (0-0.9) Eosinophils # (Auto) 0.0 TH/MM3 (0-0.4) 0.1 TH/MM3 (0-0.4) Basophils # (Auto) 0.1 TH/MM3 (0-0.2) 0.1 TH/MM3 (0-0.2) CBC Comment DIFF FINAL AUTO DIFF Differential Comment FINAL DIFF MANUAL Blood Urea Nitrogen 39 MG/DL (7-18) 45 MG/DL (7-18) Creatinine 0.79 MG/DL (0.50-1.00) 1.26 MG/DL (0.50-1.00) Random Glucose 75 MG/DL (74-106) 130 MG/DL (74-106) Calcium Level 8.3 MG/DL (8.5-10.1) 8.1 MG/DL (8.5-10.1) Sodium Level 152 MEQ/L (136-145) 148 MEQ/L (136-145) Potassium Level 3.6 MEQ/L (3.5-5.1) 3.9 MEQ/L (3.5-5.1) Chloride Level 116 MEQ/L (98-107) 114 MEQ/L (98-107) Carbon Dioxide Level 29.8 MEQ/L (21.0-32.0) 27.6 MEQ/L (21.0-32.0) Anion Gap 6 MEQ/L (5-15) 6 MEQ/L (5-15) Estimat Glomerular Filtration Rate 69 ML/MIN (>89) 40 ML/MIN (>89) Vancomycin Level Trough 15.4 MCG/ML (5.0-10.0) Differential Total Cells Counted 100 Neutrophils % (Manual) 79 % (16-70) Band Neutrophils % 9 % (0-6) Lymphocytes % 3 % (9-44) Monocytes % 8 % (0-8) Neutrophils # (Manual) 13.9 TH/MM3 (1.8-7.7) Metamyelocytes 1 % (0-1) Toxic Vacuolation PRESENT (NONE SEEN) Platelet Estimate NORMAL (NORMAL) Platelet Morphology Comment NORMAL (NORMAL) Ovalocytes 1+ (NORMAL) Result Diagram: 09/28/1740909/28/17409 Microbiology Microbiology Date/Time Source Procedure Growth Status 09/28/17 19:27 Blood Peripheral Aerobic Blood Culture - Preliminary NO GROWTH IN 1 DAY Resulted 09/28/17 19:27 Blood Peripheral Anaerobic Blood Culture - Preliminary NO GROWTH IN 1 DAY Resulted 09/28/17 19:22 Blood Peripheral Aerobic Blood Culture - Preliminary NO GROWTH IN 1 DAY Resulted 09/28/17 19:22 Blood Peripheral Anaerobic Blood Culture - Preliminary NO GROWTH IN 1 DAY Resulted Imaging Last 48 hours Impressions Chest X-Ray 09/29/17 06 Signed Impressions: Service Date/Time: Friday, September 29, 2017 03:03 - CONCLUSION: Completely opacified left hemithorax could be due to worsening effusion and/or collapsed lung. Cathi Johnson MD Chest X-Ray 09/28/17 0600 Signed Impressions: Service Date/Time: Thursday, September 28, 2017 02:42 - CONCLUSION: Bilateral pleural effusions and probable significant pulmonary edema and pneumonia particularly in the left lung base is difficult to exclude. He was hiatal hernia. Cathi Johnson MD Assessment and Plan Disease Oriented Problem List: (1) Acute hypoxemic respiratory failure (2) Pleural effusion (3) Pneumonia (4) Metabolic encephalopathy (5) Atrial fibrillation (6) Chronic anemia (7) Leukocytosis (8) Coffee ground emesis Symptom Scale: (1) Shortness of breath 0-10 Scale: Unable to quantify Comment: Worsening. Currently on 12 L via facemask. (2) Intractable back pain 0-10 Scale: Unable to quantify Comment: History of chronic pain. (3) Debility 0-10 Scale: Unable to quantify Comment: Progressive. 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 No family locally. Spiritual: [employer]an jonathan. Legal: Advance directives completed. Ethical issues impacting care: Patient unable to participate in medical decision -making secondary to clinical condition. Patient's nephew and niece acting as healthcare surrogate decision makers. . Important Contacts Healthcare surrogate/niece *Camryn Juan , Alternate healthcare surrogate/nephew *Theo Davis , . Prognosis Mrs. Gil is an 87-year-old female with a medical history significant for atrial fibrillation, hypertension, chronic left pleural effusion, chronic anemia and arthritis of knees. Patient presented with exacerbation of chronic back pain. Clinical course complicated by worsening altered mental status, GI bleed, respiratory failure and sepsis. Patient's prognosis is guarded given advanced age, multiple comorbidities and physical deconditioning. Patient appears hospice appropriate should family elects comfort-directed care. . Code Status: No Code Plan * CODE STATUS: No code. DNR/DNI. Community DNR in chart. * HEALTHCARE DECISION-MAKING: Patient unable to participating medical decision- making secondary to clinical condition, obtunded. Advanced directives completed , patient has designated her niece Camryn Juan as HCS. Alternate surrogate is nephew Theo Davis. * GOALS OF CARE: Conservative management short of NO code. Family considering transitioning patient to comfort-directed care with hospice given overall poor prognosis for survival. Hospice referral has been made. * SYMPTOMS: = Shortness of breath, multifactorial. Currently with acute hypoxemic respiratory failure, pleural effusions, pneumonia. Currently on 12 L via facemask, worsening. = Chronic back pain, history of T12 compression fracture status post vertebroplasty. Neurosurgery has been consulted, medical management recommended. Percocet on hold given patient's altered mental status. No doses given since admission. = Debility, progressive. * Case discussed with Dr. Juan and . * Palliative care contact information has been provided to patient's family. * Palliative care will continue to follow-up for further clarifications of goals of care as patient's clinical course continues to evolve. . Time Spent Total Floor Time (mins): 44 (Total time to include review of medical records, physical exam, goals of care conversation with patient's niece Camryn Gilbert and nephew Theo, Case discussed with Dr. Juan and . Case discussion with bedside RN and snout puller.) >50% Counseling/Coord of Care: Yes Attestation To help prompt me to consider important information that might be impacting today's encounter and assessment, information from prior notes written by myself or my colleagues may have been "brought forward" into today's note. My signature on this note, however, is an attestation that I personally performed the exam, history, and/or decision-making noted today, and, unless otherwise indicated, the interactions with patient, family, and staff as well as the review of records all occurred today. I also attest that the listed assessment and stated plan reflect my best clinical judgment today based on the combination of historical information, prior notes, and today's exam/ interactions. When time spent is documented, it refers only to time spent today by the signer, or if indicated, combined time spent today by collaborating physician/nurse practitioner. Erika Nix Sep 29, 2017 13:49
--- NOTE | 2017-09-29 14:09 | HHI.PR ---
Addendum to Inpatient Note Addendum Reason: Additional Documentation Additional Information Patient family decided against any medical intervention as they're now agreeable for discharge to hospice care center, therefore will discontinue ultrasound-guided thoracentesis of left large pleural effusion Leon Juan MD Sep 29, 2017 14:09
--- NOTE | 2017-09-29 14:13 | HHI.DS ---
Discharge Summary Admission Date Sep 24, 2017 at 11:06 Discharge Date: Sep 29, 2017 Admitting Diagnosis intractable back pain, left pleural effusion. (1) Sepsis ICD Code: A41.9 - Sepsis, unspecified organism (2) Metabolic encephalopathy ICD Code: G93.41 - Metabolic encephalopathy (3) Large hiatal hernia ICD Code: K44.9 - Diaphragmatic hernia without obstruction or gangrene (4) Coffee ground emesis ICD Code: K92.0 - Hematemesis (5) Atrial fibrillation ICD Code: I48.91 - Unspecified atrial fibrillation (6) Leukocytosis ICD Code: D72.829 - Elevated white blood cell count, unspecified (7) Debility ICD Code: R53.81 - Other malaise (8) Pleural effusion ICD Code: J90 - Pleural effusion, not elsewhere classified Procedures none Brief History - From Admission This is an 87 year female with a past medical history significant for mild Alzheimer's dementia, recurrent pleural effusions, atrial fibrillation, chronic iron deficiency anemia and a history of a compression deformity status post vertebroplasty with chronic back pain who presents to [facility] ED with complaints of acute on chronic back pain with radiation into the right shoulder. She states she's had ongoing back pain since January. Patient is a very poor historian. She states she began having increased mid and low back pain with radiation into the right shoulder yesterday. Patient denies any recent trauma or injury. When asked about pain medications patient takes at home she replies "I don't know whatever pills they give me". Pain is worse with movement. She denies any associated numbness or tingling. She lives alone. She does not have any family in the area. She denies any anterior chest pain. She reports her back pain is 07/14. CBC/BMP: 09/28/17 0410 09/28/17 0410 Significant Findings Laboratory Tests Test 09/26/17 19:42 09/27/17 06:04 09/27/17 14:27 09/28/17 04:10 Hemoglobin 9.3 GM/DL (11.6-15.3) 9.4 GM/DL (11.6-15.3) 9.1 GM/DL (11.6-15.3) Hematocrit 28.1 % (35.0-46.0) 27.3 % (35.0-46.0) 28.9 % (35.0-46.0) Red Blood Count 2.81 MIL/MM3 (4.00-5.30) 2.89 MIL/MM3 (4.00-5.30) Platelet Count 142 TH/MM3 (150-450) Mean Platelet Volume 11.4 FL (7.0-11.0) 11.7 FL (7.0-11.0) Neutrophils (%) (Auto) 87.1 % (16.0-70.0) 87.1 % (16.0-70.0) Lymphocytes (%) (Auto) 4.5 % (9.0-44.0) 3.1 % (9.0-44.0) Neutrophils # (Auto) 7.9 TH/MM3 (1.8-7.7) 13.6 TH/MM3 (1.8-7.7) Lymphocytes # (Auto) 0.4 TH/MM3 (1.0-4.8) 0.5 TH/MM3 (1.0-4.8) Blood Urea Nitrogen 39 MG/DL (7-18) 45 MG/DL (7-18) Calcium Level 8.3 MG/DL (8.5-10.1) 8.1 MG/DL (8.5-10.1) Sodium Level 152 MEQ/L (136-145) 148 MEQ/L (136-145) Chloride Level 116 MEQ/L (98-107) 114 MEQ/L (98-107) Estimat Glomerular Filtration Rate 69 ML/MIN (>89) 40 ML/MIN (>89) Vancomycin Level Trough 15.4 MCG/ML (5.0-10.0) White Blood Count 15.6 TH/MM3 (4.0-11.0) Mean Corpuscular Volume 100.1 FL (80.0-100.0) Mean Corpuscular Hemoglobin Concent 31.4 % (32.0-36.0) Monocytes (%) (Auto) 8.8 % (0.0-8.0) Monocytes # (Auto) 1.4 TH/MM3 (0-0.9) Neutrophils % (Manual) 79 % (16-70) Band Neutrophils % 9 % (0-6) Lymphocytes % 3 % (9-44) Neutrophils # (Manual) 13.9 TH/MM3 (1.8-7.7) Toxic Vacuolation PRESENT (NONE SEEN) Ovalocytes 1+ (NORMAL) Creatinine 1.26 MG/DL (0.50-1.00) Random Glucose 130 MG/DL (74-106) Imaging Last Impressions Chest X-Ray 09/29/17 0600 Signed Impressions: Service Date/Time: Friday, September 29, 2017 03:03 - CONCLUSION: Completely opacified left hemithorax could be due to worsening effusion and/or collapsed lung. Cathi Johnson MD Abdomen/Pelvis CT 09/25/17 1921 Signed Impressions: Service Date/Time: Monday, September 25, 2017 22:42 - CONCLUSION: No acute process in the abdomen or pelvis. Dalton Triplett MD Brain MRI 09/25/17 0000 Signed Impressions: Service Date/Time: Monday, September 25, 2017 12:15 - CONCLUSION: 1. Mild white matter ischemic change. Cortical volume loss. No acute findings. No mass, hemorrhage or shift. No abnormal enhancement post contrast. Flip Garcia MD Head CT 09/24/17 0000 Signed Impressions: Service Date/Time: September 20:31 - CONCLUSION: 1. No acute findings in the brain. 2. Age-appropriate atrophy. Tuan Montilla MD Abdomen X-Ray 09/23/17 0000 Signed Impressions: Service Date/Time: Saturday, September 23, 2017 15:45 - CONCLUSION: No acute disease. Marcial Jordan MD FACR Lumbar Spine X-Ray 09/22/17 0000 Signed Impressions: Service Date/Time: Friday, September 22, 2017 12:54 - CONCLUSION: 1. Redemonstration of T12 and L1 compression fractures with interval kyphoplasty at T12. 2. No new compression fracture or apparent acute abnormality. 3. Redemonstration of degenerative spondylosis of the lumbar spine. Samuel Ziegler MD Thoracic Spine CT 09/21/[id number] Signed Impressions: Service Date/Time: Thursday, September 21, 2017 23:20 - CONCLUSION: T12 compression deformity that has been treated with vertebroplasty. There is a posterior bulging of the T12 vertebral body margin and a more focal impression off the posterior superior aspect of T12 vertebral body causing a mild to moderate compression of the thecal sac. There is also stable compression deformity at the superior right lateral L1 vertebral body. Dalton Palacios MD Aorta CTA 09/21/17 0000 Signed Impressions: Service Date/Time: Thursday, September 21, 2017 23:20 - CONCLUSION: 1. No aortic dissection or aneurysm is seen. 2. Much of the stomach is in the lower chest. The stomach is extremely distended. This is likely from a hiatal hernia or gastric pull-through procedure. No clips are seen making a large hiatal hernia more likely. Given the large amount of debris and distention of the stomach, some degree of obstruction cannot be excluded. 3. Bilateral pleural effusions. There are rounded areas of density seen in the periphery of the left lower lobe likely related to round atelectasis or focal consolidation. 4. T12 compression deformity. The patient is status post vertebroplasty at this level. 5. 3.8 cm low-density mass in the left lobe of the liver. This is nonspecific. It likely represents a cyst or hemangioma. Dalton Palacios MD PE at Discharge GENERAL: agitated and not following commands SKIN: Warm and dry. HEAD: Normocephalic. EYES: No scleral icterus. No injection or drainage. NECK: Supple, trachea midline. No JVD or lymphadenopathy. CARDIOVASCULAR: Regular rate and rhythm without murmurs, gallops, or rubs. RESPIRATORY: Breath sounds decrease bilaterally. No accessory muscle use. GASTROINTESTINAL: Abdomen soft, non-tender, nondistended. MUSCULOSKELETAL: No cyanosis, or edema. BACK: Nontender without obvious deformity. No CVA tenderness. Hospital Course Prior to discharging patient to [facility], she was treated for: Although she was diagnosed with Large Left Pleural effusion on chest x-ray patient's family decided against ultrasound-guided thoracentesis Sepsis Acute hypoxic respiratory failure secondary to pleural effusion and pneumonia History of chronic left pleural effusion - ID was consulted and patient was treated with IV antibiotics Possible GIB - Gastroenterology was consulted and patient was placed on PPI with monitor H &H Metabolic encephalopathy-worsening - hold all sedating medications Poor po intake - Secondary to above - She was kept nothing by mouth with NG tube in place Acute on chronic back pain, resolved s/p T12 vertebroplasty by Dr. Wilkins January 2017 - Neurosurgery was consulted and patient was managed medically Atrial fibrillation - She was continued on home medications with telemetry monitoring Hypertension - 2 was continued on home dose of verapamil 240 mg daily - Vasotec 1.25mg IV q6h or Hydralazine 10mg q6h prn SBP>180 COPD extensive history of tobacco use, not in acute exacerbation - Glen[place] Alzheimer's dementia, - She was not on any dementia medications at home Hx of B12 deficiency - s/p 1000mcg supplementation PRAMOD, resolved - suspect due to dehydration. This resolved with IV fluid hydration - avoid nephrotoxic agents - continue to monitor kidney function Chronic iron deficiency anemia History of GI bleed due to AVM - Gastroenterology was consulted, and H&H was monitored Dyslipidemia - continue patient on home dose of statin therapy GERD - PPI Hypernatremia This resolved with IV fluid hydration DVT prophylaxis - Heparin sq on hold, continue with bilateral SCDs Pt Condition on Discharge: Deteriorating Discharge Disposition: Hospice/Med Facility Discharge Time: > 30 minutes Discharge Instructions DIET: Follow Instructions for: Nothing By Mouth Activities you can perform: Regular-No Restrictions Leon Juan MD Sep 29, 2017 14:13
== END 2017-09-29 16:50 | disposition hospice, inpatient (51) | DRG 871 ==
LOC: NEPE 20:04 → NEDA 09-22 02:11 → UNDOADMOB 09-22 02:11 → NEPFCDU 09-22 02:35 → OBSVTOIN 09-24 11:06 → HIMW 09-24 20:45
PROVIDERS: ADMIT Hospitalist; ATTEND Hospitalist
DX: A41.9 Sepsis, unspecified organism (principal); J18.9 Pneumonia, unspecified organism; J96.01 Acute respiratory failure with hypoxia; J90 Pleural effusion, not elsewhere classified; G93.41 Metabolic encephalopathy; K92.0 Hematemesis; N17.9 Acute kidney failure, unspecified; E87.0 Hyperosmolality and hypernatremia; J44.0 Chronic obstructive pulmonary disease with (acute) lower respiratory infection; G30.9 Alzheimer's disease, unspecified; F02.80 Dementia in other diseases classified elsewhere, unspecified severity, without behavioral disturbance, psychotic disturbance, mood disturbance, and anxiety; K31.0 Acute dilatation of stomach; M48.54XD Collapsed vertebra, not elsewhere classified, thoracic region, subsequent encounter for fracture with routine healing; Z99.81 Dependence on supplemental oxygen; I48.91 Unspecified atrial fibrillation; R13.10 Dysphagia, unspecified; G89.21 Chronic pain due to trauma; M54.9 Dorsalgia, unspecified; D50.9 Iron deficiency anemia, unspecified; E78.5 Hyperlipidemia, unspecified; I10 Essential (primary) hypertension; Z87.891 Personal history of nicotine dependence; M19.90 Unspecified osteoarthritis, unspecified site; K21.9 Gastro-esophageal reflux disease without esophagitis; K44.9 Diaphragmatic hernia without obstruction or gangrene; R19.5 Other fecal abnormalities; Z66 Do not resuscitate; Z51.5 Encounter for palliative care; Z78.1 Physical restraint status
CPT/HCPCS: 70450; 70553; 71010; 71020; 71275; 72100; 72128; 74000; 74174; 74177; 80048; 80053; 80162; 80202; 81001; 82140; 82270; 82306; 82607; 83605; 83690; 83880; 84100; 84443; 85007; 85014; 85018; 85025; 85027; 85610; 85730; 87040; 87641; 93005; 94150; 94640; 94664; 94667; A9579; C9113; G8987-GO; G8987-GP; G8988-GO; G8988-GP; G8996-GN; G8997-GN; G8998-GN; J0692; J0780; J1200; J1644; J2020; J2060; J2270; J2543; J3370; J3420; J3480; J3486; J7030; J7050; Q9963; Q9967